=== PATIENT | female | born 1980 | race Caucasian/White ===

== ENCOUNTER 2017-11-12 23:47 | Emergency (ER) | payer OTHER, SELFPAY ==
[2017-11-12 23:53] VITALS: BP 153/83; PULSE 117; RESP 18; TEMP 37.6; O2SAT 99; BMI 42.0
--- NOTE | 2017-11-13 00:56 | HMH.EDURI ---
ED Disposition Clinical Impression: Influenza Disposition: Home, Self-Care Condition on Discharge: Good Instructions: DI for H1N1 Influenza -- Adult Additional Instructions: fluids and see pcp for follow up Prescriptions: Benzonatate [Tessalon Perle 100mg Cap] 100 mg PO TID #30 cap Oseltamivir Phosphate [Tamiflu 75mg Capsule] 75 mg PO BID #10 cap - Critical Care Critical Care Time: No Attestation: On 11/12/17, the high probability of a clinically significant, sudden or life threatening deterioration of the following system(s) required my full and direct attention, intervention and personal management. The time I documented below is in addition to time spent performing reported procedures but includes the following listed in this critical care notation. Medical Decision Making - Medical Records Medical records reviewed: Yes: I reviewed the patient's medical records. Vital Signs: 11/12/17 23:53 Temperature 99.6 F Temperature Source Oral Pulse Rate [Brachial] 117 H Respiratory Rate 18 Blood Pressure [Right Arm] 153/83 Blood Pressure Mean [Right Arm] 106 Blood Pressure Source [Right Arm] Automatic Cuff Blood Pressure Position [Right Arm] Sitting 02 Sat by Pulse Oximetry 99 Oxygen Delivery Method Room Air - Lab Data Lab results reviewed: Yes: I reviewed the patient's lab results. Lab Results 11/13/17 00:05: Influenza Type A Ag Negative, Influenza Type B Ag Positive - Bishop Inquiry Pt receiving controlled substance: No URI/Sore Throat HPI - General Chief Complaint: Upper Respiratory Infection Stated Complaint: Aching,Drainage Nasal Time Seen by Provider: 11/13/17 00:57 Mode of Arrival: Ambulatory Source of Information: Patient, Significant Other, Medical Record Limitations: No Limitations Description of Symptoms (Recalled from ER Triage Doc. by RN): BODY ACHES, COUGH, RUNNY NOSE, FEVER - History of Present Illness HPI Narrative: achey and cough over the last few days with no rash MD Complaint: fever, cough, nasal congestion Onset (ago): day(s) Severity: moderate Relieving factors: OTC cold medicine Description of mucous: clear Context: sick contacts - Related Data Home Medications Medication Instructions Recorded Confirmed Albuterol Sulfate [Proventil-HFA 2 puffs PO NEEDED PRN 11/13/17 11/13/17 90mcg/puff Inh] Previous Rx's Medication Instructions Recorded Benzonatate [Tessalon Perle 100mg 100 mg PO TID #30 cap 11/13/17 Cap] Oseltamivir Phosphate [Tamiflu 75 mg PO BID #10 cap 11/13/17 75mg Capsule] Allergies Allergy/AdvReac Type Severity Reaction Status Date / Time Penicillins [PENICILLINS] Allergy Unknown PASSED OUT Verified 11/13/17 00:01 [facility] History I have reviewed the patient's past medical history: Yes - *Social History Alcohol Intake: never - Psychiatric History Expresses thoughts of harming self/others: None Suicide Plan Description: No Plan ROS Obtained: Yes All systems reviewed & no additional complaints - Constitutional Constitutional: Reports fever(s) - Eyes Eyes: Denies change in vision - ENT Ears, Nose, Mouth, and Throat: Reports nasal congestion - Cardiovascular Cardiovascular: Denies chest pain at rest - Respiratory Respiratory: Yes cough, No coughing up blood - Gastrointestinal Gastrointestingal: Denies: abdominal pain - Musculoskeletal Musculoskeletal: Denies joint pain - Neurologic Neurologic: Denies seizure-like activity Physical Exam - General General appearance: alert, in no apparent distress - Head Head exam: atraumatic - Eye Eye exam: Present: PERRL, EOMI. Absent: scleral icterus - ENT ENT exam: Present: mucous membranes moist - Neck Neck exam: Present: full ROM - Respiratory Respiratory exam: Present: other (rhonchi). Absent: respiratory distress - Cardiovascular Cardiovascular exam: Present: regular rate. Absent: systolic murmur - Abdominal Exam Abdomin
--- NOTE | 2017-11-13 01:00 | ED_ITS ---
ED Disposition Clinical Impression: Influenza Disposition: Home, Self-Care Condition on Discharge: Good Instructions: DI for H1N1 Influenza -- Adult Additional Instructions: fluids and see pcp for follow up Prescriptions: Benzonatate [Tessalon Perle 100mg Cap] 100 mg PO TID #30 cap Oseltamivir Phosphate [Tamiflu 75mg Capsule] 75 mg PO BID #10 cap - Critical Care Critical Care Time: No Attestation: On 11/12/17, the high probability of a clinically significant, sudden or life threatening deterioration of the following system(s) required my full and direct attention, intervention and personal management. The time I documented below is in addition to time spent performing reported procedures but includes the following listed in this critical care notation. Medical Decision Making - Medical Records Medical records reviewed: Yes: I reviewed the patient's medical records. Vital Signs: 11/12/17 23:53 Temperature 99.6 F Temperature Source Oral Pulse Rate [Brachial] 117 H Respiratory Rate 18 Blood Pressure [Right Arm] 153/83 Blood Pressure Mean [Right Arm] 106 Blood Pressure Source [Right Arm] Automatic Cuff Blood Pressure Position [Right Arm] Sitting 02 Sat by Pulse Oximetry 99 Oxygen Delivery Method Room Air - Lab Data Lab results reviewed: Yes: I reviewed the patient's lab results. Lab Results 11/13/17 00:05: Influenza Type A Ag Negative, Influenza Type B Ag Positive - Bishop Inquiry Pt receiving controlled substance: No URI/Sore Throat HPI - General Chief Complaint: Upper Respiratory Infection Stated Complaint: Aching,Drainage Nasal Time Seen by Provider: 11/13/17 00:57 Mode of Arrival: Ambulatory Source of Information: Patient, Significant Other, Medical Record Limitations: No Limitations Description of Symptoms (Recalled from ER Triage Doc. by RN): BODY ACHES, COUGH , RUNNY NOSE, FEVER - History of Present Illness HPI Narrative: achey and cough over the last few days with no rash MD Complaint: fever, cough, nasal congestion Onset (ago): day(s) Severity: moderate Relieving factors: OTC cold medicine Description of mucous: clear Context: sick contacts - Related Data Home Medications Medication Instructions Recorded Confirmed Albuterol Sulfate [Proventil-HFA 2 puffs PO NEEDED PRN 11/13/17 11/13/17 90mcg/puff Inh] Previous Rx's Medication Instructions Recorded Benzonatate [Tessalon Perle 100mg 100 mg PO TID #30 cap 11/13/17 Cap] Oseltamivir Phosphate [Tamiflu 75 mg PO BID #10 cap 11/13/17 75mg Capsule] Allergies Allergy/AdvReac Type Severity Reaction Status Date / Time Penicillins [PENICILLINS] Allergy Unknown PASSED OUT Verified 11/13/17 00:01 [facility] History I have reviewed the patient's past medical history: Yes - *Social History Alcohol Intake: never - Psychiatric History Expresses thoughts of harming self/others: None Suicide Plan Description: No Plan ROS Obtained: Yes All systems reviewed & no additional complaints - Constitutional Constitutional: Reports fever(s) - Eyes Eyes: Denies change in vision - ENT Ears, Nose, Mouth, and Throat: Reports nasal congestion - Cardiovascular Cardiovascular: Denies chest pain at rest - Respiratory
== END 2017-11-13 01:12 | disposition home or self-care (01) ==
PROVIDERS: Emergency Provider Emergency Medicine
DX: J11.1 Influenza due to unidentified influenza virus with other respiratory manifestations (principal); Z88.1 Allergy status to other antibiotic agents
CPT/HCPCS: 87275; 87276; 99282

== ENCOUNTER 2017-11-15 12:06 | Emergency (ER) | payer OTHER, SELFPAY ==
[2017-11-15 12:17] VITALS: BP 150/77; PULSE 92; RESP 18; TEMP 37; O2SAT 98; BMI 38.9
--- NOTE | 2017-11-15 12:29 | HMH.EDGENADL ---
ED Disposition Clinical Impression: Hyperglycemia UTI (urinary tract infection) Qualifiers: Urinary tract infection type: acute cystitis Hematuria presence: without hematuria Qualified Code(s): N30.00 - Acute cystitis without hematuria Vomiting Qualifiers: Vomiting type: unspecified Vomiting Intractability: non-intractable Nausea presence: with nausea Qualified Code(s): R11.2 - Nausea with vomiting, unspecified Diarrhea Qualifiers: Diarrhea type: unspecified type Qualified Code(s): R19.7 - Diarrhea, unspecified Disposition: Home, Self-Care Condition on Discharge: Good Instructions: DI for Urinary Tract Infection (UTI), DI for Vomiting -- Adult, DI for Diarrhea and Traveler's Diarrhea -- Adult, DI for Hyperglycemia -- Adult Additional Instructions: Off work until 11/17/17. Stop taking Tamiflu as this may be causing vomiting. Follow-up with Dr. Cox for elevated blood sugar. Call Friday for appointment. Additional instructions for URINARY TRACT INFECTION: See your physician as soon as possible for further evaluation. Return immediately if you have an uncontrollable fever greater than 102 degrees, severe back or abdominal pain, inability to urinate, or repetetive vomiting. Prescriptions: Ciprofloxacin HCl [Ciprofloxacin 500mg Tab] 500 mg PO BID #20 tab Ondansetron [Zofran 4mg ODT] 4 mg PO TIDP PRN #10 tab.rapdis PRN Reason: Nausea And Vomiting Referrals: Provider,MD Denny [Primary Care Provider] - Francisco Cox MD [Staff Physician] - 3 days Forms: Work/School Release - Critical Care Critical Care Time: No Attestation: On 11/15/17, the high probability of a clinically significant, sudden or life threatening deterioration of the following system(s) required my full and direct attention, intervention and personal management. The time I documented below is in addition to time spent performing reported procedures but includes the following listed in this critical care notation. Medical Decision Making Vital Signs: 11/15/17 12:17 Temperature 98.6 F Temperature Source Oral Pulse Rate [Right Brachial] 92 H Respiratory Rate 18 Blood Pressure [Right Arm] 150/77 Blood Pressure Mean [Right Arm] 101 Blood Pressure Source [Right Arm] Automatic Cuff Blood Pressure Position [Right Arm] Sitting 02 Sat by Pulse Oximetry 98 Oxygen Delivery Method Room Air - Lab Data Lab results reviewed: Yes: I reviewed the patient's lab results. Lab Results 11/15/17 12:38: Urine Color Yellow, Urine Appearance Turbid, Urine pH 7.0, Ur Specific [place] 1.020, Urine Protein 3+, Urine Glucose (UA) Negative, Urine Ketones Negative, Urine Blood 2+, Urine Nitrate Positive, Urine Bilirubin Negative, Urine Urobilinogen 0.2, Ur Leukocyte Esterase 1+ A, Urine WBC Tntc, Ur Squamous Epith Cells 20-50, Urine Bacteria 4+ 11/15/17 12:38: WBC 4.0 L, RBC 4.87, Hgb 14.7, Hct 42.8, MCV 87.9, MCH 30.1, MCHC 34.2, RDW 13.9, Plt Count 135 L, MPV 7.6, Neut % (Auto) 67.6, Lymph % (Auto) 22.4, [place] % (Auto) 5.8, Eos % (Auto) 4.0, Baso % (Auto) 0.3, Neut # (Auto) 2.7, Lymph # (Auto) 0.9, [place] # (Auto) 0.2, Eos # (Auto) 0.2, Baso # (Auto) 0.0 11/15/17 12:38: Sodium 139, Potassium 3.9, Chloride 105, Carbon Dioxide 29, Anion Gap 8.9, BUN 9, Creatinine 0.98, Estimated Creat Clear 144, Estimated GFR 64, Est GFR ( Amer) 77, Glucose 155 H, Calcium 7.9 L, Total Bilirubin 0.7, AST 28, ALT 20, Alkaline Phosphatase 52, Total Protein 6.9, Albumin 2.7 L, Globulin 4.2 H, Albumin/Globulin Ratio 0.6 L Result diagrams: 11/15/17 12:38 11/15/17 12:38 Orders (Tests/Meds): ED MEDICATIONS Discontinued Medications Generic Name Dose Route Start Last Admin Trade Name Freq PRN Reason Stop Dose Admin Ondansetron HCl 4 mg 11/15/17 12:33 11/15/17 12:46 Zofran 4mg/2ml Vial IV 11/15/17 12:34 4 mg ONCE ONE Administration Sodium Chloride 1,000 ml 11/15/17 12:33 11/15/17 12:45 Sod Chloride 0.9% 1000ml Bag IV 11/15/17
[2017-11-15 12:48] LABS: Microscopic, Urine URINE MICROSCOPIC (MICROSCOPIC)
[2017-11-15 12:52] LABS: Appearance,Urine TURBID (Clear); Bilirubin,Urine Negative (Negative); Blood, Urine 2+ (Negative); Color,Urine YELLOW (Yellow); Glucose,Urine (UA) Negative (Negative); Ketones,Urine Negative (Negative); Leukocyte Esterase,Urine 1+ (Negative); Nitrate,Urine POSITIVE (Negative); Protein,Urine 3+ (Negative); Urobilinogen,Urine 0.2 EU/dl (0.2)
[2017-11-15 12:56] LABS: Basophils % 0.3 % (0.1-2.0); Eosinophils # 0.2 K/mm3 (0.0-0.4); Hematocrit 42.8 % (37.0-47.0); Hemoglobin 14.7 g/dL (12.2-16.2); Lymphocytes # 0.9 K/mm3 (0.7-4.5); Lymphocytes % 22.4 K/mm3 (10-50); Mean Corpuscular HGB Conc 34.2 g/dL (31.8-35.4); Mean Corpuscular Hemoglobin 30.1 pg (27.0-31.2); Mean Corpuscular Volume 87.9 fl (81-99); Mean Platelet Volume 7.6 fl (7.4-10.4); Monocytes # 0.2 K/mm3 (0.1-1.0); Monocytes % 5.8 % (1.7-9.3); Neutrophils # 2.7 K/mm3 (1.8-7.8); Neutrophils % 67.6 % (37.0-80.0); Platelet Count 135 K/mm3 (142-424); Red Blood Count 4.87 M/mm3 (4.20-5.40); Red Cell Distribution Width 13.9 % (11.5-17.5)
[2017-11-15 13:01] LABS: Bacteria,Urine 4+ /lpf; Squamous Epithelial Cell,Urine 20-50 #/hpf (0-5); WBC,Urine TNTC #/hpf (0-3)
[2017-11-15 13:05] LABS: Alanine Aminotransferase 20 U/L (12-78); Albumin Level 2.7 gm/dL (3.4-5.0); Albumin/Globulin Ratio 0.6 (1.1-1.8); Alkaline Phosphatase 52 U/L (46-116); Anion Gap 8.9 mEq/L (5-15); Aspartate Amino Transferase 28 U/L (15-37); Bilirubin,Total 0.7 mg/dL (0.2-1.0); Blood Urea Nitrogen 9 mg/dL (7-18); Calcium 7.9 mg/dL (8.5-10.1); Carbon Dioxide 29 mmol/L (21.0-32.0); Chloride 105 mmol/L (98-107); Creatinine Clearance Estimated 144 mL/min (0-300); Creatinine,Serum 0.98 mg/dL (0.55-1.02); Estimated Glomerular Filt Rate 64 ml/min (>60); GFR (African American) 77 ML/MIN (>60); Globulin 4.2 gm/dl (1.3-3.2); Glucose 155 mg/dL (74-106); Potassium 3.9 mmoL/L (3.5-5.1); Sodium 139 mmol/L (136-145); Total Protein,Serum 6.9 gm/dL (6.4-8.2)
[2017-11-15 13:29] VITALS: BP 126/72; PULSE 74; RESP 18; O2SAT 96
== END 2017-11-15 13:45 | disposition home or self-care (01) ==
PROVIDERS: Emergency Provider Emergency Medicine
DX: R73.9 Hyperglycemia, unspecified (principal); N30.00 Acute cystitis without hematuria; R19.7 Diarrhea, unspecified; R11.10 Vomiting, unspecified; Z88.0 Allergy status to penicillin; Z79.899 Other long term (current) drug therapy
CPT/HCPCS: 80053; 81001; 85025; 87086; 87088; 87186; 96374; 96375; 99283; J2405

== ENCOUNTER → 2018-03-09 14:15 | Outpatient (REF) | payer OTHER, SELFPAY ==
[2018-03-09 18:17] LABS: Basophils % 0.3 % (0.1-2.0); Eosinophils # 0.2 K/mm3 (0.0-0.4); Eosinophils % 4.1 % (0.1-12.0); Hematocrit 39.4 % (37.0-47.0); Hemoglobin 13.3 g/dL (12.2-16.2); Lymphocytes # 1.2 K/mm3 (0.7-4.5); Lymphocytes % 22.4 K/mm3 (10-50); Mean Corpuscular HGB Conc 33.7 g/dL (31.8-35.4); Mean Corpuscular Hemoglobin 30.6 pg (27.0-31.2); Mean Corpuscular Volume 90.8 fl (81-99); Mean Platelet Volume 7.8 fl (7.4-10.4); Monocytes # 0.4 K/mm3 (0.1-1.0); Monocytes % 6.4 % (1.7-9.3); Neutrophils # 3.7 K/mm3 (1.8-7.8); Neutrophils % 66.8 % (37.0-80.0); Platelet Count 205 K/mm3 (142-424); Red Blood Count 4.34 M/mm3 (4.20-5.40); Red Cell Distribution Width 14.5 % (11.5-17.5); White Blood Count 5.5 K/mm3 (4.8-10.8)
[2018-03-09 19:05] LABS: Hemoglobin A1C 6.7 % (0.0-7.0)
[2018-03-09 19:11] LABS: Alanine Aminotransferase 29 U/L (12-78); Albumin Level 2.6 gm/dL (3.4-5.0); Albumin/Globulin Ratio 0.7 (1.1-1.8); Alkaline Phosphatase 47 U/L (46-116); Aspartate Amino Transferase 28 U/L (15-37); Bilirubin,Total 0.4 mg/dL (0.2-1.0); Blood Urea Nitrogen 10 mg/dL (7-18); Calcium 8.2 mg/dL (8.5-10.1); Carbon Dioxide 25 mmol/L (21.0-32.0); Chol/HDL Ratio 3.7 (1-3.5); Cholesterol 128 mg/dL (140-200); Creatinine,Serum 0.96 mg/dL (0.55-1.02); Estimated Glomerular Filt Rate 65 ml/min (>60); Free T4 (Free Thyroxine) 1.04 ng/dl (0.76-1.46); GFR (African American) 79 ML/MIN (>60); Globulin 3.5 gm/dl (1.3-3.2); Glucose 229 mg/dL (74-106); HDL Cholesterol 35 mg/dL (29-89); LDL Cholesterol 48 mg/dL (0-130); Total Protein,Serum 6.1 gm/dL (6.4-8.2); Triglycerides 225 mg/dL (30-200); VLDL Cholesterol 45 mg/dL (0-40)
[2018-03-09 19:14] LABS: Potassium 4.4 mmoL/L (3.5-5.1)
[2018-03-09 19:28] LABS: Anion Gap 7.4 mEq/L (5-15); Chloride 104 mmol/L (98-107); Sodium 132 mmol/L (136-145)
[2018-03-12 06:19] LABS: Vitamin D 25 Hydroxy 17.7 ng/mL (30.0-100.0)
== END ==
LOC: LAB 14:15
PROVIDERS: Visit Provider Nurse Practitioner Family
DX: R53.83 Other fatigue (principal); Z79.899 Other long term (current) drug therapy
CPT/HCPCS: 80053; 80061; 82652; 83036; 84439; 84443; 85025

== ENCOUNTER → 2018-03-13 13:43 | Outpatient (CLI) | payer OTHER, SELFPAY ==
[2018-03-13 18:22] LABS: HCG Qualitative, Serum Negative (Negative)
== END ==
PROVIDERS: Visit Provider Nurse Practitioner Family
DX: N92.6 Irregular menstruation, unspecified (principal)
CPT/HCPCS: 84703

== ENCOUNTER → 2018-06-24 12:58 | Outpatient (CLI) | payer OTHER, SELFPAY ==
[2018-06-24 13:35] LABS: Uric Acid 6.4 mg/dL (2.6-7.2)
[2018-06-24 13:36] LABS: Hemoglobin A1C 6.6 % (0.0-7.0)
[2018-06-24 15:06] LABS: Erythrocyte Sedimentation Rate 41 mm/hr (0-20)
== END ==
PROVIDERS: Visit Provider Nurse Practitioner Family
DX: M79.675 Pain in left toe(s) (principal); R53.83 Other fatigue
CPT/HCPCS: 36415; 83036; 84550; 85651

== ENCOUNTER → 2018-07-20 10:02 | Outpatient (CLI) | payer OTHER, SELFPAY ==
--- NOTE | 2018-07-20 10:04 | XR_ITS ---
XR foot wt bearing LT 3V HISTORY: Left foot and toe pain ITS.REASON: toe pain ORDERING PHYSICIAN: Nimo Evans DPM PATIENT AGE: 38 years COMPARISON: None FINDINGS: No fracture or dislocation. No lytic or blastic change. Hypertrophic changes are present dorsally at the navicular cuneiform joint. There is a prominent calcaneal spur at 16 mm. There are hypertrophic changes also at the bases of the second, third, and fourth metatarsals. IMPRESSION: No acute finding. Hypertrophic changes at the navicular cuneiform joint with prominent calcaneal spur noted
--- NOTE | 2018-07-20 10:04 | XR_ITS ---
XR foot wt bearing RT 3V HISTORY: Foot pain ITS.REASON: toe pain ORDERING PHYSICIAN: Nimo Evans DPM PATIENT AGE: 38 years COMPARISON: None FINDINGS: No fracture or dislocation. No lytic changes. There are hypertrophic changes dorsally at the talonavicular joint and at the navicular cuneiform joint and there are hypertrophic changes at the bases of the second, third, and fourth metatarsals. There is a fairly prominent calcaneal spur at 13 mm. No lytic or blastic change. IMPRESSION: No acute finding. Hypertrophic changes at the talonavicular and navicular cuneiform joint as well mildly prominent calcaneal spur
[2018-07-20 11:02] LABS: Urine Pregnancy, HCG Qual. Negative (Negative)
== END ==
PROVIDERS: PCP Emergency Medicine; Visit Provider Podiatrist
DX: M79.676 Pain in unspecified toe(s) (principal); N92.6 Irregular menstruation, unspecified
CPT/HCPCS: 73630; 81025

== ENCOUNTER → 2018-08-06 08:46 | Outpatient (CLI) | payer OTHER, SELFPAY ==
--- NOTE | 2018-08-06 08:52 | US_ITS ---
US Arterial Ankle Brachial Ind History: ITS.REASON: skin changes, blue toe, claudication, pain ORDERING PHYSICIAN: Nimo Evans DPM PATIENT AGE: 38 years TECHNIQUE: Segmental pressures obtained of both right and left leg. These are compared to brachial blood pressure to yield index at each level sampled including summary LORI. The data sheets from the procedure are available in PACS FINDINGS Rest study only performed today No prior studies available for comparison. Blood pressures reported are in millimeters mercury. RIGHT LEG LORI = 1.2. RIGHT LEG TBI=1.2 Brachial BP: 143 Thigh BP: 187 Calf BP: 196 Ankle PT: 185 Ankle DP : 172 Digit =175 LEFT LEG LORI = 1.3 LEFT LEG TBI= 1.2 Brachial BPD: 150 Thigh BP: 172 Calf BP: 211 Ankle PT:189 Ankle DP: 172 Digit = 175 Pulses and waveforms: Normal IMPRESSION: The ABIs and TBI as reported above are within normal limits. Waveforms and pulses are also unremarkable.
== END ==
PROVIDERS: PCP Emergency Medicine; Visit Provider Podiatrist
DX: R09.89 Other specified symptoms and signs involving the circulatory and respiratory systems (principal)
CPT/HCPCS: 93922

== ENCOUNTER → 2019-01-26 10:55 | Outpatient (CLI) | payer OTHER, SELFPAY ==
--- NOTE | 2019-01-26 10:59 | XR_ITS ---
XR chest 2V HISTORY: ITS.REASON: cough ORDERING PHYSICIAN: Pearl Miles PATIENT AGE: 38 years COMPARISON: 11/17/2018 FINDINGS: The cardiomediastinal silhouette and pulmonary vascularity are within normal limits. The lungs are clear without infiltrates, suspicious nodules, or pleural effusions. No acute bony abnormalities. IMPRESSION: Negative chest, no acute finding
== END ==
PROVIDERS: PCP Emergency Medicine; Visit Provider Nurse Practitioner Family
DX: R05 Cough (principal); R06.02 Shortness of breath
CPT/HCPCS: 71046

== ENCOUNTER → 2020-06-27 16:14 | Outpatient (CLI) | payer OTHER, SELFPAY ==
[2020-06-27 21:41] LABS: Hemoglobin A1C 7.8 % (4.0-6.0)
[2020-06-27 22:03] LABS: Creatinine,Urine Random 115 mg/dL (Not Estab.)
== END ==
PROVIDERS: Visit Provider Family Medicine
DX: E11.9 Type 2 diabetes mellitus without complications (principal); N39.0 Urinary tract infection, site not specified
CPT/HCPCS: 82043; 82570; 83036

== ENCOUNTER → 2020-10-03 16:50 | Outpatient (CLI) | payer OTHER, SELFPAY ==
[2020-10-05 09:50] LABS: Covid-19 Nasal PCR Sendout Lex NOT DETECTED
== END ==
PROVIDERS: PCP Emergency Medicine; Visit Provider Emergency Medicine
DX: Z03.818 Encounter for observation for suspected exposure to other biological agents ruled out (principal)
CPT/HCPCS: U0004

== ENCOUNTER 2020-12-03 15:07 | Emergency (ER) | payer OTHER, SELFPAY ==
[2020-12-03 15:08] VITALS: BP 145/81; PULSE 91; RESP 16; TEMP 37; O2SAT 98; BMI 40.8
--- NOTE | 2020-12-03 15:15 | PC.NURSE ---
PT ALERT AND ORIENTED X 4 SKIN WARM AND DRY PT FOLLOWS COMMANDS PT AMBULATORY.
--- NOTE | 2020-12-03 15:23 | CT_ITS ---
PROCEDURE: CT HEAD/BRAIN WO CON CLINICAL INDICATION: HEADACHE Headache for 3 days with nausea and vomiting COMPARISON: No exams were available for comparison TECHNIQUE: Axial images obtained. All CT scans at the facility use one or more dose reduction, viz: automated exposure control, ma/kV adjustment per patient size (including targeted exams where dose is matched to indication, i.e. head), or iterative reconstruction technique. FINDINGS: There is asymmetrical thickening lobulation increased density of left choroid plexus compared to the right which is suspicious for hemorrhage extending posteriorly into the trigone of the left lateral ventricle. No midline shift or mass effect. No hydrocephalus. No mastoid effusion or sinus air-fluid level. IMPRESSION: Findings suspicious for acute versus subacute intraventricular hemorrhage involving the left lateral ventricle. Differential diagnosis would include hypertension, and a coagulation therapy, underlying occult intraventricular tumor or vascular malformation. Dictated by: Antonino Mireles MD 12/04/2020 05:34 Antonino Mireles MD in [place] 12/04/2020 05:34
--- NOTE | 2020-12-03 15:37 | PC.NURSE ---
PT IN CT
--- NOTE | 2020-12-03 16:19 | HMH.EDGENADL ---
ED Disposition Clinical Impression: Intraventricular hemorrhage Disposition: Xfer Short-Term Hosp Condition on Discharge: Serious Referrals: Francisco Cox MD [Primary Care Provider] - - Critical Care Critical Care Time: Yes Attestation: On 12/03/20, the high probability of a clinically significant, sudden or life threatening deterioration of the following system(s) required my full and direct attention, intervention and personal management. The time I documented below is in addition to time spent performing reported procedures but includes the following listed in this critical care notation. Vital system(s) involved:: Central Nervous System My critical care processes included: Assessment & monitoring of V/S, Initial and Re-exams, Data Review/Interpretation, Coordinating Care, Medication Orders and management, Documentation Medical Decision Making - Bishop Inquiry Pt receiving controlled substance: Yes Bishop was queried for this patient: No Reason not queried -: Emergent pt cond-no time Risks and benefits of using a controlled substance: were not discussed with pt by me Vital Signs: 12/03/20 15:08 12/03/20 16:23 12/03/20 16:30 Temperature 98.6 F Temperature Source Oral Pulse Rate [Radial] 91 H 74 80 Respiratory Rate 16 16 16 Blood Pressure [Right Arm] 145/81 H 138/68 146/66 H Blood Pressure Mean [Right Arm] 102 91 92 Blood Pressure Source [Right Arm] Automatic Cuff Blood Pressure Position [Right Arm] Sitting Sitting 02 Sat by Pulse Oximetry 98 100 98 Oxygen Delivery Method Room Air Room Air Room Air - Lab Data Lab Results 12/03/20 16:00: WBC 7.8, RBC 4.49, Hgb 13.7, Hct 41.0, MCV 91.2, MCH 30.5, MCHC 33.5, RDW 14.8, Plt Count 195, MPV 7.5, Neut % (Auto) 81.6 H, Lymph % (Auto) 12.4, [place] % (Auto) 4.2, Eos % (Auto) 1.7, Baso % (Auto) 0.2, Neut # (Auto) 6.4, Lymph # (Auto) 1.0, [place] # (Auto) 0.3, Eos # (Auto) 0.1, Baso # (Auto) 0.0 12/03/20 16:00: Sodium 136, Potassium 4.0, Chloride 106, Carbon Dioxide 22, Anion Gap 12.0, BUN 22 H, Creatinine 1.90 H, Estimated Creat Clear 80, Estimated GFR 29 L, Est GFR ( Amer) 35 L, Total Bilirubin 0.5, AST 20, ALT 18, Alkaline Phosphatase 61, Total Protein 7.3, Albumin 3.4 L, Globulin 3.9 H, Albumin/Globulin Ratio 0.9 L Result diagrams: 12/03/20 16:00 12/03/20 16:00 Orders (Tests/Meds): ED MEDICATIONS Discontinued Medications Generic Name Dose Route Start Last Admin Trade Name Freq PRN Reason Stop Dose Admin Hydromorphone HCl 1 mg 12/03/20 16:31 12/03/20 16:36 Hydromorphone 2mg/Ml Syringe IV 12/03/20 16:32 1 mg ONCE ONE Administration Sodium Chloride 1,000 mls @ 999 mls/hr 12/03/20 15:30 12/03/20 16:07 Sod Chlor 0.9% 1000ml Bag IV 12/03/20 16:30 999 mls/hr .Q1H1M MELINA Administration Ondansetron HCl 4 mg 12/03/20 16:31 12/03/20 16:36 Ondansetron 4mg/2ml Vial IV 12/03/20 16:32 4 mg ONCE ONE Administration ORDERS Category Date Time Status CT head/brain wo con Stat Cat Scan 12/03/20 15:23 Taken Comprehensive Metabolic Panel Stat Lab 12/03/20 16:00 Results Covid-19 Nasal PCR ([facility]) Routine Lab 12/03/20 16:00 Received INR [Prothrombin Time INR] Stat Lab 12/03/20 16:00 Received PT/PTT Stat Lab 12/03/20 16:00 Received - CT Data CT Scan: Head Time Received: 16:20 ([facility] fax) ED CT Reviewed: Yes: I have viewed the radiologist's interpretation Findings Narrative: Findings suspicious for acute versus subacute intraventricular hemorrhage, involving the left lateral ventricle. No hydrocephalus. Differential etiologies would include hypertension, anticoagulation therapy, or underlying occult intraventricular tumor or vascular malformation. - Physician Consults Physician Consulted: Jerry Time: 16:36 Reason -: Transfer to another facilty, Other (Neurosurgery) Comment/Response: Sent to [facility] emergency department now General Adult HPI - General Chief complaint: Headache Stated
[2020-12-03 16:23] VITALS: BP 138/68; PULSE 74; RESP 16; O2SAT 100
--- NOTE | 2020-12-03 16:23 | PC.NURSE ---
speaking anahi CHAMBERLAIN
[2020-12-03 16:30] VITALS: BP 146/66; PULSE 80; RESP 16; O2SAT 98
[2020-12-03 16:33] LABS: Basophils % 0.2 % (0.1-2.0); Eosinophils # 0.1 K/mm3 (0.0-0.4); Eosinophils % 1.7 % (0.1-12.0); Hemoglobin 13.7 g/dL (12.2-16.2); Lymphocytes % 12.4 % (10-50); Mean Corpuscular HGB Conc 33.5 g/dL (31.8-35.4); Mean Corpuscular Hemoglobin 30.5 pg (27.0-31.2); Mean Corpuscular Volume 91.2 fl (81-99); Mean Platelet Volume 7.5 fl (7.4-10.4); Monocytes # 0.3 K/mm3 (0.1-1.0); Monocytes % 4.2 % (1.7-9.3); Neutrophils # 6.4 K/mm3 (1.8-7.8); Neutrophils % 81.6 % (37.0-80.0); Platelet Count 195 K/mm3 (142-424); Red Blood Count 4.49 M/mm3 (4.20-5.40); Red Cell Distribution Width 14.8 % (11.5-17.5); White Blood Count 7.8 K/mm3 (4.8-10.8)
[2020-12-03 16:35] LABS: Chloride 106 mmol/L (98-107)
[2020-12-03 16:36] LABS: Sodium 136 mmol/L (136-145)
--- NOTE | 2020-12-03 16:37 | PC.NURSE ---
speaking with Dr. Goncalves
[2020-12-03 16:38] LABS: Alanine Aminotransferase 18 U/L (12-78); Alkaline Phosphatase 61 U/L (38-126); Aspartate Amino Transferase 20 U/L (14-36); Bilirubin,Total 0.5 mg/dl (0.2-1.3); Blood Urea Nitrogen 22 mg/dl (7-17); Creatinine Clearance Estimated 80 mL/min (50-200); Estimated Glomerular Filt Rate 29 ml/min (>60); GFR (African American) 35 ML/MIN (>60)
[2020-12-03 16:39] LABS: Albumin Level 3.4 g/dl (3.5-5.0); Albumin/Globulin Ratio 0.9 (1.1-1.8); Calcium 8.3 mg/dl (8.4-10.2); Carbon Dioxide 22 mmol/L (22.0-30.0); Globulin 3.9 g/dL (1.3-3.2); Glucose 196 mg/dl (74-100); Total Protein,Serum 7.3 g/dl (6.3-8.2)
[2020-12-03 16:42] LABS: Activated Partial Thrombo Time 24.3 seconds (23.6-34.0); INR 1.02 (0.9-1.1); Prothrombin Time 11.3 seconds (9.4-11.8)
--- NOTE | 2020-12-03 16:42 | PC.NURSE ---
notified deanne of transfer. Both trucks out on 911 calls currently
[2020-12-03 17:00] VITALS: BP 140/59; PULSE 70
--- NOTE | 2020-12-03 17:03 | PC.NURSE ---
FAMILY AT BEDSIDE
[2020-12-03 17:17] LABS: HCG Qualitative, Serum Negative (Negative)
[2020-12-03 17:30] VITALS: BP 137/64; PULSE 64
--- NOTE | 2020-12-03 17:47 | PC.NURSE ---
REPORT CALLED TO [facility] MARY RN
[2020-12-03 18:07] VITALS: BP 135/74; PULSE 74; RESP 22; TEMP 36.6; O2SAT 98
--- NOTE | 2020-12-03 21:12 | PC.NURSE ---
Positive COVID results called by LAB, I attempted to call pt and she did not answer
--- NOTE | 2020-12-04 03:19 | PC.NURSE ---
faxed a copy of covid + result to [facility]. nyla valdez called [facility] and notified nurse taking care of patient
--- NOTE | 2020-12-04 03:25 | PC.NURSE ---
I spoke with Lavon MATHIS at [facility] ED and gave him pt's COVID results
--- NOTE | 2020-12-04 07:43 | PC.NURSE ---
lori of [facility] called requesting this pts covid results be faxed.to [phone].this was done
== END 2020-12-03 18:08 | disposition short-term general hospital (02) ==
PROVIDERS: Emergency Provider Emergency Medicine; PCP Emergency Medicine
DX: I61.5 Nontraumatic intracerebral hemorrhage, intraventricular (principal); U07.1 COVID-19; J45.909 Unspecified asthma, uncomplicated; Z79.899 Other long term (current) drug therapy; I10 Essential (primary) hypertension
CPT/HCPCS: 70450; 80053; 84703; 85025; 85610; 85730; 96365; 96375; 96376; 99284; J2405; U0003

== ENCOUNTER → 2020-12-22 15:20 | Outpatient (CLI) | payer OTHER, SELFPAY ==
[2020-12-22 17:22] LABS: Chloride 103 mmol/L (98-107); Potassium 4.6 mmoL/L (3.5-5.1); Sodium 137 mmol/L (136-145)
[2020-12-22 17:25] LABS: Anion Gap 12.6 mEq/L (5-15); Blood Urea Nitrogen 15 mg/dl (7-17); Carbon Dioxide 26 mmol/L (22.0-30.0); Estimated Glomerular Filt Rate 38 ml/min (>60); GFR (African American) 47 ML/MIN (>60)
[2020-12-22 17:26] LABS: Calcium 9.4 mg/dl (8.4-10.2); Glucose 188 mg/dl (74-100)
== END ==
PROVIDERS: Visit Provider Physician Assistant Medical
DX: Z00.00 Encounter for general adult medical examination without abnormal findings (principal); I10 Essential (primary) hypertension
CPT/HCPCS: 36415; 80048

== ENCOUNTER → 2021-02-12 16:42 | Outpatient (CLI) | payer OTHER, SELFPAY ==
[2021-02-12 17:57] LABS: Alanine Aminotransferase 18 U/L (12-78); Alkaline Phosphatase 62 U/L (38-126); Anion Gap 11.9 mEq/L (5-15); Aspartate Amino Transferase 31 U/L (14-36); Bilirubin,Total 0.6 mg/dl (0.2-1.3); Blood Urea Nitrogen 13 mg/dl (7-17); Calcium 8.1 mg/dl (8.4-10.2); Carbon Dioxide 22 mmol/L (22.0-30.0); Chloride 105 mmol/L (98-107); Estimated Glomerular Filt Rate 45 ml/min (>60); GFR (African American) 55 ML/MIN (>60); Globulin 2.9 g/dL (1.3-3.2); Glucose 236 mg/dl (74-100); Potassium 3.9 mmoL/L (3.5-5.1); Sodium 135 mmol/L (136-145); Total Protein,Serum 5.9 g/dl (6.3-8.2)
[2021-02-12 18:23] LABS: Hemoglobin A1C 6.5 % (4.0-6.0)
== END ==
PROVIDERS: Visit Provider Family Medicine
DX: E11.9 Type 2 diabetes mellitus without complications (principal); L81.9 Disorder of pigmentation, unspecified; L02.612 Cutaneous abscess of left foot; Z79.84 Long term (current) use of oral hypoglycemic drugs
CPT/HCPCS: 80053; 83036; 87070; 87077; 87205

== ENCOUNTER → 2021-02-13 08:38 | Outpatient (CLI) | payer OTHER, SELFPAY ==
--- NOTE | 2021-02-13 08:49 | XR_ITS ---
PROCEDURE: XR FOOT WT BEARING LT 3V CLINICAL INDICATION: infection of foot Pain and swelling COMPARISON: CR [id number] XR foot wt bearing RT 3V from 07/20/2018 CR [id number] XR foot wt bearing LT 3V from 07/20/2018 FINDINGS: No fracture or dislocation. No lytic or blastic change. There is normal mineralization. Osteoarthritic changes are present at the talonavicular and navicular cuneiform joint. These findings have progressed compared to 07/20/2018. There is pes planus. There is a small calcaneal spur. Hypertrophic changes are present along the proximal shaft of the 4th and 5th metatarsals. No bony destructive process apparent IMPRESSION: Osteoarthritic change with pes planus. Dictated by: Antonino Mireles MD 02/13/2021 16:16 Antonino Mireles MD in [facility] 02/13/2021 16:16
--- NOTE | 2021-02-13 08:49 | XR_ITS ---
PROCEDURE: XR FOOT WT BEARING RT 3V CLINICAL INDICATION: comparison views COMPARISON: CR [id number] XR foot wt bearing RT 3V from 07/20/2018 CR [id number] XR foot wt bearing LT 3V from 07/20/2018 FINDINGS: No fracture or dislocation. No lytic or blastic change. There is normal mineralization. Osteoarthritic changes are present at the talonavicular joint and navicular cuneiform joint with bony spurring. There is a small calcaneal spur and there are mild hypertrophic changes along the proximal shaft of the 3rd and 4th metatarsals. Other findings:Borderline pes planus IMPRESSION: Degenerative changes as described above Dictated by: Antonino Mireles MD 02/13/2021 16:14 Antonino Mireles MD in [facility] 02/13/2021 16:14
[2021-02-13 09:26] LABS: Basophils % 0.2 % (0.1-2.0); Eosinophils # 0.2 K/mm3 (0.0-0.4); Eosinophils % 3.1 % (0.1-12.0); Hematocrit 33.3 % (37.0-47.0); Hemoglobin 11.2 g/dL (12.2-16.2); Lymphocytes # 1.3 K/mm3 (0.7-4.5); Lymphocytes % 21.3 % (10-50); Mean Corpuscular HGB Conc 33.6 g/dL (31.8-35.4); Mean Corpuscular Hemoglobin 30.5 pg (27.0-31.2); Mean Platelet Volume 7.3 fl (7.4-10.4); Monocytes # 0.3 K/mm3 (0.1-1.0); Neutrophils # 4.4 K/mm3 (1.8-7.8); Neutrophils % 70.5 % (37.0-80.0); Platelet Count 214 K/mm3 (142-424); Red Blood Count 3.66 M/mm3 (4.20-5.40); Red Cell Distribution Width 16.1 % (11.5-17.5); White Blood Count 6.2 K/mm3 (4.8-10.8)
[2021-02-13 10:00] LABS: C-Reactive Protein 24.7 mg/L (0-4)
[2021-02-13 10:46] LABS: Erythrocyte Sedimentation Rate 113 mm/hr (0-20)
== END ==
PROVIDERS: Nurse Practitioner; Visit Provider Nurse Practitioner Family
DX: M79.672 Pain in left foot (principal); L03.90 Cellulitis, unspecified
CPT/HCPCS: 36415; 73630; 85025; 85651; 86140

== ENCOUNTER 2021-04-24 17:47 | Emergency (ER) | payer OTHER, SELFPAY ==
[2021-04-24 18:02] VITALS: BP 139/72; PULSE 87; RESP 21; TEMP 37.6; O2SAT 100; BMI 39.0
[2021-04-24 18:05] VITALS: BP 139/72; PULSE 87; RESP 21; TEMP 37.6; O2SAT 100; BMI 39.2
--- NOTE | 2021-04-24 18:54 | HMH.EDUTC ---
[facility] [place] Disposition Clinical Impression: Bronchitis Sinusitis Qualifiers: Sinusitis location: unspecified location Chronicity: unspecified Qualified Code(s): J32.9 - Chronic sinusitis, unspecified Disposition: Home, Self-Care Condition on Discharge: Good Instructions: Sinusitis, DI for Sinusitis, Acute Bronchitis Additional Instructions: ? Start antibiotic today. Be sure to complete entire prescription even if feeling better ? Monitor temp. Tylenol every 4 hours as needed and / or ibuprofen every 6 hours as needed ( As long as your primary care physician has told you that it ok to take both. For fever/aches/pains ER if no less than 101 despite Tylenol or Motrin ? Humidifier/vaporizer or hot steamy shower ? Inhaler every 4-6 hours as needed like we discussed. If unsure how to use it, ask pharmacist to demonstrate how. Should help open airways and improve cough, wheezing, and shortness of breath ? Mucinex during the day for your cough and cough suppressant only at night. Be sure to drink lots of water. Insurance may not cover a prescriptions for mucinex. Follow up IMMEDIATELY for new or worsening of symptoms OR no noticeable improvement over the next 48-72 hours. 911 immediately for any life threatening symptoms such as chest pain or difficulty breathing Prescriptions: guaiFENesin [Mucinex 600mg tablet] 1 - 2 tab PO Q12H PRN #20 tab.er.12h PRN Reason: Congestion Transmission Status: Pending to [facility] Azithromycin [Z-Jaime 250mg Tab] 250 mg PO DIRECTED #6 tab Transmission Status: Pending to [facility] Referrals: Francisco Cox MD [Primary Care Provider] - As needed Time of Disposition: 19:06 Medical Decision Making - Bishop Inquiry Pt receiving controlled substance: No Bishop was queried for this patient: No Vital Signs: 04/24/21 18:02 04/24/21 18:05 Temperature 99.6 F 99.6 F Temperature Source Oral Oral Pulse Rate [Left Radial] 87 87 Respiratory Rate 21 21 Blood Pressure [Right Arm] 139/72 139/72 Blood Pressure Mean [Right Arm] 94 94 Blood Pressure Source [Right Arm] Automatic Cuff Automatic Cuff Blood Pressure Position [Right Arm] Sitting Sitting 02 Sat by Pulse Oximetry 100 100 Oxygen Delivery Method Room Air Room Air - Lab Data Lab results reviewed: Yes: I reviewed the patient's lab results. [facility] [place] HPI - General Stated complaint: possible bronchitis/cough Time Seen by Provider: 04/24/21 18:54 Mode of Arrival: Ambulatory Source of Information: Patient Limitations: No Limitations Description of Symptoms (Recalled from Triage Doc. by RN): PATIENT C/O COUGH WITH TIGHTNESS IN CHEST X 2 WEEKS. STATES SHE WAS GIVEN A Z-PACK BY PCP FOR IT, BUT SAYS IT MADE HER SICK SO SHE WAS UNABLE TO FINISH IT HEENT Symptoms (Recalled from RN notes): No Resp Symptoms (Recalled from RN notes): No Skin Symptoms (Recalled from RN notes): No MS Symptoms (Recalled from RN notes): No Functional Status (Recalled from RN notes): WNL - History of Present Illness Provider Complaint: Patient states that she feels like she is having sinus problems and bronchitis State that she is feeling like she is have tightness in her chest at times and cough States that she feels like she is having drainage in the back of her throat and it is moving into her chest States that her PCP give her a Medrol dose pack but it made her sick so she stopped taking it - Related Data Home Medications Medication Instructions Recorded Confirmed metformin 500 mg tablet 500 mg PO BID 02/01/21 04/24/21 Albuterol Sulfate [Proventil Hfa] 2 puffs IH Q6HP PRN 04/24/21 04/24/21 Previous Rx's Medication Instructions Recorded Azithromycin [Z-Jaime 250mg Tab] 250 mg PO DIRECTED #6 tab 04/24/21 guaiFENesin [Mucinex 600mg tablet] 1 - 2 tab PO Q12H PRN #20 04/24/21 tab.er.12h Allergies Allergy/AdvReac Type Severity Reaction Status Date / Time Penicillins [PENICILLINS] Allergy Unknown PASSED OUT Verified 04/13/21 11:08
[2021-04-24 19:07] VITALS: BP 139/72; PULSE 87; RESP 21; TEMP 37.6; O2SAT 100
== END 2021-04-24 19:12 | disposition home or self-care (01) ==
PROVIDERS: Emergency Provider Nurse Practitioner; PCP Emergency Medicine
DX: J20.9 Acute bronchitis, unspecified (principal); J32.9 Chronic sinusitis, unspecified; E11.9 Type 2 diabetes mellitus without complications; I10 Essential (primary) hypertension; J45.909 Unspecified asthma, uncomplicated; Z79.899 Other long term (current) drug therapy
CPT/HCPCS: 99202; G0463

== ENCOUNTER 2021-05-14 19:48 | Emergency (ER) | payer OTHER, SELFPAY ==
[2021-05-14 20:05] VITALS: BP 101/42; PULSE 85; RESP 16; TEMP 36.9; O2SAT 100; BMI 39.0
--- NOTE | 2021-05-14 20:16 | CT_ITS ---
PROCEDURE INFORMATION: Exam: CT Head Without Contrast Exam date and time: 05/14/2021 8:16 PM Age: 41 years old Clinical indication: Other: Headache and some blurred vision; Patient HX: Headache and some blurry vision. PT had a brain bleed in November 2020; Additional info: H/a TECHNIQUE: Imaging protocol: Computed tomography of the head without contrast. Total images: 83 Radiation optimization: All CT scans at this facility use at least one of these dose optimization techniques: automated exposure control; mA and/or kV adjustment per patient size (includes targeted exams where dose is matched to clinical indication); or iterative reconstruction. COMPARISON: CT HEAD/BRAIN WO CON 12/03/2020 3:33 PM FINDINGS: Brain: Mild generalized atrophy for stated age, nonspecific and unchanged. No extra-axial fluid collections. No evidence of acute intracranial hemorrhage. The previous left ventricular hemorrhage seen on 12/03/2020 has fully resolved. Rebolledo-white differentiation is well maintained. No CT evidence of large territory acute or subacute intracranial ischemia/infarct. No intracranial mass lesions. No midline shift or herniation. Cerebral ventricles: Ventricles normal, with no evidence of obstructive hydrocephalus. Paranasal sinuses: Visualized paranasal sinuses are clear. Mastoid air cells: Visualized mastoid air cells are clear. Orbital cavity: Visualized orbital contents demonstrate no evidence of acute abnormality. Vasculature: The visualized major intracranial arterial segments demonstrate no gross abnormality by noncontrast CT. No asymmetric vascular hyperdensities suggestive of thrombosis are identified. Bones/joints: The calvarium and visualized facial bones are intact. Soft tissues: The scalp and visualized soft tissues demonstrate no acute abnormality. Other findings: The IACs are grossly normal. The sella is grossly normal. IMPRESSION: 1. No acute intracranial process. No intracranial hemorrhage or mass effect. 2. Mild generalized nonspecific atrophy for stated age.
[2021-05-14 21:03] LABS: Microscopic, Urine URINE MICROSCOPIC (MICROSCOPIC)
[2021-05-14 21:10] LABS: Appearance,Urine SL CLOUDY (Clear); Bilirubin,Urine Negative (Negative); Blood, Urine 3+ (Negative); Color,Urine YELLOW (Yellow); Glucose,Urine (UA) Negative (Negative); Ketones,Urine Negative (Negative); Leukocyte Esterase,Urine Negative (Negative); Nitrate,Urine Negative (Negative); PH,Urine 5.5 (5.0-8.5); Protein,Urine 3+ (Negative); Specific Gravity, Urine >= 1.030 (1.005-1.030); Urobilinogen,Urine 0.2 EU/dl (0.2)
[2021-05-14 21:12] LABS: Basophils % 0.3 % (0.1-2.0); Eosinophils # 0.2 K/mm3 (0.0-0.4); Eosinophils % 2.9 % (0.1-12.0); Hematocrit 34.5 % (37.0-47.0); Hemoglobin 11.8 g/dL (12.2-16.2); Lymphocytes # 1.4 K/mm3 (0.7-4.5); Lymphocytes % 19.4 % (10-50); Mean Corpuscular HGB Conc 34.1 g/dL (31.8-35.4); Mean Corpuscular Hemoglobin 30.9 pg (27.0-31.2); Mean Corpuscular Volume 90.7 fl (81-99); Mean Platelet Volume 7.1 fl (7.4-10.4); Monocytes # 0.5 K/mm3 (0.1-1.0); Monocytes % 6.1 % (1.7-9.3); Neutrophils # 5.3 K/mm3 (1.8-7.8); Neutrophils % 71.3 % (37.0-80.0); Platelet Count 229 K/mm3 (142-424); Red Cell Distribution Width 15.3 % (11.5-17.5); White Blood Count 7.4 K/mm3 (4.8-10.8)
--- NOTE | 2021-05-14 21:12 | HMH.EDHA ---
ED Disposition Clinical Impression: Renal insufficiency Headache Qualifiers: Headache type: unspecified Headache chronicity pattern: episodic headache Intractability: not intractable Qualified Code(s): R51.9 - Headache, unspecified Disposition: Home, Self-Care Condition on Discharge: Good Instructions: DI for Headache Additional Instructions: see pcp in am for follow up Referrals: Francisco Cox MD [Primary Care Provider] - - Critical Care Critical Care Time: No Attestation: On 05/14/21, the high probability of a clinically significant, sudden or life threatening deterioration of the following system(s) required my full and direct attention, intervention and personal management. The time I documented below is in addition to time spent performing reported procedures but includes the following listed in this critical care notation. Medical Decision Making - Medical Records Medical records reviewed: Yes: I reviewed the patient's medical records. - Bishop Inquiry Pt receiving controlled substance: No Vital Signs: 05/14/21 20:05 Temperature 98.5 F Temperature Source Oral Pulse Rate [Right] 85 Respiratory Rate 16 Blood Pressure [Right Arm] 101/42 L Blood Pressure Mean [Right Arm] 61 Blood Pressure Source [Right Arm] Automatic Cuff Blood Pressure Position [Right Arm] Supine 02 Sat by Pulse Oximetry 100 Oxygen Delivery Method Room Air - Lab Data Lab results reviewed: Yes: I reviewed the patient's lab results. Lab Results 05/14/21 20:50: WBC 7.4, RBC 3.80 L, Hgb 11.8 L, Hct 34.5 L, MCV 90.7, MCH 30.9, MCHC 34.1, RDW 15.3, Plt Count 229, MPV 7.1 L, Neut % (Auto) 71.3, Lymph % (Auto) 19.4, [place] % (Auto) 6.1, Eos % (Auto) 2.9, Baso % (Auto) 0.3, Neut # (Auto) 5.3, Lymph # (Auto) 1.4, [place] # (Auto) 0.5, Eos # (Auto) 0.2, Baso # (Auto) 0.0 05/14/21 20:50: Sodium 139, Potassium 4.5, Chloride 108 H, Carbon Dioxide 20 L, Anion Gap 15.5 H, BUN 24 H, Creatinine 1.80 H, Estimated Creat Clear 82, Estimated GFR 31 L, Est GFR ( Amer) 38 L, Glucose 162 H, Calcium 8.6, Total Bilirubin 0.7, AST 40 H, ALT 22, Alkaline Phosphatase 51, C-Reactive Protein 8.1 H, Total Protein 7.5 D, Albumin 4.1, Globulin 3.4 H, Albumin/Globulin Ratio 1.2 05/14/21 20:50: Urine Color Yellow, Urine Appearance Sl cloudy, Urine pH 5.5, Ur Specific [place] >= 1.030, Urine Protein 3+, Urine Glucose (UA) Negative, Urine Ketones Negative, Urine Blood 3+, Urine Nitrate Negative, Urine Bilirubin Negative, Urine Urobilinogen 0.2, Ur Leukocyte Esterase Negative, Urine RBC 10-20, Urine WBC 3-5, Ur Squamous Epith Cells 3-5, Urine Bacteria 1+ 05/14/21 20:50: Urine HCG, Qual Negative Result diagrams: 05/14/21 20:50 05/14/21 20:50 Orders (Tests/Meds): ED MEDICATIONS Generic Name Dose Route Start Last Admin Trade Name Freq PRN Reason Stop Dose Admin Sodium Chloride 1,000 mls @ 999 mls/hr 05/14/21 20:30 05/14/21 20:56 Sod Chlor 0.9% 1000ml Bag IV 05/14/21 21:30 999 mls/hr .Q1H1M MELINA Administration Discontinued Medications Generic Name Dose Route Start Last Admin Trade Name Freq PRN Reason Stop Dose Admin Ketorolac Tromethamine 30 mg 05/14/21 21:20 05/14/21 21:22 Ketorolac 30mg/Ml Vial IV 05/14/21 21:21 30 mg ONCE ONE Administration Methylprednisolone Sodium Succinate 125 mg 05/14/21 21:20 05/14/21 21:22 Methylprednisolone Sod Succ 125mg Vial IV 05/14/21 21:21 125 mg ONCE ONE Administration ORDERS Category Date Time Status C-Reactive Protein Stat Lab 05/14/21 20:50 Results Complete Blood Count Auto Diff Stat Lab 05/14/21 20:50 Results Comprehensive Metabolic Panel Stat Lab 05/14/21 20:50 Results Erythrocyte Sedimentation Rate Stat Lab 05/14/21 20:50 Results Procalcitonin Stat Lab 05/14/21 20:50 Results - CT Data CT Scan: Head Time Received: 21:[address] Reviewed: Yes: I have viewed the radiologist's interpretation Preliminary Findings: Normal/NAD Medical Decision Narrative: pura yancey
[2021-05-14 21:15] LABS: Alanine Aminotransferase 22 U/L (12-78); Albumin Level 4.1 g/dl (3.5-5.0); Albumin/Globulin Ratio 1.2 (1.1-1.8); Alkaline Phosphatase 51 U/L (38-126); Anion Gap 15.5 mEq/L (5-15); Aspartate Amino Transferase 40 U/L (14-36); Bilirubin,Total 0.7 mg/dl (0.2-1.3); Blood Urea Nitrogen 24 mg/dl (7-17); Calcium 8.6 mg/dl (8.4-10.2); Carbon Dioxide 20 mmol/L (22.0-30.0); Chloride 108 mmol/L (98-107); Creatinine Clearance Estimated 82 mL/min (50-200); Estimated Glomerular Filt Rate 31 ml/min (>60); GFR (African American) 38 ML/MIN (>60); Globulin 3.4 g/dL (1.3-3.2); Glucose 162 mg/dl (74-100); Potassium 4.5 mmoL/L (3.5-5.1); Sodium 139 mmol/L (136-145); Total Protein,Serum 7.5 g/dl (6.3-8.2); Urine Pregnancy, HCG Qual. Negative (Negative)
[2021-05-14 21:18] LABS: Bacteria,Urine 1+ /lpf
[2021-05-14 21:21] LABS: C-Reactive Protein 8.1 mg/L (0-4)
[2021-05-14 21:34] LABS: Procalcitonin 0.214 ng/mL (0.0-2.0)
[2021-05-14 21:50] LABS: Erythrocyte Sedimentation Rate 112 mm/hr (0-20)
[2021-05-14 21:53] VITALS: BP 110/62; PULSE 80; RESP 18; TEMP 36.7; O2SAT 99
== END 2021-05-14 22:02 | disposition home or self-care (01) ==
PROVIDERS: Emergency Provider Emergency Medicine; PCP Emergency Medicine
DX: N28.9 Disorder of kidney and ureter, unspecified (principal); E11.9 Type 2 diabetes mellitus without complications; I10 Essential (primary) hypertension
CPT/HCPCS: 70450; 80053; 81001; 81025; 84145; 85025; 85651; 86140; 96365; 96375; 99283

== ENCOUNTER 2021-06-24 18:56 | Emergency (ER) | payer OTHER, SELFPAY ==
[2021-06-24 20:00] VITALS: BP 149/77; PULSE 69; RESP 16; TEMP 36.8; O2SAT 99; BMI 40.4
--- NOTE | 2021-06-24 20:24 | HMH.EDUTC ---
[facility] [place] Clinical Impression: Upper respiratory infection, viral, Exposure to COVID-19 virus Disposition: Home, Self-Care Condition on Discharge: Good Instructions: DI for COVID-19 (Suspected or Confirmed ), Preventing the Spread of Coronavirus Discharge Instructions, DI for Viral Upper Respiratory Infection -- Adult Additional Instructions: covid swab was sent to lab, call later today for results. self isolate until test results are known to be negative No sign of a bacterial infection. Likely viral. Viruses can take 7-14 days to run their course. Nasal saline and bulb syringe or nose Anjana to remove nasal drainage to help with nasal congestion. Hard to eat, drink, sleep with nasal congestion so important to keep this cleaned out. Monitor temp. Tylenol or Motrin as needed for pain or fever Encourage fluids, water, Gatorade, Powerade, Pedialyte if infant/toddler/child Warm salt water gargles Warm fluids Sore throat lozenges Sleep elevated Humidifier/vaporizer Follow-up immediately for new or worsening symptoms or no noticeable improvement over the next 48-72 hours. Referrals: Francisco Cox MD [Primary Care Provider] - Time of Disposition: 20:27 Medical Decision Making - Bishop Inquiry Pt receiving controlled substance: No Vital Signs: 06/24/21 20:00 Temperature 98.3 F Temperature Source Oral Pulse Rate [Right Brachial] 69 Respiratory Rate 16 Blood Pressure [Right Arm] 149/77 H Blood Pressure Mean [Right Arm] 101 Blood Pressure Source [Right Arm] Automatic Cuff Blood Pressure Position [Right Arm] Sitting 02 Sat by Pulse Oximetry 99 Oxygen Delivery Method Room Air Orders (Tests/Meds): ORDERS Category Date Time Status Covid-19 Nasal PCR ([facility]) Routine Lab 06/24/21 19:32 Ordered [facility] [place] HPI - General Chief complaint: [facility] Stated complaint: covid test Time Seen by Provider: 06/24/21 20:24 Mode of Arrival: Ambulatory Source of Information: Patient Limitations: No Limitations Description of Symptoms (Recalled from Triage Doc. by RN): PATIENT C/O SORE THROAT, DIARRHEA, WEAKNESS, HEADACHE, AND LOSS OF TASTE AND SMELL. REQUESTING COVID TEST HEENT Symptoms (Recalled from RN notes): No Resp Symptoms (Recalled from RN notes): No Skin Symptoms (Recalled from RN notes): No MS Symptoms (Recalled from RN notes): No Functional Status (Recalled from RN notes): WNL - History of Present Illness Provider Complaint: 41 yr old female presnets for cough, diarrhea, loss of taste and smell. has been exposed to covid - Related Data Home Medications Medication Instructions Recorded Confirmed metformin 500 mg tablet 500 mg PO BID 02/01/21 05/15/21 Albuterol Sulfate [Proventil Hfa] 2 puffs IH Q6HP PRN 04/24/21 05/15/21 Previous Rx's Medication Instructions Recorded amlodipine 5 mg tablet 5 mg PO DAILY #30 tab 05/16/21 lisinopril 2.5 mg tablet 2.5 mg PO DAILY #30 tab 05/16/21 Allergies Allergy/AdvReac Type Severity Reaction Status Date / Time Penicillins [PENICILLINS] Allergy Unknown PASSED OUT Verified 05/15/21 13:44 - Worker's Comp Is this a Worker's Comp case?: No [facility] History - Hepatitis A Screen Drug use history?: No High risk sexual behaviors?: No History of sexually transmitted infection?: No Currently employed?: No Childcare worker?: No Do you have indoor plumbing?: Yes Do you have electricity?: Yes Attestation statement:: This patient has been screened for Hepatitis A risk factors. I have reviewed the patient's past medical history: Yes Medical History: Reports:: Asthma, Diabetes Mellitus Type 2, Hypertension, MRSA Denies:: Diabetes Mellitus Type 1 Other Medical History: Reports: Other Comment: CELLULITIS Other Surgeries: Yes: No Previous Surgery, , Other Amputation: No Fractures: No Comment: DENTAL SURGERY 2011, CYSTS REMOVED UNDERNEATH LEFT BREAST - Social History Smoking Status: Never smoker Alcohol Intake: never Alcohol Inta
[2021-06-24 20:30] VITALS: BP 149/77; PULSE 69; RESP 16; TEMP 36.8; O2SAT 99
== END 2021-06-24 20:37 | disposition home or self-care (01) ==
PROVIDERS: Emergency Provider Nurse Practitioner Family; PCP Emergency Medicine
DX: J06.9 Acute upper respiratory infection, unspecified (principal); Z20.822 Contact with and (suspected) exposure to COVID-19; E11.9 Type 2 diabetes mellitus without complications; J45.909 Unspecified asthma, uncomplicated; I10 Essential (primary) hypertension; Z79.84 Long term (current) use of oral hypoglycemic drugs; Z79.899 Other long term (current) drug therapy
CPT/HCPCS: 99202; G0463; U0003

== ENCOUNTER → 2021-07-30 11:02 | Outpatient (CLI) | payer OTHER, SELFPAY | PROVIDERS: Visit Provider Podiatrist | DX: E11.621 Type 2 diabetes mellitus with foot ulcer (principal); L97.519 Non-pressure chronic ulcer of other part of right foot with unspecified severity; Z79.84 Long term (current) use of oral hypoglycemic drugs | CPT/HCPCS: 87070; 87077; 87186; 87205 ==

== ENCOUNTER → 2021-08-20 10:01 | Outpatient (CLI) | payer OTHER, SELFPAY ==
[2021-08-20 10:16] LABS: Basophils % 0.4 % (0.1-2.0); Eosinophils # 0.4 K/mm3 (0.0-0.4); Eosinophils % 6.5 % (0.1-12.0); Hematocrit 37.4 % (37.0-47.0); Hemoglobin 12.1 g/dL (12.2-16.2); Lymphocytes % 17.4 % (10-50); Mean Corpuscular HGB Conc 32.4 g/dL (31.8-35.4); Mean Corpuscular Hemoglobin 31.5 pg (27.0-31.2); Mean Corpuscular Volume 97.1 fl (81-99); Mean Platelet Volume 7.8 fl (7.4-10.4); Monocytes # 0.3 K/mm3 (0.1-1.0); Monocytes % 4.9 % (1.7-9.3); Neutrophils # 4.1 K/mm3 (1.8-7.8); Neutrophils % 70.9 % (37.0-80.0); Platelet Count 184 K/mm3 (142-424); Red Blood Count 3.86 M/mm3 (4.20-5.40); Red Cell Distribution Width 13.6 % (11.5-17.5); White Blood Count 5.8 K/mm3 (4.8-10.8)
[2021-08-20 10:42] LABS: Chloride 103 mmol/L (98-107); Sodium 136 mmol/L (136-145)
[2021-08-20 10:44] LABS: Alanine Aminotransferase 11 U/L (12-78); Aspartate Amino Transferase 19 U/L (14-36); Blood Urea Nitrogen 16 mg/dl (7-17); Estimated Glomerular Filt Rate 50 ml/min (>60); GFR (African American) 60 ML/MIN (>60)
[2021-08-20 10:45] LABS: Albumin Level 3.2 g/dl (3.5-5.0); Albumin/Globulin Ratio 1.1 (1.1-1.8); Alkaline Phosphatase 54 U/L (38-126); Anion Gap 11.8 mEq/L (5-15); Bilirubin,Total 0.2 mg/dl (0.2-1.3); Calcium 8.3 mg/dl (8.4-10.2); Carbon Dioxide 26 mmol/L (22.0-30.0); Glucose 272 mg/dl (74-100); Potassium 4.8 mmoL/L (3.5-5.1); Total Protein,Serum 6.2 g/dl (6.3-8.2)
[2021-08-20 10:50] LABS: C-Reactive Protein 8.5 mg/L (0-4)
[2021-08-20 15:39] LABS: Erythrocyte Sedimentation Rate 38 mm/hr (0-20)
== END ==
PROVIDERS: Visit Provider Nurse Practitioner
DX: Z51.89 Encounter for other specified aftercare (principal); E11.621 Type 2 diabetes mellitus with foot ulcer; S90.421D Blister (nonthermal), right great toe, subsequent encounter; L97.519 Non-pressure chronic ulcer of other part of right foot with unspecified severity; Z79.84 Long term (current) use of oral hypoglycemic drugs
CPT/HCPCS: 36415; 80053; 85025; 85651; 86140

== ENCOUNTER → 2021-09-10 10:50 | Outpatient (CLI) | payer OTHER, SELFPAY ==
[2021-09-10 11:26] LABS: Basophils % 0.3 % (0.1-2.0); Eosinophils # 0.4 K/mm3 (0.0-0.4); Eosinophils % 3.7 % (0.1-12.0); Hematocrit 38.1 % (37.0-47.0); Hemoglobin 12.7 g/dL (12.2-16.2); Lymphocytes # 1.5 K/mm3 (0.7-4.5); Lymphocytes % 15.6 % (10-50); Mean Corpuscular HGB Conc 33.2 g/dL (31.8-35.4); Mean Corpuscular Hemoglobin 30.7 pg (27.0-31.2); Mean Corpuscular Volume 92.5 fl (81-99); Mean Platelet Volume 8.1 fl (7.4-10.4); Monocytes # 0.5 K/mm3 (0.1-1.0); Monocytes % 5.5 % (1.7-9.3); Neutrophils % 74.7 % (37.0-80.0); Platelet Count 222 K/mm3 (142-424); Red Blood Count 4.12 M/mm3 (4.20-5.40); Red Cell Distribution Width 14.3 % (11.5-17.5); White Blood Count 9.4 K/mm3 (4.8-10.8)
[2021-09-10 12:15] LABS: Erythrocyte Sedimentation Rate 60 mm/hr (0-20)
[2021-09-10 13:23] LABS: Alanine Aminotransferase 8 U/L (12-78); Albumin Level 3.4 g/dl (3.5-5.0); Albumin/Globulin Ratio 1.1 (1.1-1.8); Alkaline Phosphatase 43 U/L (38-126); Aspartate Amino Transferase 16 U/L (14-36); Bilirubin,Total 0.4 mg/dl (0.2-1.3); Blood Urea Nitrogen 23 mg/dl (7-17); Calcium 8.9 mg/dl (8.4-10.2); Carbon Dioxide 25 mmol/L (22.0-30.0); Chloride 104 mmol/L (98-107); Estimated Glomerular Filt Rate 50 ml/min (>60); GFR (African American) 60 ML/MIN (>60); Globulin 3.2 g/dL (1.3-3.2); Glucose 190 mg/dl (74-100); Sodium 136 mmol/L (136-145); Total Protein,Serum 6.6 g/dl (6.3-8.2)
[2021-09-10 13:28] LABS: C-Reactive Protein 13.5 mg/L (0-4)
== END ==
PROVIDERS: Visit Provider Nurse Practitioner
DX: E11.621 Type 2 diabetes mellitus with foot ulcer (principal); L97.519 Non-pressure chronic ulcer of other part of right foot with unspecified severity; Z51.89 Encounter for other specified aftercare
CPT/HCPCS: 36415; 80053; 85025; 85651; 86140

== ENCOUNTER 2022-05-04 13:11 | Emergency (ER) | payer OTHER, SELFPAY ==
[2022-05-04 14:03] VITALS: PULSE 83; RESP 18; TEMP 36.9; O2SAT 97; BMI 39.7
--- NOTE | 2022-05-04 14:16 | HMH.EDUTC ---
[facility] [place] Impression: Left leg cellulitis, Abscess of left leg Diabetes Qualifiers: Diabetes mellitus type: type 2 Diabetes mellitus assisted insulin use: unspecified assisted insulin use status Diabetes mellitus complication status: without complication Qualified Code(s): E11.9 - Type 2 diabetes mellitus without complications Disposition: Home, Self-Care Condition on Discharge: Good Additional Instructions: Keep the affected area clean and dry. Follow up with your regular doctor. Take the antibiotics as directed and apply the topical antibiotics as directed. Watch for signs of worsening infection, such as worsening redness, swelling, drainage, fever, chills, etc Apply warm wet compresses to the affected area three or four times per day. GO TO THE ER FOR ANY WORSENING SYMPTOMS Prescriptions: Sulfamethoxazole/Trimethoprim [Bactrim DS tablet] 1 each PO BID 10 Days #20 tab Transmission Status: Received by [facility] Mupirocin [Bactroban 2% Ointment 22gm tube] 1 applicatio TP TID 7 Days #1 gm Transmission Status: Received by [facility] cephALEXin [cephALEXin 500mg capsule] 500 mg PO Q6H 10 Days #40 cap Transmission Status: Received by [facility] Referrals: Francisco Cox MD [Primary Care Provider] - Time of Disposition: 14:38 Medical Decision Making - Medical Records Medical records reviewed: No: I reviewed the patient's medical records. - Bishop Inquiry Pt receiving controlled substance: No Vital Signs: 05/04/22 14:03 05/04/22 14:57 Temperature 98.4 F 98.4 F Temperature Source Oral Pulse Rate 83 Pulse Rate [Left] 83 Respiratory Rate 18 18 Blood Pressure 145/99 H 02 Sat by Pulse Oximetry 97 Orders (Tests/Meds): ORDERS Category Date Time Status Wound Culture and Gram Stain Stat Micro 05/04/22 14:40 Results [facility] [place] - General Stated complaint: infection on leg Time Seen by Provider: 05/04/22 14:16 HEENT Symptoms (Recalled from RN notes): No Resp Symptoms (Recalled from RN notes): No Skin Symptoms (Recalled from RN notes): Yes MS Symptoms (Recalled from RN notes): No Functional Status (Recalled from RN notes): wnl - History of Present Illness Provider Complaint: patient comes in today for a spot on her left upper leg, it is red and has drainage. patient states that she had a spot like this before and it was MRSA. patient has had the bump for 4 days - Related Data Home Medications Medication Instructions Recorded Confirmed metformin 500 mg tablet 500 mg PO BID 02/01/21 11/27/21 Albuterol Sulfate [Proventil Hfa] 2 puffs IH Q6HP PRN 04/24/21 11/27/21 montelukast 10 mg tablet 10 mg PO tab 07/14/21 11/27/21 Previous Rx's Medication Instructions Recorded amlodipine 5 mg tablet 5 mg PO DAILY #30 tab 10/19/21 lisinopril 2.5 mg tablet 2.5 mg PO DAILY #30 tab 10/19/21 Mupirocin [Bactroban 2% Ointment 1 applicatio TP TID 7 Days #1 gm 05/04/22 22gm tube] Sulfamethoxazole/Trimethoprim 1 each PO BID 10 Days #20 tab 05/04/22 [Bactrim DS tablet] cephALEXin [cephALEXin 500mg 500 mg PO Q6H 10 Days #40 cap 05/04/22 capsule] Allergies Allergy/AdvReac Type Severity Reaction Status Date / Time Penicillins [PENICILLINS] Allergy Unknown PASSED OUT Verified 05/04/22 14:06 - Worker's Comp Is this a Worker's Comp case?: No [facility] History - Hepatitis A Screen Attestation statement:: This patient has been screened for Hepatitis A risk factors. I have reviewed the patient's past medical history: Yes Medical History: Reports:: Asthma, Diabetes Mellitus Type 2, Hypertension, MRSA, Osteoporosis Denies:: Diabetes Mellitus Type 1 Other Medical History: Reports: Osteoporosis, Other Comment: CELLULITIS Other Surgeries: Yes: No Previous Surgery, , Other Amputation: No Fractures: No Comment: DENTAL SURGERY 2011, CYSTS REMOVED UNDERNEATH LEFT BREAST - Social History Smoking Status: Never s
[2022-05-04 14:57] VITALS: BP 145/99; PULSE 83; RESP 18; TEMP 36.9
== END 2022-05-04 14:58 | disposition home or self-care (01) ==
PROVIDERS: Emergency Provider Nurse Practitioner Family; PCP Emergency Medicine
DX: L03.116 Cellulitis of left lower limb (principal); B95.62 Methicillin resistant Staphylococcus aureus infection as the cause of diseases classified elsewhere; Z16.11 Resistance to penicillins; Z16.39 Resistance to other specified antimicrobial drug; L02.416 Cutaneous abscess of left lower limb; E11.9 Type 2 diabetes mellitus without complications; Z79.84 Long term (current) use of oral hypoglycemic drugs; Z88.0 Allergy status to penicillin
CPT/HCPCS: 87070; 87077; 87186; 87205; 99212; G0463

== ENCOUNTER → 2022-07-09 08:10 | Outpatient (CLI) | payer OTHER, SELFPAY ==
--- NOTE | 2022-07-09 08:11 | US_ITS ---
FINAL REPORT CLINICAL HISTORY: enlarged thyroid FINDINGS: THYROID ULTRASOUND Sonographic images of the thyroid was obtained. The thyroid is enlarged with heterogeneous echotexture. The right lobe of the thyroid measures 5.1 x 2.5 x 2.2 cm. There is a 5 x 3 x 2 mm cystic nodule in the right lobe, TI-RADS category 1. The left lobe of the thyroid measures 5.9 x 2.6 x 2.1 cm. There is a nodule in the upper left lobe measuring 6 x 5 x 4 mm which is cystic, TI-RADS category 1. There is also a nodule in the left mid lobe measuring 14 x 10 x 9 mm which is mostly cystic, TI-RADS category 2. The isthmus measures 7 mm which is thickened. IMPRESSION: Enlarged thyroid with heterogeneous echotexture and bilateral nodules as described. Reviewed, Interpreted and Dictated by Bear King III, MD Transcribed by Audrey Osman Authenticated and [facility]
[2022-07-09 10:57] LABS: Thyroid Stimulating Hormone 3.78 uIU/mL (0.465-4.68)
== END ==
PROVIDERS: PCP Emergency Medicine; Visit Provider Family Medicine
DX: E04.9 Nontoxic goiter, unspecified (principal); E07.9 Disorder of thyroid, unspecified
CPT/HCPCS: 36415; 76536; 84439; 84443

== ENCOUNTER 2022-09-02 16:59 | Emergency (ER) | payer OTHER, SELFPAY ==
[2022-09-02 17:00] VITALS: BP 172/76; PULSE 70; RESP 18; TEMP 36.9; O2SAT 99; BMI 39.7
--- NOTE | 2022-09-02 17:05 | HMH.EDHA ---
Discharge Plan Disposition Patient Disposition: Home, Self-Care Condition: Good Chief Complaint: Headache Prescriptions Prescriptions: No Action montelukast 10 mg tablet 10 mg PO Label Comments: TAKE 1 TABLET BY MOUTH EVERY DAY AT BEDTIME metformin 500 mg tablet See Rx Instructions .ROUTE .COMPLEX Qty: 180 0RF Dose Instruction: Take 1 tablet by mouth twice daily Rx Instructions: Take 1 tablet by mouth twice daily amlodipine 5 mg tablet See Rx Instructions .ROUTE .COMPLEX Qty: 30 0RF Dose Instruction: Take 1 tablet by mouth once daily Rx Instructions: Take 1 tablet by mouth once daily lisinopril 2.5 mg tablet See Rx Instructions .ROUTE .COMPLEX Qty: 30 0RF Dose Instruction: Take 1 tablet by mouth once daily Rx Instructions: Take 1 tablet by mouth once daily albuterol sulfate 90 mcg/actuation HFA aerosol inhaler 2 inh inhalation Q6HP PRN (Reason: ASTHMA) Qty: 8.5 2RF Rx Instructions: INHALE 2 PUFFS BY MOUTH EVERY 4 TO 6 HOURS NEEDED FOR SHORTNESS OF BREATH OR WHEEZING Referrals Follow up/Referrals: Francisco Cox MD [Primary Care Provider] - See instructions Clinical Impressions Clinical Impression: Headache Discharge ED Provider: Rikki Linares Headache HPI General Chief Complaint: Headache Stated Complaint: h/a, vomiting Time Seen by Provider: 09/02/22 17:03 History of Present Illness HPI Narrative: 42-year-old female with a history of migraine headaches and reported history of a type of bleed but cannot give me detailed history stating that they treated it with blood pressure medication. States that her headache has been ongoing since last night squeezing in nature started having some nausea and vomiting today. Has been using Tylenol with minimal relief. Light sensitivity no visual changes no weakness or numbness to extremity and no difficulty ambulating. Related Data Home Medications Medication Instructions Recorded Confirmed montelukast 10 mg tablet 10 mg PO 07/14/21 07/01/22 Previous Rx's Medication Instructions Recorded amlodipine 5 mg tablet See Rx Instructions .Route 06/27/22 .COMPLEX #30 tabs lisinopril 2.5 mg tablet See Rx Instructions .Route 06/27/22 .COMPLEX #30 tabs metformin 500 mg tablet See Rx Instructions .Route 06/27/22 .COMPLEX #180 tabs albuterol sulfate 90 mcg/actuation 2 inh inhalation Q6HP PRN ASTHMA 07/24/22 aerosol inhaler #8.5 grams Allergies Allergy/AdvReac Type Severity Reaction Status Date / Time Penicillins [PENICILLINS] Allergy Unknown PASSED OUT Verified 07/01/22 14:41 [facility] History Hepatitis A Screen Attestation statement:: This patient has been screened for Hepatitis A risk factors. I have reviewed the patient's past medical history: Yes Medical History: Reports: Asthma, Diabetes Mellitus Type 2, Hypertension, MRSA and Osteoporosis; Denies: Diabetes Mellitus Type 1 Other Medical History: Reports Osteoporosis Comment: CELLULITIS Other Surgeries: Yes No Previous Surgery, and Other Amputation: No Fractures: No Comment: DENTAL SURGERY 2011, CYSTS REMOVED UNDERNEATH LEFT BREAST Social History Smoking Status: Never smoker Alcohol Intake: never Alcohol Intake Frequency:: other Substance Use Type: denies use Occupational Status: employed Housing: house Household Members: family Family Hx:: Cancer and Diabetes [facility] Social History Smoking Status: Never smoker alcohol intake: never substance use type: denies use current occupational status: employed Travel in the last 8 weeks: None household members: family housing: house ROS Obtained: Yes Systems reviewed as appropriate & no additional complaints except as documented Physical Exam General General appearance: alert and in no apparent distress Head Head exam: atraumatic and normocephalic ENT ENT exam: Present n
[2022-09-02 17:31] VITALS: BP 172/86; PULSE 76
--- NOTE | 2022-09-02 17:31 | PC.NURSE ---
ED MD AT BEDSIDE FOR EVALUATION
--- NOTE | 2022-09-02 17:34 | CT_ITS ---
PROCEDURE INFORMATION: Exam: CTA Neck With Contrast Exam date and time: 09/02/2022 6:20 PM Age: 42 years old Clinical indication: Headache; Additional info: Headache reports history of bleed TECHNIQUE: Imaging protocol: Computed tomographic angiography of the neck with contrast. 3D rendering (Not supervised by radiologist): MIP and/or 3D reconstructed images were created by the technologist. Radiation optimization: All CT scans at this facility use at least one of these dose optimization techniques: automated exposure control; mA and/or kV adjustment per patient size (includes targeted exams where dose is matched to clinical indication); or iterative reconstruction. Contrast material: ISOVUE; Contrast volume: 100 ml; Contrast route: INTRAVENOUS (IV); COMPARISON: US THYROID 07/09/2022 8:17 AM FINDINGS: Right common carotid artery: Artifact limits evaluation of the proximal right common carotid artery. No significant stenosis or occlusion of the remaining right common carotid artery. Right internal carotid artery: Extracranial segment is patent with no stenosis. No dissection or occlusion. Right external carotid artery: No occlusion or significant stenosis. Left common carotid artery: No significant stenosis. No dissection or occlusion. Left internal carotid artery: Extracranial segment is patent with no stenosis. No dissection or occlusion. Left external carotid artery: No occlusion or significant stenosis. Right vertebral artery: Mild hypoplasia, without extracranial occlusion. Left vertebral artery: A dominant left vertebral artery is identified. No significant stenosis or occlusion of the left vertebral artery. Right subclavian artery: Venous enhancement and artifact limit evaluation of the right subclavian artery. Left subclavian artery: The left subclavian artery is patent, as visualized. Thyroid: Left thyroid nodules are visualized, the largest measuring 1.1 cm. Lymph nodes: A calcified subcarinal lymph node is visualized, suggestive of granulomatous disease. Scattered nonspecific cervical lymph nodes. Soft tissues: No significant soft tissue swelling. Bones/joints: Straightening of the lordotic curvature of the cervical spine. Degenerative changes are identified involving the cervical and upper thoracic spine. Varying degrees of spinal canal stenoses and neural foraminal narrowing are identified at multiple cervical levels. Artifact limits evaluation of the spinal canal. A heterogeneously hypodense lesion is identified at the T2 vertebral body, consistent with a hemangioma. Within the C5 vertebral body, there is a 6-7 mm nonspecific hypodense lesion. Lungs: Within the right upper lobe of the lung on series 3, image 13, there is an equivocal 5-6 mm nodule. IMPRESSION: 1. No stenosis of the extracranial internal carotid arteries bilaterally using NASCET criteria. 2. A dominant left vertebral artery is identified. 3. Within the right upper lobe of the lung, there is an equivocal 5-6 mm nodule. For patients at low risk (minimal or absent history of smoking and of other known risk factors), no routine follow-up is indicated. For patients at high risk (history of smoking or of other known risk factors), consider optional CT Chest at 12 months. (Reference: Christel) 4. Left thyroid nodules. 5. A heterogeneously hypodense lesion is identified at the T2 vertebral body, consistent with a hemangioma. Within the C5 vertebral body, there is a 6-7 mm nonspecific hypodense lesion. Correlation with prior studies recommended. 6. Additional findings described above. COMMENTS: Consistent with the [employer]
--- NOTE | 2022-09-02 17:34 | CT_ITS ---
PROCEDURE INFORMATION: Exam: CTA Head With Contrast, Arteriography Exam date and time: 09/02/2022 6:20 PM Age: 42 years old Clinical indication: Headache; Additional info: Headache reports history of bleed TECHNIQUE: Imaging protocol: Computed tomographic angiography of the head with contrast. Exam focused on the arteries. 3D rendering (Not supervised by radiologist): MIP and/or 3D reconstructed images were created by the technologist. Radiation optimization: All CT scans at this facility use at least one of these dose optimization techniques: automated exposure control; mA and/or kV adjustment per patient size (includes targeted exams where dose is matched to clinical indication); or iterative reconstruction. Contrast material: ISOVUE; Contrast volume: 100 ml; Contrast route: INTRAVENOUS (IV); COMPARISON: CT HEAD/BRAIN WO CON 09/02/2022 6:17 PM FINDINGS: ANTERIOR CIRCULATION: Right internal carotid artery: Intracranial segment is patent with no significant stenosis. No aneurysm. Right middle cerebral artery: No occlusion or significant stenosis. No aneurysm. Right anterior cerebral artery: No occlusion or significant stenosis. No aneurysm. Left internal carotid artery: Intracranial segment is patent with no significant stenosis. No aneurysm. Left middle cerebral artery: No occlusion or significant stenosis. No aneurysm. Left anterior cerebral artery: No occlusion or significant stenosis. No aneurysm. POSTERIOR CIRCULATION: Right vertebral artery: Hypoplasia of the right vertebral artery, without intracranial occlusion. Left vertebral artery: A dominant left vertebral artery is identified. No significant stenosis or occlusion of the left vertebral artery. Basilar artery: No occlusion or significant stenosis. No aneurysm. Right posterior cerebral artery: No occlusion or significant stenosis. No aneurysm. Left posterior cerebral artery: No occlusion or significant stenosis. No aneurysm. Brain: No definite mass, mass effect, or midline shift. Refer to the head CT report from the Cerebral ventricles: No significant ventriculomegaly. Bones/joints: No acute fracture. Soft tissues: Unremarkable. IMPRESSION: 1. No large vessel arterial occlusion on this CTA head. No visualized intracranial aneurysm. 2. A dominant left vertebral artery is identified. 3. Additional findings described above.
--- NOTE | 2022-09-02 17:34 | CT_ITS ---
PROCEDURE INFORMATION: Exam: CT Head Without Contrast Exam date and time: 09/02/2022 6:17 PM Age: 42 years old Clinical indication: Stroke-like symptoms; Headache; Additional info: Headache reported HX of bleed TECHNIQUE: Imaging protocol: Computed tomography of the head without contrast. Radiation optimization: All CT scans at this facility use at least one of these dose optimization techniques: automated exposure control; mA and/or kV adjustment per patient size (includes targeted exams where dose is matched to clinical indication); or iterative reconstruction. Other technique: STROKE PROTOCOL was implemented. COMPARISON: CT HEAD/BRAIN WO CON 05/14/2021 8:21 PM FINDINGS: Brain: The nye-white differentiation is preserved demonstrating no acute territorial type infarct. No acute intracranial hemorrhage is visualized. No intracranial mass effect. Mild sulcal atrophy, atypical given the patient's age. There is no midline shift. Artifact limits evaluation of the sherrie. Cerebral ventricles: No significant ventriculomegaly. Pituitary gland and sella: Partially empty sella. Paranasal sinuses: A mucous retention cyst or polyp is visualized in the right maxillary sinus. Mild mucosal thickening of the left maxillary sinus. Mucosal thickening of the left maxillary sinus, with a mucous retention cyst or polyp. Mastoid air cells: Mild effusions within right mastoid air cells. Bones/joints: The calvarium demonstrates no evidence for a depressed fracture. Soft tissues: Mild irregular contour and suggested small lipoma of the right anterior scalp, which is stable. IMPRESSION: 1. No acute intracranial hemorrhage or acute territorial type infarct. 2. Mild sulcal atrophy. 3. Mild effusions within right mastoid air cells. 4. Paranasal sinus disease. 5. Partially empty sella. 6. If further evaluation is clinically indicated, an MRI of the brain is recommended. ASSESSMENT: [place] Stroke Program Early CT Score (ASPECTS) = 10
[2022-09-02 17:47] LABS: Basophils % 0.2 % (0.1-2.0); Eosinophils # 0.1 K/mm3 (0.0-0.4); Eosinophils % 1.9 % (0.1-12.0); Hematocrit 32.5 % (37.0-47.0); Hemoglobin 11.3 g/dL (12.2-16.2); Lymphocytes # 0.7 K/mm3 (0.7-4.5); Lymphocytes % 10.3 % (10-50); Mean Corpuscular HGB Conc 34.9 g/dL (31.8-35.4); Mean Corpuscular Hemoglobin 32.7 pg (27.0-31.2); Mean Corpuscular Volume 93.7 fl (81-99); Monocytes # 0.3 K/mm3 (0.1-1.0); Monocytes % 4.5 % (1.7-9.3); Neutrophils # 5.5 K/mm3 (1.8-7.8); Neutrophils % 83.1 % (37.0-80.0); Platelet Count 215 K/mm3 (142-424); Red Blood Count 3.47 M/mm3 (4.20-5.40); Red Cell Distribution Width 15.4 % (11.5-17.5); White Blood Count 6.6 K/mm3 (4.8-10.8)
[2022-09-02 17:51] LABS: Chloride 107 mmol/L (98-107); Potassium 4.8 mmoL/L (3.5-5.1); Sodium 138 mmol/L (136-145)
[2022-09-02 17:53] LABS: Blood Urea Nitrogen 17 mg/dl (7-17)
[2022-09-02 17:54] LABS: Alanine Aminotransferase 15 U/L (12-78); Albumin Level 3.1 g/dl (3.5-5.0); Albumin/Globulin Ratio 1.1 (1.1-1.8); Alkaline Phosphatase 62 U/L (38-126); Anion Gap 11.8 mEq/L (5-15); Aspartate Amino Transferase 25 U/L (14-36); Bilirubin,Total 0.5 mg/dl (0.2-1.3); Calcium 8.4 mg/dl (8.4-10.2); Carbon Dioxide 24 mmol/L (22.0-30.0); Creatinine Clearance Estimated 75 mL/min (50-200); Estimated Glomerular Filt Rate 27 ml/min (>60); GFR (African American) 33 ML/MIN (>60); Globulin 2.9 g/dL (1.3-3.2); Glucose 187 mg/dl (74-100)
--- NOTE | 2022-09-02 18:10 | HMH.ITSTN ---
in ER wants angio head and neck- pt has a GFR of 27 he is aware and contacted Stephanie Noe and was given permission to override policy if medically needed. We did a CTA- head and neck as requested to check for blockage or brain bleed
[2022-09-02 18:17] LABS: Urine Pregnancy, HCG Qual. Negative (Negative)
--- NOTE | 2022-09-02 18:20 | PC.NURSE ---
PT TO CT AT THIS TIME
[2022-09-02 19:02] VITALS: BP 184/76; PULSE 74; RESP 18; O2SAT 99
[2022-09-02 20:37] VITALS: BP 180/72; PULSE 73; RESP 18; TEMP 36.6; O2SAT 99
== END 2022-09-02 20:15 | disposition home or self-care (01) ==
PROVIDERS: Emergency Provider Student in an Organized Health Care Education/Training Program; PCP Emergency Medicine
DX: G43.909 Migraine, unspecified, not intractable, without status migrainosus (principal); R11.2 Nausea with vomiting, unspecified; I12.9 Hypertensive chronic kidney disease with stage 1 through stage 4 chronic kidney disease, or unspecified chronic kidney disease; N18.9 Chronic kidney disease, unspecified; E11.9 Type 2 diabetes mellitus without complications; M81.0 Age-related osteoporosis without current pathological fracture; J34.9 Unspecified disorder of nose and nasal sinuses; Z79.51 Long term (current) use of inhaled steroids; Z79.84 Long term (current) use of oral hypoglycemic drugs; Z79.899 Other long term (current) drug therapy; Z88.0 Allergy status to penicillin; Z83.3 Family history of diabetes mellitus; Z80.9 Family history of malignant neoplasm, unspecified; Z86.14 Personal history of Methicillin resistant Staphylococcus aureus infection
CPT/HCPCS: 70450; 70496; 70498; 80053; 81025; 85025; 96361; 96374; 96375; 99285; Q9967

== ENCOUNTER → 2022-09-20 14:07 | Outpatient (CLI) | payer OTHER, SELFPAY ==
--- NOTE | 2022-09-20 14:07 | US_ITS ---
FINAL REPORT TECHNIQUE: Ultrasound images of the kidneys and bladder were obtained. CLINICAL HISTORY: R79.89 - Other specified abnormal findings of blood chemi... FINDINGS: There is fatty infiltration of the liver. The right kidney measures 12.8 cm in length. It is normal in echogenicity. There is no hydronephrosis. The left kidney measures 12.1 cm in length. It is normal in echogenicity. There is a cyst in the midpole of the left kidney. There is no hydronephrosis. The spleen is within normal limits. IMPRESSION: 1. Fatty infiltration of the liver. 2. Left renal cyst. Reviewed, Interpreted and Dictated by Hal Camarena MD Transcribed by RAFAL Almeida Authenticated and [facility]
== END ==
PROVIDERS: PCP Family Medicine; Visit Provider Family Medicine
DX: R79.89 Other specified abnormal findings of blood chemistry (principal); E11.9 Type 2 diabetes mellitus without complications; Z79.84 Long term (current) use of oral hypoglycemic drugs
CPT/HCPCS: 76770; 83036

== ENCOUNTER → 2022-09-20 14:10 | Outpatient (CLI) | payer OTHER, SELFPAY ==
[2022-09-23 09:30] LABS: Hemoglobin A1C 5.7 % (4.0-6.0)
== END ==
PROVIDERS: PCP Family Medicine; Visit Provider Family Medicine
DX: E11.9 Type 2 diabetes mellitus without complications (principal); Z79.84 Long term (current) use of oral hypoglycemic drugs
CPT/HCPCS: 36415; 83036

== ENCOUNTER → 2022-10-21 09:15 | Outpatient (CLI) | payer OTHER, SELFPAY ==
--- NOTE | 2022-10-21 09:15 | FL_ITS ---
FINAL REPORT CLINICAL HISTORY: . DYSPHAGIA 0:54 FLUORO TIME FINDINGS: ESOPHAGRAM HISTORY: Abdominal pain, nausea. PROCEDURE: The patient ingested barium. Effervescent crystals were also administered. Spot and overhead films were obtained. FINDINGS: The esophagus is normal. There is a small sliding-typehiatal hernia with a Schatzki's ring. There is no gastroesophageal reflux. Peristalsis is normal. IMPRESSION: Small sliding type hiatal hernia with Schatzki's ring. Otherwise, unremarkable. fluoroscopy time: 4 seconds Films reviewed , interpreted and dictated by Dr. King Transcribed by Juvenal Virk PA-C. Reviewed, Interpreted and Dictated by Bear King III, MD Transcribed by RAFAL Hargrove Authenticated and [facility]
== END ==
PROVIDERS: PCP Family Medicine; Visit Provider Otolaryngology
DX: R49.0 Dysphonia (principal); R13.10 Dysphagia, unspecified
CPT/HCPCS: 74220

== ENCOUNTER → 2022-11-06 09:41 | Outpatient (CLI) | payer OTHER, SELFPAY ==
[2022-11-06 09:48] LABS: Microscopic, Urine URINE MICROSCOPIC (MICROSCOPIC)
[2022-11-06 10:18] LABS: Appearance,Urine CLEAR (Clear); Basophils % 0.4 % (0.1-2.0); Bilirubin,Urine Negative (Negative); Blood, Urine 3+ (Negative); Color,Urine YELLOW (Yellow); Eosinophils # 0.3 K/mm3 (0.0-0.4); Eosinophils % 3.5 % (0.1-12.0); Glucose,Urine (UA) TRACE (Negative); Hematocrit 32.3 % (37.0-47.0); Hemoglobin 10.9 g/dL (12.2-16.2); Ketones,Urine Negative (Negative); Leukocyte Esterase,Urine Negative (Negative); Lymphocytes % 14.4 % (10-50); Mean Corpuscular HGB Conc 33.9 g/dL (31.8-35.4); Mean Corpuscular Hemoglobin 31.4 pg (27.0-31.2); Mean Corpuscular Volume 92.6 fl (81-99); Mean Platelet Volume 8.2 fl (7.4-10.4); Monocytes # 0.4 K/mm3 (0.1-1.0); Neutrophils # 5.3 K/mm3 (1.8-7.8); Neutrophils % 76.7 % (37.0-80.0); Nitrate,Urine Negative (Negative); PH,Urine 5.5 (5.0-8.5); Platelet Count 193 K/mm3 (142-424); Protein,Urine 3+ (Negative); Red Blood Count 3.49 M/mm3 (4.20-5.40); Red Cell Distribution Width 15.3 % (11.5-17.5); Specific Gravity, Urine 1.025 (1.005-1.030); Urobilinogen,Urine 0.2 EU/dl (0.2); White Blood Count 6.9 K/mm3 (4.8-10.8)
[2022-11-06 10:31] LABS: Albumin Level 3.1 g/dl (3.5-5.0); Chloride 107 mmol/L (98-107); Potassium 5.1 mmoL/L (3.5-5.1); Sodium 134 mmol/L (136-145)
[2022-11-06 10:34] LABS: Anion Gap 15.1 mEq/L (5-15); Blood Urea Nitrogen 35 mg/dl (7-17); Calcium 8.1 mg/dl (8.4-10.2); Carbon Dioxide 17 mmol/L (22.0-30.0); Estimated Glomerular Filt Rate 18 ml/min (>60); GFR (African American) 22 ML/MIN (>60); Glucose 195 mg/dl (74-100); Phosphorous 4.4 mg/dl (2.5-4.5)
[2022-11-06 10:35] LABS: Bacteria,Urine Trace /lpf; Squamous Epithelial Cell,Urine Occasional #/hpf (0-5)
[2022-11-06 10:53] LABS: Creatinine,Urine Random 83 mg/dL (Not Estab.)
== END ==
PROVIDERS: PCP Emergency Medicine
DX: N28.9 Disorder of kidney and ureter, unspecified (principal)
CPT/HCPCS: 36415; 80069; 81001; 82570; 84155; 85025

== ENCOUNTER 2022-11-28 09:56 | Day surgery (SDC) | payer OTHER, SELFPAY ==
[2022-11-13 10:07] VITALS: BMI 40.4
[2022-11-28 10:14] VITALS: BP 154/73; PULSE 79; RESP 18; TEMP 36.2; O2SAT 97
[2022-11-28 10:22] LABS: Urine Pregnancy, HCG Qual. Negative (Negative)
[2022-11-28 10:23] LABS: POC Glucose,Bedside 156 (70-110)
[2022-11-28 10:50] VITALS: O2SAT 97
--- NOTE | 2022-11-28 11:02 | HMH.SCOPE ---
Procedure: Date: 11/28/22 Patient Date of :: 1980 Procedure Performed:: EGD with bougie dilation Indications:: Dyspepsia and Dysphagia Performing Provider:: Helio Huynh MD Referring Provider:: Francisco Cox Sedation:: Propofol Procedure:: The gastroscope was gently passed through the incisoral orifice into the oral cavity and under direct visualization the esophagus was intubated. The endoscope was passed down the esophagus, through the stomach, and into the duodenum. Color, texture, mucosa, and anatomy of the esophagus, stomach, and duodenum were carefully examined with the scope. Findings:: Oropharynx: normal Esophagus: normal, bougie dilation with 58F dilator performed EG Junction: intact at 40 cm Cardia: normal Fundus: normal Body: normal Antrum: normal Duodenal bulb: normal Duodenum (second and third portion): normal Impression: Normal EGD. Empiric dilation performed for treatment of dysphagia Specimens:: None Recommendations:: Continue with PPI prn for symptom control Complications:: None Estimated blood obtained (mL): 0
[2022-11-28 11:04] VITALS: BP 148/71; PULSE 78; RESP 16; TEMP 36.1; O2SAT 95
[2022-11-28 11:14] VITALS: BP 155/85; PULSE 70; RESP 17; O2SAT 98
[2022-11-28 11:24] VITALS: BP 131/74; PULSE 66; RESP 17; O2SAT 98
[2022-11-28 11:35] VITALS: BP 131/74; PULSE 66; RESP 17; O2SAT 98
== END 2022-11-28 11:36 | disposition home or self-care (01) ==
PROVIDERS: PCP Emergency Medicine; Visit Provider Internal Medicine Gastroenterology
PROC: 0DJ08ZZ Inspection of Upper Intestinal Tract, Via Natural or Artificial Opening Endoscopic (ICD-10-PCS; CPT 43235; principal; 2022-11-28 11:30)
DX: K21.9 Gastro-esophageal reflux disease without esophagitis (principal); R10.13 Epigastric pain; R13.10 Dysphagia, unspecified; Z79.899 Other long term (current) drug therapy; E11.9 Type 2 diabetes mellitus without complications
CPT/HCPCS: 43248; 81025; 82962

== ENCOUNTER → 2023-01-09 12:46 | Outpatient (CLI) | payer OTHER, SELFPAY ==
[2023-01-09 13:15] LABS: Basophils % 0.4 % (0.1-2.0); Eosinophils # 0.3 K/mm3 (0.0-0.4); Eosinophils % 4.1 % (0.1-12.0); Hematocrit 31.1 % (37.0-47.0); Hemoglobin 10.6 g/dL (12.2-16.2); Lymphocytes # 0.9 K/mm3 (0.7-4.5); Lymphocytes % 11.5 % (10-50); Mean Corpuscular HGB Conc 33.9 g/dL (31.8-35.4); Mean Corpuscular Hemoglobin 29.9 pg (27.0-31.2); Mean Corpuscular Volume 88.1 fl (81-99); Monocytes # 0.3 K/mm3 (0.1-1.0); Monocytes % 3.8 % (1.7-9.3); Neutrophils % 80.2 % (37.0-80.0); Platelet Count 235 K/mm3 (142-424); Red Blood Count 3.53 M/mm3 (4.20-5.40); Red Cell Distribution Width 15.3 % (11.5-17.5); White Blood Count 7.5 K/mm3 (4.8-10.8)
[2023-01-09 13:33] LABS: Chloride 108 mmol/L (98-107); Potassium 4.6 mmoL/L (3.5-5.1); Sodium 133 mmol/L (136-145)
[2023-01-09 13:36] LABS: Anion Gap 11.6 mEq/L (5-15); Blood Urea Nitrogen 46 mg/dl (7-17); Calcium 7.5 mg/dl (8.4-10.2); Carbon Dioxide 18 mmol/L (22.0-30.0); Estimated Glomerular Filt Rate 14 ml/min (>60); GFR (African American) 17 ML/MIN (>60); Glucose 200 mg/dl (74-100); Iron 50 ug/dL (37-170); Phosphorous 4.8 mg/dl (2.5-4.5)
[2023-01-09 13:45] LABS: Total Iron Binding Capacity 252 ug/dL (265-497)
[2023-01-09 14:11] LABS: Ferritin 73.8 ng/ml (6.24-137)
[2023-01-09 14:28] LABS: Creatinine,Urine Random 77 mg/dL (Not Estab.)
== END ==
PROVIDERS: PCP Emergency Medicine
DX: N18.4 Chronic kidney disease, stage 4 (severe) (principal); D64.9 Anemia, unspecified
CPT/HCPCS: 36415; 80069; 82570; 82728; 83540; 83550; 84155; 85025

== ENCOUNTER → 2023-02-04 14:20 | Outpatient (CLI) | payer OTHER, SELFPAY ==
[2023-02-04 14:27] LABS: Microscopic, Urine URINE MICROSCOPIC (MICROSCOPIC)
[2023-02-04 16:13] LABS: Appearance,Urine CLEAR (Clear); Bilirubin,Urine Negative (Negative); Blood, Urine 3+ (Negative); Color,Urine YELLOW (Yellow); Glucose,Urine (UA) Negative (Negative); Ketones,Urine Negative (Negative); Leukocyte Esterase,Urine Negative (Negative); Nitrate,Urine Negative (Negative); Protein,Urine 3+ (Negative); Urobilinogen,Urine 0.2 EU/dl (0.2)
[2023-02-04 16:19] LABS: Basophils % 0.3 % (0.1-2.0); Eosinophils # 0.5 K/mm3 (0.0-0.4); Eosinophils % 6.3 % (0.1-12.0); Hematocrit 29.5 % (37.0-47.0); Hemoglobin 10.2 g/dL (12.2-16.2); Lymphocytes # 1.1 K/mm3 (0.7-4.5); Mean Corpuscular HGB Conc 34.5 g/dL (31.8-35.4); Mean Corpuscular Hemoglobin 30.8 pg (27.0-31.2); Mean Corpuscular Volume 89.4 fl (81-99); Monocytes # 0.5 K/mm3 (0.1-1.0); Monocytes % 6.4 % (1.7-9.3); Neutrophils # 5.3 K/mm3 (1.8-7.8); Neutrophils % 72.1 % (37.0-80.0); Platelet Count 207 K/mm3 (142-424); Red Cell Distribution Width 16.1 % (11.5-17.5); White Blood Count 7.4 K/mm3 (4.8-10.8)
[2023-02-04 16:24] LABS: Anion Gap 12.4 mEq/L (5-15); Blood Urea Nitrogen 33 mg/dl (7-17); Calcium 7.3 mg/dl (8.4-10.2); Carbon Dioxide 20 mmol/L (22.0-30.0); Chloride 108 mmol/L (98-107); Estimated Glomerular Filt Rate 15 ml/min (>60); GFR (African American) 18 ML/MIN (>60); Glucose 114 mg/dl (74-100); Phosphorous 4.5 mg/dl (2.5-4.5); Potassium 4.4 mmoL/L (3.5-5.1); Sodium 136 mmol/L (136-145)
[2023-02-04 16:34] LABS: Intact Parathyroid Hormone 270.6 pg/mL (7.5-53.5)
[2023-02-04 16:37] LABS: Bacteria,Urine Trace /lpf; Yeast,Urine Occasional /lpf
[2023-02-04 16:38] LABS: WBC,Urine Occasional #/hpf (0-3)
[2023-02-04 16:39] LABS: 25-OH Vitamin D, Total 15.9 ng/mL (30-100)
[2023-02-04 16:50] LABS: Creatinine,Urine Random 72 mg/dL (Not Estab.)
== END ==
PROVIDERS: PCP Emergency Medicine; Visit Provider Internal Medicine Nephrology
DX: N02.8 Recurrent and persistent hematuria with other morphologic changes (principal); N18.4 Chronic kidney disease, stage 4 (severe); D64.9 Anemia, unspecified
CPT/HCPCS: 36415; 80069; 81001; 82306; 82570; 83970; 84155; 85025

== ENCOUNTER → 2023-02-20 16:28 | Outpatient (CLI) | payer OTHER, SELFPAY ==
[2023-02-20 15:14] LABS: Alanine Aminotransferase 12 U/L (12-78); Alkaline Phosphatase 56 U/L (38-126); Anion Gap 13.6 mEq/L (5-15); Aspartate Amino Transferase 18 U/L (14-36); Bilirubin,Total 0.5 mg/dl (0.2-1.3); Blood Urea Nitrogen 39 mg/dl (7-17); Calcium 7.6 mg/dl (8.4-10.2); Carbon Dioxide 20 mmol/L (22.0-30.0); Chloride 109 mmol/L (98-107); Estimated Glomerular Filt Rate 13 ml/min (>60); GFR (African American) 16 ML/MIN (>60); Globulin 2.9 g/dL (1.3-3.2); Glucose 133 mg/dl (74-100); Potassium 4.6 mmoL/L (3.5-5.1); Sodium 138 mmol/L (136-145); Total Protein,Serum 5.9 g/dl (6.3-8.2)
== END ==
PROVIDERS: PCP Family Medicine; Visit Provider Family Medicine
DX: R73.9 Hyperglycemia, unspecified (principal)
CPT/HCPCS: 80053

== ENCOUNTER → 2023-03-26 09:37 | Outpatient (CLI) | payer OTHER, SELFPAY ==
--- NOTE | 2023-03-26 09:45 | US_ITS ---
FINAL REPORT TECHNIQUE: Ultrasound images of the kidneys and bladder were obtained. CLINICAL HISTORY: CKDY COMPARISON: 09/20/2022 FINDINGS: The right kidney measures 10.6 cm in length. It is normal in echogenicity. There is no hydronephrosis. The left kidney measures 9.7 cm in length. It is normal in echogenicity. There is no hydronephrosis. There is a 1.2 cm probable cyst in the mid left kidney. There is fatty infiltration of the liver. The spleen is normal. IMPRESSION: Left renal cyst. Fatty liver. Reviewed, Interpreted and Dictated by Bear King III, MD Transcribed by Liss Hodges Authenticated and [facility]
--- NOTE | 2023-03-26 09:59 | US_ITS ---
FINAL REPORT CLINICAL HISTORY: CKDY--bladder FINDINGS: Limited sonographic images of the bladder were obtained. Bladder volume is 180 mL. Postvoid residual is 7 mL . Ureteral jets are present. IMPRESSION: Small amount of postvoid residual. Reviewed, Interpreted and Dictated by Bear King III, MD Transcribed by Liss Hodges Authenticated and [facility]
== END ==
PROVIDERS: PCP Family Medicine; Visit Provider Internal Medicine
DX: N18.4 Chronic kidney disease, stage 4 (severe) (principal)
CPT/HCPCS: 76770; 76857

== ENCOUNTER → 2023-04-01 09:13 | Outpatient (CLI) | payer OTHER, SELFPAY ==
[2023-04-01 10:57] LABS: Anion Gap 14.9 mEq/L (5-15); Blood Urea Nitrogen 32 mg/dl (7-17); Calcium 7.8 mg/dl (8.4-10.2); Carbon Dioxide 19 mmol/L (22.0-30.0); Chloride 110 mmol/L (98-107); Estimated Glomerular Filt Rate 13 ml/min (>60); GFR (African American) 16 ML/MIN (>60); Glucose 108 mg/dl (74-100); Magnesium 1.4 mg/dl (1.6-2.3); Phosphorous 5.2 mg/dl (2.5-4.5); Potassium 4.9 mmoL/L (3.5-5.1); Sodium 139 mmol/L (136-145); Uric Acid 8.2 mg/dl (2.5-6.2)
[2023-04-02 12:11] LABS: Anti-DNA (DS) Ab Qn 1 IU/mL (0-9)
[2023-04-02 14:30] LABS: Basophils % 0.2 % (0.1-2.0); Eosinophils # 0.1 K/mm3 (0.0-0.4); Eosinophils % 2.6 % (0.1-12.0); Hematocrit 33.1 % (37.0-47.0); Hemoglobin 10.3 g/dL (12.2-16.2); Lymphocytes # 0.9 K/mm3 (0.7-4.5); Lymphocytes % 16.6 % (10-50); Mean Corpuscular HGB Conc 31.2 g/dL (31.8-35.4); Mean Corpuscular Hemoglobin 28.9 pg (27.0-31.2); Mean Corpuscular Volume 92.5 fl (81-99); Mean Platelet Volume 10.1 fl (7.4-10.4); Monocytes # 0.3 K/mm3 (0.1-1.0); Monocytes % 4.8 % (1.7-9.3); Neutrophils % 75.7 % (37.0-80.0); Platelet Count 177 K/mm3 (142-424); Red Blood Count 3.58 M/mm3 (4.20-5.40); Red Cell Distribution Width 15.5 % (11.5-17.5); White Blood Count 5.3 K/mm3 (4.8-10.8)
[2023-04-03 09:55] LABS: Collection Time,Urine 24 hours; Patient Height,Urine 71 inches; Patient Weight,Urine 295 lbs; Total Volume,Urine 2050 mL (600-1600)
[2023-04-03 10:50] LABS: Creatinine 24 Hour,Urine 1476 mg/24hr (630-2500); Creatinine Clearance Urine 19.3 mL/min (25-115); Creatinine,Urine Random 72 mg/dL (Not Estab.); Total Protein 24 Hour,Urine 17323 mg/24 hr (40-90)
[2023-04-03 18:07] LABS: Antinuclear Antibodies, IFA Negative (.)
[2023-04-04 08:09] LABS: Sodium, Urine 107 mmol/L (Not Estab.); Sodium, Urine 214 mmol/24 hr (39-258)
[2023-04-04 10:23] LABS: Calcium, Urine <0.8 mg/dL (Not Estab.); Calcium, Urine 24hr <16 mg/24 hr (0-320)
[2023-04-07 15:29] LABS: Albumin, U 62.1 % (.); Alpha-1-Globulin, U 7.2 % (.); Alpha-2-Globulin, U 5.1 % (.); Beta Globulin, U 12.7 % (.); Gamma Globulin, U 12.9 % (.); M-Spike, % Not Observed % (Not Observed); Prot,24hr calculated 8328 mg/24 hr (30-150); Protein,Total,Urine 416.4 mg/dL (Not Estab.)
[2023-04-09 09:31] LABS: 1,25 Dihydroxy Vitamin D 23 pg/mL (.); 1,25-Dihydroxy, Vitamin D-2 14 pg/mL (.); 1,25-Dihydroxy, Vitamin D-3 <10 pg/mL (.)
== END ==
PROVIDERS: PCP Family Medicine; Visit Provider Internal Medicine
DX: N18.4 Chronic kidney disease, stage 4 (severe) (principal); E55.9 Vitamin D deficiency, unspecified; I10 Essential (primary) hypertension
CPT/HCPCS: 36415; 80048; 82088; 82306; 82340; 82575; 82652; 83540; 83550; 83735; 83970; 84100; 84155; 84156; 84166; 84244; 84300; 84550; 85025; 86038; 86225

== ENCOUNTER → 2023-04-17 11:52 | Outpatient (CLI) | payer OTHER, SELFPAY ==
[2023-04-17 13:06] LABS: Anion Gap 14.6 mEq/L (5-15); Blood Urea Nitrogen 31 mg/dl (7-17); Calcium 7.4 mg/dl (8.4-10.2); Carbon Dioxide 22 mmol/L (22.0-30.0); Chloride 108 mmol/L (98-107); Estimated Glomerular Filt Rate 14 ml/min (>60); GFR (African American) 17 ML/MIN (>60); Glucose 139 mg/dl (74-100); Magnesium 1.5 mg/dl (1.6-2.3); Phosphorous 4.6 mg/dl (2.5-4.5); Potassium 4.6 mmoL/L (3.5-5.1); Sodium 140 mmol/L (136-145); Uric Acid 8.4 mg/dl (2.5-6.2)
[2023-04-17 13:16] LABS: Intact Parathyroid Hormone 258.1 pg/mL (7.5-53.5)
== END ==
PROVIDERS: PCP Family Medicine; Visit Provider Internal Medicine
DX: M18.4 Other bilateral secondary osteoarthritis of first carpometacarpal joints (principal)
CPT/HCPCS: 36415; 80048; 83735; 83970; 84100; 84550

== ENCOUNTER → 2023-06-04 11:18 | Outpatient (CLI) | payer OTHER, SELFPAY ==
[2023-06-04 11:23] LABS: Microscopic, Urine URINE MICROSCOPIC (MICROSCOPIC)
[2023-06-04 11:36] LABS: Appearance,Urine CLOUDY (Clear); Bilirubin,Urine Negative (Negative); Blood, Urine 3+ (Negative); Color,Urine YELLOW (Yellow); Glucose,Urine (UA) Negative (Negative); Ketones,Urine Negative (Negative); Leukocyte Esterase,Urine Negative (Negative); Nitrate,Urine Negative (Negative); Protein,Urine 3+ (Negative); Urobilinogen,Urine 0.2 EU/dl (0.2)
[2023-06-04 11:40] LABS: Basophils % 0.3 % (0.1-2.0); Eosinophils # 0.4 K/mm3 (0.0-0.4); Eosinophils % 6.9 % (0.1-12.0); Hematocrit 30.6 % (37.0-47.0); Hemoglobin 10.1 g/dL (12.2-16.2); Lymphocytes # 0.9 K/mm3 (0.7-4.5); Lymphocytes % 16.1 % (10-50); Mean Corpuscular HGB Conc 32.9 g/dL (31.8-35.4); Mean Corpuscular Hemoglobin 28.5 pg (27.0-31.2); Mean Corpuscular Volume 86.7 fl (81-99); Mean Platelet Volume 7.9 fl (7.4-10.4); Monocytes # 0.4 K/mm3 (0.1-1.0); Monocytes % 6.9 % (1.7-9.3); Neutrophils # 3.9 K/mm3 (1.8-7.8); Neutrophils % 69.7 % (37.0-80.0); Platelet Count 246 K/mm3 (142-424); Red Blood Count 3.53 M/mm3 (4.20-5.40); Red Cell Distribution Width 15.2 % (11.5-17.5); White Blood Count 5.6 K/mm3 (4.8-10.8)
[2023-06-04 11:51] LABS: Bacteria,Urine Trace /lpf; RBC,Urine TNTC #/hpf (0-3); WBC,Urine Occasional #/hpf (0-3)
[2023-06-04 11:57] LABS: Creatinine,Urine Random 85 mg/dL (Not Estab.)
[2023-06-04 12:13] LABS: Chloride 106 mmol/L (98-107); Potassium 4.5 mmoL/L (3.5-5.1); Sodium 136 mmol/L (136-145)
[2023-06-04 12:15] LABS: Blood Urea Nitrogen 49 mg/dl (7-17); Estimated Glomerular Filt Rate 10 ml/min (>60); GFR (African American) 13 ML/MIN (>60)
[2023-06-04 12:16] LABS: Anion Gap 14.5 mEq/L (5-15); Calcium 8.8 mg/dl (8.4-10.2); Carbon Dioxide 20 mmol/L (22.0-30.0); Glucose 145 mg/dl (74-100); Magnesium 1.5 mg/dl (1.6-2.3)
[2023-06-04 14:07] LABS: Intact Parathyroid Hormone 199.6 pg/mL (7.5-53.5)
[2023-06-04 14:19] LABS: 25-OH Vitamin D, Total 32.3 ng/mL (30-100)
== END ==
PROVIDERS: PCP Family Medicine; Visit Provider Internal Medicine
DX: N18.4 Chronic kidney disease, stage 4 (severe) (principal); I10 Essential (primary) hypertension
CPT/HCPCS: 36415; 80048; 81001; 82306; 82570; 83735; 83970; 84155; 85025

== ENCOUNTER → 2023-07-17 13:43 | Outpatient (CLI) | payer OTHER, SELFPAY ==
[2023-07-17 13:51] LABS: Microscopic, Urine URINE MICROSCOPIC (MICROSCOPIC)
[2023-07-17 14:18] LABS: Basophils % 0.3 % (0.1-2.0); Eosinophils # 0.3 K/mm3 (0.0-0.4); Eosinophils % 4.7 % (0.1-12.0); Hematocrit 29.4 % (37.0-47.0); Lymphocytes # 0.7 K/mm3 (0.7-4.5); Lymphocytes % 10.9 % (10-50); Mean Corpuscular HGB Conc 33.9 g/dL (31.8-35.4); Mean Corpuscular Hemoglobin 29.3 pg (27.0-31.2); Mean Corpuscular Volume 86.7 fl (81-99); Monocytes # 0.4 K/mm3 (0.1-1.0); Monocytes % 5.9 % (1.7-9.3); Neutrophils % 78.2 % (37.0-80.0); Platelet Count 173 K/mm3 (142-424); Red Cell Distribution Width 15.1 % (11.5-17.5); White Blood Count 6.4 K/mm3 (4.8-10.8)
[2023-07-17 14:24] LABS: Appearance,Urine CLEAR (Clear); Bilirubin,Urine Negative (Negative); Blood, Urine 2+ (Negative); Color,Urine YELLOW (Yellow); Glucose,Urine (UA) Negative (Negative); Ketones,Urine Negative (Negative); Leukocyte Esterase,Urine TRACE (Negative); Nitrate,Urine Negative (Negative); Protein,Urine 3+ (Negative); Specific Gravity, Urine 1.025 (1.005-1.030); Urobilinogen,Urine 0.2 EU/dl (0.2)
[2023-07-17 16:09] LABS: Anion Gap 14.2 mEq/L (5-15); Blood Urea Nitrogen 56 mg/dl (7-17); Calcium 8.1 mg/dl (8.4-10.2); Carbon Dioxide 21 mmol/L (22.0-30.0); Chloride 107 mmol/L (98-107); Estimated Glomerular Filt Rate 11 ml/min (>60); GFR (African American) 13 ML/MIN (>60); Glucose 135 mg/dl (74-100); Magnesium 1.5 mg/dl (1.6-2.3); Potassium 5.2 mmoL/L (3.5-5.1); Sodium 137 mmol/L (136-145); Uric Acid 8.2 mg/dl (2.5-6.2); WBC,Urine Occasional #/hpf (0-3)
[2023-07-17 16:20] LABS: Intact Parathyroid Hormone 202.5 pg/mL (7.5-53.5)
[2023-07-17 16:40] LABS: Creatinine,Urine Random 65 mg/dL (Not Estab.)
== END ==
PROVIDERS: PCP Emergency Medicine; Visit Provider Internal Medicine
DX: I12.0 Hypertensive chronic kidney disease with stage 5 chronic kidney disease or end stage renal disease (principal); Z68.41 Body mass index [BMI] 40.0-44.9, adult; N18.5 Chronic kidney disease, stage 5
CPT/HCPCS: 36415; 80048; 81001; 82306; 82570; 83735; 83970; 84155; 84550; 85025

== ENCOUNTER → 2023-08-28 16:58 | Outpatient (CLI) | payer OTHER, SELFPAY ==
[2023-08-28 17:10] LABS: Microscopic, Urine URINE MICROSCOPIC (MICROSCOPIC)
[2023-08-28 17:23] LABS: Basophils % 0.4 % (0.1-2.0); Eosinophils # 0.4 K/mm3 (0.0-0.4); Eosinophils % 5.5 % (0.1-12.0); Hematocrit 30.5 % (37.0-47.0); Hemoglobin 10.6 g/dL (12.2-16.2); Lymphocytes # 0.8 K/mm3 (0.7-4.5); Lymphocytes % 12.7 % (10-50); Mean Corpuscular HGB Conc 34.7 g/dL (31.8-35.4); Mean Corpuscular Hemoglobin 30.5 pg (27.0-31.2); Mean Corpuscular Volume 87.7 fl (81-99); Mean Platelet Volume 7.5 fl (7.4-10.4); Monocytes # 0.3 K/mm3 (0.1-1.0); Monocytes % 4.8 % (1.7-9.3); Neutrophils # 5.1 K/mm3 (1.8-7.8); Neutrophils % 76.7 % (37.0-80.0); Platelet Count 145 K/mm3 (142-424); Red Blood Count 3.47 M/mm3 (4.20-5.40); Red Cell Distribution Width 15.4 % (11.5-17.5); White Blood Count 6.6 K/mm3 (4.8-10.8)
[2023-08-28 17:38] LABS: Blood Urea Nitrogen 48 mg/dl (7-17); Calcium 7.7 mg/dl (8.4-10.2); Carbon Dioxide 17 mmol/L (22.0-30.0); Chloride 107 mmol/L (98-107); Estimated Glomerular Filt Rate 10 ml/min (>60); GFR (African American) 13 ML/MIN (>60); Glucose 176 mg/dl (74-100); Phosphorous 5.5 mg/dl (2.5-4.5); Sodium 136 mmol/L (136-145); Uric Acid 7.6 mg/dl (2.5-6.2)
[2023-08-28 17:51] LABS: Intact Parathyroid Hormone 266.6 pg/mL (7.5-53.5)
[2023-08-28 17:53] LABS: 25-OH Vitamin D, Total 39.5 ng/mL (30-100)
[2023-08-28 18:22] LABS: Appearance,Urine CLEAR (Clear); Bilirubin,Urine Negative (Negative); Blood, Urine 2+ (Negative); Color,Urine YELLOW (Yellow); Glucose,Urine (UA) TRACE (Negative); Ketones,Urine Negative (Negative); Leukocyte Esterase,Urine Negative (Negative); Nitrate,Urine Negative (Negative); Protein,Urine 3+ (Negative); Specific Gravity, Urine 1.025 (1.005-1.030); Urobilinogen,Urine 0.2 EU/dl (0.2)
[2023-08-28 18:35] LABS: Creatinine,Urine Random 78 mg/dL (Not Estab.)
== END ==
PROVIDERS: PCP Family Medicine; Visit Provider Internal Medicine
DX: N18.9 Chronic kidney disease, unspecified (principal); I10 Essential (primary) hypertension
CPT/HCPCS: 36415; 80048; 81001; 82043; 82306; 82570; 83970; 84100; 84550; 85025

== ENCOUNTER → 2023-10-30 13:15 | Outpatient (CLI) | payer OTHER, SELFPAY ==
[2023-10-30 13:24] LABS: Microscopic, Urine URINE MICROSCOPIC (MICROSCOPIC)
[2023-10-30 13:38] LABS: Basophils % 0.3 % (0.1-2.0); Eosinophils # 0.5 K/mm3 (0.0-0.4); Eosinophils % 8.4 % (0.1-12.0); Hematocrit 30.1 % (37.0-47.0); Hemoglobin 10.5 g/dL (12.2-16.2); Lymphocytes # 0.8 K/mm3 (0.7-4.5); Lymphocytes % 13.4 % (10-50); Mean Corpuscular HGB Conc 34.9 g/dL (31.8-35.4); Mean Corpuscular Hemoglobin 30.4 pg (27.0-31.2); Mean Corpuscular Volume 87.2 fl (81-99); Mean Platelet Volume 7.8 fl (7.4-10.4); Monocytes # 0.4 K/mm3 (0.1-1.0); Monocytes % 5.6 % (1.7-9.3); Neutrophils # 4.4 K/mm3 (1.8-7.8); Neutrophils % 72.2 % (37.0-80.0); Platelet Count 170 K/mm3 (142-424); Red Blood Count 3.44 M/mm3 (4.20-5.40); Red Cell Distribution Width 14.6 % (11.5-17.5); White Blood Count 6.2 K/mm3 (4.8-10.8)
[2023-10-30 13:43] LABS: Appearance,Urine CLEAR (Clear); Bilirubin,Urine Negative (Negative); Blood, Urine TRACE-I (Negative); Color,Urine YELLOW (Yellow); Glucose,Urine (UA) 1+ (Negative); Ketones,Urine Negative (Negative); Leukocyte Esterase,Urine Negative (Negative); Nitrate,Urine Negative (Negative); PH,Urine 6.5 (5.0-8.5); Protein,Urine 2+ (Negative); Urobilinogen,Urine 0.2 EU/dl (0.2)
[2023-10-30 14:09] LABS: Creatinine,Urine Random 61 mg/dL (Not Estab.)
[2023-10-30 14:13] LABS: Bacteria,Urine Trace /lpf; WBC,Urine Occasional #/hpf (0-3)
[2023-10-30 14:57] LABS: Anion Gap 12.2 mEq/L (5-15); Blood Urea Nitrogen 69 mg/dl (7-17); Calcium 7.9 mg/dl (8.4-10.2); Carbon Dioxide 20 mmol/L (22.0-30.0); Chloride 108 mmol/L (98-107); Chol/HDL Ratio 4.6 (1-3.5); Cholesterol 133 mg/dl (140-200); Estimated Glomerular Filt Rate 8 ml/min (>60); GFR (African American) 9 ML/MIN (>60); Glucose 222 mg/dl (74-100); HDL Cholesterol 29 mg/dl (40-60); Magnesium 1.3 mg/dl (1.6-2.3); Potassium 5.2 mmoL/L (3.5-5.1); Sodium 135 mmol/L (136-145); Triglycerides 150 mg/dl (30-150); VLDL Cholesterol 30 mg/dL (0-40)
[2023-10-30 15:07] LABS: Intact Parathyroid Hormone 185.6 pg/mL (7.5-53.5)
[2023-10-30 15:08] LABS: Direct LDL Cholesterol 81.87 mg/dL (100-129)
[2023-10-30 15:11] LABS: 25-OH Vitamin D, Total 41.9 ng/mL (30-100)
== END ==
LOC: LAB 13:17
PROVIDERS: PCP Family Medicine; Visit Provider Internal Medicine
DX: N18.5 Chronic kidney disease, stage 5; I12.0 Hypertensive chronic kidney disease with stage 5 chronic kidney disease or end stage renal disease
CPT/HCPCS: 36415; 80048; 80061; 81001; 82306; 82570; 83735; 83970; 84155; 84550; 85025

== ENCOUNTER 2024-01-16 20:24 | Emergency (ER) | payer OTHER, SELFPAY ==
[2024-01-16 20:25] VITALS: BP 129/72; PULSE 81; RESP 20; TEMP 36.5; O2SAT 100; BMI 40.4
--- NOTE | 2024-01-16 20:50 | XR_ITS ---
PROCEDURE INFORMATION: Exam: XR Chest Exam date and time: 01/16/2024 8:59 PM Age: 43 years old Clinical indication: Other: Gen weakness; Patient HX: States low BP TECHNIQUE: Imaging protocol: Radiologic exam of the chest. Views: 1 view. Total images: 1 COMPARISON: CR CXR2V XR chest 2V 01/26/2019 11:01 AM FINDINGS: Lungs: Unremarkable. No consolidation. No pulmonary vascular congestion or edema. Pleural spaces: Unremarkable. No pleural effusion. No pneumothorax. Heart/Mediastinum: Unremarkable. No cardiomegaly. No mediastinal widening or hilar enlargement. Bones/joints: Unremarkable. IMPRESSION: No radiographically acute cardiopulmonary process.
--- NOTE | 2024-01-16 20:53 | ED_ITS ---
Discharge Plan Disposition Patient Disposition: Home, Self-Care Prescriptions Prescriptions: No Action permethrin [Elimite] 5 % cream See Rx Instructions .ROUTE .COMPLEX Qty: 60 0RF Rx Instructions: apply to entire body surface area from jawline down shower off 12 hours repeat in 1 week insulin lispro [Humalog KwikPen Insulin] 100 unit/mL insulin pen See Rx Instructions .ROUTE .COMPLEX Qty: 15 2RF Rx Instructions: 5 units q 6 hrs if bs is elevated over 250 please pen needles #100 [id number] montelukast 10 mg tablet 10 mg PO DAILY Patient Comments: TAKE 1 TABLET BY MOUTH EVERY DAY AT BEDTIME sodium bicarbonate 650 mg tablet 650 mg PO DAILY amlodipine 10 mg tablet 10 mg PO DAILY Januvia 50 mg tablet 50 mg PO DAILY Patient Comments: TAKE 1 TABLET BY MOUTH ONCE DAILY doxazosin 1 mg tablet 1 mg PO BID ferrous sulfate [FeroSul] 325 mg (65 mg iron) tablet 325 mg feeding tube Patient Comments: TAKE 1 TABLET BY MOUTH ONCE DAILY bumetanide 1 mg tablet 1 mg PO ONCE PRN Patient Comments: TAKE 1 TABLET BY MOUTH NEEDED ergocalciferol (vitamin D2) 1,250 mcg (50,000 unit) capsule 1,250 mcg PO WEEKLY Patient Comments: TAKE 1 CAPSULE BY MOUTH ONCE A WEEK metoprolol succinate [Toprol XL] 50 mg tablet extended release 24 hr 50 mg PO BID Qty: 180 3RF albuterol sulfate 90 mcg/actuation HFA aerosol inhaler 2 inh inhalation Q6HP PRN (Reason: ASTHMA) Qty: 8.5 2RF Rx Instructions: INHALE 2 PUFFS BY MOUTH EVERY 4 TO 6 HOURS NEEDED FOR SHORTNESS OF BREATH OR WHEEZING albuterol sulfate 0.63 mg/3 mL solution for nebulization 0.63 mg inhalation Q6H Qty: 90 2RF ondansetron 8 mg tablet,disintegrating See Rx Instructions .ROUTE .COMPLEX Qty: 60 0RF Dose Instruction: DISSOLVE 1 TABLET IN MOUTH EVERY 12 HOURS NEEDED FOR NAUSEA AND VOMITING Rx Instructions: DISSOLVE 1 TABLET IN MOUTH EVERY 12 HOURS NEEDED FOR NAUSEA AND VOMITING omeprazole 40 mg capsule,delayed release(DR/EC) 40 mg PO DAILY Rx Instructions: Take 1 tab every morning with meal Referrals Follow up/Referrals: Stephan Talbert MD [Primary Care Provider] - See instructions Activity Restrictions/Add. Instructions Additional Instructions/Restrictions: Call your family doctor to establish care for this visit to the emergency department and schedule follow-up within 48 hours to ensure improvement. If you have any worsening of your condition or any other concerning signs or symptoms, return to the emergency department or your primary care doctor for further evaluation. Continue dialysis as usual. Try to stay as close you can to your dry weight as possible. Today you are moderately dehydrated. Clinical Impressions Clinical Impression: Acute dehydration Discharge ED Provider: Mike Randolph General Adult HPI General Chief complaint: Weakness Stated complaint: LBP Time Seen by Provider: 01/16/24 20:27 History of Present Illness HPI narrative: 43-year-old female history of hypertension, hyperlipidemia, diabetes,, ESRD on nightly peritoneal dialysis who still produces some urine presenting with generalized weakness. Patient states that she has been feeling weak for the past couple of days. It got worse through today. She states that she is intermittently feeling lightheaded when she stands up, but no syncopal episodes. No chest pain, shortness of breath, nausea vomiting, fevers or chills, abdominal pain, concern for infection around peritoneal dialysis site, cloudy dialysate, burning or blood when she urinates, or any other concerns. Related Data Home Medications Medication Instructions Recorded Confirmed montelukast 10 mg tablet 10 mg PO DAILY allergies 07/14/21 01/12/24 omeprazole 40 mg capsule,delayed 40 mg PO DAILY GERD 11/13/22 01/12/24 release amlodipine 10 mg tablet 10 mg PO DAILY 02/10/23 01/12/24 sitagliptin phosphate 50 mg tablet 50 mg PO DAILY 02/10/23 01/12/24 (Januvia) sodium bicarbonate 650 mg tablet 650 mg PO DAILY 02/10/23 01/12/24 bumetanide 1 mg tablet 1 mg PO ONCE PRN 02/20/23 01/12/24 doxazosin 1 mg tablet 1 mg PO BID 02/20/23 01/12/24 ergocalciferol (vitamin D2) 1,250 1,250 mcg PO WEEKLY 02/20/23 01/12/24 mcg (50,000 unit) capsule ferrous sulfate 325 mg (65 mg 325 mg feeding tube 02/20/23 01/12/24 iron) tablet (FeroSul) Previous Rx's Medication Instructions Recorded albuterol sulfate 90 mcg/actuation 2 inh inhalation Q6HP PRN ASTHMA 07/24/22 aerosol inhaler #8.5 grams metoprolol succinate 50 mg 50 mg PO BID #180 tabs 02/20/23 tablet,extended release 24 hr (Toprol XL) albuterol sulfate 0.63 mg/3 mL 0.63 mg (3 mL) inhalation Q6H 02/25/23 solution for nebulization Asthma #90 mL permethrin 5 % topical cream See Rx Instructions .Route 05/07/23 (Elimite) .COMPLEX 2 doses #60 grams ondansetron 8 mg disintegrating See Rx Instructions .Route 12/26/23 tablet .COMPLEX #60 tabs insulin lispro 100 unit/mL See Rx Instructions .Route 01/12/24 subcutaneous pen (Humalog KwikPen .COMPLEX #15 mL (U-100) Insulin) Allergies Allergy/AdvReac Type Severity Reaction Status Date / Time Penicillins [PENICILLINS] Allergy Unknown PASSED OUT Verified 01/12/24 14:49 [facility] Disclaimer: The information contained in this section may have been updated after the patient was seen, as this information can be updated by other users. Medical History Hiatal hernia with gastroesophageal reflux GERD (gastroesophageal reflux disease) Cough Dysphagia Dysphonia Thyroid nodule She has multiple small nodules none of which are worrisome by ultrasonography appearance and characteristics Enlarged thyroid Renal insufficiency Diabetes mellitus Asthma Hypotension Hyperglycemia Surgical History History of dental surgery History of local excision of skin lesion History of excision of lesion Family History Other Family history of cancer Family history of diabetes mellitus type II Family history of myocardial infarction Family history of stroke Social History Smoking Status: Never smoker alcohol intake: never substance use type: denies use current occupational status: employed Travel in the last 8 weeks: None household members: children housing: house lives independently: Yes marital status: single caffeine: Yes special bahman needs: No agree to transfusion: No do you feel safe at home: Yes victim of physical abuse: No victim of emotional abuse: No victim of sexual abuse: No would you like helpful sources: No ROS Obtained: Yes All systems reviewed & no additional complaints except as documented Physical Exam General General appearance: alert and in no apparent distress Head Head exam: atraumatic and normocephalic Eye Eye exam: Present normal appearance, PERRL and EOMI ENT ENT exam: Present mucous membranes moist Neck Neck exam: Present normal inspection, full ROM and trachea midline Respiratory Respiratory exam: Present normal lung sounds bilaterally; Absent respiratory distress, wheezes, stridor, accessory muscle use or prolonged expiratory phase Cardiovascular Cardiovascular exam: Present regular rate and normal rhythm Abdominal Exam Abdominal exam: Present soft; Absent distention, tenderness, guarding, rebound or rigidity Comment: No obvious abnormal peritoneal dialysis catheter. Extremities Exam Extremities exam: Absent edema Neurological Exam Neurological exam: Present alert, oriented X3, CN II-XII intact and normal gait; Absent motor sensory deficit Skin Skin exam: Present warm and dry; Absent diaphoresis or erythema Medical Decision Making Medical Records Medical records reviewed: Yes I reviewed the patient's medical records. Bishop Inquiry Pt receiving controlled substance: No Bishop was queried for this patient: No Vital Signs: 01/16/24 20:25 01/16/24 21:00 01/16/24 23:06 Temperature 97.7 F Temperature Source Oral Pulse Rate 76 70 Pulse Rate [Right Brachial] 81 Respiratory Rate 20 18 Blood Pressure 102/60 L 102/50 L Blood Pressure [Right Arm] 129/72 Blood Pressure Mean 74 69 Blood Pressure Mean [Right Arm] 91 02 Sat by Pulse Oximetry 100 100 100 Oxygen Delivery Method Room Air Room Air Room Air 01/16/24 23:13 Temperature 97.9 F Temperature Source Oral Pulse Rate 70 Pulse Rate [Right Brachial] Respiratory Rate 18 Blood Pressure 102/50 L Blood Pressure [Right Arm] Blood Pressure Mean Blood Pressure Mean [Right Arm] 02 Sat by Pulse Oximetry Oxygen Delivery Method Room Air Lab Data Lab Results 01/16/24 21:11: WBC 7.5, RBC 3.39 L, Hgb 10.6 L, Hct 31.1 L, MCV 91.7, MCH 31.4 H, MCHC 34.2, RDW 16.7, Plt Count 199, MPV 7.8, Neut % (Auto) 71.7, Lymph % (Auto) 15.6, [place] % (Auto) 7.5, Eos % (Auto) 4.5, Baso % (Auto) 0.6, Neut # (Auto) 5.3, Lymph # (Auto) 1.2, [place] # (Auto) 0.6, Eos # (Auto) 0.3, Baso # (Auto) 0.1, Sodium 132 L, Potassium 3.6, Chloride 94 L, Carbon Dioxide 28, Anion Gap 13.6, BUN 61 H, Creatinine 9.20 H, Estimated Creat Clear 16, Estimated GFR 5 L*, Est GFR ( Amer) 6 L*, Glucose 160 H, Calcium 7.7 L, Magnesium 1.5 L, Total Bilirubin 0.9, AST 35, ALT 20, Alkaline Phosphatase 53, Troponin I < 0.01, Total Protein 7.3, Albumin 3.8, Globulin 3.5 H, Albumin/Globulin Ratio 1.1 01/16/24 21:20: Urine Color Yellow, Urine Appearance Cloudy, Urine pH 5.5, Ur Specific [place] >= 1.030, Urine Protein 2+, Urine Glucose (UA) Negative, Urine Ketones Trace, Urine Blood 2+, Urine Nitrate Negative, Urine Bilirubin 1+ A, Urine Urobilinogen 0.2, Ur Leukocyte Esterase 1+ A, Urine RBC Occasional, Urine WBC 20-50, Ur Squamous Epith Cells 10-20, Amorphous Sediment Trace, Urine Bacteria 2+ 01/16/24 21:40: Lactate 1.6 01/16/24 21:11 01/16/24 21:11 Orders (Tests/Meds): ED MEDICATIONS Discontinued Medications Generic Name Dose Route Start Last Admin Trade Name Freq PRN Reason Stop Dose Admin Lactated Ringer's 1,000 mls @ 999 mls/hr 01/16/24 20:50 01/16/24 21:16 Lactated Ringer's 1000 Ml Bag IV 01/16/24 21:50 999 mls/hr .Q1H1M ONE Administration ORDERS Category Date Time Status CXR --portable [XR chest portable] Stat Exams 01/16/24 20:50 Completed CBC w/Auto Diff [Complete Blood Count Auto Diff] Stat Lab 01/16/24 21:11 Completed CMP [Comprehensive Metabolic Panel] Stat Lab 01/16/24 21:11 Completed Lactic Acid Stat Lab 01/16/24 21:40 Completed Magnesium Stat Lab 01/16/24 21:11 Completed Trop I [Troponin I] Stat Lab 01/16/24 21:11 Completed Troponin I Q3H Lab 03/15/24 23:50 Ordered UA [Urinalysis and Microscopic] Stat Lab 01/16/24 21:20 Completed Blood Culture Stat Micro 01/16/24 21:40 Received Urine Culture Stat Micro 01/16/24 21:20 Received Medical Decision Narrative: 43-year-old female history of hypertension, hyperlipidemia, diabetes,, ESRD on nightly peritoneal dialysis who still produces some urine presenting with generalized weakness. Patient states that she has been feeling weak for the past couple of days. It got worse through today. She states that she is intermittently feeling lightheaded when she stands up, but no syncopal episodes. No chest pain, shortness of breath, nausea vomiting, fevers or chills, abdominal pain, concern for infection around peritoneal dialysis site, cloudy dialysate, burning or blood when she urinates, or any other concerns. Patient states that she is 2 kg down from her normal dry weight today as well. History was obtained via conversation with patient. On arrival, patient hemodynamically stable, alert, oriented x4, appropriate, GCS 15, moving all extremities spontaneously, pupils equal and reactive to light. Full physical exam performed and significant for obese woman in no acute distress. Abdomen soft, nontender, nondistended. Lungs are clear to auscultation bilaterally. Normal cardiac exam. No lower extremity edema. Patient is normotensive, nontachycardic here in the emergency department. Afebrile.. Differential includes metabolic abnormality, dehydration, ACS, [place], arrhythmia, among others. Patient was given 1 L fluid bolus for symptomatic management and correction of underlying abnormalities. Workup independently interpreted and significant for no leukocytosis. CMP notable for sodium 132, potassium 3.6, anion gap normal at 13. Creatinine 9.2 up from normal baseline of around 5. BUN 61. Lactate 1.6, magnesium low at 1.5. Troponin negative. Urinalysis nonconcerning for UTI. Chest x-ray without acute cardiopulmonary airspace disease. See radiology read for full review of final results. On reevaluation, patient resting comfortably. Because patient 5 pounds below her normal dry weight, presyncopal with changes in position, and creatinine elevated beyond typical, patient was given a liter of fluids likely secondary to moderate dehydration. Because patient at baseline without signs or symptoms of clinical decompensation, deemed appropriate for discharge. Results were relayed to patient who voiced understanding and were agreeable to outpatient management and follow up. At the time of discharge the patient was hemodynamically stable, tolerating PO, and mobilizing appropriately. 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 Critical Care Critical Care Time Critical Care Time: No
[2024-01-16 21:00] VITALS: BP 102/60; PULSE 76; RESP 18; O2SAT 100
[2024-01-16] MEDS: LACTATED RINGERS 1000ML 1,000 ML 999 ML IV (21:16)
[2024-01-16 21:18] LABS: Basophils # 0.1 K/mm3 (0-0.2); Basophils % 0.6 % (0.1-2.0); Eosinophils # 0.3 K/mm3 (0.0-0.4); Eosinophils % 4.5 % (0.1-12.0); Hematocrit 31.1 % (37.0-47.0); Hemoglobin 10.6 g/dL (12.2-16.2); Lymphocytes # 1.2 K/mm3 (0.7-4.5); Lymphocytes % 15.6 % (10-50); Mean Corpuscular HGB Conc 34.2 g/dL (31.8-35.4); Mean Corpuscular Hemoglobin 31.4 pg (27.0-31.2); Mean Corpuscular Volume 91.7 fl (81-99); Mean Platelet Volume 7.8 fl (7.4-10.4); Monocytes # 0.6 K/mm3 (0.1-1.0); Monocytes % 7.5 % (1.7-9.3); Neutrophils # 5.3 K/mm3 (1.8-7.8); Neutrophils % 71.7 % (37.0-80.0); Platelet Count 199 K/mm3 (142-424); Red Blood Count 3.39 M/mm3 (4.20-5.40); Red Cell Distribution Width 16.7 % (11.5-17.5); White Blood Count 7.5 K/mm3 (4.8-10.8)
[2024-01-16 21:30] LABS: Chloride 94 mmol/L (98-107)
[2024-01-16 21:31] LABS: Potassium 3.6 mmoL/L (3.5-5.1); Sodium 132 mmol/L (136-145)
[2024-01-16 21:33] LABS: Microscopic, Urine URINE MICROSCOPIC (MICROSCOPIC)
[2024-01-16 21:33] LABS: Alanine Aminotransferase 20 U/L (12-78); Alkaline Phosphatase 53 U/L (38-126); Anion Gap 13.6 mEq/L (5-15); Aspartate Amino Transferase 35 U/L (14-36); Bilirubin,Total 0.9 mg/dl (0.2-1.3); Blood Urea Nitrogen 61 mg/dl (7-17); Carbon Dioxide 28 mmol/L (22.0-30.0); Creatinine Clearance Estimated 16 mL/min (50-200); Estimated Glomerular Filt Rate 5 ml/min (>60); GFR (African American) 6 ML/MIN (>60)
[2024-01-16 21:34] LABS: Albumin Level 3.8 g/dl (3.5-5.0); Albumin/Globulin Ratio 1.1 (1.1-1.8); Calcium 7.7 mg/dl (8.4-10.2); Globulin 3.5 g/dL (1.3-3.2); Glucose 160 mg/dl (74-100); Magnesium 1.5 mg/dl (1.6-2.3); Total Protein,Serum 7.3 g/dl (6.3-8.2)
[2024-01-16 21:35] LABS: Appearance,Urine CLOUDY (Clear); Blood, Urine 2+ (Negative); Color,Urine YELLOW (Yellow); Glucose,Urine (UA) Negative (Negative); Ketones,Urine TRACE (Negative); Leukocyte Esterase,Urine 1+ (Negative); Nitrate,Urine Negative (Negative); PH,Urine 5.5 (5.0-8.5); Protein,Urine 2+ (Negative); Specific Gravity, Urine >= 1.030 (1.005-1.030); Urobilinogen,Urine 0.2 EU/dl (0.2)
--- NOTE | 2024-01-16 21:39 | ECG_ITS ---
APPROVED REPORT Exam: Resting ECG HR:73 bpm ECG Measurements Heart Rate 73 AXES MI 183 P 26 QRSd 110 QRS -30 QT 437 T 5 QTc 463 Conclusion SINUS RHYTHM BORDERLINE LEFT AXIS DEVIATION [QRS AXIS < -20] Electronically signed by : RHETT CARDONA, 01/16/2024 23:58:46
[2024-01-16 21:40] LABS: Bilirubin,Urine 1+ (Negative)
[2024-01-16 21:54] LABS: Troponin I < 0.01 ng/ml (0.00-0.034)
[2024-01-16 21:58] LABS: Amorphous Sediment,Urine Trace /lpf; Bacteria,Urine 2+ /lpf; RBC,Urine Occasional #/hpf (0-3); WBC,Urine 20-50 #/hpf (0-3)
[2024-01-16 21:59] LABS: Lactic Acid 1.6 mmol/L (0.7-2.1)
[2024-01-16 23:06] VITALS: BP 102/50; PULSE 70; O2SAT 100
[2024-01-16 23:13] VITALS: BP 102/50; PULSE 70; RESP 18; TEMP 36.6; O2SAT 97
--- NOTE | 2024-01-21 07:20 | PC.NURSE ---
urine results reviewed with , NTD
== END 2024-01-16 23:23 | disposition home or self-care (01) ==
PROVIDERS: Emergency Provider Emergency Medicine; PCP Family Medicine
DX: E86.0 Dehydration (principal); I12.0 Hypertensive chronic kidney disease with stage 5 chronic kidney disease or end stage renal disease; N18.6 End stage renal disease; E11.22 Type 2 diabetes mellitus with diabetic chronic kidney disease; E78.5 Hyperlipidemia, unspecified; R53.1 Weakness; R42 Dizziness and giddiness; J45.909 Unspecified asthma, uncomplicated; E04.9 Nontoxic goiter, unspecified
CPT/HCPCS: 36415; 71045; 80053; 81001; 83605; 83735; 84484; 85025; 87040; 87086; 93005; 96360; 99285

== ENCOUNTER 2024-01-28 10:09 | Outpatient (CLI) | payer OTHER, SELFPAY ==
--- NOTE | 2024-01-28 10:09 | US_ITS ---
FINAL REPORT TECHNIQUE: Ultrasound images of the abdominal aorta were obtained. CLINICAL HISTORY: family history COMPARISON: None FINDINGS: ULTRASOUND OF THE ABDOMINAL AORTA The aorta measures up to 1.9 cm. The bifurcation is normal. IMPRESSION: No evidence of abdominal aortic aneurysm. Reviewed, Interpreted and Dictated by Hal Camarena MD Transcribed by Evie Kramer Authenticated and [facility]
== END 2024-01-28 23:59 ==
LOC: RAD 10:09
PROVIDERS: PCP Family Medicine; Visit Provider Family Medicine
DX: Z82.49 Family history of ischemic heart disease and other diseases of the circulatory system (principal)
CPT/HCPCS: 76705

== ENCOUNTER 2024-01-30 09:06 | Outpatient (CLI) | payer OTHER, SELFPAY ==
--- NOTE | 2024-01-30 09:07 | CA_ITS ---
APPROVED REPORT EXAM: Comprehensive 2D, Doppler, and color-flow Echocardiogram Warp Coiler: MANDI Mcguire, RVS Ht: 5 ft 9 in Wt: 290lbs BSA: 2.42 BP: 122/64 mmHg Indications: Aortic valve screening after fathers fatal aortic dissection, DM, Obesity, Renal failure peritoneal dialysis. HTN Echo Enhancing Agent Comments: Unable to rule out Bicuspid Aortic valve due to poor acoustics secondary to body habitus. 2D Dimensions Left Atrium 3.54 cm LA Volume 45.50 mL Ascending Aorta 2.95 cm LA Volume Index 18.30 mL/m2 (M/F) 16-34 M-Mode Dimensions RVDd 3.39 cm (0.9-2.6) LA Diam 3.66 cm (1.9-4.0) LVDd 4.36 cm (3.5-5.7) LVDs 3.00 cm (3.5-5.7) IVSd 1.25 cm (0.6-1.1) PWd 1.14 cm (0.6-1.1) EF (Teich) 59.20% EPSs 0.14 cm FS 31.20% EDV (Teich) 85.80 mL TAPSE 2.30 (<1.7) ESV (Teich) 35.00 mL LV Diastology E Decel Time 227 (160-240 msec) E/A Ratio 1.00 MED A' 9.40 cm/s LAT A' 10.80 cm/s Aortic Valve ALEJA Index 1.22 cm2/m2 AoV Peak Harvey. 117.0 (50-130 cm/s) AO Peak GR. 5.50 mmHg AO Mean GR. 2.80 (<5 mmHg) AO VTI 23.0 (18-25 cm) ALEJA (VTI) 3.02 (2.5-4.5 cm2) Mitral Valve MV A Velocity 75.0 (40-130 cm/s) E/A Ratio 1.00 Pulmonary Valve PV Peak Velocity 93.0 (50-150 cm/s) Left Ventricle The left ventricle is normal size. The left ventricular systolic function is normal. The left ventricular ejection fraction is within the normal range. There is normal left ventricular wall thickness. There is normal LV segmental wall motion. The left ventricular diastolic function is normal. LVEF is 55%. Right Ventricle The right ventricle is mildly dilated. The right ventricular systolic function is normal. Atria The left atrium size is normal. The right atrium size is normal. There is no Doppler evidence of interatrial shunt. Aortic Valve The aortic valve opens well. The leaflet morphology of the aortic valve is not well-defined due to technically difficult study. There is no aortic valvular stenosis. No aortic regurgitation is present. Mitral Valve The mitral valve is normal in structure. No evidence of mitral valve stenosis. There is no mitral valve regurgitation noted. Tricuspid Valve The tricuspid valve leaflets are thin and pliable. Trace tricuspid regurgitation. There is insufficient TR jet to estimate RVSP. Pulmonic Valve The pulmonary valve is normal in structure. Trace pulmonic regurgitation. Great Vessels The aortic root is normal in size. The visualized proximal segment of the ascending aorta is normal in size. The IVC is not well-visualized Pericardium There is no pericardial effusion. Other Information Study Quality: Technically Difficult Conclusion Technically difficult study due to poor acoustic windows. Normal biventricular systolic function. No significant valvular stenosis or regurgitation. The aortic valve opens well, the aortic valve leaflet morphology is not well-defined due to technically difficult study. The aortic root and proximal segment of the ascending aorta are normal in size Electronically signed by : Renate Oconnor MD 02/02/2024 10:23:32
== END 2024-01-30 23:59 ==
LOC: RT 09:07
PROVIDERS: PCP Family Medicine; Visit Provider Family Medicine
DX: Z82.49 Family history of ischemic heart disease and other diseases of the circulatory system (principal)
CPT/HCPCS: 93306

== ENCOUNTER 2024-02-29 12:00 | Emergency (ER) | payer OTHER, SELFPAY ==
[2024-02-29 12:00] VITALS: BP 134/72; PULSE 72; RESP 17; TEMP 37; O2SAT 98; BMI 42.3
[2024-02-29 12:36] LABS: Apearance,Urine Cloudy (Clear); Color,Urine Dark Yellow (Yellow)
[2024-02-29 12:37] LABS: Bilirubin,Urine Negative (Negative); Blood, Urine 3+ (Negative); Glucose,Urine (UA) Negative (Negative); Ketones,Urine Negative (Negative); Protein,Urine 2+ (Negative); Specific Gravity, Urine 1.025 (1.005-1.030); UTC Leukocyte Esterase,Urine 3+ (Negative); UTC Nitrate,Urine Negative (Negative); Urobilinogen,Urine 0.2 EU/dl (0.2)
--- NOTE | 2024-02-29 12:50 | ED_ITS ---
Discharge Plan Disposition Patient Disposition: Home, Self-Care Condition: Good Prescriptions Prescriptions: New cephalexin 500 mg capsule 500 mg PO BID 7 Days Qty: 14 0RF No Action hydralazine 25 mg tablet 25 mg PO DAILY hydroxyzine HCl 25 mg tablet 25 mg PO DAILY Patient Comments: TAKE 1 TABLET BY MOUTH THREE TIMES DAILY NEEDED FOR ITCHING calcitriol [Rocaltrol] 0.25 mcg capsule 0.25 mcg PO DAILY (DME) pen needle, diabetic [BD Ultra-Fine Mini Pen Needle] 31 gauge x 3/16 ne edle See Rx Instructions .ROUTE .MEDSUPPLY Qty: 1200 Patient Comments: USE 1 PEN NEEDLE 4 TIMES DAILY Rx Instructions: As directed insulin glargine [Lantus Solostar U-100 Insulin] 100 unit/mL (3 mL) insulin pen See Rx Instructions .ROUTE .COMPLEX Patient Comments: INJECT 20 UNITS SUBCUTANEOUSLY ONCE DAILY , WITH TITRATION IF INDICATED AND INSTRUCTED UP TO A MAX DAILY DOSE OF 50 UNITS Rx Instructions: see rx (DME) FreeStyle Omar 3 Sensor Device See Rx Instructions .ROUTE .MEDSUPPLY Qty: 1 Patient Comments: CHANGE SENSOR EVERY 14 DAYS. CHECK BLOOD GLUCOSE FOUR TIMES DAILY Rx Instructions: As directed (DME) FreeStyle Omar 3 Sigel Misc See Rx Instructions .ROUTE .MEDSUPPLY Qty: 1 Rx Instructions: As directed Velphoro 500 mg tablet,chewable 500 mg PO DAILY insulin lispro [Humalog KwikPen Insulin] 100 unit/mL insulin pen See Rx Instructions .ROUTE .COMPLEX Qty: 15 2RF Rx Instructions: 5 units q 6 hrs if bs is elevated over 250 please pen needles #100 [id number] montelukast 10 mg tablet 10 mg PO DAILY Patient Comments: TAKE 1 TABLET BY MOUTH EVERY DAY AT BEDTIME sodium bicarbonate 650 mg tablet 650 mg PO DAILY doxazosin 1 mg tablet 1 mg PO BID ferrous sulfate [FeroSul] 325 mg (65 mg iron) tablet 325 mg feeding tube DAILY Patient Comments: TAKE 1 TABLET BY MOUTH ONCE DAILY metoprolol succinate [Toprol XL] 50 mg tablet extended release 24 hr 50 mg PO BID Qty: 180 3RF albuterol sulfate 90 mcg/actuation HFA aerosol inhaler 2 inh inhalation Q6HP PRN (Reason: ASTHMA) Qty: 8.5 2RF Rx Instructions: INHALE 2 PUFFS BY MOUTH EVERY 4 TO 6 HOURS NEEDED FOR SHORTNESS OF BREATH OR WHEEZING albuterol sulfate 0.63 mg/3 mL solution for nebulization 0.63 mg inhalation Q6H Qty: 90 2RF ondansetron 8 mg tablet,disintegrating See Rx Instructions .ROUTE .COMPLEX Qty: 60 0RF Dose Instruction: DISSOLVE 1 TABLET IN MOUTH EVERY 12 HOURS NEEDED FOR NAUSEA AND VOMITING Rx Instructions: DISSOLVE 1 TABLET IN MOUTH EVERY 12 HOURS NEEDED FOR NAUSEA AND VOMITING Tarpeyo 4 mg capsule,delayed release(DR/EC) 16 mg PO DAILY omeprazole 40 mg capsule,delayed release(DR/EC) 40 mg PO DAILY Rx Instructions: Take 1 tab every morning with meal Referrals Follow up/Referrals: Stephan Talbert MD [Primary Care Provider] - See instructions Activity Restrictions/Add. Instructions Additional Instructions/Restrictions: Take Cephalexin one hour before taking your Sucroferric Oxyhydroxide Make sure to drink plenty of fluids *Increase fluids. Water not Soda or Tea *Start antibiotic immediately and be sure to take as ordered for the FULL length of time although you should start to see improvement over the next 48 hours Be SURE to follow up anytime for new or worsening symptoms with your family doctor. AND in 48 hours for urine culture results with your family doctor, if you do not have a doctor then you may call back to the [facility] for urine culture results and further treatment. We do recommend that you choose and establish care with a Primary Care Physician. ?AND follow up with them ?in 10-14 days to repeat UA to ensure infection is resolved and blood no longer present *Be sure to let your PCP know that we sent urine cultures from the [facility] so they can follow up to ensure that you area the on the correct antibiotic Call your doctor office and make appointment for 48 hours (2 days from today) ?to follow up and get the results of your urine culture and further treatment Clinical Impressions Clinical Impression: UTI (urinary tract infection) Instructions Patient Instructions: DI for Urinary Tract Infection (UTI), Urinary Tract Infection Discharge ED Provider: Onelia Cortes [facility] [place] HPI General Stated complaint: possible UTI Mode of Arrival: Ambulatory Source of Information: Patient Limitations: No Limitations Time Seen by Provider: 02/29/24 12:50 Description of Symptoms (Recalled from Triage Doc. by RN): Pt's symptoms are bu rning with urination. HEENT Symptoms (Recalled from RN notes): Yes Resp Symptoms (Recalled from RN notes): No Skin Symptoms (Recalled from RN notes): No MS Symptoms (Recalled from RN notes): No Functional Status (Recalled from RN notes): n/a History of Present Illness Provider Complaint: Patient states that she has hx of UTI states that she has been having burning with urination and feeling of urgency and frequency like she has with UTI so she came in today to get checked and treated Related Data Home Medications Medication Instructions Recorded Confirmed montelukast 10 mg tablet 10 mg PO DAILY allergies 07/14/21 02/29/24 omeprazole 40 mg capsule,delayed 40 mg PO DAILY GERD 11/13/22 02/29/24 release sodium bicarbonate 650 mg tablet 650 mg PO DAILY 02/10/23 02/29/24 doxazosin 1 mg tablet 1 mg PO BID 02/20/23 02/29/24 ferrous sulfate 325 mg (65 mg 325 mg feeding tube DAILY 02/20/23 02/29/24 iron) tablet (FeroSul) blood-glucose meter,continuous #1 ea 02/16/24 02/23/24 (FreeStyle Omar 3 Sigel) blood-glucose sensor (FreeStyle #1 ea 02/16/24 02/23/24 Omar 3 Sensor device) calcitriol 0.25 mcg capsule 0.25 mcg PO DAILY 02/16/24 02/29/24 (Rocaltrol) hydralazine 25 mg tablet 25 mg PO DAILY 02/16/24 02/29/24 hydroxyzine HCl 25 mg tablet 25 mg PO DAILY 02/16/24 02/29/24 insulin glargine 100 unit/mL (3 See Rx Instructions .Route .COMPLEX 02/16/24 02/29/24 mL) subcutaneous pen (Lantus Solostar U-100 Insulin) pen needle, diabetic 31 gauge x #1,200 ea 02/16/24 02/23/2401/16 (BD Ultra-Fine Mini Pen Needle) sucroferric oxyhydroxide 500 mg 500 mg PO DAILY 02/16/24 02/29/24 chewable tablet (Velphoro) budesonide 4 mg capsule,delayed 16 mg PO DAILY kidneys 02/29/24 02/29/24 release (Tarpeyo) Previous Rx's Medication Instructions Recorded albuterol sulfate 90 mcg/actuation 2 inh inhalation Q6HP PRN ASTHMA 07/24/22 aerosol inhaler #8.5 grams metoprolol succinate 50 mg 50 mg PO BID #180 tabs 02/20/23 tablet,extended release 24 hr (Toprol XL) albuterol sulfate 0.63 mg/3 mL 0.63 mg (3 mL) inhalation Q6H 02/25/23 solution for nebulization Asthma #90 mL ondansetron 8 mg disintegrating See Rx Instructions .Route 12/26/23 tablet .COMPLEX #60 tabs insulin lispro 100 unit/mL See Rx Instructions .Route 01/12/24 subcutaneous pen (Humalog KwikPen .COMPLEX #15 mL (U-100) Insulin) cephalexin 500 mg capsule 500 mg PO BID 7 days #14 caps 02/29/24 Allergies Allergy/AdvReac Type Severity Reaction Status Date / Time Penicillins [PENICILLINS] Allergy Unknown PASSED OUT Verified 02/29/24 12:38 Worker's Comp Is this a Worker's Comp case?: No [facility] Disclaimer: The information contained in this section may have been updated after the patient was seen, as this information can be updated by other users. Medical History Hiatal hernia with gastroesophageal reflux Cough Dysphagia Dysphonia Thyroid nodule She has multiple small nodules none of which are worrisome by ultrasonography appearance and characteristics Enlarged thyroid Renal insufficiency Diabetes mellitus Asthma Hypotension Hyperglycemia Surgical History History of dental surgery History of local excision of skin lesion History of excision of lesion Family History Other Family history of cancer Family history of diabetes mellitus type II Family history of myocardial infarction Family history of stroke Social History Smoking Status: Never smoker alcohol intake: never substance use type: denies use current occupational status: employed Travel in the last 8 weeks: None household members: children housing: house lives independently: Yes marital status: single caffeine: Yes special bahman needs: No agree to transfusion: No do you feel safe at home: Yes victim of physical abuse: No victim of emotional abuse: No victim of sexual abuse: No would you like helpful sources: No ROS Obtained: Yes All systems reviewed & no additional complaints except as documented and Yes Systems reviewed as appropriate & no additional complaints except as documented Constitutional Constitutional: Reports system reviewed and no additional complaints, except as documented, Reports as per HPI, Denies body ache, Denies chills and Denies fever(s) ENT Ears, Nose, Mouth, and Throat: Reports system reviewed and no additional complaints, except as documented and Reports as per HPI Cardiovascular Cardiovascular: Reports system reviewed and no additional complaints, except as documented and Reports as per HPI Respiratory Respiratory: Reports system reviewed and no additional complaints, except as documented and Reports as per HPI Gastrointestinal Gastrointestingal: Reports system reviewed and no additional complaints, except as documented and as per HPI; Denies abdominal pain, nausea or vomiting Physical Exam General General appearance: alert and in no apparent distress ENT ENT exam: Present mucous membranes moist Respiratory Respiratory exam: Present normal lung sounds bilaterally; Absent respiratory distress or wheezes Cardiovascular Cardiovascular exam: Present regular rate, normal rhythm and normal heart sounds Neurological Exam Neurological exam: Present alert, oriented X3 and normal gait Medical Decision Making Bishop Inquiry Pt receiving controlled substance: No Bishop was queried for this patient: No Vital Signs: 02/29/24 12:00 Temperature 98.6 F Temperature Source Oral Pulse Rate [Right Radial] 72 Respiratory Rate 17 Blood Pressure [Right Arm] 134/72 Blood Pressure Mean [Right Arm] 92 Blood Pressure Source [Right Arm] Automatic Cuff Blood Pressure Position [Right Arm] Sitting 02 Sat by Pulse Oximetry 98 Oxygen Delivery Method Room Air Lab Data Lab results reviewed: Yes I reviewed the patient's lab results. Lab Results 02/29/24 12:29: Urine Color Dark yellow, Urine Appearance Cloudy, Urine pH 7.0, Ur Specific Buhl 1.025, Urine Protein 2+, Urine Glucose (UA) Negative, Urine Ketones Negative, Urine Blood 3+, Urine Nitrate Negative, Urine Bilirubin Negative, Urine Urobilinogen 0.2, Ur Leukocyte Esterase 3+ A Orders (Tests/Meds): ORDERS Category Date Time Status Urine Culture Stat Micro 02/29/24 12:46 Ordered Medical Decision Narrative: blood noted in urine patient states that she is just gettin off her period Patient also states that she is allergic to PCN but has taken Cephalexin in the past without complications or reactions Medication discussed with pharmacy due to renal hx
[2024-02-29 13:16] VITALS: BP 134/72; PULSE 72; RESP 17; TEMP 37; O2SAT 98
== END 2024-02-29 13:16 | disposition home or self-care (01) ==
PROVIDERS: Emergency Provider Nurse Practitioner; PCP Family Medicine
DX: N39.0 Urinary tract infection, site not specified (principal)
CPT/HCPCS: 81003; 87086; 99212; 99214; G0463

== ENCOUNTER 2024-03-08 08:14 | Emergency (ER) | payer OTHER, SELFPAY ==
[2024-03-08] VITALS (14 sets, daily range): BP systolic 114–177; BP diastolic 50–90; PULSE 92–114; RESP 16–18; TEMP 36.7–37.4; O2SAT 95–100; BMI 44.6
--- NOTE | 2024-03-08 08:26 | HMH.EDGENADL ---
Discharge Plan Disposition Patient Disposition: Home, Self-Care Prescriptions Prescriptions: New promethazine 25 mg tablet 25 mg PO TID PRN (Reason: nausea and vomiting) Qty: 12 0RF No Action hydralazine 25 mg tablet 25 mg PO DAILY hydroxyzine HCl 25 mg tablet 25 mg PO DAILY Patient Comments: TAKE 1 TABLET BY MOUTH THREE TIMES DAILY NEEDED FOR ITCHING calcitriol [Rocaltrol] 0.25 mcg capsule 0.25 mcg PO DAILY (DME) pen needle, diabetic [BD Ultra-Fine Mini Pen Needle] 31 gauge x 3/16 needle See Rx Instructions .ROUTE .MEDSUPPLY Qty: 1200 Patient Comments: USE 1 PEN NEEDLE 4 TIMES DAILY Rx Instructions: As directed insulin glargine [Lantus Solostar U-100 Insulin] 100 unit/mL (3 mL) insulin pen See Rx Instructions .ROUTE .COMPLEX Patient Comments: INJECT 20 UNITS SUBCUTANEOUSLY ONCE DAILY , WITH TITRATION IF INDICATED AND INSTRUCTED UP TO A MAX DAILY DOSE OF 50 UNITS Rx Instructions: see rx (DME) FreeStyle Omar 3 Sensor Device See Rx Instructions .ROUTE .MEDSUPPLY Qty: 1 Patient Comments: CHANGE SENSOR EVERY 14 DAYS. CHECK BLOOD GLUCOSE FOUR TIMES DAILY Rx Instructions: As directed (DME) FreeStyle Omar 3 [place] Misc See Rx Instructions .ROUTE .MEDSUPPLY Qty: 1 Rx Instructions: As directed Velphoro 500 mg tablet,chewable 500 mg PO DAILY insulin lispro [Humalog KwikPen Insulin] 100 unit/mL insulin pen See Rx Instructions .ROUTE .COMPLEX Qty: 15 2RF Rx Instructions: 5 units q 6 hrs if bs is elevated over 250 please pen needles #100 [id number] montelukast 10 mg tablet 10 mg PO DAILY Patient Comments: TAKE 1 TABLET BY MOUTH EVERY DAY AT BEDTIME sodium bicarbonate 650 mg tablet 650 mg PO DAILY doxazosin 1 mg tablet 1 mg PO BID ferrous sulfate [FeroSul] 325 mg (65 mg iron) tablet 325 mg feeding tube DAILY Patient Comments: TAKE 1 TABLET BY MOUTH ONCE DAILY metoprolol succinate [Toprol XL] 50 mg tablet extended release 24 hr 50 mg PO BID Qty: 180 3RF albuterol sulfate 90 mcg/actuation HFA aerosol inhaler 2 inh inhalation Q6HP PRN (Reason: ASTHMA) Qty: 8.5 2RF Rx Instructions: INHALE 2 PUFFS BY MOUTH EVERY 4 TO 6 HOURS NEEDED FOR SHORTNESS OF BREATH OR WHEEZING albuterol sulfate 0.63 mg/3 mL solution for nebulization 0.63 mg inhalation Q6H Qty: 90 2RF ondansetron 8 mg tablet,disintegrating See Rx Instructions .ROUTE .COMPLEX Qty: 60 0RF Dose Instruction: DISSOLVE 1 TABLET IN MOUTH EVERY 12 HOURS NEEDED FOR NAUSEA AND VOMITING Rx Instructions: DISSOLVE 1 TABLET IN MOUTH EVERY 12 HOURS NEEDED FOR NAUSEA AND VOMITING [place] 4 mg capsule,delayed release(DR/EC) 16 mg PO DAILY cephalexin 500 mg capsule 500 mg PO BID 7 Days Qty: 14 0RF omeprazole 40 mg capsule,delayed release(DR/EC) 40 mg PO DAILY Rx Instructions: Take 1 tab every morning with meal Referrals Follow up/Referrals: Stephan Talbert MD [Primary Care Provider] - See instructions Activity Restrictions/Add. Instructions Additional Instructions/Restrictions: At this time it was felt you are safe to be discharged home. If new or worsening symptoms please do not hesitate to return the emergency department. Please follow-up with your family doctor or kidney doctor within 48 hours for repeat lab check. Please take your medications as prescribed. Clinical Impressions Clinical Impression: COVID-19, Hypomagnesemia, Hypocalcemia, CKD (chronic kidney disease) Discharge ED Provider: Hollis Sy General Adult HPI General Chief complaint: Fever Stated complaint: vomiting, diarrhea Time Seen by Provider: 03/08/24 08:15 Mode of Arrival: Ambulatory Source of Information: Patient Limitations: No Limitations Description of Symptoms (Recalled from ER Triage Doc. by RN): pt presents to ED c/o n/v/d that started last night. pt states she does have stage 4 kidney disease and does hemodialysis daily. pt states she did dialysis 2 nights ago. pt reports taking Zofran [employer]. History of Present Illness HPI narrative: Patient is a 43-year-old female with past medical history of CKD, dependent on peritoneal dialysis nightly who presents emergency department for evaluation of nausea, vomiting, diarrhea. Onset was acute, occurring since last night, vomiting diarrhea or nonbloody. Patient did not undergo her peritoneal dialysis last night due to feeling bad. She did perform peritoneal dialysis the day before. No reported purulence from the dialysis catheter. She does still make urine, no significant dysuria. Due to persistent symptoms she presents here for continued evaluation. No other acute complaints at this time. Related Data Home Medications Medication Instructions Recorded Confirmed montelukast 10 mg tablet 10 mg PO DAILY allergies 07/14/21 03/02/24 omeprazole 40 mg capsule,delayed 40 mg PO DAILY GERD 11/13/22 03/02/24 release sodium bicarbonate 650 mg tablet 650 mg PO DAILY 02/10/23 03/02/24 doxazosin 1 mg tablet 1 mg PO BID 02/20/23 03/02/24 ferrous sulfate 325 mg (65 mg 325 mg feeding tube DAILY 02/20/23 03/02/24 iron) tablet (FeroSul) blood-glucose meter,continuous #1 ea 02/16/24 03/02/24 (FreeStyle Omar 3 [place]) blood-glucose sensor (FreeStyle #1 ea 02/16/24 03/02/24 Omar 3 Sensor device) calcitriol 0.25 mcg capsule 0.25 mcg PO DAILY 02/16/24 03/02/24 (Rocaltrol) hydralazine 25 mg tablet 25 mg PO DAILY 02/16/24 03/02/24 hydroxyzine HCl 25 mg tablet 25 mg PO DAILY 02/16/24 03/02/24 insulin glargine 100 unit/mL (3 See Rx Instructions .Route .COMPLEX 02/16/24 03/02/24 mL) subcutaneous pen (Lantus Solostar U-100 Insulin) pen needle, diabetic 31 gauge x #1,200 02/16/24 03/02/24 3/16 (BD Ultra-Fine Mini Pen Needle) sucroferric oxyhydroxide 500 mg 500 mg PO DAILY 02/16/24 03/02/24 chewable tablet (Velphoro) budesonide 4 mg capsule,delayed 16 mg PO DAILY kidneys 02/29/24 03/02/24 release ([place]) Previous Rx's Medication Instructions Recorded albuterol sulfate 90 mcg/actuation 2 inh inhalation Q6HP PRN ASTHMA 07/24/22 aerosol inhaler #8.5 grams metoprolol succinate 50 mg 50 mg PO BID #180 tabs 02/20/23 tablet,extended release 24 hr (Toprol XL) albuterol sulfate 0.63 mg/3 mL 0.63 mg (3 mL) inhalation Q6H 02/25/23 solution for nebulization Asthma #90 mL ondansetron 8 mg disintegrating See Rx Instructions .Route 12/26/23 tablet .COMPLEX #60 tabs insulin lispro 100 unit/mL See Rx Instructions .Route 01/12/24 subcutaneous pen (Humalog KwikPen .COMPLEX #15 mL (U-100) Insulin) cephalexin 500 mg capsule 500 mg PO BID 7 days #14 caps 02/29/24 promethazine 25 mg tablet 25 mg PO TID PRN nausea and 03/08/24 vomiting #12 tabs Allergies Allergy/AdvReac Type Severity Reaction Status Date / Time Penicillins [PENICILLINS] Allergy Unknown PASSED OUT Verified 03/02/24 14:47 [facility] Disclaimer: The information contained in this section may have been updated after the patient was seen, as this information can be updated by other users. Medical History Hiatal hernia with gastroesophageal reflux Cough Dysphagia Dysphonia Thyroid nodule She has multiple small nodules none of which are worrisome by ultrasonography appearance and characteristics Enlarged thyroid Renal insufficiency Diabetes mellitus Asthma Hypotension Hyperglycemia Surgical History History of dental surgery History of local excision of skin lesion History of excision of lesion Family History Other Family history of cancer Family history of diabetes mellitus type II Family history of myocardial infarction Family history of stroke Social History Smoking Status: Never smoker alcohol intake: never substance use type: denies use current occupational status: employed Travel in the last 8 weeks: None household members: children housing: house lives independently: Yes marital status: single caffeine: Yes special bhaman needs: No agree to transfusion: No do you feel safe at home: Yes victim of physical abuse: No victim of emotional abuse: No victim of sexual abuse: No would you like helpful sources: No ROS Obtained: Yes Systems reviewed as appropriate & no additional complaints except as documented Physical Exam General General appearance: alert and in no apparent distress Head Head exam: atraumatic and normocephalic Eye Eye exam: Present PERRL ENT ENT exam: Present mucous membranes moist Neck Neck exam: Present normal inspection Chest Chest inspection: Present normal inspection and symmetric chest wall rise Respiratory Respiratory exam: Present normal lung sounds bilaterally; Absent respiratory distress Cardiovascular Cardiovascular exam: Present regular rate and normal rhythm Abdominal Exam Abdominal exam: Present soft and other (Peritoneal dialysis catheter in place periumbilical area, no purulence around or in the tube.); Absent tenderness, guarding or rebound Extremities Exam Extremities exam: Present normal inspection Neurological Exam Neurological exam: Present alert Psychiatric Psychiatric exam: Present normal affect Skin Skin exam: Present warm and dry Medical Decision Making Bishop Inquiry Pt receiving controlled substance: No Vital Signs: 03/08/24 08:15 03/08/24 08:29 03/08/24 08:30 Temperature 99.3 F Temperature Source Oral Oral Pulse Rate 98 H Pulse Rate [Right Radial] 102 H Respiratory Rate 18 Blood Pressure 177/83 H Blood Pressure [Right Arm] 154/90 H Blood Pressure Mean Blood Pressure Mean [Right Arm] 111 Blood Pressure Source Blood Pressure Source [Right Arm] Automatic Cuff Blood Pressure Position Blood Pressure Position [Right Arm] Sitting 02 Sat by Pulse Oximetry 100 97 Oxygen Delivery Method Room Air 03/08/24 08:59 03/08/24 08:59 03/08/24 09:00 Temperature Temperature Source Pulse Rate 98 H 101 H 98 H Pulse Rate [Right Radial] Respiratory Rate 18 Blood Pressure 159/82 H 159/82 H 159/87 H Blood Pressure [Right Arm] Blood Pressure Mean 107 105 Blood Pressure Mean [Right Arm] Blood Pressure Source Automatic Cuff Blood Pressure Source [Right Arm] Blood Pressure Position Supine Blood Pressure Position [Right Arm] 02 Sat by Pulse Oximetry 97 97 98 Oxygen Delivery Method Room Air Room Air 03/08/24 09:30 03/08/24 09:51 03/08/24 10:05 Temperature Temperature Source Pulse Rate 92 H 95 H 114 H Pulse Rate [Right Radial] Respiratory Rate Blood Pressure 140/83 141/77 H 152/75 H Blood Pressure [Right Arm] Blood Pressure Mean 112 98 Blood Pressure Mean [Right Arm] Blood Pressure Source Blood Pressure Source [Right Arm] Blood Pressure Position Blood Pressure Position [Right Arm] 02 Sat by Pulse Oximetry 100 98 95 Oxygen Delivery Method Room Air 03/08/24 10:24 03/08/24 11:01 03/08/24 11:30 Temperature Temperature Source Pulse Rate 108 H 102 H 106 H Pulse Rate [Right Radial] Respiratory Rate 16 18 Blood Pressure 152/75 H 133/71 158/76 H Blood Pressure [Right Arm] Blood Pressure Mean Blood Pressure Mean [Right Arm] Blood Pressure Source Automatic Cuff Blood Pressure Source [Right Arm] Blood Pressure Position Supine Blood Pressure Position [Right Arm] 02 Sat by Pulse Oximetry 100 98 97 Oxygen Delivery Method Room Air Room Air Room Air 03/08/24 12:00 03/08/24 12:30 Temperature Temperature Source Pulse Rate 109 H 104 H Pulse Rate [Right Radial] Respiratory Rate 16 Blood Pressure 147/79 H 114/54 L Blood Pressure [Right Arm] Blood Pressure Mean 74 Blood Pressure Mean [Right Arm] Blood Pressure Source Blood Pressure Source [Right Arm] Blood Pressure Position Blood Pressure Position [Right Arm] 02 Sat by Pulse Oximetry 96 98 Oxygen Delivery Method Room Air Lab Data Lab Results 03/08/24 08:28: WBC 5.1, RBC 2.96 L, Hgb 9.5 L, Hct 28.4 L, MCV 96.0, MCH 32.2 H, MCHC 33.6, RDW 16.9, Plt Count 136 L, MPV 8.0, Neut % (Auto) 92.6 H, Lymph % (Auto) 4.4 L, [place] % (Auto) 1.6 L, Eos % (Auto) 1.1, Baso % (Auto) 0.2, Neut # (Auto) 4.7, Lymph # (Auto) 0.2 L, [place] # (Auto) 0.1, Eos # (Auto) 0.1, Baso # (Auto) 0.0, Total Counted 100, Neutrophils % (Manual) 92 H, Lymphocytes % (Manual) 6 L, Monocytes % (Manual) 2, Platelet Estimate Normal, RBC Morphology Normal, Sodium 139, Potassium 4.4, Chloride 107, Carbon Dioxide 25, Anion Gap 11.4, BUN 55 H, Creatinine 5.00 H, Estimated Creat Clear 15, Estimated GFR 9 L*, Est GFR ( Amer) 11 L*, Glucose 109 H, Calcium 7.9 L, Magnesium 1.2 L, Total Bilirubin 0.6, AST 30, ALT 19, Alkaline Phosphatase 50, Total Protein 6.2 L, Albumin 3.2 L, Globulin 3.0, Albumin/Globulin Ratio 1.1, Lipase 130, Serum HCG, Qual Negative, SARS-CoV-2 (PCR) Detected A, Influenza A Untype (PCR) Not detected, Influenza Type B (PCR) Not detected 05/06/24 09:50: Urine Color Yellow, Urine Appearance Clear, Urine pH 7.0, Ur Specific [place] 1.020, Urine Protein 2+, Urine Glucose (UA) Negative, Urine Ketones Negative, Urine Blood 1+, Urine Nitrate Negative, Urine Bilirubin Negative, Urine Urobilinogen 1.0, Ur Leukocyte Esterase Negative, Urine RBC 5-10, Urine WBC 3-5, Ur Squamous Epith Cells 5-10, Urine Bacteria 1+ 03/08/24 08:28 03/08/24 08:28 Orders (Tests/Meds): ED MEDICATIONS Discontinued Medications Generic Name Dose Route Start Last Admin Trade Name Freq PRN Reason Stop Dose Admin Acetaminophen 1,000 mg 03/08/24 08:23 03/08/24 08:31 Acetaminophen 1,000mg/100ml Vial IV 03/08/24 08:24 1,000 mg ONCE ONE Administration Lactated Ringer's 1,000 mls @ 999 mls/hr 03/08/24 08:23 03/08/24 08:31 Lactated Ringer's 1000 Ml Bag IV 03/08/24 09:23 999 mls/hr .Q1H1M ONE Administration Magnesium Sulfate 2 gm in 50 mls @ 50 mls/hr 03/08/24 09:35 03/08/24 09:44 Magnesium Sulfate 2gm/50ml Premix IV 03/08/24 10:34 50 mls/hr ONCE ONE Administration Calcium Gluconate/Sodium Chloride 2 gm in 100 mls @ 50 mls/hr 03/08/24 09:35 03/08/24 09:45 Calcium Gluconate 2,000mg/100ml Nacl Premix IV 03/08/24 11:34 50 mls/hr ONCE ONE Administration Ondansetron HCl 4 mg 03/08/24 08:23 03/08/24 08:31 Ondansetron 4mg/2ml Vial IV 03/08/24 08:24 4 mg ONCE ONE Administration Promethazine HCl 25 mg 03/08/24 09:35 03/08/24 09:43 Promethazine Hcl 25mg/Ml 1ml Vial IV 03/08/24 09:36 25 mg ONCE ONE Administration Sodium Chloride 25 ml 03/08/24 09:35 03/08/24 09:44 Sodium Chloride 0.9% 25ml Bag IV 03/08/24 09:36 25 ml ONCE ONE Administration ORDERS Category Date Time Status CBC w/Auto Diff [Complete Blood Count Auto Diff] Stat Lab 03/08/24 08:28 Completed CMP [Comprehensive Metabolic Panel] Stat Lab 03/08/24 08:28 Completed HCG Qualitative, Serum Stat Lab 03/08/24 08:28 Completed Lipase Stat Lab 03/08/24 08:28 Completed MG [Magnesium] Stat Lab 03/08/24 08:28 Completed Rapid PCR Covid and Flu A/B Stat Lab 03/08/24 08:28 Completed UA [Urinalysis and Microscopic] Stat Lab 03/08/24 09:50 Completed ECG Data Tracing #1: Independently interpreted by me, rate is 99, rhythm is regular, axis is normal, no ST elevation in anatomical contiguous leads, QTc 384. Medical Decision Narrative: In summary patient is a 43-year-old female with past medical history described above who presents emergency department for evaluation of vomiting and diarrhea. Patient is hemodynamically stable nontoxic-appearing upon arrival, afebrile. Differential diagnosis includes nonspecific viral syndrome, pancreatitis, urinary tract infection, among others. Patient does not have any reported abdominal pain, has a nonfocal abdominal exam therefore I doubt spontaneous bacterial peritonitis at this time. Workup will be conducted with hematologic labs, urinalysis, viral swab. Initial interventions include crystalloid bolus, Zofran, IV Tylenol. Initial workup reviewed by me, hematologic labs remarkable for hypocalcemia and hypomagnesemia which will be repleted, elevated creatinine however patient is peritoneal dialysis dependent. The patient was placed in observation status at 0945. Medical necessity for observational status is observation with p.o. challenge, electrolyte repletion. Upon repeat evaluation patient had persistent nausea which Phenergan was given. Patient underwent p.o. trial was successful. Because of this I feel patient is appropriate for outpatient management with rapid follow-up. Total time in observation 2 hours and 15 minutes. Critical Care Critical Care Time Critical Care Time: No
[2024-03-08] MEDS: ACETAMINOPHEN 1,000MG/100ML VIAL 1000 MG IV (08:31)
[2024-03-08] MEDS: LACTATED RINGERS 1000ML 1,000 ML 999 ML IV (08:31)
[2024-03-08] MEDS: ONDANSETRON 4MG/2ML VIAL 4 MG IV (08:31)
--- NOTE | 2024-03-08 08:34 | ECG_ITS ---
APPROVED REPORT Exam: Resting ECG HR:99 bpm ECG Measurements Heart Rate 99 AXES VT 159 P 41 QRSd 92 QRS 1 QT 328 T 78 QTc 384 Conclusion SINUS RHYTHM SEPTAL MYOCARDIAL INFARCTION , PROBABLY OLD [40+ ms Q WAVE IN V1/V2] ABNORMAL ECG Electronically signed by : AUBRIE AGUILERA, 03/08/2024 12:05:31
--- NOTE | 2024-03-08 08:34 | PC.NURSE ---
pt states she is unable to void at this time. call light w/i reach, warm blanket given.
[2024-03-08 08:57] LABS: Influenza A, PCR Not Detected (NotDetected); Influenza B, PCR Not Detected (NotDetected)
[2024-03-08 09:01] LABS: Basophils % 0.2 % (0.1-2.0); Eosinophils # 0.1 K/mm3 (0.0-0.4); Eosinophils % 1.1 % (0.1-12.0); Hematocrit 28.4 % (37.0-47.0); Hemoglobin 9.5 g/dL (12.2-16.2); Lymphocytes # 0.2 K/mm3 (0.7-4.5); Lymphocytes % 4.4 % (10-50); Mean Corpuscular HGB Conc 33.6 g/dL (31.8-35.4); Mean Corpuscular Hemoglobin 32.2 pg (27.0-31.2); Monocytes # 0.1 K/mm3 (0.1-1.0); Monocytes % 1.6 % (1.7-9.3); Neutrophils # 4.7 K/mm3 (1.8-7.8); Neutrophils % 92.6 % (37.0-80.0); Platelet Count 136 K/mm3 (142-424); Red Blood Count 2.96 M/mm3 (4.20-5.40); Red Cell Distribution Width 16.9 % (11.5-17.5); White Blood Count 5.1 K/mm3 (4.8-10.8)
--- NOTE | 2024-03-08 09:01 | PC.NURSE ---
rounded on pt at this time; resting comfortably. no needs at this time
[2024-03-08 09:03] LABS: MANUAL DIFFERENTIAL MANUAL DIFFERENTIAL (MANUAL DIFF)
[2024-03-08 09:14] LABS: Alanine Aminotransferase 19 U/L (12-78); Albumin Level 3.2 g/dl (3.5-5.0); Albumin/Globulin Ratio 1.1 (1.1-1.8); Alkaline Phosphatase 50 U/L (38-126); Anion Gap 11.4 mEq/L (5-15); Aspartate Amino Transferase 30 U/L (14-36); Bilirubin,Total 0.6 mg/dl (0.2-1.3); Blood Urea Nitrogen 55 mg/dl (7-17); Calcium 7.9 mg/dl (8.4-10.2); Carbon Dioxide 25 mmol/L (22.0-30.0); Chloride 107 mmol/L (98-107); Creatinine Clearance Estimated 15 mL/min (50-200); Estimated Glomerular Filt Rate 9 ml/min (>60); GFR (African American) 11 ML/MIN (>60); Glucose 109 mg/dl (74-100); Lipase 130 U/L (23-300); Magnesium 1.2 mg/dl (1.6-2.3); Potassium 4.4 mmoL/L (3.5-5.1); Sodium 139 mmol/L (136-145); Total Protein,Serum 6.2 g/dl (6.3-8.2)
--- NOTE | 2024-03-08 09:15 | PC.NURSE ---
pt was given a warm blanket
--- NOTE | 2024-03-08 09:21 | PC.NURSE ---
critical creatinine 5.[address] Sy.
[2024-03-08 09:29] LABS: Lymphocytes % 6 % (10-50); Monocytes % 2 % (2-9); Neutrophils % 92 % (42-76); Platelet Estimate Normal; RBC Morphology Normal; Total Cells Counted 100
[2024-03-08 09:40] LABS: Coronavirus 19, PCR Detected (NotDetected)
[2024-03-08] MEDS: PROMETHAZINE HCL 25MG/ML 1ML VIAL 25 MG IV (09:43)
[2024-03-08] MEDS: SODIUM CHLORIDE 0.9% 25ML BAG 25 ML IV (09:44)
[2024-03-08] MEDS: MAGNESIUM SULFATE IN WATER 2 GM/50 ML PIGGYBACK IV (09:44)
[2024-03-08] MEDS: CALCIUM GLUC IN NACL, ISO-OSM 2 GM/100 ML BAG IV (09:45)
--- NOTE | 2024-03-08 09:51 | PC.NURSE ---
assisted pt to the bathroom. steady gait noted. urine collected and sent to lab. pt assisted back to room. hooked back up to blood pressure cuff. call light within reach.
[2024-03-08 09:57] LABS: Microscopic, Urine URINE MICROSCOPIC (MICROSCOPIC)
[2024-03-08 09:59] LABS: Appearance,Urine CLEAR (Clear); Bilirubin,Urine Negative (Negative); Blood, Urine 1+ (Negative); Color,Urine YELLOW (Yellow); Glucose,Urine (UA) Negative (Negative); Ketones,Urine Negative (Negative); Leukocyte Esterase,Urine Negative (Negative); Nitrate,Urine Negative (Negative); Protein,Urine 2+ (Negative)
[2024-03-08 10:07] LABS: HCG Qualitative, Serum Negative (Negative)
[2024-03-08 10:13] LABS: Bacteria,Urine 1+ /lpf
--- NOTE | 2024-03-08 11:31 | PC.NURSE ---
Rounded on pt. No needs voiced at this time. Call light remains within reach.
--- NOTE | 2024-03-08 12:15 | PC.NURSE ---
ROUNDED ON PT NO NEEDS AT THIS TIME,CALL LIGHT IN REACH
== END 2024-03-08 13:05 | disposition home or self-care (01) ==
PROVIDERS: Emergency Provider Emergency Medicine; PCP Family Medicine
DX: U07.1 COVID-19 (principal); E83.42 Hypomagnesemia; E83.51 Hypocalcemia; N18.9 Chronic kidney disease, unspecified; R11.2 Nausea with vomiting, unspecified; R19.7 Diarrhea, unspecified; E11.22 Type 2 diabetes mellitus with diabetic chronic kidney disease; K21.9 Gastro-esophageal reflux disease without esophagitis; Z99.2 Dependence on renal dialysis; Z79.4 Long term (current) use of insulin
CPT/HCPCS: 80053; 81001; 83690; 83735; 84703; 85007; 85025; 87636; 93005; 96361; 96365; 96366; 96375; 99285; J0131; J2405; J3475

== ENCOUNTER 2024-03-17 15:21 | Outpatient (CLI) | payer OTHER, SELFPAY ==
--- NOTE | 2024-03-17 15:21 | MM_ITS ---
PROCEDURE INFORMATION: Exam: MG Bilateral Screening 3D Mammography Exam date and time: 03/17/2024 3:49 PM Age: 43 years old Clinical indication: Patient screening mammogram TECHNIQUE: Imaging protocol: Bilateral Screening tomosynthesis and 2D mammography including computer-aided detection (CAD) when performed. COMPARISON: No relevant prior studies available. FINDINGS: MAMMOGRAPHY: Breast composition: There are scattered areas of fibroglandular density. Mass: 0.7 cm mass within the upper outer anterior right breast should be further assessed with spot views in CC/MLO projection. Ultrasound may also be required. Architectural distortion: No new or suspicious architectural distortion. Calcifications: No new or suspicious calcifications are present Asymmetric density: No new or suspicious asymmetric density is present Skin thickening: None. Axillary adenopathy: None. IMPRESSION: 0.7 cm mass within the upper outer anterior right breast should be further assessed with spot views in CC/MLO projection. Ultrasound may also be required. ASSESSMENT: BI-RADS category 0: Incomplete-need additional imaging evaluation and/or prior mammograms for comparison.
--- NOTE | 2024-03-17 15:21 | US_ITS ---
PROCEDURE: US TRANSVAGINAL CLINICAL INDICATION: Heavy Bleeding COMPARISON: No exams were available for comparison FINDINGS: Transvaginal sonographic images of the pelvis were obtained. Difficult examination. UTERUS: 6.1cm x 5.6cmx 4.7 cm midline with a combined endometrial thickness of 9.6mm. There appears to be an anterior fibroid on the uterus measuring 2.4 cm x 2.1 cm x 2.2 cm. LEFT OVARY: 2.6 cmx2.8x3.2cm with a volume of 12.2ml. There are multiple small follicles on the left ovary. The largest measures 1.3 cm x 1.3 cm x 1.4 cm. RIGHT OVARY: 4.4cmx 3.5cmx5.8 cm with a volume of 46.1ml. There appears to be a resolving hemorrhagic area in the right ovary measuring 2.4 cm x 2.5 cm x 2.7 cm. There is separate follicle measuring 2.6 cm x 2.5 cm x 2.5 cm. Both ovaries are seen and appear normal. Doppler flow to both ovaries are seen. There is moderate fluid in the cul-de-sac. IMPRESSION: 1. Midline uterus normal in shape and size with an endometrial thickness of 9.6 mm. 2. In the lower uterine segment there appears to be a fibroid measuring 2.4 cm in size. 3. The left ovary has multiple small follicles the largest measuring 1.4 cm. 4. The right ovary has a 2.7 cm solid area likely a corpus luteum or resolving hemorrhagic cyst. 5. There is a 2nd adjacent follicle on the right ovary measuring 2.6 cm. 6. There is moderate fluid in the cul-de-sac likely as a result of her peritoneal dialysis. Dictated by: Austyn Jarquin MD 03/17/2024 17:30 Austyn Jarquin MD in OV 03/17/2024 17:30
== END 2024-03-17 23:59 | disposition home or self-care (01) ==
LOC: RAD 15:21
PROVIDERS: PCP Family Medicine; Visit Provider Nurse Practitioner Obstetrics & Gynecology
DX: N92.0 Excessive and frequent menstruation with regular cycle (principal); Z12.31 Encounter for screening mammogram for malignant neoplasm of breast
CPT/HCPCS: 76830; 77063; 77067

== ENCOUNTER 2024-04-21 09:19 | Emergency (ER) | payer OTHER, SELFPAY ==
--- NOTE | 2024-04-21 09:38 | ED_ITS ---
Discharge Plan Disposition Patient Disposition: Home, Self-Care Condition: Good Prescriptions Prescriptions: New ciprofloxacin HCl [Cipro] 500 mg tablet 500 mg PO DAILY Qty: 7 0RF No Action hydralazine 25 mg tablet 25 mg PO DAILY hydroxyzine HCl 25 mg tablet 25 mg PO DAILY Patient Comments: TAKE 1 TABLET BY MOUTH THREE TIMES DAILY NEEDED FOR ITCHING calcitriol [Rocaltrol] 0.25 mcg capsule 0.25 mcg PO DAILY (DME) pen needle, diabetic [BD Ultra-Fine Mini Pen Needle] 31 gauge x 3/16 needle See Rx Instructions .ROUTE .MEDSUPPLY Qty: 1200 Patient Comments: USE 1 PEN NEEDLE 4 TIMES DAILY Rx Instructions: As directed insulin glargine [Lantus Solostar U-100 Insulin] 100 unit/mL (3 mL) insulin pen See Rx Instructions .ROUTE .COMPLEX Patient Comments: INJECT 20 UNITS SUBCUTANEOUSLY ONCE DAILY , WITH TITRATION IF INDICATED AND INSTRUCTED UP TO A MAX DAILY DOSE OF 50 UNITS Rx Instructions: see rx (DME) FreeStyle Omar 3 Sensor Device See Rx Instructions .ROUTE .MEDSUPPLY Qty: 1 Patient Comments: CHANGE SENSOR EVERY 14 DAYS. CHECK BLOOD GLUCOSE FOUR TIMES DAILY Rx Instructions: As directed (DME) FreeStyle Omar 3 [place] Misc See Rx Instructions .ROUTE .MEDSUPPLY Qty: 1 Rx Instructions: As directed Velphoro 500 mg tablet,chewable 500 mg PO DAILY insulin lispro [Humalog KwikPen Insulin] 100 unit/mL insulin pen See Rx Instructions .ROUTE .COMPLEX Qty: 15 2RF Rx Instructions: 5 units q 6 hrs if bs is elevated over 250 please pen needles #100 [id number] bumetanide 1 mg tablet 1 mg PO DAILY Ozempic 0.25 mg or 0.5 mg (2 mg/3 mL) pen injector 0.25 mg SQ WEEKLY Patient Comments: INJECT 0.25 MG SUBCUTANEOUSLY ONCE A WEEK montelukast 10 mg tablet 10 mg PO DAILY Patient Comments: TAKE 1 TABLET BY MOUTH EVERY DAY AT BEDTIME doxazosin 1 mg tablet 1 mg PO BID ferrous sulfate [FeroSul] 325 mg (65 mg iron) tablet 325 mg feeding tube DAILY Patient Comments: TAKE 1 TABLET BY MOUTH ONCE DAILY metoprolol succinate [Toprol XL] 50 mg tablet extended release 24 hr 50 mg PO BID Qty: 180 3RF albuterol sulfate 90 mcg/actuation HFA aerosol inhaler 2 inh inhalation Q6HP PRN (Reason: ASTHMA) Qty: 8.5 2RF Rx Instructions: INHALE 2 PUFFS BY MOUTH EVERY 4 TO 6 HOURS NEEDED FOR SHORTNESS OF BREATH OR WHEEZING [place] 4 mg capsule,delayed release(DR/EC) 16 mg PO DAILY omeprazole 40 mg capsule,delayed release(DR/EC) 40 mg PO DAILY Rx Instructions: Take 1 tab every morning with meal promethazine 25 mg tablet 25 mg PO TID PRN (Reason: nausea and vomiting) Qty: 12 0RF Referrals Follow up/Referrals: Stephan Talbert MD [Primary Care Provider] - See instructions Activity Restrictions/Add. Instructions Additional Instructions/Restrictions: Take tylenol for pain or fever. Take the medications as directed. Follow up with your regular doctor. GO TO THE ER FOR ANY WORSENING SYMPTOMS We will culture the urine. That will tell what bacteria is causing your infection and which antibiotics will treat it best. Sometimes the first antibiotic we prescribe turns out to not work against different bacteria. So, make sure you follow up within 3 days if you are not getting better. Clinical Impressions Clinical Impression: UTI (urinary tract infection), End stage kidney disease Instructions Patient Instructions: DI for Urinary Tract Infection (UTI), Ciprofloxacin Discharge ED Provider: You Randolph [facility] General Stated complaint: pain when urinating Time Seen by Provider: 04/21/24 09:28 History of Present Illness Provider Complaint: She has had burning with urination for the past 3 days. She has a history or ESRD. She does peritoneal dialysis every night in her home. Related Data Home Medications Medication Instructions Recorded Confirmed montelukast 10 mg tablet 10 mg PO DAILY allergies 07/14/21 04/21/24 omeprazole 40 mg capsule,delayed 40 mg PO DAILY GERD 11/13/22 04/21/24 release doxazosin 1 mg tablet 1 mg PO BID 02/20/23 04/21/24 ferrous sulfate 325 mg (65 mg 325 mg feeding tube DAILY 02/20/23 04/21/24 iron) tablet (FeroSul) blood-glucose meter,continuous #1 ea 02/16/24 04/21/24 (FreeStyle Omar 3 [place]) blood-glucose sensor (FreeStyle #1 ea 02/16/24 04/21/24 Omar 3 Sensor device) calcitriol 0.25 mcg capsule 0.25 mcg PO DAILY 02/16/24 04/21/24 (Rocaltrol) hydralazine 25 mg tablet 25 mg PO DAILY 02/16/24 04/21/24 hydroxyzine HCl 25 mg tablet 25 mg PO DAILY 02/16/24 04/21/24 insulin glargine 100 unit/mL (3 See Rx Instructions .Route .COMPLEX 02/16/24 04/21/24 mL) subcutaneous pen (Lantus Solostar U-100 Insulin) pen needle, diabetic 31 gauge x #1,200 ea 02/16/24 04/21/2401/16 (BD Ultra-Fine Mini Pen Needle) sucroferric oxyhydroxide 500 mg 500 mg PO DAILY 02/16/24 04/21/24 chewable tablet (Velphoro) budesonide 4 mg capsule,delayed 16 mg PO DAILY kidneys 02/29/24 04/21/24 release (T[place]) bumetanide 1 mg tablet 1 mg PO DAILY 04/01/24 04/21/24 semaglutide 0.25 mg or 0.5 mg (2 0.25 mg SQ WEEKLY 04/01/24 04/21/24 mg/3 mL) subcutaneous pen injector (Ozempic) Previous Rx's Medication Instructions Recorded albuterol sulfate 90 mcg/actuation 2 inh inhalation Q6HP PRN ASTHMA 07/24/22 aerosol inhaler #8.5 grams metoprolol succinate 50 mg 50 mg PO BID #180 tabs 02/20/23 tablet,extended release 24 hr (Toprol XL) insulin lispro 100 unit/mL See Rx Instructions .Route 01/12/24 subcutaneous pen (Humalog KwikPen .COMPLEX #15 mL (U-100) Insulin) promethazine 25 mg tablet 25 mg PO TID PRN nausea and 03/08/24 vomiting #12 tabs ciprofloxacin HCl 500 mg tablet 500 mg PO DAILY #7 tabs 04/21/24 (Cipro) Allergies Allergy/AdvReac Type Severity Reaction Status Date / Time Penicillins [PENICILLINS] Allergy Unknown PASSED OUT Verified 04/01/24 13:26 [facility] Disclaimer: The information contained in this section may have been updated after the patient was seen, as this information can be updated by other users. Medical History (Updated 04/21/24 @ 10:30 by You Randolph APRN) History of anemia Urinary tract infection History of gastroesophageal reflux (GERD) Hypertension Hiatal hernia with gastroesophageal reflux Cough Dysphagia Dysphonia Thyroid nodule Enlarged thyroid Renal insufficiency Diabetes mellitus Asthma Hypotension Hyperglycemia Surgical History History of delivery History of dental surgery History of local excision of skin lesion Family History Other Family history of cancer Family history of diabetes mellitus type II Family history of myocardial infarction Family history of stroke Social History Smoking Status: Never smoker alcohol intake: never substance use type: denies use current occupational status: employed Travel in the last 8 weeks: None household members: children housing: house lives independently: Yes marital status: single caffeine: Yes special bahman needs: No agree to transfusion: No do you feel safe at home: Yes victim of physical abuse: No victim of emotional abuse: No victim of sexual abuse: No would you like helpful sources: No ROS Obtained: Yes All systems reviewed & no additional complaints except as documented Constitutional Constitutional: Reports system reviewed and no additional complaints, except as documented, Denies chills and Denies fever(s) Eyes Eyes: Denies eye discharge ENT Ears, Nose, Mouth, and Throat: Denies dysphagia, Denies sore throat and Denies throat swelling Cardiovascular Cardiovascular: Denies chest pain and Denies dyspnea Respiratory Respiratory: Denies chest congestion, Denies cough and Denies dyspnea Gastrointestinal Gastrointestingal: Denies abdominal pain, constipation, diarrhea, dysphagia, nausea or vomiting Genitourinary Female Genitourinary: Reports as per HPI, Reports dysuria, Reports urinary f requency, Denies urinary incontinence, Reports urinary hesitancy and Reports urinary urgency Musculoskeletal Musculoskeletal: Denies arthralgias and Reports back pain Integumentary/Breasts Skin/Breast: Denies rash Neurologic Neurologic: Denies paresthesias Allergic/Immunologic Allergic/Immunologic: Denies throat swelling Physical Exam General General appearance: alert and in no apparent distress Head Head exam: atraumatic, normocephalic and normal inspection Eye Eye exam: Present normal appearance, PERRL and EOMI ENT ENT exam: Present normal exam, normal oropharynx, mucous membranes moist, TM's normal bilaterally and normal external ear exam Neck Neck exam: Present normal inspection, full ROM and trachea midline; Absent men ingismus or lymphadenopathy Chest Chest inspection: Present normal inspection and symmetric chest wall rise; Absent tenderness Respiratory Respiratory exam: Present normal lung sounds bilaterally; Absent respiratory distress Cardiovascular Cardiovascular exam: Present regular rate and normal rhythm; Absent JVD Abdominal Exam Abdominal exam: Present soft and normal bowel sounds; Absent distention, tend erness or guarding Extremities Exam Extremities exam: Present normal inspection, full ROM and normal capillary refill; Absent calf tenderness Back Exam Back exam: Present normal inspection; Absent tenderness, CVA tenderness (R) or CVA tenderness (L) Neurological Exam Neurological exam: Present alert and oriented X3 Psychiatric Psychiatric exam: Present normal affect and normal mood Skin Skin exam: Present warm, dry, intact and normal color Lymphatic Lymphatic Findings: no adenopathy Medical Decision Making Medical Records Medical records reviewed: No I reviewed the patient's medical records. [place] Inquiry Pt receiving controlled substance: No Lab Data Lab results reviewed: Yes I reviewed the patient's lab results.
[2024-04-21 09:40] VITALS: BP 143/80; PULSE 108; RESP 20; TEMP 36.6; O2SAT 99; BMI 45.0
[2024-04-21 10:10] LABS: Apearance,Urine Turbid (Clear); Bilirubin,Urine Negative (Negative); Blood, Urine 2+ (Negative); Color,Urine Yellow (Yellow); Glucose,Urine (UA) Negative (Negative); Ketones,Urine Negative (Negative); Protein,Urine 3+ (Negative); UTC Leukocyte Esterase,Urine 3+ (Negative); UTC Nitrate,Urine Negative (Negative); Urobilinogen,Urine 1 EU/dl (0.2)
[2024-04-21 10:31] VITALS: BP 143/80; PULSE 108; RESP 20; TEMP 36.6; O2SAT 99
--- NOTE | 2024-04-26 18:37 | PC.NURSE ---
Reviewed urine culture results and pt was given appropriate medication.
== END 2024-04-21 10:34 | disposition home or self-care (01) ==
PROVIDERS: Emergency Provider Nurse Practitioner Family; PCP Family Medicine
DX: N39.0 Urinary tract infection, site not specified (principal); B96.1 Klebsiella pneumoniae [K. pneumoniae] as the cause of diseases classified elsewhere; Z99.2 Dependence on renal dialysis; R30.0 Dysuria; N18.6 End stage renal disease
CPT/HCPCS: 81003; 87086; 87088; 87186; 99212; 99214; G0463

== ENCOUNTER 2024-06-02 16:15 | Outpatient (CLI) | payer OTHER, SELFPAY ==
[2024-06-02 19:39] LABS: Basophils % 0.2 % (0.1-2.0); Eosinophils # 0.2 K/mm3 (0.0-0.4); Eosinophils % 1.8 % (0.1-12.0); Hematocrit 32.8 % (37.0-47.0); Hemoglobin 11.5 g/dL (12.2-16.2); Lymphocytes # 1.2 K/mm3 (0.7-4.5); Lymphocytes % 12.2 % (10-50); Mean Corpuscular HGB Conc 35.2 g/dL (31.8-35.4); Mean Corpuscular Hemoglobin 33.8 pg (27.0-31.2); Mean Corpuscular Volume 95.8 fl (81-99); Monocytes # 0.6 K/mm3 (0.1-1.0); Monocytes % 6.2 % (1.7-9.3); Neutrophils % 79.7 % (37.0-80.0); Platelet Count 196 K/mm3 (142-424); Red Blood Count 3.42 M/mm3 (4.20-5.40); Red Cell Distribution Width 16.4 % (11.5-17.5); White Blood Count 10.1 K/mm3 (4.8-10.8)
[2024-06-02 20:14] LABS: Alanine Aminotransferase 18 U/L (12-78); Alkaline Phosphatase 46 U/L (38-126); Anion Gap 12.2 mEq/L (5-15); Aspartate Amino Transferase 19 U/L (14-36); Bilirubin,Total 0.4 mg/dl (0.2-1.3); Blood Urea Nitrogen 52 mg/dl (7-17); Calcium 8.5 mg/dl (8.4-10.2); Carbon Dioxide 23 mmol/L (22.0-30.0); Chloride 107 mmol/L (98-107); Estimated Glomerular Filt Rate 11 ml/min (>60); GFR (African American) 13 ML/MIN (>60); Glucose 139 mg/dl (74-100); Potassium 4.2 mmoL/L (3.5-5.1); Sodium 138 mmol/L (136-145)
== END 2024-06-02 23:59 | disposition home or self-care (01) ==
LOC: LAB.DROPOF 06-03 11:01
PROVIDERS: PCP Family Medicine; Visit Provider Family Medicine
DX: E66.9 Obesity, unspecified (principal); E07.9 Disorder of thyroid, unspecified; E11.42 Type 2 diabetes mellitus with diabetic polyneuropathy; Z68.42 Body mass index [BMI] 45.0-49.9, adult; Z79.4 Long term (current) use of insulin; Z79.85 Long-term (current) use of injectable non-insulin antidiabetic drugs
CPT/HCPCS: 80053; 85025

== ENCOUNTER 2024-06-24 14:26 | Outpatient (CLI) | payer OTHER, SELFPAY ==
[2024-06-24 15:39] LABS: Basophils % 0.3 % (0.1-2.0); Eosinophils # 0.2 K/mm3 (0.0-0.4); Eosinophils % 2.2 % (0.1-12.0); Hemoglobin 10.9 g/dL (12.2-16.2); Lymphocytes % 11.2 % (10-50); Mean Corpuscular Hemoglobin 32.5 pg (27.0-31.2); Mean Corpuscular Volume 98.4 fl (81-99); Mean Platelet Volume 7.7 fl (7.4-10.4); Monocytes # 0.4 K/mm3 (0.1-1.0); Monocytes % 4.9 % (1.7-9.3); Neutrophils # 7.3 K/mm3 (1.8-7.8); Neutrophils % 81.3 % (37.0-80.0); Platelet Count 225 K/mm3 (142-424); Red Blood Count 3.35 M/mm3 (4.20-5.40)
[2024-06-24 16:43] LABS: Anion Gap 13.4 mEq/L (5-15); Aspartate Amino Transferase 19 U/L (14-36); Bilirubin,Total 0.7 mg/dl (0.2-1.3); Blood Urea Nitrogen 52 mg/dl (7-17); Carbon Dioxide 22 mmol/L (22.0-30.0); Chloride 106 mmol/L (98-107); Estimated Glomerular Filt Rate 11 ml/min (>60); GFR (African American) 14 ML/MIN (>60); Glucose 146 mg/dl (74-100); Potassium 4.4 mmoL/L (3.5-5.1); Sodium 137 mmol/L (136-145)
[2024-06-24 16:44] LABS: Alanine Aminotransferase 14 U/L (12-78); Albumin Level 3.2 g/dl (3.5-5.0); Albumin/Globulin Ratio 1.1 (1.1-1.8); Alkaline Phosphatase 51 U/L (38-126); HCG,Quantitative < 2 mIU/ml (0-5.42); Total Protein,Serum 6.2 g/dl (6.3-8.2)
== END 2024-06-24 23:59 | disposition home or self-care (01) ==
LOC: LAB 14:27
PROVIDERS: PCP Family Medicine; Visit Provider Nurse Practitioner Obstetrics & Gynecology
DX: N92.0 Excessive and frequent menstruation with regular cycle (principal)
CPT/HCPCS: 36415; 80053; 84702; 85025

== ENCOUNTER 2024-07-01 06:48 | Day surgery (SDC) | payer OTHER, SELFPAY ==
[2024-06-29 10:13] VITALS: BMI 42.7
[2024-07-01] VITALS (9 sets, daily range): BP systolic 125–156; BP diastolic 73–83; PULSE 66–87; RESP 14–18; TEMP 36.3–37; O2SAT 94–98
[2024-07-01 07:11] LABS: POC Glucose,Bedside 166 (70-110)
[2024-07-01 07:28] LABS: Chloride 106 mmol/L (98-107); Potassium 3.9 mmoL/L (3.5-5.1); Sodium 137 mmol/L (136-145)
[2024-07-01 07:31] LABS: Anion Gap 11.9 mEq/L (5-15); Blood Urea Nitrogen 38 mg/dl (7-17); Carbon Dioxide 23 mmol/L (22.0-30.0); Creatinine Clearance Estimated 17 mL/min (50-200); Estimated Glomerular Filt Rate 11 ml/min (>60); GFR (African American) 13 ML/MIN (>60); Glucose 156 mg/dl (74-100)
[2024-07-01] MEDS: 0.9 % SODIUM CHLORIDE 1000ML 1,000 ML 25 ML IV (07:52)
--- NOTE | 2024-07-01 07:54 | P.PNANES_ITS ---
[facility] Disclaimer: The information contained in this section may have been updated after the patient was seen, as this information can be updated by other users. Medical History (Updated 07/01/24 @ 07:23 by Rukhsana Pearson RN) Chronic kidney disease History of anemia Urinary tract infection History of gastroesophageal reflux (GERD) Hypertension Hiatal hernia with gastroesophageal reflux Cough Dysphagia Dysphonia Thyroid nodule Enlarged thyroid Renal insufficiency Diabetes mellitus Asthma Hypotension Hyperglycemia Surgical History History of delivery History of dental surgery History of local excision of skin lesion Family History Other Family history of cancer Family history of diabetes mellitus type II Family history of myocardial infarction Family history of stroke Social History (Updated 07/01/24 @ 07:17 by Rukhsana Pearson RN) Smoking Status: Never smoker alcohol intake: never substance use type: denies use current occupational status: unemployed Travel in the last 8 weeks: None household members: children housing: house lives independently: Yes marital status: single caffeine: Yes special bahman needs: No agree to transfusion: No do you feel safe at home: Yes victim of physical abuse: No victim of emotional abuse: No victim of sexual abuse: No would you like helpful sources: No [facility] Anesthesia Checklist Patient Identification Patient Identification: Arm Band and Verbal (Name & ) Structural Data Admitted From: Home Planned Operative Procedure/s: Hysteroscopy, D&C, Novasure ablation Consent for Planned Operative Procedure(s) Verified: Yes Verified Documents: Surgical Consent NPO Status Verified Time NPO: 00:00 Chart Verification Results Verified: CBC, BMP, ECG, Chest Xray and HCG Additional verifications Fingerstick Blood Glucose: 166 Patient : No Anesthesia Reactions: No Hx Blood Transfusions: No Blood Transfusion Reaction: No Cardiovascular Assessment Heart Sounds: S1 & S2 Pulse Rhythm: Irregular Peripheral Edema: No Airway Assessment Mallampati Score:: Class II C-Spine Mobility Assessed: Yes (FROM) TMJ Mobility Assessed: Yes Dentition: Poor Dentition (Nothing loose per pt.) Neurological Assessment Level of Consciousness: Awake, Alert, Appropriate and Follows Commands Hx Seizures: No Numbness or tingling in extremities: No Anesthesia Plan Anesthesia Risk discussed: Yes Anesthesia Plan: Verified ASA Class: IV Anesthesia Type: General
--- NOTE | 2024-07-01 07:55 | SUR.PREOP ---
Dr. Jarquin at bedside and made aware of critical level Creatinine, no new orders. reviewed cardiac clearance and clearance from renal specialist. Anesthesia aware of ESRD, Daxa Bond CRNA at bedside. Pt performed dialysis last night per Dr. Jarquin's request.
[2024-07-01] MEDS: SODIUM CHLORIDE IRRIG SOLUTION 3,000 ML 100 ML IR (08:20)
[2024-07-01] MEDS: CLINDAMYCIN PHOSPHATE/D5W 900 MG/50 ML PIGGYBACK 106 MG IV (08:20)
[2024-07-01] MEDS: ROPIVACAINE 0.5% 30ML VIAL 150 MG (08:30)
--- NOTE | 2024-07-01 08:36 | P.PNANES_ITS ---
[facility] Anesthesia Record Part I Anesthesia Record I Intake, IV Amount: 500 Hydration: Adequate Estimated blood loss (mL): 50 Urine output (mL): 0 Blood Pressure: 125/75 SaO2: 94 Pulse Rate: 66 Airway Patency: Patent Respiratory Rate: 14 Temperature: 98.6 F Patient is:: Drowsy Stable to PACU at:: 08:35
--- NOTE | 2024-07-01 08:38 | P.OP_ITS ---
Date of procedure: 07/01/24 Pre-op Diagnosis:: Menorrhagia Post-op Diagnosis:: Menorrhagia, possible polyp Procedure performed:: Hysteroscopy, dilation and curettage, NovaSure ablation Surgeon:: Austyn Jarquin MD [employer]:: Swati Brooks Anesthesia: LMA Estimated blood loss (mL): 50 Clinical Note:: She is a 44-year-old lady who complains of extremely heavy periods. She is a diabetic with end-stage renal failure and has peritoneal dialysis. We discussed Mirena IUD but she has had 1 before and it caused quite a bit of cramps. As result of that she elected for a NovaSure ablation. Operative findings:: She had an anteverted uterus that sounded to 9 cm. The endometrial cavity was 6 cm long and 3.9 cm wide. On the posterior aspect of the uterus near the external os there was what appeared to be a small polyp. Operative note:: She was taken to the operating room where LMA anesthesia was found be adequate. She was prepped and draped in the normal sterile fashion in the lithotomy position. A weighted speculum was placed in the vagina and the anterior lip of the cervix was grasped with a tenaculum. The cervix was then dilated to approximately 6 mm. I then inserted a hysteroscope into the uterine cavity and the findings were as previously dictated. I then performed a gentle curettage with a medium curette. I then sounded the uterus and determine the length of the uterus. I then inserted the NovaSure device and determine the width of the endometrial cavity. The cavity was found to be 6 cm long and 3.9 cm wide. This was placed into the NovaSure device. I then ran the device through its program. I further inspected the endometrial cavity and was found to be completely charred. I then injected 30 cc of 0.5% ropivacaine at the 3:00, 5:00, 7:00, and 9:00 positions of the cervix. She tolerated procedure well and was taken to the recovery room in excellent condition. All sponge and instrument counts were correct. The estimated blood loss was less than 50 cc. Condition: stable Disposition: PACU Specimens:: Endometrial curettings Complications:: 9
[2024-07-01 08:43] LABS: POC Glucose,Bedside 147 (70-110)
[2024-07-03 05:59] VITALS: BP 125/73; PULSE 71; RESP 15; TEMP 36.9; O2SAT 96
--- NOTE | 2024-07-03 05:59 | P.PNANES_ITS ---
[facility] Anesthesia Record Part II Anesthesia Record Part II Discharge Time: 09:05 Destination: Surgical Day Care (OP Surgery) PACU nurse assessment reviewed?: Yes Patient Condition:: Good Anesthesia Complications:: None Swallowing reflex intact?: Yes Airway Patency: Patent Cyanosis?: No Blood Pressure: 125/73 SaO2: 96 Respiratory Rate: 15 Pulse Rate: 71 Temperature: 98.5 F Mental Status: Alert & Oriented Pain level:: 0 Nausea and/or vomitting:: None Intake, IV Amount: 0 Hydration: Adequate
== END 2024-07-01 09:36 | disposition home or self-care (01) ==
PROVIDERS: PCP Family Medicine; Visit Provider Nurse Practitioner Obstetrics & Gynecology
PROC: 0U5B8ZZ Destruction of Endometrium, Via Natural or Artificial Opening Endoscopic (ICD-10-PCS; CPT 58563; principal; 2024-07-01 08:30)
DX: N92.0 Excessive and frequent menstruation with regular cycle (principal); N84.0 Polyp of corpus uteri
CPT/HCPCS: 58563; 80048; 82962; 96374; J3010; J7030

== ENCOUNTER 2024-11-02 14:56 | Emergency (ER) | payer OTHER, SELFPAY ==
[2024-11-02 15:06] VITALS: BP 150/83; PULSE 105; RESP 19; TEMP 36.7; O2SAT 97; BMI 37.3
--- NOTE | 2024-11-02 15:10 | XR_ITS ---
FINAL REPORT CLINICAL HISTORY: second toe significant soft tissue penetrating inj COMPARISON: 02/13/2021 FINDINGS: AP, oblique and lateral views of the left foot were obtained. There is no acute fracture or dislocation. Degenerative joint disease is most pronounced in the midfoot, progressed from prior. There is no radiopaque foreign body. IMPRESSION: No acute osseous abnormality of the left foot. No radiopaque foreign body. Reviewed, Interpreted and Dictated by Joelle Costello MD Transcribed by Evie Kramer Authenticated and [facility]
[2024-11-02] MEDS: TET/DIPHTH/PERT-ADULT 0.5ML SYRINGE 0.5 ML IM (15:17)
[2024-11-02] MEDS: levoFLOXacin 750 MG TABLET PO (15:19)
--- NOTE | 2024-11-02 15:23 | PC.NURSE ---
pt to xr via wheelchair
--- NOTE | 2024-11-02 15:25 | HMH.EDGENADL ---
Discharge Plan Disposition Patient Disposition: Home, Self-Care Prescriptions Prescriptions: New levofloxacin 500 mg tablet 500 mg PO .every other day 10 Days Qty: 4 0RF No Action hydralazine 25 mg tablet 25 mg PO DAILY hydroxyzine HCl 25 mg tablet 25 mg PO DAILY Patient Comments: TAKE 1 TABLET BY MOUTH THREE TIMES DAILY NEEDED FOR ITCHING calcitriol [Rocaltrol] 0.25 mcg capsule 0.25 mcg PO DAILY (DME) pen needle, diabetic [BD Ultra-Fine Mini Pen Needle] 31 gauge x 3/16 needle See Rx Instructions .ROUTE .MEDSUPPLY Qty: 1200 Patient Comments: USE 1 PEN NEEDLE 4 TIMES DAILY Rx Instructions: As directed insulin glargine [Lantus Solostar U-100 Insulin] 100 unit/mL (3 mL) insulin pen 20 unit SQ HS Patient Comments: INJECT 20 UNITS SUBCUTANEOUSLY ONCE DAILY , WITH TITRATION IF INDICATED AND INSTRUCTED UP TO A MAX DAILY DOSE OF 50 UNITS Rx Instructions: see rx (DME) FreeStyle Omar 3 Sensor Device See Rx Instructions .ROUTE .MEDSUPPLY Qty: 1 Patient Comments: CHANGE SENSOR EVERY 14 DAYS. CHECK BLOOD GLUCOSE FOUR TIMES DAILY Rx Instructions: As directed (DME) FreeStyle Omar 3 Theresa Misc See Rx Instructions .ROUTE .MEDSUPPLY Qty: 1 Rx Instructions: As directed Velphoro 500 mg tablet,chewable 500 mg PO DAILY insulin lispro [Humalog KwikPen Insulin] 100 unit/mL insulin pen See Rx Instructions .ROUTE .COMPLEX Qty: 15 2RF Rx Instructions: 5 units q 6 hrs if bs is elevated over 250 please pen needles #100 [id number] Ozempic 0.25 mg or 0.5 mg (2 mg/3 mL) pen injector 0.25 mg SQ WEEKLY Patient Comments: INJECT 0.25 MG SUBCUTANEOUSLY ONCE A WEEK bumetanide 1 mg tablet 1 mg PO BID montelukast 10 mg tablet 10 mg PO DAILY Patient Comments: TAKE 1 TABLET BY MOUTH EVERY DAY AT BEDTIME doxazosin 1 mg tablet 1 mg PO BID ferrous sulfate [FeroSul] 325 mg (65 mg iron) tablet 325 mg PO DAILY Patient Comments: TAKE 1 TABLET BY MOUTH ONCE DAILY metoprolol succinate [Toprol XL] 50 mg tablet extended release 24 hr 50 mg PO BID Qty: 180 3RF albuterol sulfate 90 mcg/actuation HFA aerosol inhaler 2 inh inhalation Q6HP PRN (Reason: ASTHMA) Qty: 8.5 2RF Rx Instructions: INHALE 2 PUFFS BY MOUTH EVERY 4 TO 6 HOURS NEEDED FOR SHORTNESS OF BREATH OR WHEEZING Tarpeyo 4 mg capsule,delayed release(DR/EC) 16 mg PO DAILY omeprazole 40 mg capsule,delayed release(DR/EC) 40 mg PO DAILY Rx Instructions: Take 1 tab every morning with meal promethazine 25 mg tablet 25 mg PO TID PRN (Reason: nausea and vomiting) Qty: 12 0RF Referrals Follow up/Referrals: Stephan Talbert MD [Primary Care Provider] - See instructions Activity Restrictions/Add. Instructions Additional Instructions/Restrictions: Call your family doctor to establish care for this visit to the emergency department and schedule follow-up within 48 hours to ensure improvement. If you have any worsening of your condition or any other concerning signs or symptoms, return to the emergency department or your primary care doctor for further evaluation. Call Dr. Evans as soon as possible to set up follow-up. 500 mg levofloxacin every 2 days for 4 total doses, first dose being 11/04/2023 Clinical Impressions Clinical Impression: Diabetic foot, Foot laceration Instructions Patient Instructions: DI for Laceration Repair Print Language Print Language: Belarusian Discharge ED Provider: Mike Randolph General Adult HPI General Chief complaint: Wound/Laceration Stated complaint: left boot bleeding Time Seen by Provider: 11/02/24 15:00 Mode of Arrival: Ambulatory Source of Information: Patient Limitations: No Limitations Description of Symptoms (Recalled from ER Triage Doc. by RN): pt to ed c/o left foot bleeding. pt states she was walking around [facility] when her family member noticed her foot was soaked in blood. pt denies pain or injury. pt reports hx of diabetes. History of Present Illness HPI narrative: Please note that above description of symptoms, in this electronic medical record under categorization of recalled from ER triage doctor by RN are reflective of an initial nursing assessment, however, is not reflective of my full history and physical exam that was personally taken and clarified. Consequentially, this preceding description of symptoms, which may include the patient's categorized chief complaint in the EMR, do not reflect my personal clinical impression, and the ultimate description of history of present illness and patient stated complaints should be deferred to this section of the note. Unless stated otherwise or congruent with this section of the note, additional signs, symptoms, or incongruence should be interpreted as inaccurate with my clinical impression. Related Data Home Medications ?Medication ?Instructions ?Recorded ?Confirmed montelukast 10 mg tablet 10 mg PO DAILY allergies 07/14/21 08/31/24 omeprazole 40 mg capsule,delayed 40 mg PO DAILY GERD 11/13/22 08/31/24 release doxazosin 1 mg tablet 1 mg PO BID 02/20/23 08/31/24 ferrous sulfate 325 mg (65 mg 325 mg PO DAILY 02/20/23 08/31/24 iron) tablet (FeroSul) blood-glucose meter,continuous #1 ea 02/16/24 08/31/24 (FreeStyle Omar 3 Theresa) blood-glucose sensor (FreeStyle #1 ea 02/16/24 08/31/24 Omar 3 Sensor device) calcitriol 0.25 mcg capsule 0.25 mcg PO DAILY 02/16/24 08/31/24 (Rocaltrol) hydralazine 25 mg tablet 25 mg PO DAILY 02/16/24 08/31/24 hydroxyzine HCl 25 mg tablet 25 mg PO DAILY 02/16/24 08/31/24 insulin glargine 100 unit/mL (3 20 unit SQ HS 02/16/24 08/31/24 mL) subcutaneous pen (Lantus Solostar U-100 Insulin) pen needle, diabetic 31 gauge x #1,200 ea 02/16/24 08/31/24 3/16 (BD Ultra-Fine Mini Pen Needle) sucroferric oxyhydroxide 500 mg 500 mg PO DAILY 02/16/24 08/31/24 chewable tablet (Velphoro) budesonide 4 mg capsule,delayed 16 mg PO DAILY kidneys 02/29/24 08/31/24 release (Tarpeyo) semaglutide 0.25 mg or 0.5 mg (2 0.25 mg SQ WEEKLY 04/01/24 08/31/24 mg/3 mL) subcutaneous pen injector (Ozempic) bumetanide 1 mg tablet 1 mg PO BID 06/24/24 08/31/24 Previous Rx's ?Medication ?Instructions ?Recorded metoprolol succinate 50 mg 50 mg PO BID #180 tabs 02/20/23 tablet,extended release 24 hr (Toprol XL) insulin lispro 100 unit/mL See Rx Instructions .Route 01/12/24 subcutaneous pen (Humalog KwikPen .COMPLEX #15 mL (U-100) Insulin) promethazine 25 mg tablet 25 mg PO TID PRN nausea and 03/08/24 vomiting #12 tabs albuterol sulfate 90 mcg/actuation 2 inh inhalation Q6HP PRN ASTHMA 10/21/24 aerosol inhaler #8.5 grams levofloxacin 500 mg tablet 500 mg PO .every other day 10 days 11/02/24 #4 tabs Allergies Allergy/AdvReac Type Severity Reaction Status Date / Time Penicillins (PENICILLINS) Allergy Unknown PASSED OUT Verified 08/31/24 15:04 [facility] Disclaimer: The information contained in this section may have been updated after the patient was seen, as this information can be updated by other users. Medical History Chronic kidney disease History of anemia Urinary tract infection History of gastroesophageal reflux (GERD) Hypertension Hiatal hernia with gastroesophageal reflux Cough Dysphagia Dysphonia Thyroid nodule She has multiple small nodules none of which are worrisome by ultrasonography appearance and characteristics Enlarged thyroid Renal insufficiency Diabetes mellitus Asthma Hypotension Hyperglycemia Surgical History History of endometrial ablation History of delivery History of dental surgery History of local excision of skin lesion Family History Other Family history of cancer Family history of diabetes mellitus type II Family history of myocardial infarction Family history of stroke Social History Smoking Status: Never smoker alcohol intake: never substance use type: denies use current occupational status: unemployed Travel in the last 8 weeks: None household members: children housing: house lives independently: Yes marital status: single caffeine: Yes special bahman needs: No agree to transfusion: No do you feel safe at home: Yes victim of physical abuse: No victim of emotional abuse: No victim of sexual abuse: No would you like helpful sources: No Have you lived/traveled outside [place] in past 30 days?: No Contact w/someone who lives/traveled outside [place] past 30 days?: No Exposure to someone with infectious disease in past 14 days?: No Do you have a fever (greater than 100.4 F or 38 C)?: No Have you tested positive for COVID-19: No Exposed to someone with COVID-19 in past 14 days?: No Do you have a sore throat?: No Do you have a cough?: No Do you have any weakness?: No Do you have any diarrhea?: No Are you experiencing any unusual bleeding?: No Do you have any muscle aches/pain?: No Do you have any abdominal pain?: No Are you experiencing loss of taste or smell?: No Other Medical History Have you received the Flu Vaccine for this season: No Have you received the Pneumonia Vaccine: No ROS Obtained: Yes All systems reviewed & no additional complaints except as documented Physical Exam General General appearance: alert Head Head exam: atraumatic and normocephalic Eye Eye exam: Present normal appearance, PERRL and EOMI Neck Neck exam: Present normal inspection, full ROM and trachea midline Respiratory Respiratory exam: Absent respiratory distress, wheezes, stridor, accessory muscle use or prolonged expiratory phase Cardiovascular Cardiovascular exam: Present other (Pulses equal symmetric in upper and lower extremities) Abdominal Exam Abdominal exam: Present soft; Absent distention, tenderness or pulsatile mass Extremities Exam Extremities exam: Present other (Three-quarter inch nail found in the sole of patient's shoe. Patient has a near 1 cm circular soft tissue defect on the plantar surface of left second digit.); Absent edema Neurological Exam Neurological exam: Present alert, oriented X3, CN II-XII intact and normal gait; Absent motor sensory deficit Skin Skin exam: Present warm and dry; Absent diaphoresis or erythema Medical Decision Making Medical Records Medical records reviewed: Yes I reviewed the patient's medical records. Screening: Per USPSTF and CDC recommendations, given the prevalence of disease in our region, it is our hospital?s policy to screen for HIV and viral Hepatitis for all patients aged 18 and over and those with ongoing risk factors. Bishop Inquiry Pt receiving controlled substance: No Bishop was queried for this patient: No Vital Signs: 11/02/24 15:06 Temperature 98.0 F Temperature Source Oral Pulse Rate [Left Radial] 105 H Respiratory Rate 19 Blood Pressure [Right Arm] 150/83 H Blood Pressure Mean [Right Arm] 105 02 Sat by Pulse Oximetry 97 Oxygen Delivery Method Room Air Orders (Tests/Meds): ED MEDICATIONS Discontinued Medications Generic Name Dose Route Start Last Admin Trade Name Freq PRN Reason Stop Dose Admin Levofloxacin 750 mg 11/02/24 15:10 11/02/24 15:19 Levofloxacin 750 Mg Tablet PO 11/02/24 15:11 750 mg ONCE ONE Administration Tetanus/Reduced Diphtheria/Acell Pertussis 0.5 ml 11/02/24 15:10 11/02/24 15:17 Tet/Diphth/Pert-Adult 0.5ml Syringe IM 11/02/24 15:11 0.5 ml .ONCE ONE Administration ORDERS Category Date Time Status Foot XR left minimum 3 views [XR foot LT min 3V] Stat Exams 11/02/24 15:10 Taken Medical Decision Narrative: 44-year-old female history of diabetes, hypertension, high for lipid, ESRD on dialysis presenting with bleeding foot. Patient states that she was walking around at work and somebody pointed at her foot realized it was bleeding and she came immediately to the emergency department. Has no idea how long it has been bleeding. On my evaluation, patient no acute distress, has no pain, no acute complaints. Does not want to take the shoe off because she is afraid of blood. History obtained the patient. On arrival, patient propped her foot up, she has Three-quarter inch nail found in the sole of patient's shoe. Patient has a near 1 cm circular soft tissue defect on the plantar surface of left second digit. Hemostatic. No obvious foreign body, but appears to go nearly all the way to bone. Differential includes foreign body, soft tissue injury, infection, among others. Foot was soaked in chlorhexidine/saline for around an hour. X-rays obtained. On independent interpretation, these were negative for any acute bony abnormality or foreign body. Patient was given Tdap and first dose of levofloxacin. Renally dose 750 mg here, then 500 mg every other day thereafter. Return precautions were discussed, recommended close outpatient follow-up. Because patient at baseline without signs or symptoms of clinical decompensation, deemed appropriate for discharge. Results were relayed to patient who voiced understanding and were agreeable to outpatient management and follow up. I discussed my clinical impression with patient and answered all questions. At this time, the evidence for any other entities in the differential is insufficient to warrant any further testing or ED observation. This was explained as well. Advisory was given that persistent or worsening symptoms require further evaluation. I confirmed the understanding of this discussion. Manager Concrete disclaimer Much of this encounter note is an electronic extension work director spoken language to printed text. Electronic extension work director of the spoken language may permit errors. Although I have reviewed the note, some errors may still exist. Critical Care Critical Care Time Critical Care Time: No
[2024-11-02 16:45] VITALS: BP 136/89; PULSE 87; RESP 16; TEMP 36.8; O2SAT 99
== END 2024-11-02 16:46 | disposition home or self-care (01) ==
PROVIDERS: Emergency Provider Emergency Medicine; PCP Family Medicine
DX: S91.312A Laceration without foreign body, left foot, initial encounter (principal); E11.8 Type 2 diabetes mellitus with unspecified complications; W45.0XXA Nail entering through skin, initial encounter; Y93.89 Activity, other specified; Y92.89 Other specified places as the place of occurrence of the external cause; Z23 Encounter for immunization
CPT/HCPCS: 73630; 90471; 90715; 99283

== ENCOUNTER 2024-11-22 16:00 | Outpatient (CLI) | payer OTHER, SELFPAY | END 2024-11-22 23:59 | disposition home or self-care (01) | LOC: LAB.DROPOF 11-23 07:15 | PROVIDERS: PCP Nurse Practitioner; Visit Provider Nurse Practitioner | DX: L97.509 Non-pressure chronic ulcer of other part of unspecified foot with unspecified severity (principal); E11.8 Type 2 diabetes mellitus with unspecified complications; E11.621 Type 2 diabetes mellitus with foot ulcer; Z79.4 Long term (current) use of insulin | CPT/HCPCS: 87070; 87077; 87205 ==

== ENCOUNTER 2024-11-29 11:43 | Emergency (ER) | payer OTHER, SELFPAY ==
[2024-11-29] VITALS (8 sets, daily range): BP systolic 106–127; BP diastolic 66–84; PULSE 61–109; RESP 18; TEMP 36.6–36.8; O2SAT 98–100; BMI 36.3
--- NOTE | 2024-11-29 11:56 | ECG_ITS ---
APPROVED REPORT Exam: Resting ECG HR:80 bpm ECG Measurements Heart Rate 80 AXES ME 174 P 66 QRSd 101 QRS -50 QT 384 T 78 QTc 420 Conclusion SINUS RHYTHM LEFT ANTERIOR FASCICULAR BLOCK [QRS AXIS <= -45, QR IN I, RS IN II] SEPTAL MYOCARDIAL INFARCTION , OF INDETERMINATE AGE [40+ ms Q WAVE IN V1/V2] ABNORMAL ECG Electronically signed by : MONA ARRIAZA, 11/29/2024 17:08:37
--- NOTE | 2024-11-29 12:11 | ED_ITS ---
<Statement entered by Niki García DO - 11/29/24 16:22> I was consulted by the [facility], and we discussed the complexity of the problems being addressed. I approved the treatment and management plan for this patient's care in the emergency department, thus performing a substantive portion of the medical decision making. Niki García DO Discharge Plan Disposition Patient Disposition: Home, Self-Care Condition: Good Prescriptions Prescriptions: No Action hydralazine 25 mg tablet 25 mg PO DAILY hydroxyzine HCl 25 mg tablet 25 mg PO DAILY Patient Comments: TAKE 1 TABLET BY MOUTH THREE TIMES DAILY NEEDED FOR ITCHING calcitriol [Rocaltrol] 0.25 mcg capsule 0.25 mcg PO DAILY (DME) pen needle, diabetic [BD Ultra-Fine Mini Pen Needle] 31 gauge x 3/16 needle See Rx Instructions .ROUTE .MEDSUPPLY Qty: 1200 Patient Comments: USE 1 PEN NEEDLE 4 TIMES DAILY Rx Instructions: As directed insulin glargine [Lantus Solostar U-100 Insulin] 100 unit/mL (3 mL) insulin pen 20 unit SQ HS Patient Comments: INJECT 20 UNITS SUBCUTANEOUSLY ONCE DAILY , WITH TITRATION IF INDICATED AND INSTRUCTED UP TO A MAX DAILY DOSE OF 50 UNITS Rx Instructions: see rx (DME) FreeStyle Omar 3 Sensor Device See Rx Instructions .ROUTE .MEDSUPPLY Qty: 1 Patient Comments: CHANGE SENSOR EVERY 14 DAYS. CHECK BLOOD GLUCOSE FOUR TIMES DAILY Rx Instructions: As directed (DME) FreeStyle Omar 3 [place] Misc See Rx Instructions .ROUTE .MEDSUPPLY Qty: 1 Rx Instructions: As directed Velphoro 500 mg tablet,chewable 500 mg PO DAILY insulin lispro [Humalog KwikPen Insulin] 100 unit/mL insulin pen See Rx Instructions .ROUTE .COMPLEX Qty: 15 2RF Rx Instructions: 5 units q 6 hrs if bs is elevated over 250 please pen needles #100 [id number] Ozempic 0.25 mg or 0.5 mg (2 mg/3 mL) pen injector 0.25 mg SQ WEEKLY Patient Comments: INJECT 0.25 MG SUBCUTANEOUSLY ONCE A WEEK bumetanide 1 mg tablet 1 mg PO BID levofloxacin 500 mg tablet 500 mg PO .COMPLEX 10 Days Qty: 5 0RF Rx Instructions: 500 mg orally every other day; montelukast 10 mg tablet 10 mg PO DAILY Patient Comments: TAKE 1 TABLET BY MOUTH EVERY DAY AT BEDTIME doxazosin 1 mg tablet 1 mg PO BID ferrous sulfate [FeroSul] 325 mg (65 mg iron) tablet 325 mg PO DAILY Patient Comments: TAKE 1 TABLET BY MOUTH ONCE DAILY metoprolol succinate [Toprol XL] 50 mg tablet extended release 24 hr 50 mg PO BID Qty: 180 3RF albuterol sulfate 90 mcg/actuation HFA aerosol inhaler 2 inh inhalation Q6HP PRN (Reason: ASTHMA) Qty: 8.5 2RF Rx Instructions: INHALE 2 PUFFS BY MOUTH EVERY 4 TO 6 HOURS NEEDED FOR SHORTNESS OF BREATH OR WHEEZING [place] 4 mg capsule,delayed release(DR/EC) 16 mg PO DAILY omeprazole 40 mg capsule,delayed release(DR/EC) 40 mg PO DAILY Rx Instructions: Take 1 tab every morning with meal promethazine 25 mg tablet 25 mg PO TID PRN (Reason: nausea and vomiting) Qty: 12 0RF Referrals Follow up/Referrals: Stephan Talbert MD [Primary Care Provider] - See instructions Activity Restrictions/Add. Instructions Additional Instructions/Restrictions: As we discussed please contact your talent agent for instructions regarding your peritoneal dialysis as your creatinine went up to 6. Follow-up with your PCP for recheck of your creatinine. For any new worsening signs or symptoms follow- up with your PCP sooner or return to the ER. Clinical Impressions Clinical Impression: Acute dehydration Acute on chronic renal failure Qualifiers: Acute renal failure type: unspecified Chronic kidney disease stage: on chronic dialysis Qualified Code(s): N17.9 - Acute kidney failure, unspecified Print Language Print Language: Iranian Discharge ED Provider: Niki García General Adult HPI <RAFAL Velasco - Last Filed: 11/29/24 14:45> General Chief complaint: Dizziness Stated complaint: dehydrated, dizziness Time Seen by Provider: 11/29/24 12:11 Mode of Arrival: Ambulatory Source of Information: Patient Limitations: No Limitations Description of Symptoms (Recalled from ER Triage Doc. by RN): Pt presents with c/o dehydration and dizziness. Pt states had the gi bug several days ago that was accompanied with vomiting and diarrhea. She has not had her BP meds in several days due to her nausea. PMH gastric sleeve. History of Present Illness HPI narrative: Patient presents for evaluation of lightheadedness and weakness. Patient reports that she had a GI bug several days ago and while those symptoms have passed she reports that she feels lightheaded and that she could have be dehydrated . Patient has past medical history of a gastric sleeve, she has end- stage renal disease and type 2 diabetes mellitus, is on daily peritoneal dialysis at home,diabetic neuropathy, diabetic dyslipidemia and hypertension. Patient states that she has not been taking her blood pressure medications for several days as well. Denies any fever chills hemoptysis hematochezia melena nausea vomiting diarrhea currently. She reports tolerance of oral intake and having normal bowel movements now. Related Data Home Medications ?Medication ?Instructions ?Recorded ?Confirmed montelukast 10 mg tablet 10 mg PO DAILY allergies 07/14/21 11/22/24 omeprazole 40 mg capsule,delayed 40 mg PO DAILY GERD 11/13/22 11/22/24 release doxazosin 1 mg tablet 1 mg PO BID 02/20/23 11/22/24 ferrous sulfate 325 mg (65 mg 325 mg PO DAILY 02/20/23 11/22/24 iron) tablet (FeroSul) blood-glucose meter,continuous #1 ea 02/16/24 11/22/24 (FreeStyle Omar 3 [place]) blood-glucose sensor (FreeStyle #1 ea 02/16/24 11/22/24 Omar 3 Sensor device) calcitriol 0.25 mcg capsule 0.25 mcg PO DAILY 02/16/24 11/22/24 (Rocaltrol) hydralazine 25 mg tablet 25 mg PO DAILY 02/16/24 11/22/24 hydroxyzine HCl 25 mg tablet 25 mg PO DAILY 02/16/24 11/22/24 insulin glargine 100 unit/mL (3 20 unit SQ HS 02/16/24 11/22/24 mL) subcutaneous pen (Lantus Solostar U-100 Insulin) pen needle, diabetic 31 gauge x #1,200 ea 02/16/24 11/22/24/ (BD Ultra-Fine Mini Pen Needle) sucroferric oxyhydroxide 500 mg 500 mg PO DAILY 02/16/24 11/22/24 chewable tablet (Velphoro) budesonide 4 mg capsule,delayed 16 mg PO DAILY kidneys 02/29/24 11/22/24 release ([place]) semaglutide 0.25 mg or 0.5 mg (2 0.25 mg SQ WEEKLY 04/01/24 11/22/24 mg/3 mL) subcutaneous pen injector (Ozempic) bumetanide 1 mg tablet 1 mg PO BID 06/24/24 11/22/24 Previous Rx's ?Medication ?Instructions ?Recorded metoprolol succinate 50 mg 50 mg PO BID #180 tabs 02/20/23 tablet,extended release 24 hr (Toprol XL) insulin lispro 100 unit/mL See Rx Instructions .Route 01/12/24 subcutaneous pen (Humalog KwikPen .COMPLEX #15 mL (U-100) Insulin) promethazine 25 mg tablet 25 mg PO TID PRN nausea and 03/08/24 vomiting #12 tabs albuterol sulfate 90 mcg/actuation 2 inh inhalation Q6HP PRN ASTHMA 10/21/24 aerosol inhaler #8.5 grams levofloxacin 500 mg tablet 500 mg PO .COMPLEX infection 10 11/22/24 days #5 tabs Allergies Allergy/AdvReac Type Severity Reaction Status Date / Time Penicillins (PENICILLINS) Allergy Unknown PASSED OUT Verified 11/22/24 15:50 [facility] <RAFAL Velasco - Last Filed: 11/29/24 14:45> [facility] Disclaimer: The information contained in this section may have been updated after the patient was seen, as this information can be updated by other users. Medical History Chronic kidney disease History of anemia Urinary tract infection History of gastroesophageal reflux (GERD) Hypertension Hiatal hernia with gastroesophageal reflux Cough Dysphagia Dysphonia Thyroid nodule She has multiple small nodules none of which are worrisome by ultrasonography appearance and characteristics Enlarged thyroid Renal insufficiency Diabetes mellitus Asthma Hypotension Hyperglycemia Surgical History History of endometrial ablation History of delivery History of dental surgery History of local excision of skin lesion Family History Other Family history of cancer Family history of diabetes mellitus type II Family history of myocardial infarction Family history of stroke Social History Smoking Status: Never smoker alcohol intake: never substance use type: denies use current occupational status: unemployed Travel in the last 8 weeks: None household members: children housing: house lives independently: Yes marital status: single caffeine: Yes special bahman needs: No agree to transfusion: No do you feel safe at home: Yes victim of physical abuse: No victim of emotional abuse: No victim of sexual abuse: No would you like helpful sources: No Have you lived/traveled outside [place] in past 30 days?: No Contact w/someone who lives/traveled outside [place] past 30 days?: No Exposure to someone with infectious disease in past 14 days?: No Do you have a fever (greater than 100.4 F or 38 C)?: No Have you tested positive for COVID-19: No Exposed to someone with COVID-19 in past 14 days?: No Do you have a sore throat?: No Do you have a cough?: No Do you have any weakness?: Yes Do you have any diarrhea?: No Are you experiencing any unusual bleeding?: No Do you have any muscle aches/pain?: No Do you have any abdominal pain?: No Are you experiencing loss of taste or smell?: No Other Medical History Have you received the Flu Vaccine for this season: No Have you received the Pneumonia Vaccine: No <RAFAL Velasco - Last Filed: 11/29/24 14:45> ROS Obtained: Yes Systems reviewed as appropriate & no additional complaints except as documented Physical Exam <RAFAL Velasco - Last Filed: 11/29/24 14:45> General General appearance: alert and in no apparent distress Respiratory Respiratory exam: Present normal lung sounds bilaterally Cardiovascular Cardiovascular exam: Present regular rate Neurological Exam Neurological exam: Present alert and oriented X3 Medical Decision Making <RAFAL Velasco - Last Filed: 11/29/24 14:45> Medical Records Medical records reviewed: Yes I reviewed the patient's medical records. Screening: Per USPSTF and CDC recommendations, given the prevalence of disease in our region, it is our hospital?s policy to screen for HIV and viral Hepatitis for all patients aged 18 and over and those with ongoing risk factors. [place] Inquiry Pt receiving controlled substance: No Vital Signs: 11/29/24 11:51 11/29/24 13:00 11/29/24 13:30 Temperature 97.8 F Temperature Source Oral Pulse Rate 66 72 Pulse Rate [Right] 109 H Respiratory Rate 18 Blood Pressure 106/66 L 118/80 Blood Pressure [Right Arm] 106/84 L Blood Pressure Mean 88 Blood Pressure Mean [Right Arm] 91 Blood Pressure Source [Right Arm] Automatic Cuff Blood Pressure Position [Right Arm] Sitting 02 Sat by Pulse Oximetry 98 99 100 Oxygen Delivery Method Room Air Room Air Room Air 11/29/24 13:45 11/29/24 14:00 11/29/24 14:15 Temperature Temperature Source Pulse Rate 61 61 66 Pulse Rate [Right] Respiratory Rate Blood Pressure 122/74 115/74 124/75 Blood Pressure [Right Arm] Blood Pressure Mean 90 90 87 Blood Pressure Mean [Right Arm] Blood Pressure Source [Right Arm] Blood Pressure Position [Right Arm] 02 Sat by Pulse Oximetry 99 99 99 Oxygen Delivery Method Room Air Room Air Room Air 11/29/24 14:30 Temperature Temperature Source Pulse Rate Pulse Rate [Right] Respiratory Rate Blood Pressure 120/73 Blood Pressure [Right Arm] Blood Pressure Mean 89 Blood Pressure Mean [Right Arm] Blood Pressure Source [Right Arm] Blood Pressure Position [Right Arm] 02 Sat by Pulse Oximetry Oxygen Delivery Method Lab Data Lab results reviewed: Yes I reviewed the patient's lab results. Lab Results 11/29/24 11:52: WBC 6.9, RBC 3.81 L, Hgb 12.3, Hct 35.3 L, MCV 92.7, MCH 32.3 H, MCHC 34.8, RDW 13.1, Plt Count 220, MPV 9.8, Neut % (Auto) 67.9, Lymph % (Auto) 17.3, [place] % (Auto) 9.0, Eos % (Auto) 4.8, Baso % (Auto) 0.6, Neut # (Auto) 4.7, Lymph # (Auto) 1.2, [place] # (Auto) 0.6, Eos # (Auto) 0.3, Baso # (Auto) 0.0, S odium 135 L, Potassium 3.5, Chloride 96 L, Carbon Dioxide 24, Anion Gap 18.5 H, BUN 71 H, Creatinine 6.80 H, Estimated Creat Clear 19, Estimated GFR 7 L*, Est GFR ( Amer) 8 L*, Glucose 178 H, Calcium 8.9, Total Bilirubin 0.8, AST 32, ALT 22, Alkaline Phosphatase 65, Total Protein 7.7, Albumin 4.2, Globulin 3.5 H, Albumin/Globulin Ratio 1.2, Procalcitonin 0.640 11/29/24 13:30: Urine Color Yellow, Urine Appearance Clear, Urine pH 6.0, Ur Specific [place] >= 1.030, Urine Protein 1+ A, Urine Glucose (UA) Negative, Urine Ketones Negative, Urine Blood Negative, Urine Nitrate Negative, Urine Bilirubin Negative, Urine Urobilinogen 0.2, Ur Leukocyte Esterase Negative, Urine RBC None, Urine WBC 5-10, Ur Squamous Epith Cells 10-20, Urine Bacteria Trace 11/29/24 11:52 11/29/24 11:52 Orders (Tests/Meds): ED MEDICATIONS Discontinued Medications Generic Name Dose Route Start Last Admin Trade Name Freq PRN Reason Stop Dose Admin Lactated Ringer's 1,000 mls @ 999 mls/hr 11/29/24 12:16 11/29/24 12:26 Lactated Ringer's 1000 Ml Bag IV 11/29/24 13:16 999 mls/hr .Q1H1M ONE Administration ORDERS Category Date Time Status CBC w/Auto Diff [Complete Blood Count Auto Diff] Stat Lab 11/29/24 11:52 Completed CMP [Comprehensive Metabolic Panel] Stat Lab 11/29/24 11:52 Completed MAG [Magnesium] Stat Lab 11/29/24 11:52 Received PHOS [Phosphorous] Stat Lab 11/29/24 11:52 Received Procalcitonin Stat Lab 11/29/24 11:52 Completed UA [Urinalysis and Microscopic] Stat Lab 11/29/24 13:30 Completed Medical Decision Narrative: In summary patient is a 44-year-old female who presents to the emergency department for evaluation of dizziness and weakness. Patient is hypertensive on arrival with a blood pressure 106/84 tachycardic at 109 with sinus tachycardia on bedside monitor breathing 18 times a minute satting at 98% on room air upon arrival, afebrile 97.8. Physical exam however is unremarkable and nonfocal including normal breath sounds with no adventitious sounds no increased work of breathing, soft abdomen with no rebound no guarding or rigidity and normal active bowel sounds.. Differential diagnosis includes simple dehydration versus acute on chronic renal failure versus electrolyte abnormality etc. Initial workup will be conducted with hematologic labs urinalysis twelve-lead EKG. Initial interventions include continuous cardiac monitoring pulse oximetry. I did consider a sepsis bolus but given that the patient has chronic renal failure and likely sensitive to volume overload we will gently hydrate for now until we have additional labs.. Initial workup reviewed by me shows that her white count 6.9 with an absolute neutrophil count of 14.7 sodium of 135 potassium 3.5 chloride 96 CO2 of 24 gap of 18 with a BUN of 71 and a creatinine of 6.8 which is higher than her normal baseline of around 4 with GFR of 7 which is lower than normal baseline which is around the teens. Upon repeat evaluation patient however reported significant symptomatic improvement and is actually able to ambulate in the emergency department without dizziness and is tolerating p.o. Given this had interactive discussion with the patient regarding her symptoms are PARRA and results via patient directed decision making and discharge patient is comfortable following up with her talent agent for her peritoneal dialysis recommendations giving her increased creatinine. Thus patient is appropriate for discharge with follow-up with her PCP for recheck of her creatinine and follow-up with nephrology as scheduled. <Niki García, DO - Last Filed: 11/29/24 12:21> Vital Signs: 11/29/24 11:51 11/29/24 13:00 11/29/24 13:30 Temperature 97.8 F Temperature Source Oral Pulse Rate 66 72 Pulse Rate [Right] 109 H Respiratory Rate 18 Blood Pressure 106/66 L 118/80 Blood Pressure [Right Arm] 106/84 L Blood Pressure Mean 88 Blood Pressure Mean [Right Arm] 91 Blood Pressure Source [Right Arm] Automatic Cuff Blood Pressure Position [Right Arm] Sitting 02 Sat by Pulse Oximetry 98 99 100 Oxygen Delivery Method Room Air Room Air Room Air 11/29/24 13:45 11/29/24 14:00 11/29/24 14:15 Temperature Temperature Source Pulse Rate 61 61 66 Pulse Rate [Right] Respiratory Rate Blood Pressure 122/74 115/74 124/75 Blood Pressure [Right Arm] Blood Pressure Mean 90 90 87 Blood Pressure Mean [Right Arm] Blood Pressure Source [Right Arm] Blood Pressure Position [Right Arm] 02 Sat by Pulse Oximetry 99 99 99 Oxygen Delivery Method Room Air Room Air Room Air 11/29/24 14:30 Temperature Temperature Source Pulse Rate Pulse Rate [Right] Respiratory Rate Blood Pressure 120/73 Blood Pressure [Right Arm] Blood Pressure Mean 89 Blood Pressure Mean [Right Arm] Blood Pressure Source [Right Arm] Blood Pressure Position [Right Arm] 02 Sat by Pulse Oximetry Oxygen Delivery Method Lab Data Lab Results 11/29/24 11:52: WBC 6.9, RBC 3.81 L, Hgb 12.3, Hct 35.3 L, MCV 92.7, MCH 32.3 H, MCHC 34.8, RDW 13.1, Plt Count 220, MPV 9.8, Neut % (Auto) 67.9, Lymph % (Auto) 17.3, [place] % (Auto) 9.0, Eos % (Auto) 4.8, Baso % (Auto) 0.6, Neut # (Auto) 4.7, Lymph # (Auto) 1.2, [place] # (Auto) 0.6, Eos # (Auto) 0.3, Baso # (Auto) 0.0, S odium 135 L, Potassium 3.5, Chloride 96 L, Carbon Dioxide 24, Anion Gap 18.5 H, BUN 71 H, Creatinine 6.80 H, Estimated Creat Clear 19, Estimated GFR 7 L*, Est GFR ( Amer) 8 L*, Glucose 178 H, Calcium 8.9, Total Bilirubin 0.8, AST 32, ALT 22, Alkaline Phosphatase 65, Total Protein 7.7, Albumin 4.2, Globulin 3.5 H, Albumin/Globulin Ratio 1.2, Procalcitonin 0.640 11/29/24 13:30: Urine Color Yellow, Urine Appearance Clear, Urine pH 6.0, Ur Specific [place] >= 1.030, Urine Protein 1+ A, Urine Glucose (UA) Negative, Urine Ketones Negative, Urine Blood Negative, Urine Nitrate Negative, Urine Bilirubin Negative, Urine Urobilinogen 0.2, Ur Leukocyte Esterase Negative, Urine RBC None, Urine WBC 5-10, Ur Squamous Epith Cells 10-20, Urine Bacteria Trace Orders (Tests/Meds): ED MEDICATIONS Discontinued Medications Generic Name Dose Route Start Last Admin Trade Name Freq PRN Reason Stop Dose Admin Lactated Ringer's 1,000 mls @ 999 mls/hr 11/29/24 12:16 11/29/24 12:26 Lactated Ringer's 1000 Ml Bag IV 11/29/24 13:16 999 mls/hr .Q1H1M ONE Administration ORDERS Category Date Time Status CBC w/Auto Diff [Complete Blood Count Auto Diff] Stat Lab 11/29/24 11:52 Completed CMP [Comprehensive Metabolic Panel] Stat Lab 11/29/24 11:52 Completed MAG [Magnesium] Stat Lab 11/29/24 11:52 Received PHOS [Phosphorous] Stat Lab 11/29/24 11:52 Received Procalcitonin Stat Lab 11/29/24 11:52 Completed UA [Urinalysis and Microscopic] Stat Lab 11/29/24 13:30 Completed ECG Data Tracing #1: I reviewed this ECG and interpreted as documented below: Normal sinus rhythm with a ventricular rate of 80 bpm. Left anterior fascicular block. No acute STEMI. QTc of 420 ms ECG initial impression date: 11/29/24 ECG initial impression time: 11:58 Critical Care <RAFAL Velasco - Last Filed: 11/29/24 14:45> Critical Care Time Critical Care Time: No
[2024-11-29 12:25] LABS: Basophils % 0.6 % (0.1-2.0); Eosinophils # 0.3 K/mm3 (0.0-0.4); Eosinophils % 4.8 % (0.1-12.0); Hematocrit 35.3 % (37.0-47.0); Hemoglobin 12.3 g/dL (12.2-16.2); Lymphocytes # 1.2 K/mm3 (0.7-4.5); Lymphocytes % 17.3 % (10-50); Mean Corpuscular HGB Conc 34.8 g/dL (31.8-35.4); Mean Corpuscular Hemoglobin 32.3 pg (27.0-31.2); Mean Corpuscular Volume 92.7 fl (81-99); Mean Platelet Volume 9.8 fl (7.4-10.4); Monocytes # 0.6 K/mm3 (0.1-1.0); Neutrophils # 4.7 K/mm3 (1.8-7.8); Neutrophils % 67.9 % (37.0-80.0); Platelet Count 220 K/mm3 (142-424); Red Blood Count 3.81 M/mm3 (4.20-5.40); Red Cell Distribution Width 13.1 % (11.5-17.5); White Blood Count 6.9 K/mm3 (4.8-10.8)
[2024-11-29] MEDS: LACTATED RINGERS 1000ML 1,000 ML 999 ML IV (12:26)
--- NOTE | 2024-11-29 12:35 | PC.NURSE ---
1230 Pt states she is still unable to provide a urine sample at this time. Declines any other needs at this time.
[2024-11-29 12:42] LABS: Albumin Level 4.2 g/dl (3.5-5.0); Chloride 96 mmol/L (98-107); Potassium 3.5 mmoL/L (3.5-5.1); Sodium 135 mmol/L (136-145)
[2024-11-29 12:45] LABS: Alanine Aminotransferase 22 U/L (12-78); Albumin/Globulin Ratio 1.2 (1.1-1.8); Alkaline Phosphatase 65 U/L (38-126); Anion Gap 18.5 mEq/L (5-15); Aspartate Amino Transferase 32 U/L (14-36); Bilirubin,Total 0.8 mg/dl (0.2-1.3); Blood Urea Nitrogen 71 mg/dl (7-17); Calcium 8.9 mg/dl (8.4-10.2); Carbon Dioxide 24 mmol/L (22.0-30.0); Creatinine Clearance Estimated 19 mL/min (50-200); Estimated Glomerular Filt Rate 7 ml/min (>60); GFR (African American) 8 ML/MIN (>60); Globulin 3.5 g/dL (1.3-3.2); Glucose 178 mg/dl (74-100); Total Protein,Serum 7.7 g/dl (6.3-8.2)
[2024-11-29 13:35] LABS: Microscopic, Urine URINE MICROSCOPIC (MICROSCOPIC)
[2024-11-29 13:49] LABS: Appearance,Urine CLEAR (Clear); Bilirubin,Urine Negative (Negative); Blood, Urine Negative (Negative); Color,Urine YELLOW (Yellow); Glucose,Urine (UA) Negative (Negative); Ketones,Urine Negative (Negative); Leukocyte Esterase,Urine Negative (Negative); Nitrate,Urine Negative (Negative); Protein,Urine 1+ (Negative); Specific Gravity, Urine >= 1.030 (1.005-1.030); Urobilinogen,Urine 0.2 EU/dl (0.2)
[2024-11-29 14:14] LABS: Bacteria,Urine Trace /lpf
[2024-11-29 14:41] LABS: Magnesium 1.9 mg/dl (1.6-2.3); Phosphorous 7.5 mg/dl (2.5-4.5)
== END 2024-11-29 14:48 | disposition home or self-care (01) ==
PROVIDERS: Physician Assistant; Emergency Provider Emergency Medicine; PCP Family Medicine
DX: E86.0 Dehydration (principal); N17.9 Acute kidney failure, unspecified; R42 Dizziness and giddiness; R53.1 Weakness; Z99.2 Dependence on renal dialysis
CPT/HCPCS: 80053; 81001; 83735; 84100; 84145; 85025; 93005; 96360; 99283; J7120

== ENCOUNTER 2025-03-16 09:20 | Day surgery (SDC) | payer MEDICARE, OTHER, SELFPAY ==
[2025-03-15 08:33] VITALS: BMI 32.0
[2025-03-16] VITALS (7 sets, daily range): BP systolic 95–123; BP diastolic 53–67; PULSE 65–76; RESP 16–20; TEMP 36.4–36.8; O2SAT 98–100
[2025-03-16 10:02] LABS: POC Glucose,Bedside 108 (70-110)
[2025-03-16 10:22] LABS: Urine Pregnancy, HCG Qual. Negative (Negative)
--- NOTE | 2025-03-16 10:33 | P.HP_ITS ---
History of Present Illness *Admission Date: 03/16/25 *Reason for visit:: Screening for colon cancer *History of present illness: Mrs. Woodall is a 44-year-old female who is here for initial screening colonoscopy. This is required as part of her checklist for kidney transplant. The examination is deemed medically necessary for screening colonoscopy. The patient has been seen, interviewed and examined prior to the procedure by both myself and the anesthesia provider. [facility] Disclaimer: The information contained in this section may have been updated after the patient was seen, as this information can be updated by other users. Medical History Chronic kidney disease History of anemia Urinary tract infection History of gastroesophageal reflux (GERD) Hypertension Hiatal hernia with gastroesophageal reflux Cough Dysphagia Dysphonia Thyroid nodule She has multiple small nodules none of which are worrisome by ultrasonography appearance and characteristics Enlarged thyroid Renal insufficiency Diabetes mellitus Asthma Hypotension Hyperglycemia Surgical History History of endometrial ablation History of delivery History of dental surgery History of local excision of skin lesion Family History Other Family history of cancer Family history of diabetes mellitus type II Family history of myocardial infarction Family history of stroke Social History Smoking Status: Never smoker alcohol intake: never substance use type: denies use current occupational status: unemployed Travel in the last 8 weeks?: None household members: children housing: house lives independently: Yes marital status: single caffeine: Yes special bahman needs: No agree to transfusion: No do you feel safe at home: Yes victim of physical abuse: No victim of emotional abuse: No victim of sexual abuse: No would you like helpful sources: No Have you lived/traveled outside [place] in past 30 days?: No Contact w/someone who lives/traveled outside [place] past 30 days?: No Exposure to someone with infectious disease in past 14 days?: No Do you have a fever (greater than 100.4 F or 38 C)?: No Have you tested positive for COVID-19?: No Exposed to someone with COVID-19 in past 14 days?: No Do you have a sore throat?: No Do you have a cough?: No Do you have any weakness?: No Do you have any diarrhea?: No Are you experiencing any unusual bleeding?: No Do you have any muscle aches/pain?: No Do you have any abdominal pain?: No Are you experiencing loss of taste or smell?: No Other Medical History Have you received the Flu Vaccine for this season: No Have you received the Pneumonia Vaccine: No Review of Systems Review of Systems Review of systems (narrative): Negative *Cardiovascular Comments: Negative *Gastrointestinal Comments: Negative *Genitourinary Comments: Negative *Musculoskeletal Comments: Negative *Neurologic Comments: Negative Meds Home Medications and Allergies Home Medications ?Medication ?Instructions ?Recorded ?Confirmed ?Type ferrous sulfate 325 mg (65 mg 325 mg PO DAILY 02/20/23 03/15/25 History iron) tablet (FeroSul) blood-glucose sensor (FreeStyle #1 ea 02/16/24 03/14/25 History Omar 3 Sensor device) blood-glucose,marketing programs manager,cont #1 ea 02/16/24 03/14/25 History (FreeStyle Omar 3 Holden) calcitriol 0.25 mcg capsule 0.25 mcg PO DAILY 02/16/24 03/15/25 History (Rocaltrol) pen needle, diabetic 31 gauge x #1,200 ea 02/16/24 03/14/25 History 3/16 (BD Ultra-Fine Mini Pen Needle) albuterol sulfate 90 mcg/actuation 2 inh inhalation Q6HP PRN ASTHMA 10/21/24 03/15/25 Rx aerosol inhaler #8.5 grams omeprazole 20 mg capsule,delayed 20 mg PO DAILY 02/02/25 03/15/25 History release sodium,potassium,mag sulfates 17.5 See Rx Instructions PO .COMPLEX 03/02/25 03/14/25 Rx gram-3.13 gram-1.6 gram oral soln #354 mL (Suprep Bowel Prep Kit) New Prescriptions to Start Prescriptions: Allergies Allergy/AdvReac Type Severity Reaction Status Date / Time Penicillins (PENICILLINS) Allergy Unknown PASSED OUT Verified 03/14/25 15:22 Exam Data for Last 24 hours Vital signs and Labs for Last 24 Hours: Temp Pulse Resp BP Pulse Ox O2 Del Method O2 Flow Rate 97.5 F L 65 17 123/65 99 Nasal Cannula 5 03/16/25 10:05 03/16/25 10:05 03/16/25 10:05 03/16/25 10:05 03/16/25 10:05 03/16/25 10:31 03/16/25 10:31 Laboratory Results - last 24 hr 03/16/25 09:36: Urine HCG, Qual Negative 03/16/25 09:54: POC Glucose 108 I & O for Last 24 hours: Intake & Output 03/13/25 03/14/25 03/15/25 03/16/25 23:59 23:59 23:59 23:59 Weight 223 lb *Routine HEENT Exam Head: Present normocephalic Eye: Present EOMI and PERRL ENT: Present mucous membranes moist *Routine Neck Exam Neck: Present supple *Routine Respiratory Exam Respiratory: Present CTA bilaterally *Routine Cardiovascular Exam Cardiovascular: Present RRR *Routine Abdominal Exam Abdominal: Present soft and normoactive bowel sounds; Absent tenderness *Routine Rectal Exam Rectal:: deferred *Routine Genitalia Exam Genitalia:: deferred *Routine Extremities Exam Extremities: Absent cyanosis, clubbing or edema *Routine Skin Exam Skin: Present warm; Absent rash *Routine Neurological Exam Neurological: Present alert and oriented X3 Assessment and Plan *Assessment and plan (1) Screening for colon cancer: Status: Acute Category: Medical Code(s): Z12.11 - Encounter for screening for malignant neoplasm of colon Plan A/P: 1. Screening for colon cancer is the preprocedural diagnosis. The patient will be anesthetized/sedated using MAC sedation. The patient has been seen and examined. Cardiac and lung assessment prior to the examination is stable. Proceed with planned screening colonoscopy.
--- NOTE | 2025-03-16 10:45 | P.PCN_ITS ---
[facility] Procedure Note Date: 03/16/25 Time: 10:45 Procedure Note:: Colonoscopy Procedure Report: Colonoscopy with cold snare polypectomy Endoscopist: Tobi Allen II, MD Referring physician: Mitch Talbert MD Date of Procedure: March 16, 2025 Equipment: Olympus 190 variable stiffness pediatric colonoscope Sedation: MAC sedation Indication: Mrs. Woodall is a 44-year-old female who is here for initial screening colonoscopy. This is part of her screening kidney pretransplant evaluation. The patient reports no abdominal pain, weight loss, change in her bowel habits or rectal bleeding. She reports no family history of colon cancer. Procedure: Prior to the procedure, a history and physical exam was performed, and patient's medications and allergies were reviewed. The risks, benefits and alternatives of the sedation and procedure were discussed with the patient. All questions w ere answered and informed consent was obtained. The patient was brought to the procedure room. Patient identification and proposed procedure were verified by the physician and the nurse. The patient was placed in a left lateral decubitus position and the scope was passed under direct vision. Throughout the procedure, the patient's blood pressure, pulse, and oxygen saturations were monitored continuously. The colonoscopy was accomplished without difficulty. The patient tolerated the procedure well. Findings: On digital rectal examination there was normal rectal tone. There were no external hemorrhoids. The colonoscope was introduced through the anal canal to the rectum and advanced to the cecum. The ileocecal valve and appendiceal orifice were identified. The scope was advanced a short distance into the ileum which appeared grossly normal. The scope was then withdrawn into the colon. There was a single 3 mm descending colon polyp that was removed via cold snare polypectomy. The remaining cecum, ascending, transverse, descending, sigmoid and rectum were grossly normal. There were no other mucosal abnormalities identified. Upon retroflexion within the rectum there were grade 1 internal hemorrhoids. The preparation was excellent throughout with Mammoth Preparation Score of 9. The cecal time was 10 minutes. Impression: 1. Diminutive 3 mm descending colon polyp Plan: I will follow-up the polyp histology and recommend repeat surveillance colonoscopy again in 7 to 10 years based upon the pathology.
== END 2025-03-16 11:27 | disposition home or self-care (01) ==
PROVIDERS: PCP Family Medicine; Visit Provider Internal Medicine Gastroenterology
PROC: 0DJD8ZZ Inspection of Lower Intestinal Tract, Via Natural or Artificial Opening Endoscopic (ICD-10-PCS; CPT 45378; principal; 2025-03-16 11:00)
DX: Z12.11 Encounter for screening for malignant neoplasm of colon (principal); K63.5 Polyp of colon; K64.0 First degree hemorrhoids; Z76.82 Awaiting organ transplant status
CPT/HCPCS: 45385; 81025; 82962; J2003; J2704

== ENCOUNTER 2025-03-26 08:19 | Outpatient (CLI) | payer OTHER, SELFPAY | END 2025-03-26 23:59 | disposition home or self-care (01) | LOC: LAB.DROPOF 03-29 10:35 | PROVIDERS: PCP Family Medicine; Visit Provider Nurse Practitioner Family | DX: R35.0 Frequency of micturition (principal) | CPT/HCPCS: 87086 ==

== ENCOUNTER 2025-04-05 12:28 | Outpatient (CLI) | payer MEDICARE, OTHER, SELFPAY | END 2025-04-05 23:59 | disposition home or self-care (01) | LOC: LAB.DROPOF 16:06 | PROVIDERS: PCP Nurse Practitioner; Visit Provider Nurse Practitioner | DX: R30.0 Dysuria (principal) | CPT/HCPCS: 87086; 87088; 87186 ==

== ENCOUNTER 2025-05-18 14:53 | Emergency (ER) | payer MEDICARE, MEDICAID, SELFPAY ==
--- OUTSIDE RECORDS SUMMARY | 2025-03-23 09:50 | XMS_ITS | Encounter Summary ---
Author Organization [facility] Address [address] [place] [address] Care Team Providers Care Frame [employer] Name Role Phone Francisco Cox MD Unavailable [phone] Rick Shi MD Unavailable [phone] Stephan Talbert MD Primary Care Provider [phone] Reason for Visit * Reason Comments Obesity Encounter Details Date Type Department Care Team (Late st Contact Info) Description 03/23/2025 9:50 AM EDT Office Visit [facility] General & Weight Loss Surgery [address] [place] [phone] Geoffrey Leos MD [address] [address] Other low back pain (Primary Dx); Intermittent asthma, unspecified asthma severity, unspecified whether complicated; Shortness of breath on exertion; Hypertension, unspecified type; Obesity, Class III, BMI 40-49.9 (morbid obesity); Gastroesophageal reflux disease, unspecified whether esophagitis present; Vitamin D deficiency, unspecified; Morbid obesity with BMI of 45.0-49.9, adult ([facility]); Obesity (BMI 30-39.9); Chronic kidney disease, stage 4 (severe) ([facility]); Anemia in chronic kidney disease, unspecified CKD stage; Type 2 diabetes mellitus with chronic kidney disease on chronic dialysis, with long-term current use of insulin ([facility]); End-stage renal disease on peritoneal dialysis ([facility]); History of repair of hiatal hernia; S/P laparoscopic sleeve gastrectomy; Dehydration; Type 2 diabetes mellitus with obesity ([facility]/H[facility]); Hyperparathyroidism, unspecified ([facility]) Social History Tobacco Use Types Packs/Day Years Used Date Smoking Tobacco: Never Passive Smoke Exposure: Never Smokeless Tobacco: Never Tobacco Cessation:Counseling Given: Yes Alcohol Use Standard Drinks/Week Comments Never 0 (1 standard drink = 0.6 oz pur e alcohol) PHQ-2 Answer Date Recorded Patient Health Questionnaire-2 Score 0 03/23/2025 PHQ-9 Answer Date Recorded Patient Health Questionnaire-9 Score 0 03/23/2025 Comments No Sex and Gender Information Value Date Recorded Sex Assigned at Not on file Legal Sex Female 8:36 PM EDT Gender Identity Not on file Sexual Orientation Not on file documented as of this encounter Last Filed Vital Signs Vital Sign Reading Time Taken Comments Blood Pressure 119/77 03/23/2025 9:56 AM EDT Pulse 91 03/23/2025 9:56 AM EDT Temperature - - Respiratory Rate 16 03/23/2025 9:56 AM EDT Oxygen Saturation 100% 03/23/2025 9:56 AM EDT Inhaled Oxygen Concentration - - Weight 99.5 kg (219 lb 6.4 oz) 03/23/2025 9:56 A M EDT Height 174 cm (5' 8.5 ) 03/23/2025 9:56 AM EDT Body Mass Index 32.87 03/23/2025 9:56 AM EDT documented in this encounter Functional Status * Does this person have serious difficulty walking or climbing stairs? Answer Date of Assessment Author No 01/03/2025 3:40 PM EST * Does this person have difficulty dressing or bathing? Answer Date of Assessment Author No 01/03/2025 3:40 PM EST * Because of a physical, mental, or emotional condition, does this person have difficulty doing errands alone such as visiting a doctor's office or shopping? Answer Date of Assessment Author No 01/03/2025 3:40 PM EST * Over the past 2 weeks, how often have you been bothered by any of the following problems? Question Answer Date of Assessment Author Little interest or pleasure in doing things Not at all 03/23/2025 9:57 AM EDT Dinora Montoya Feeling down, depressed, or hopeless Not at all 03/23/2025 9:57 AM Dinora Rangel Patient Health Questionnaire-2 Score 0 03/23/2025 9:57 AM SHIKHAT Dinora Sheffield * Question Answer Date of Assessment Author Trouble falling or staying asleep, or sleeping too much Not at all 03/23/2025 9:57 AM SHIKHAT Dinora Sheffield Feeling tired or having little energy Not at all 03/23/2025 9:57 AM Dinora Rangel Poor appetite or overeating Not at all 03/23/2025 9: 57 AM SHIKHAT Dinora Sheffield Feeling bad about yourself - or that you are a failure or have let yourself or your family down Not at all 03/23/2025 9:57 AM Dinora Rangel Trouble concentrating on things, such as reading the newspaper or watching television Not at all 03/23/2025 9:57 AM Dinora Rangel Moving or speaking so slowly that other people could have noticed? Or the opposite - being so fidgety or restless that you have been moving around a lot more than usual. Not at all 03/23/2025 9:57 AM Dinora Rangel Thoughts that you would be better off or hurting yourself in some way Not at all 03/23/2025 9:57 AM Dinora Rangel Patient Health Questionnaire-9 Score 0 03/23/2025 9:57 AM Dinora Rangel * If you checked off any problems on this questionnaire so far, Question Answer Date of Assessment Author How difficult have these problems made it for you to do your work, take care of things at home, or get along with other people? Not difficult at all 03/23/2025 9:57 AM Dinora Rangel documented as of this encounter Miscellaneous Notes * Progress Notes - Prashant Peguero, - 03/23/2025 9:50 AM EDT Subjective HPI Patient status 6 months post laparoscopic Sleeve Gastrectomy with hiatal hernia repair. She has a history of HTN, T2DM and ESRD on PD. Clinic appointment today for post operative evaluation and labs evaluation. Present diet: Regular Tolerating diet?: Yes Adhering to vitamin regimen?: Yes Bowel function difficulties?: No Exercising?: Yes Patient states she is doing very well and is much improved from her previous visit. Patient is no longer having difficulty with dehydration as her PD was adjusted. She is taking an approximately 64 oz of water and is eating approximately 80 g of protein per day including 2 protein shakes. Patient is exercising and adhering to her vitamin regimen. 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 Patient also has appropriate weight level for kidney transplant. The following portions of the chart were reviewed this encounter and updated as appropriate: Allergies[1] Current Outpatient Medications Medication Instructions albuterol 108 (90 Base) MCG/ACT inhaler 2 puffs, Every 6 hours PRN cholecalciferol 25 MCG (1000 UT) tablet 0.5 tablets, Every other day Continuous Glucose Sensor (AentropicoStyle Omar 3 Plus Sensor) misc Change every 15 days. Diagnosis E11.65. ferrous sulfate 325 mg, Daily HYDROcodone-acetaminophen (Marmaduke) 7.5-325 MG tablet 7.5 mg of hydrocodone, Oral, Every 6 hours PRN insulin glargine (Lantus SoloStar, Basaglar) 100 UNIT/ML injection pen Inject 20 units once daily, with titration if indicated and as instructed up to MDD 50 units insulin lispro (Admelog, HumaLOG) 100 UNIT/ML injection pen Inject Humalog 1 units for every 40 points your blood glucose is >150 three times daily before meals, or every 3 hours to correct high blood glucose, to MDD 50 units montelukast (SINGULAIR) 10 mg, Nightly ondansetron ODT (ZOFRAN-ODT) 4 mg, Oral, Every 8 hours PRN pen needle, diabetic (B-D UF III MINI PEN NEEDLES) 31G X 5 MM misc Inject 1-4x daily simethicone (MYLICON) 80 mg, Oral, Every 6 hours PRN ROS General: Negative Head and Neck: Negative Cardiovascular: Negative Respiratory: Negative Endocrine: Diabetes (Diet or Pills) Gastrointestinal: Negative Bladder/Kidney: ESRD on PD Gynecologic: Negative Breast: Negative Musculoskeletal: Negative Neurologic: Negative Psychiatric: Negative Blood/Lymphatic: Negative Skin: Negative Objective Vitals: 03/23/25 0956 BP: 119/77 Pulse: 91 Resp: 16 SpO2: 100% PHYSICAL EXAM General: normal Cardiovascular: normal Respiratory/chest: normal Abdomen: Well healed incisions Assessment/Plan Diagnosis Plan 1. Other low back pain 2. Intermittent asthma, unspecified asthma severity, unspecified whether complicated 3. Shortness of breath on exertion 4. Hypertension, unspecified type 5. Obesity, Class III, BMI 40-49.9 (morbid obesity) 6. Gastroesophageal reflux disease, unspecified whether esophagitis present 7. Vitamin D deficiency, unspecified 8. Morbid obesity with BMI of 45.0-49.9, adult ([facility]) 9. Obesity (BMI 30-39.9) 10. Chronic kidney disease, stage 4 (severe) ([facility]) 11. Anemia in chronic kidney disease, unspecified CKD stage 12. Type 2 diabetes mellitus with chronic kidney disease on chronic dialysis, with long-term current use of insulin ([facility]) 13. End-stage renal disease on peritoneal dialysis ([facility]) 14. History of repair of hiatal hernia 15. S/P laparoscopic sleeve gastrectomy 16. Dehydration 17. Type 2 diabetes mellitus with obesity ([facility]) 18. Hyperparathyroidism, unspecified ([facility]) Plan: Follow up in 6 months. Patient was encouraged to continue good liquid intake as well as high protein intake. Patient will continue her regular exercise. We will plan to complete 6 months postop laboratory work today. All questions answered at the time of patient's visit. She was encouraged to call if she has any further questions or concerns. Met with dietitian and received post op counseling and discussed the importance of compliance with diet and exercise plan going forward. [1] Allergies Allergen Reactions Penicillins Other - please document in the comment field States she was going to pass out. Cosigned by Geoffrey Leos MD at 03/24/2025 10:47 AM EDT Associated attestation - Geoffrey Leos MD - 03/24/2025 10:47 AM EDT I saw and evaluated the patient with the resident/fellow. I discussed the case with the resident/fellow and agree with the findings and plan as documented. * Progress Notes - Zee Vega LD - 03/23/2025 9:50 AM EDT Ashley Woodall 1980 presented for 6 months nutritional counseling status post sleeve gastrectomy. Tanita Scale Results: Current Weight: 219.4 lbs. Fat %: 46.1 % Fat Mass: 101.2 lbs. FFM: 118.2 lbs. TBW: 85.8 lbs. TBW %: 39.1 % BMR: 1672 kcal BMI: 32.87 kg/m?? body composition results were discussed and reviewed to the patient Consult Weight: 297.3 lbs. Previous Visit/Weight: 12/08/2024 - 248.8 lbs. Weight Change Since Consult: decrease of 77.9 lbs. Weight Change Since Previous Visit: decrease of 29.4 lbs. The patient is currently on stage 6 (noted that she is not tracking consumption). Average Protein Intake Daily: 60 grams Protein Sources Include: protein supplements (e.g., [employer] core power and yesica), fish, shrimp, and chicken Average Fluid Ounces Daily: 64 fluid ounces Fluid Sources Include: water The patient is adhering to the recommended vitamin regimen. Bariatric Multivitamin with Iron: daily Calcium Citrate (2158-6853 mg daily): daily Exercise Regimen: The patient stated that she is walking during work as a consistent form of exercise throughout the week. Patient Concerns/Habits: none Handouts Provided: meal card Patient Education: The patient was encouraged to continue to follow bariatric nutrition plan with adjustments dicussed today; additional education provided utilizing handbook and entered in chart forpatient review. The patient was encouraged to track a goal of high protein (60-80 grams daily), lowfat (25-40 grams daily), and low carbohydrates (less than 100 grams daily) and to continue to consume at least 64 fluid ounces with 6292-5773 calories daily. All questions answered and instructed patient to call registered dietitian for any and all questions and concerns. 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 [address] [place] [address] Erich Sexton MD [address] [place] [address] Left heart catheterization [63977 (CPT )] 07/14/2025 8:00 AM EDT Office Visit [facility] [place] [address] [facility] [address], [address] [place] [address] Rosa Isela Murrieta MD [address] [facility] [address] [facility] [address] [place] [address] 08/11/2025 3:20 PM EDT Office Visit [facility] Endocrinology [address] [place] [address] Mary Arroyo PA [address] [address] 10/05/2025 10:00 AM EST Office Visit [facility] General & Weight Loss Surgery [address] [place] [address] Geoffrey Leos MD [address] [address] documented as of this encounter Results * Hemoglobin A1c (03/23/2025 10:28 AM EDT) Hemoglobin A1c 4.5 <5.7 % 03/23/2025 1:[address] [facility] Blood Venous blood specimen / Unknown Venipuncture / Unknown 03/23/2025 10:28 AM EDT 03/23/2025 10:[address] [facility] - 03/23/2025 1:18 PM EDT HA1C Interpretive Data: Diagnosis of Diabetes: Diabetic > or = 6.5% Pre-diabetic 5.7 to 6.4% Non-diabetic < or = 5.6% Glycemic Targets for Type I and Type II Diabetics: Non- Adults <7.0% Adults <6.0% Children and Adolescents <7.5% Source: [place] [employer]. Standards of medical care in diabetes,2017. Diabetes Care.2017:40 (suppl 1):S1-S135. us Geoffrey Leos MD LAB BLOOD ORDERABLES Final R esult [facility] [address] [place] [address] * (ABNORMAL) CBC and Differential (03/23/2025 10:28 AM EDT) WBC Count 5.51 3.70 - 10.30 10*3/uL LAB HEMATOLOGY METHOD 03/23/2025 12:[address] [facility] RBC Count 3.37(L) 3.90 - 5.20 10*6/uL LAB HEMATOLOGY METHOD 03/23/2025 12:[address] [facility] HGB 10.7(L) 11.2 - 15.7 g/dL LAB HEMATOLOGY METHOD 03/23/2025 12:[address] [facility] HCT 32.9(L) 34.0 - 45.0 % LAB HEMATOLOGY METHOD 03/23/2025 12:[address] [facility] Platelet Count 223 155 - 369 10*3/uL LAB HEMATOLOGY METHOD 03/23/2025 12:[address] [facility] MCV 98 79 - 98 fL LAB HEMATOLOGY METHOD 03/23/2025 12:[address] [facility] MCH 31.8 26.0 - 32.0 pg LAB HEMATOLOGY METHOD 03/23/2025 12:[address] [facility] MCHC 32.5 30.7 - 35.5 g/dL LAB HEMATOLOGY METHOD 03/23/2025 12:[address] [facility] RDW 14.1 11.5 - 14.5 % LAB HEMATOLOGY METHOD 03/23/2025 12:[address] [facility] MPV 9.2 8.8 - 12.5 fL LAB HEMATOLOGY METHOD 03/23/2025 12:[address] [facility] nRBC 0.0 <=0.0 per 100 WBCs LAB HEMATOLOGY METHOD 03/23/2025 12:[address] [facility] Differential Type Automated LAB HEMATOLOGY METHOD 03/23/2025 12:[address] [facility] Neutrophils % 72 % LAB HEMATOLOGY METHOD 03/23/2025 12:[address] [facility] Lymphocytes % 18 % LAB HEMATOLOGY METHOD 03/23/2025 12:[address] [facility] Monocytes % 7 % LAB HEMATOLOGY METHOD 03/23/2025 12:[address] [facility] Eosinophils % 3 % LAB HEMATOLOGY METHOD 03/23/2025 12:[address] [facility] Basophils % 0 % LAB HEMATOLOGY METHOD 03/23/2025 12:[address] [facility] Immature Granulocytes % 0 % LAB HEMATOLOGY METHOD 03/23/2025 12:[address] [facility] Neutrophils Absolute 3.91 1.60 - 6.10 10*3/uL LAB HEMATOLOGY METHOD 03/23/2025 12:[address] [facility] Lymphocytes Absolute 1.01(L) 1.20 - 3.90 10*3/uL LAB HEMATOLOGY METHOD 03/23/2025 12:[address] [facility] Monocytes Absolute 0.41 0.30 - 0.90 10*3/uL LAB HEMATOLOGY METHOD 03/23/2025 12:[address] [facility] Eosinophils Absolute 0.14 0.00 - 0.50 10*3/uL LAB HEMATOLOGY METHOD 03/23/2025 12:[address] [facility] Basophils Absolute 0.02 0.00 - 0.10 10*3/uL LAB HEMATOLOGY METHOD 03/23/2025 12:[address] [facility] Immature Granulocytes Absolute 0.02 0.00 - 0.06 10*3/uL LAB HEMATOLOGY METHOD 03/23/2025 12:[address] [facility] Blood Venous blood specimen / Unknown Venipuncture / Unknown 03/23/2025 10:28 AM EDT 03/23/2025 10:[address] [facility] - 03/23/2025 12:30 PM EDT Therapeutic decision making should be based on absolute values, rather than percentages. us Geoffrey Leos MD LAB BLOOD ORDERABLES Final R esult [facility] [address] [place] [address] * (ABNORMAL) Comprehensive Metabolic Panel, Plasma (03/23/2025 10:28 AM EDT) Glucose, Plasma 118(H) 74 - 99 mg/dL 03/23/2025 12:[address] [facility] BUN, Plasma 28(H) 7 - 21 mg/dL 03/23/2025 12:[address] [facility] Creatinine, Plasma 4.28(H) 0.60 - 1.10 mg/dL 03/23/2025 12:[address] [facility] BUN/Creatinine Ratio 7 03/23/2025 12:[address] [facility] Sodium, Plasma 143 136 - 145 mmol/L 03/23/2025 12:[address] [facility] Potassium, Plasma 3.7 3.6 - 4.9 mmol/L 03/23/2025 12:[address] [facility] Chloride, Plasma 106 97 - 107 mmol/L 03/23/2025 12:[address] [facility] CO2, Plasma 25 22 - 29 mmol/L 03/23/2025 12:[address] [facility] Anion Gap 12 6 - 16 mmol/L 03/23/2025 12:[address] [facility] Total Calcium, Plasma 8.9 8.9 - 10.2 mg/dL 03/23/2025 12:[address] [facility] Total Protein 6.3 6.3 - 7.9 g/dL 03/23/2025 12:[address] [facility] Albumin, Plasma 3.4(L) 3.5 - 5.2 g/dL 03/23/2025 12:[address] [facility] AST, Plasma 15 10 - 35 U/L 03/23/2025 12:[address] [facility] ALT, Plasma 5(L) 10 - 35 U/L 03/23/2025 12:[address] [facility] Alkaline Phosphatase, Plasma 51 35 - 104 U/L 03/23/2025 12:[address] [facility] Total Bilirubin, Plasma 0.6 0.2 - 1.1 mg/dL 03/23/2025 12:[address] [facility] eGFRcr 12.5 mL/min/1.7 3m*2 03/23/2025 12:[address] [facility] Comment:Reported eGFRcr in m L/min/1.73m2 is based the CKD-EPI 2020 equation that does not use a race coefficient. Blood Venous blood specimen / Unknown Venipuncture / Unknown 03/23/2025 10:28 AM EDT 03/23/2025 10:29 AM EDT us Geoffrey Leos MD LAB BLOOD ORDERABLES Final R esult [facility] [address] [place] [address] * Phosphorus, Plasma (03/23/2025 10:28 AM EDT) Phosphorus, Plasma 3.2 2.5 - 4.5 mg/dL 03/23/2025 12:[address] [facility] Blood Venous blood specimen / Unknown Venipuncture / Unknown 03/23/2025 10:28 AM EDT 03/23/2025 10:29 AM EDT us Geoffrey Leos MD LAB BLOOD ORDERABLES Final R esult [facility] [address] [place] [address] * (ABNORMAL) Magnesium, Plasma (03/23/2025 10:28 AM EDT) Magnesium, Plasma 1.8(L) 1.9 - 2.4 mg/dL 03/23/2025 12:[address] [facility] Blood Venous blood specimen / Unknown Venipuncture / Unknown 03/23/2025 10:28 AM EDT 03/23/2025 10:29 AM EDT us Geoffrey Leos MD LAB BLOOD ORDERABLES Final R esult Performing Organization Address [facility]/ZIP Co de Phone Number [facility] [address] [place] [address] * (ABNORMAL) Iron & Total Iron Binding Capacity, Plasma (Includes Transferrin) (03/23/2025 10:28 AM EDT) Iron, Plasma 71 30 - 160 ug/dL 03/23/2025 12:[address] [facility] Transferrin, Plasma 154(L) 200 - 360 mg/dL 03/23/2025 12:[address] [facility] Total Iron Binding Capacity, Plasma 193(L) 240 - 450 ug/mL 03/23/2025 12:[address] [facility] Transferrin Saturation 37 14 - 50 % 03/23/2025 12:[address] [facility] Blood Venous blood specimen / Unknown Venipuncture / Unknown 03/23/2025 10:28 AM EDT 03/23/2025 10:29 AM EDT us Geoffrey Leos MD LAB BLOOD ORDERABLES Final R esult Performing Organization Address City/[facility]/ZIP Co de Phone Number [facility] [address] [place] [address] * Vitamin D 25 Hydroxy (03/23/2025 10:28 AM EDT) Vitamin D 25 Hydroxy 31.8 20.0 - 80.0 ng/mL 03/23/2025 1:[address] [facility] Blood Venous blood specimen / Unknown Venipuncture / Unknown 03/23/2025 10:28 AM EDT 03/23/2025 10:[address] [facility] - 03/23/2025 1:32 PM EDT Testing performed on [employer]st, standardized against NIST SRM 2972. When testing samples from patients whose predominant form of vitamin D is vitamin D2, such as patients receiving vitamin D2 supplementation, results that are subtherapeutic should be confirmed with another method, such as LC-MS/MS, before being used for patient management. Vitamin D, 25-Hydroxy reference range, age 18 years and up: Deficiency: <12 ng/mL Insufficiency: 12 to 19 ng/mL Sufficiency: 20 to 80 ng/mL Possible toxicity: >100 ng/mL us Geoffrey Leos MD LAB BLOOD ORDERABLES Final R esult [facility] [address] [place] [address] * (ABNORMAL) PTH Intact Total (03/23/2025 10:28 AM EDT) PTH Intact Total 135(H) 9 - 77 pg/mL 03/23/2025 2:[address] [facility] Blood Venous blood specimen / Unknown Venipuncture / Unknown 03/23/2025 10:28 AM EDT 03/23/2025 10:[address] [facility] - 03/23/2025 2:12 PM EDT Assay performed by immunoassay at the [facility]. Performed on [employer]st chemiluminescent immunoassay, tractable to the World Health Organization's first international standard for PTH from the NIBS, Code 79/500. Results obtained from different test methods or kits cannot be used interchangeably. us Geoffrey Leos MD LAB BLOOD ORDERABLES Final R esult [facility] [address] [place] [address] * Vitamin B1 (Thiamine), Whole Blood (03/23/2025 10:28 AM EDT) VITAMIN B1, WHOLE BLOOD 85 70 - 180 nmol/L 03/26/2025 11:57 AM EDT [facility] ([facility]) Blood Venous blood specimen / Unknown Venipuncture / Unknown 03/23/2025 10:28 AM EDT 03/23/2025 10:29 AM EDT Narrative [facility] SHRUTI) - 03/26/2025 11:57 AM EDT INTERPRETIVE INFORMATION: Vitamin B1, Whole Blood This assay measures the concentration of thiamine diphosphate (TDP), the primary active form of vitamin B1. Approximately 90 percent of vitamin B1 present in whole blood is TDP. Thiamine and thiamine monophosphate, which comprise the remaining 10 percent, are not measured. This test was developed and its performance characteristics determined by [employer]. It has not been cleared or approved by the [place] Food and Drug Administration. This test was performed in a CLIA certified laboratory and is intended for clinical purposes. Performed By: [employer] [address] [place] [address] [employer]: Rikki Licona MD, PhD CLIA Number: [id number] Geoffrey Leos MD LAB BLOOD ORDERABLES Final R esult Performing Organization Address City/[facility] Co de Phone Number [facility] [employer]) [address] [place] [address] * Vitamin B12, Serum (03/23/2025 10:28 AM EDT) Vitamin B12, Serum 587 210 - 1,033 pg/mL 03/23/2025 1:[address] [facility] Blood Venous blood specimen / Unknown Venipuncture / Unknown 03/23/2025 10:28 AM EDT 03/23/2025 10:29 AM EDT Geoffrey Leos MD LAB BLOOD ORDERABLES Final R esult Performing Organization Address City/[facility]/ZIP Co de Phone Number [facility] [address] [place] [address] * (ABNORMAL) Folate, Serum (03/23/2025 10:28 AM EDT) Folate, Serum 2.6(L) >4.6 ng/mL 03/23/2025 1:[address] [facility] Blood Venous blood specimen / Unknown Venipuncture / Unknown 03/23/2025 10:28 AM EDT 03/23/2025 10:29 AM EDT Geoffrey Leos MD LAB BLOOD ORDERABLES Final R esult Performing Organization Address [facility]/ZIP Co de Phone Number [facility] [address] [place] [address] * (ABNORMAL) Ferritin, Serum (03/23/2025 10:28 AM EDT) Ferritin, Serum 1,102(H) 13 - 150 ng/mL 03/23/2025 1:[address] [facility] Blood Venous blood specimen / Unknown Venipuncture / Unknown 03/23/2025 10:28 AM EDT 03/23/2025 10:29 AM EDT Geoffrey Leos MD LAB BLOOD ORDERABLES Final R esult Performing Organization Address City/[facility] [place] [address] documented in this encounter Visit Diagnoses Diagnosis Other low back pain- Primary Intermittent asthma, unspecified asthma severity, unspecified whether complicated Shortness of breath on exertion Shortness of breath Hypertension, unspecified type Obesity, Class III, BMI 40-49.9 (morbid obesity) Gastroesophageal reflux disease, unspecified whether esophagitis present Vitamin D deficiency, unspecified Morbid obesity with BMI of 45.0-49.9, adult ([facility]) Obesity (BMI 30-39.9) Chronic kidney disease, stage 4 (severe) ([facility]) Anemia in chronic kidney disease, unspecified CKD stage Type 2 diabetes mellitus with chronic kidney disease on chronic dialysis, with long-term current use of insulin ([facility]) End-stage renal disease on peritoneal dialysis ([facility]) History of repair of hiatal hernia S/P laparoscopic sleeve gastrectomy Dehydration Type 2 diabetes mellitus with obesity ([facility]) Hyperparathyroidism, unspecified ([facility]) Hyperparathyroidism, unspecified Pre-transplant evaluation for kidney transplant Abnormal findings on diagnostic imaging of heart and coronary circulation Pre-transplant evaluation for kidney transplant Abnormal findings on diagnostic imaging of heart and coronary circulation documented in this encounter Additional Health Concerns Infection Onset Date Last Indicated Resolved Time 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 12/04/2020 03/27/2021 Assessment Noted Time PHQ-9 Depression Total Score: 0 03/23/20 9:57 AM EDT A fall risk assessment has been complete d for the patient 03/23/2025 9:57 AM EDT A Body Mass Index follow-up plan has been documented for the patient 03/24/2025 10:47 AM EDT documented as of this encounter 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
--- OUTSIDE RECORDS SUMMARY | 2025-04-06 13:45 | XMS_ITS | Encounter Summary ---
Author Organization [facility] Address [address] [facility] [address] [address] Care Team Providers Care Plant Technician/Control Room Operator Name Role Phone Stephan Talbert MD Primary Care Provider [phone] Reason for Visit * Reason Comments End Stage Renal Disease Encounter Details Date Type Department Care Team (Late st Contact Info) Description 04/06/2025 1:45 PM EDT Office Visit [address] [place] [phone] Choco Baez MD [address] [place] [id number] End-stage renal disease needing dialysis (HCC) (Primary Dx); Kidney transplant candidate Social History Tobacco Use Types Packs/Day Years Used Date Smoking Tobacco: Never Passive Smoke Exposure: Never Smokeless Tobacco: Never Alcohol Use Standard Drinks/Week Comments Never 0 (1 standard drink = 0.6 oz pur e alcohol) Comments No Sex and Gender Information Value Date Recorded Sex Assigned at Not on file Legal Sex Female 9:02 AM EDT Gender Identity Not on file Sexual Orientation Not on file documented as of this encounter Last Filed Vital Signs Vital Sign Reading Time Taken Comments Blood Pressure 129/76 04/06/2025 1:41 PM EDT Pulse 59 04/06/2025 1:41 PM EDT Temperature - - Respiratory Rate - - Oxygen Saturation - - Inhaled Oxygen Concentration - - Weight 102.5 kg (226 lb) 04/06/2025 1:41 PM EDT Height 177.8 cm (5' 10 ) 04/06/2025 1:41 PM EDT Body Mass Index 32.43 04/06/2025 1:41 PM EDT documented in this encounter Progress Notes * Choco Baez MD - 04/06/2025 1:45 PM EDT Images from the original note were not included. OFFICE NOTE No ref. provider found Reason for Consult: Chief Complaint Patient presents with End Stage Renal Disease Requesting Physician: Dr Shi History of Present Ilness: This patient is a pleasant 44 y.o. female presented to clinic for evaluation of Kidney transplant referral and evaluation. Patient has ESRD on PD. On PD since a year Patient is a known diabetic since at least 5 years Neuropathy + Nephropathy + Retinopathy No Hypertension since about 10 years s/p weight loss surgery Sep 2024, highest weight was 298lbs, now 226lbs CAD- No Cancer- No NSAIDS use- No Kidney stones- No Frequent UTIs- No, Occasionally yes. Denies blood in urine or foamy urine. Denies nausea, vomiitng, chest pain, weight loss, mucosal ulcer, focal weakness. Past Medical History: Diagnosis Date Anemia Arthritis Asthma Diabetes mellitus ([facility]) Heartburn Hypertension Renal insufficiency Past Medical History: Anemia Asthma Class 3 obesity Dental disease uppers only Dependence on peritoneal dialysis ([facility]) Diabetes mellitus type 2, insulin dependent ([facility]) Dysphagia End stage renal disease ([facility]) 12/29/2023 GERD (gastroesophageal reflux disease) Hiatal hernia History of thyroid nodule Hypertension IgA nephropathy Seizures ([facility]) last 1996 Vitamin D deficiency Past Surgical History: Procedure Laterality Date ABLATION, VAGINAL LESION SECTION, LOW TRANSVERSE N/A section from [facility] DENTAL SURGERY N/A Dental surgery from [facility] MOUTH SURGERY 2011 had all teeth removed OTHER SURGICAL HISTORY 08/2024 tunnel catheter PERITONEAL CATHETER INSERTION Family History Problem Relation Name Age of Onset Diabetes Father Bryon Woodall Hypertension Father Bryon Woodall Sleep apnea Father Bryon Woodall Seizures Other Tobacco Use Smoking status: Never Smokeless tobacco: Never Vaping Use Vaping status: Never Used Substance Use Topics Alcohol use: Never Drug use: Never Allergies: Allergies Allergen Reactions Penicillins Other - please document in the comment field States she was going to pass out. Past Surgical History: Procedure Laterality Date SECTION DENTAL SURGERY DIALYSIS ACCESS/SHUNT N/A 09/30/2023 Laparoscopic Peritoneal Dialysis Catheter Insertion; Surgeon: Stephen Bruce MD; Location: [facility]; Service: Vascular IR TUNNELED DIALYSIS CATHETER 08/18/2024 IR TUNNELED DIALYSIS CATHETER 08/18/2024 Stephen Bruce MD [facility] IR KIDNEY SURGERY BIOPSY UPPER GASTROINTESTINAL ENDOSCOPY DILATATION Social History Occupational History Not on file Tobacco Use Smoking status: Never Passive exposure: Never Smokeless tobacco: Never Vaping Use Vaping status: Never Used Substance and Sexual Activity Alcohol use: Never Drug use: Never Sexual activity: Not on file Family History Problem Relation Age of Onset Heart Disease Mother Diabetes Father High Blood Pressure Father Anesth Problems Neg Hx Allergies: Penicillins Current Medications: Current Outpatient Medications on File Prior to Visit Medication Sig Dispense Refill albuterol (PROVENTIL HFA;VENTOLIN HFA) 90 mcg/actuation Inhl HFA Aerosol Inhaler Inhale 2 Puffs into the lungs every 6 hours as needed for Wheezing. loratadine (CLARITIN) 10 mg Oral Tablet Take 10 mg by mouth daily. amLODIPine (NORVASC) 10 mg Oral Tablet Take 10 mg by mouth daily. (Patient not taking: Reported on 11/05/2024) bumetanide (BUMEX) 1 mg Oral Tablet Take 1 mg by mouth daily. calcitRIOL (ROCALTROL) 0.25 mcg Oral Capsule Take 1 capsule by mouth once daily 30 Capsule 0 cephALEXin (KEFLEX) 500 mg Oral Capsule Take 1 Capsule by mouth 2 times daily. (Patient not taking:Reported on 11/14/2023) 20 Capsule 0 doxazosin (CARDURA) 1 mg Oral Tablet Take 1 mg by mouth 2 times daily. ergocalciferol (DRISDOL) 1,250 mcg (50,000 unit) Oral Capsule Take 50,000 Units by mouth once a week. ferrous sulfate 325 mg (65 mg iron) Oral Tablet Take 325 mg by mouth daily. FREESTYLE SLOANE 3 PLUS SENSOR Misc Device CHANGE EVERY 15 DAYS hydrALAZINE (APRESOLINE) 25 mg Oral Tablet Take 1 tablet by mouth twice daily 60 Tablet 0 hydrOXYzine (ATARAX) 25 mg Oral Tablet TAKE 1 TABLET BY MOUTH THREE TIMES DAILY NEEDED FOR ITCHING (Patient not taking: Reported on 11/05/2024) 90 Tablet 0 insulin glargine (LANTUS) 100 unit/mL (3 mL) SubQ Insulin Pen Subcutaneous (Inject under the skin) 20 Units every evening. levoFLOXacin (LEVAQUIN) 500 mg Oral Tablet 500 mg. metoprolol succinate (TOPROL-XL) 50 mg Oral Tablet Sustained Release 24 hr Take 1 tablet by mouth once daily 90 Tablet 0 montelukast (SINGULAIR) 10 mg Oral Tablet Take 10 mg by mouth every evening. mycophenolate (CELLCEPT) 500 mg Oral Tablet Take 1 Tablet by mouth 2 times daily. 60 Tablet 3 omeprazole (PRILOSEC) 40 mg Oral Capsule, Delayed Release(E.C.) Take 40 mg by mouth daily. ondansetron (ZOFRAN-ODT) 8 mg Oral Tablet, Rapid Dissolve DISSOLVE 1 TABLET IN MOUTH EVERY 12 HOURSAS NEEDED FOR NAUSEA AND VOMITING semaglutide (OZEMPIC) 0.25 mg or 0.5 mg (2 mg/3 mL) SubQ Pen Injector Subcutaneous (Inject under the skin) 0.5 mg once a week. (Patient not taking: Reported on 11/05/2024) SITagliptin phosphate (JANUVIA) 50 mg Oral Tablet Take 50 mg by mouth daily. (Patient not taking: Reported on 11/05/2024) Sodium Bicarbonate 650 mg Oral Tablet Take 650 mg by mouth daily. (Patient not taking: Reported on 11/05/2024) No current facility-administered medications on file prior to visit. Review of Systems: All other 12 ROS were negative except in HPI. Denies diaphoresis, weakness, blurred vision,photophobia, polydipsia,rash, ear pain, nosebleed, hemoptysis, dysuria, flank pain, tremor, tingling, depression, or insomnia. Physical exam: Vitals: 04/06/25 1341 BP: 129/76 BP Location: Left arm Patient Position: Sitting Pulse: 59 Weight: 226 lb (102.5 kg) Height: 5' 10 (1.778 m) GENERAL: The patient is well developed and nontoxic. HEENT: Nonicteric sclerae, PERRLA, EOMI. Oropharynx clear. Moist mucous membranes. Conjunctivae appear well perfused. CHEST: Chest wall is nontender. HEART: Regular rate and rhythm without murmurs. LUNGS: Clear to auscultation bilaterally. ABDOMEN: Soft, positive bowel sounds, nontender, no organomegaly. GENITAL: Deferred RECTAL: Deferred. SKIN: No rash, no excessive bruising, petechiae, or purpura. NEUROLOGIC: Cranial nerves II-XII intact without motor/sensory deficit. PD catheter in place Database No results found for: FERRITIN No results found for: IRON , UIBC , TRANSSAT Lab Results Component Value Date WBC 3.4 (L) 12/23/2023 RBC 3.41 (L) 12/23/2023 HGB 10.0 (L) 12/23/2023 HCT 31.1 (L) 12/23/2023 MCV 91.2 12/23/2023 MCH 29.3 12/23/2023 MCHC 32.2 12/23/2023 RDW 13.8 12/23/2023 PLT 129 (L) 12/23/2023 MPV 9.7 12/23/2023 Lab Results Component Value Date NA 140 12/23/2023 K 4.5 12/23/2023 CL 107 12/23/2023 CO2 18 (L) 12/23/2023 ANIONGAP 15 12/23/2023 CALCIUM 8.1 (L) 12/23/2023 GLU 152 (H) 12/23/2023 BUN 53 (H) 12/23/2023 CREATININE 6.62 (H) 12/23/2023 Lab Results Component Value Date PHOS 5.2 (H) 12/23/2023 No results found for: CHOLESTEROL , TRIG , HDL , LDLCALC , NONHDLC Lab Results Component Value Date [id number] 34.6 10/06/2023 No results found for: PTHINTACT Assessment and Plan: 1. CKD stage 6/ESRD: Cause of ESRD- DM on PD will refer for kidney transplant evaluation at [facility]. 2. BMD (bone mineral disease): F/u with her OP sole conditioner 3. Anemia: F/u with her OP sole conditioner. 4. HTN: controlled. 5. Morbid Obesity: s/p bariatric surgery in Sep 2024. Thank You for Consulting [facility]. Choco Baez MD [facility] [address] [facility] [phone] [facility] Nephrology documented in this encounter Plan of Treatment Not on file documented as of this encounter Visit Diagnoses Diagnosis End-stage renal disease needing dialysis (HCC)- Primary End stage renal disease Kidney transplant candidate documented in this encounter Historical Medications * This list may reflect changes made after this encounter. loratadine (CLARITIN) 10 mg Oral Tablet Take 10 mg by mouth daily. added in this encounter Care Teams Plant Technician/Control Room Operator Relationship Specialty Start Date End Date Stephan Talbert MD PCP - General Family Medicine 03/06/23 documented as of this encounter
--- OUTSIDE RECORDS SUMMARY | 2025-04-12 10:20 | XMS_ITS | Encounter Summary ---
Author Organization [facility] Address [address] [place] [address] Care Team Providers Care Data Coordinator Name Role Phone Francisco Cox MD Unavailable [phone] Rick Shi MD Unavailable [phone] Stephan Talbert MD Primary Care Provider [phone] Reason for Referral * Imaging (Routine) - Closed Specialty Diagnoses / Procedures Referred By Contac t Referred To Contact Cardiology Diagnoses Pre-operative clearance Encounter for preprocedural cardiovascular examination Procedures NM Myocardial Perfusion Stress Test Rosa Isela Murrieta MD [address] [place] [address] Phone: tel: fax: Referral ID Status Reason Start Date Expiration Date Visits Re quested Visits Authorized [id number] Closed 04/12/2025 10/12/2026 1 1 Reason for Visit * Reason Comments Pre-op Exam Encounter Details Date Type Department Care Team (Latest Contact Info) Description 04/12/2025 10:20 AM EDT Office Visit [facility] [place] [address] [place] [address] Rosa Isela Murrieta MD [address] [place] [address] Pre-operative clearance (Primary Dx); Encounter for preprocedural cardiovascular examination Social History Tobacco Use Types Packs/Day Years Used Date Smoking Tobacco: Never Passive Smoke Exposure: Never Smokeless Tobacco: Never Tobacco Cessation:Counseling Given: Not Answered Alcohol Use Standard Drinks/Week Comments Never 0 (1 standard drink = 0.6 oz pur e alcohol) PHQ-2 Answer Date Recorded Patient Health Questionnaire-2 Score 0 04/12/2025 PHQ-9 Answer Date Recorded Patient Health Questionnaire-9 Score 0 04/12/2025 Comments No Sex and Gender Information Value Date Recorded Sex Assigned at Not on file Legal Sex Female 8:36 PM EDT Gender Identity Not on file Sexual Orientation Not on file documented as of this encounter Last Filed Vital Signs Vital Sign Reading Time Taken Comments Blood Pressure 111/75 04/12/2025 10:24 AM EDT Pulse 61 04/12/2025 10:24 AM EDT Temperature - - Respiratory Rate - - Oxygen Saturation 99% 04/12/2025 10:24 AM EDT Inhaled Oxygen Concentration - - Weight 103 kg (226 lb 3.1 oz) 04/12/2025 10:24 A M EDT Height 177.8 cm (5' 10 ) 04/12/2025 10:24 AM EDT Body Mass Index 32.46 04/12/2025 10:24 AM EDT documented in this encounter Functional [...] pleasure in doing things Not at all 04/12/2025 10:27 AM Malika Santana Feeling down, depressed, or hopeless Not at all 04/12/2025 10:27 AM Malika Santana Patient Health Questionnaire -2 Score 0 04/12/2025 10:27 AM Malika Santana * Question Answer Date of Assessment Author Trouble falling or staying asleep, or sleeping too much Not at all 04/12/2025 10:27 AM Laura Santana Feeling tired or having marcella le energy Not at all 04/12/2025 10:27 AM Malika Santana Poor appetite or overeating Not at all 04/12/2025 10 :27 AM Malika Santana Feeling bad about yourself - or that you are a failure or have let yourself or your family down Not at all 04/12/2025 10:27 AM Malika Llanos Trouble concentrating on thi ngs, such as reading the newspaper or watching television Not at all 04/12/2025 10:27 AM Malika Santana Moving or speaking so slowly that other people could have noticed? Or the opposite - being so fidgety or restless that you have been moving around a lot more than usual. Not at all 04/12/2025 10:27 AM Malika Santana Thoughts that you would be better off or hurting yourself in some way Not at all 04/12/2025 10:27 AM Malika Santana Patient Health Questionnaire -9 Score 0 04/12/2025 10:27 AM Malika Santana * If you checked off any problems on this questionnaire so far, Question Answer Date of Assessment Author How difficult have these problems made it for you to do your work, take care of things at home, or get along with other people? Not difficult at all 04/12/2025 10:27 AM Malika Santana documented as of this encounter Miscellaneous Notes * Patient Instructions - Rosa Isela Murrieta MD - 04/12/2025 10:20 AM [facility] Building [address] [place] [address] Clinic Antionette HAfsaneh: Our Lab: [facility] [place] [address] (call to schedule a lab appointment) It was a pleasure to see you at the [facility] on [facility]. We strive to provide timely care for all our patients, and your cooperation is essential in helping us achieve this goal. To ensure a smooth visit, we kindly ask that you arrive 20-30 minutes prior to your scheduled appointment time. Additionally, please bring all yourmedications or an updated list of your medications for our staff to review. If you have any questions or concerns, feel free to contact us by phone or send a message through [email or web address]. We are committed to accommodating all inquires and requests in a timely fashion. If you experience any cardiac symptoms, such as chest pain or shortness of breath, please reach outto us immediately. If you cannot reach us, seek emergency medical assistance at your nearest emergency department. We want to ensure the best possible care for you. If you visit urgent care, an emergency department, or are hospitalized before your next appointment, please notify our office. Additionally, please bring any relevant discharge paperwork and cardiac test results to your next visit for review. If you encounter any issues with your medications--such as filling, refilling, or side effects--, scheduling diagnostic tests, or scheduling referrals please call our office and send us a message through [email or web address] so we can assist you. Thank you for coming to clinic today! Below is some information about what we discussed and a list of the orders that were placed during the visit. -Orders Placed This Visit Orders Placed This Encounter Procedures ECG Adult (Now - Performed in your clinic) Reason for Exam:: clearance No orders of the defined types were placed in this encounter. * Progress Notes - Rosa Isela Murrieta MD - 04/12/2025 10:20 AM EDT Images from the original note were not included. CARDIOLOGY CLINIC FOLLOW UP PATIENT NOTE Chief Complaint Patient presents with Pre-op Exam : Follow Up Subjective: Ashley Woodall is a 44 y.o. female has been previously seen in clinic. Today, pt doing well. Denies any active cardiac complaints including shortness of breath, PND, orthopnea, chest discomfort, palpitations, dizziness or syncope. Pt has lost 75 pounds since gastric sleeve surgery. PT states over half medications have been discontinued. ROS ROS was performed which was reportedly negative per patient except for pertinent positives and negatives as documented in the HPI. The following portions of the chart were reviewed this encounter and updated as appropriate: Meds Problems Tobacco Allergies Meds Problems Med Hx Surg Hx Fam Hx Allergies Penicillins Medications Current Medications[1] Objective: Physical Exam Vitals: 04/12/25 1024 BP: 111/75 Pulse: 61 SpO2: 99% Body mass index is 32.46 kg/m??. Constitutional: Appearance: No acute distress HENT: No Xanthelasma Cardiovascular: Jugular Veins WNL (Normal venous pressure, normal a and v waves Carotid Arteries WNL (Normal pulse volume, contour; symmetrical; no bruits or radiated murmurs) Heart Inspection: wnl Palpation: wnl Sounds: normal S-1, S-2 Extra sounds: none Murmurs: none Peripheral Pulses WNL (Normal femoral, popliteal, posterior tibial and dorsal pedis pulse volume, symmetrical, no bruits) Pulmonary: Effort: Pulmonary effort is normal. No respiratory distress. Breath sounds: Normal breath sounds. No wheezing or rales. Gastrointestinal no HJR Musculoskeletal: Right lower leg: No edema. Left lower leg: No edema. Warm and well perfused Psychiatric: Mood and Affect: Mood normal. Behavior: Behavior normal Lab Review No lab exists for component: ALB Lab Results Component Value Date GLUCOSE 118 (H) 03/23/2025 CALCIUM 8.9 03/23/2025 NA 143 03/23/2025 K 3.7 03/23/2025 CO2 25 03/23/2025 CL 106 03/23/2025 BUN 28 (H) 03/23/2025 CREATININE 4.28 (H) 03/23/2025 HGBA1C 4.5 03/23/2025 Lab Results Component Value Date WBC 5.51 03/23/2025 HGB 10.7 (L) 03/23/2025 HCT 32.9 (L) 03/23/2025 PLT 223 03/23/2025 MCV 98 03/23/2025 MCV 93 12/07/2020 No lab exists for component: NTPROBNP Lab Results Component Value Date TSH 4.26 (H) 02/13/2024 BNP 295 12/03/2020 Lab Results Component Value Date CHOL 130 02/13/2024 TRIG 125 02/13/2024 HDL 46 (L) 02/13/2024 LDLCALC 62 02/13/2024 LDLCALC 61 12/06/2020 TSH 4.26 (H) 02/13/2024 Lab Results Component Value Date HGBA1C 4.5 03/23/2025 Assessment/Plan Ashley Woodall is a 44 y.o. 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 Cardiovascular preoperative risk stratification Evaluation of cardiac risk prior to noncardiac surgery The patient presents for cardiovascular preoperative risk stratification prior to renal transplant surgery/procedure. Estimated perioperative risk of MACE base don combined clinical/surgical risk: Revised Cardiac Risk Index (RCRI) Score for Pre-Operative Risk: Class III Risk, 15% 30-day risk of , GA, or cardiac arrest. Given RF will assess with Nuclear MPI Rosa Isela Murrieta MD I spent 30 minutes performing the following components of the encounter: reviewing History, prior note/ lab review, examining the patient, reviewing imaging and/or labs, Independently interpreting ECG and/or other imaging results, ordering tests or procedures, ordering medications, medical management, counseling the patient and/or family/caregiver, discussion and care coordination, and entering clinical information in the EHR. Greater than 50% of the time spent on the encounter was face to faceproviding direct patient care, counseling for the patient/caregiver, and care coordination. [1] Current Outpatient Medications Medication Sig Dispense Refill albuterol 108 (90 Base) MCG/ACT inhaler Inhale 2 puffs every 6 hours as needed. cholecalciferol 25 MCG (1000 UT) tablet Take 0.5 tablets (500 Units) by mouth every other day. Continuous Glucose Sensor (FreeStyle Omar 3 Plus Sensor) misc Change every 15 days. Diagnosis E11.65. 2 each 11 ferrous sulfate 325 (65 Fe) MG tablet Take 1 tablet (325 mg) by mouth daily. HYDROcodone-acetaminophen ([place]) 7.5-325 MG tablet Take 1 tablet (7.5 mg of hydrocodone) by mouth every 6 (six) hours if needed for severe pain. 12 tablet 0 insulin glargine (Lantus SoloStar, Basaglar) 100 UNIT/ML injection pen Inject 20 units once daily, with titration if indicated and as instructed up to MDD 50 units 15 mL 5 insulin lispro (Admelog, HumaLOG) 100 UNIT/ML injection pen Inject Humalog 1 units for every 40 points your blood glucose is >150 three times daily before meals, or every 3 hours to correct high blood glucose, to MDD 50 units 15 mL 5 ondansetron ODT (Zofran-ODT) 4 MG disintegrating tablet Take 1 tablet (4 mg) by mouth every 8 (eight) hours if needed for nausea or vomiting. 20 tablet 0 pen needle, diabetic (B-D UF III MINI PEN NEEDLES) 31G X 5 MM misc Inject 1-4x daily 200 each 11 montelukast (Singulair) 10 MG tablet Take 1 tablet (10 mg) by mouth nightly. (Patient not taking: Reported on 04/12/2025) simethicone (Mylicon) 20 mg/0.3 mL drops Take 1.2 mL (80 mg) by mouth every 6 (six) hours if neededfor flatulence. (Patient not taking: Reported on 04/12/2025) 30 mL 0 No current facility-administered medications for this visit. documented in this encounter Plan of Treatment Upcoming Encounters Date Type Department Care Team (Late st Contact Info) Description 06/01/2025 9:25 AM EDT Hospital Encounter Cardiac [employer] [address] [place] [phone] Erich Sexton MD [address] [place] [phone] Pre-transplant evaluation for kidney transplant; Abnormal findings on diagnostic imaging of heart and coronary circulation 06/01/2025 9:25 AM EDT - 06/01/2025 10:25 AM EDT Surgery Cardiac [employer] [address] [place] [phone] Erich Sexton MD [address] [place] [phone] Left heart catheterization [59346 (CPT )] 07/14/2025 8:00 AM EDT Office Visit [facility] [place] [address], [address] [place] [address] Rosa Isela Murrieta MD [address] [place] [address] 08/11/2025 3:20 PM EDT Office Visit [facility] End[facility]ology [address] [place] [phone] Mary Arroyo PA [address] [facility] [address] [place] [address] 10/05/2025 10:00 AM EST Office Visit [facility] [address] [place] [address] Geoffrey Leos MD [address] [address] documented as of this encounter Procedures Procedure Name Priority Date/Time Associated Diagnosis Comments NM MYOCARDIAL SPECT REGADENOSON STRESS (MULTI STUDY) Routine 05/03/2025 10:03 AM EDT Pre-operative clearance Encounter for preprocedural cardiovascular examination ECG ADULT Routine 04/12/2025 10:32 AM EDT Pre-operative clearance documented in this encounter Results * NM MYOCARDIAL SPECT REGADENOSON STRESS (MULTI STUDY) (05/03/2025 10:03 AM EDT) Target HR 150 bpm MUSE MPHR 176 bpm MUSE Resting HR 53 bpm MUSE Baseline Systolic BP 146 MUSE Baseline Diastolic BP 80 MUSE Pharma PK HR 82 bpm MUSE Pharmacologic Peak BP Systolic 154 mmHg MUSE Pharmacologic Peak BP Diastolic 81 mmHg MUSE Anatomical Region Laterality Modality Nuclear Medicine Narrative 05/03/2025 3:29 PM EDT Combined ECG/SPECT: This is a normal nuclear stress test. There is no myocardial ischemia. There is no previous examination/report available for comparison or correlation. Stress ECG: No ischemic ST segment changes occurred with stress. Perfusion: SPECT images demonstrate normal myocardial perfusion. Function: Upper-normal left ventricular cavity size. Gated SPECT images demonstrate normal systolic function. Regional wall motion is normal. LVEF: >=70%. Technical Details A one-day protocol was followed. 6.7 mCi of Tc-99m sestamibi were injected intravenously at rest. After a waiting period of 40-60 minutes, SPECT imaging of the heart was performed in the sitting upright position with three-dimensional tomographic reconstructions. 0.4 mg of regadenoson was infused over 10-12 seconds followed by 19.4 mCi of Tc-99m sestamibi injected intravenously. After a waiting period of 40-60 minutes, post-stress SPECT imaging of the heart was performed in the sitting upright and supine positions with three-dimensional tomographic reconstructions. Gated SPECT data were obtained to calculate left ventricular volumes and ejection fraction post-stress. Motion correction was not applied to the rest and/or post-stress acquisitions. Stress Findings A pharmacological stress test was performed. The pharmacologic test was performed using regadenoson. The patient started with a baseline heart rate of 53bpm, and increased to 82bpm with stress pharmacologic agent. The patient's baseline blood pressure was 146/80, and changed to 154/81 with stress medication. The patient's BP increased during the pharmacologic stress. The patient experienced no chest pain. The patient reached the end of the planned protocol. Stress ECG Baseline ECG: The baseline ECG shows sinus bradycardia and normal axis. Baseline ECG shows no ST segment deviation. Stress and Recovery ECG: No ischemic ST segment changes occurred. There were no arrhythmias during stress. There were no arrhythmias during recovery. ECG Conclusion: No ischemic ST segment changes occurred with stress. The stress test was performed under direct supervision of the reading applications support lead. Study Impression There is no significant patient motion noted. The SPECT images demonstrate an upper-normal left ventricular cavity size with an estimated left ventricular end-diastolic volume of 104 mL (normal: <149 mL for males, < 102 mL for females, small: <45 mL). There is no stress-induced transient ischemic dilation (TID) of the left ventricular cavity. SPECT images demonstrate normal myocardial perfusion. There is a medium-size, mild perfusion defect located in the basal- mid- distal inferior myocardium. The perfusion defect is fixed. The perfusion finding is best explained by attenuation artifact related to diaphragm. There is regular cardiac rhythm with optimal gating. The gated SPECT images demonstrate normal systolic function. Regional wall motion is normal. The calculated post-stress LVEF is >=70%. Nuclear Conclusion Combined ECG/SPECT: This is a normal nuclear stress test. There is no myocardial ischemia. There is no previous examination/report available for comparison or correlation. Rosa Isela Murrieta MD CV STRESS PROCEDURES Final Re sult * ECG Adult (Now - Performed in your clinic) (04/12/2025 10:32 AM EDT) EKG DIAGNOSIS CLASS Borderline Abnormal MUSE ECG Ventricular Rate 62 BPM MUSE ECG Atrial Rate 62 BPM MUSE ECG ND Interval 158 ms MUSE ECG QRSD Interval 90 ms MUSE ECG QT Interval 430 ms MUSE ECG QTC Interval 436 ms MUSE ECG P [place] 13 degrees MUSE ECG R [place] -29 degrees MUSE ECG T Wave [place] 39 degrees MUSE ECG Diagnosis Normal sinus rhythm MUSE ECG Diagnosis Minimal voltage criteria for LVH, may be normal variant ( R in aVL ) MUSE ECG Diagnosis Borderline ECG MUSE ECG Diagnosis MUSE ECG Diagnosis Confirmed by Kevin Woo ([id number]) on 04/12/2025 2:10:40 PM MUSE ECG 04/12/2025 10:3 2 AM EDT 04/12/2025 2:10 PM EDT Rosa Isela Murrieta MD ECG ORDERABLES Final Result MUSE ECG documented in this encounter Visit Diagnoses Diagnosis Pre-operative clearance- Primary Unspecified pre-operative examination Encounter for preprocedural cardiovascular examination Pre-transplant evaluation for kidney transplant Abnormal findings on diagnostic imaging of heart and coronary circulation Pre-transplant evaluation for kidney transplant Abnormal findings on diagnostic imaging of heart and coronary circulation documented in this encounter Additional Health Concerns Infection Onset Date Last Indicated Resolved Time 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 12/04/2020 03/27/2021 Assessment Noted Time PHQ-9 Depression Total Score: 0 04/12/20 10:27 AM EDT A fall risk assessment has been complete d for the patient 04/12/2025 10:27 AM EDT A Body Mass Index follow-up plan has been documented for the patient 04/12/2025 11:12 AM EDT documented as of this encounter Care Teams Data Coordinator Relationship Specialty Start Date End Date Stephan Talbert MD [address] [place] [id number] PCP - General 02/10/24 Francisco Cox MD [address] [place] [id number] 06/18/22 Rick Shi MD [address] [place] [address] Referring Physician 01/30/24 documented as of this encounter
--- OUTSIDE RECORDS SUMMARY | 2025-05-03 08:30 | XMS_ITS | Encounter Summary ---
Author Organization Healthcare Address [address] [place] [address] Care Team Providers Care Statement Clerks Supervisor Name Role Phone Francisco Cox MD Unavailable [phone] Rick Shi MD Unavailable [phone] Stephan Talbert MD Primary Care Provider [phone] Reason for Visit * Imaging (Routine) - Closed Specialty Diagnoses / Procedures Referred By Contac t Referred To Contact Cardiology Diagnoses Pre-operative clearance Encounter for preprocedural cardiovascular examination Procedures NM Myocardial Perfusion Stress Test Rosa Isela Murrieta MD [address] [facility] 200 [place] [address] Phone: tel: fax: Referral ID Status Reason Start Date Expiration Date Visits Re quested Visits Authorized [id number] Closed 04/12/2025 10/12/2026 1 1 Encounter Details Date Type Department Care Team (Latest Contact Info) Description 05/03/2025 8:30 AM EDT - 05/03/2025 8:37 AM EDT Hospital Encounter Cardiac Imaging [address] [place] [address] Discharge Disposition: Home or Self Care Social [...] mouth every other day. 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 Diagnosis E11.65. 2 each 11 02/01/2025 ferrous sulfate 325 (65 Fe) MG tablet Take 1 tablet (325 mg) by mouth daily. HYDROcodone-acetami nophen ([place]) 7.5-325 MG tablet Take 1 tablet (7.5 mg of hydrocodone) by mouth every 6 (six) hours if needed for severe pain. 12 tablet 09/09/2024 insulin glargine (Lantus SoloStar, Basaglar) 100 UNIT/ML injection penIndications:Type 2 diabetes mellitus with chronic kidney disease on chronic dialysis, with long-term current use of insulin ([facility]) Inject 20 units once daily, with titration if indicated and as instructed up to MDD 50 units 15 mL 5 08/16/2024 insulin lispro (Admelog, HumaLOG) 100 UNIT/ML injection penIndications:Type 2 diabetes mellitus with chronic kidney disease on chronic dialysis, with long-term current use of insulin ([facility]) Inject Humalog 1 units for every 40 [...] dialysis, with long-term current use of insulin ([facility]) Inject 1-4x daily 200 each 11 08/16/2024 simethicone (Mylicon) 20 mg/0.3 mL drops Take 1.2 mL (80 mg) by mouth every 6 (six) hours if needed for flatulence. 30 mL 09/09/2024 documented as of this encounter Plan of Treatment Upcoming Encounters Date Type Department Care Team (Late st Contact Info) Description 06/01/2025 9:25 AM EDT Hospital Encounter Cardiac [place] [address] [place] [phone] Erich Sexton MD [address] [place] [address] Pre-transplant evaluation for kidney transplant; Abnormal findings on diagnostic imaging of heart and coronary circulation 06/01/2025 9:25 AM EDT - 06/01/2025 10:25 AM EDT Surgery Cardiac [place] [address] [place] [phone] Erich Sexton MD [address] [place] [phone] Left heart catheterization [53930 (CPT )] 07/14/2025 8:00 AM EDT Office Visit [facility] [place] [address] [place] [address] Rosa Isela Murrieta MD [address] [place] [address] [place] [address] 08/11/2025 3:20 PM EDT Office Visit [facility] [address] [place] [phone] Mary Arroyo PA [address] [place] [address] [place] [address] 10/05/2025 10:00 AM EST Office Visit [facility] [address] [place] [address] Geoffrey Leos MD [address] [place] [address] [address] documented as of this encounter Procedures Procedure [...] documented as of this encounter Care Teams Statement Clerks Supervisor Relationship Specialty Start Date End Date Stephan Talbert MD [address] [place] [address] PCP - General 02/10/24 Francisco Cox MD [address] [place] [address] 06/18/22 Rick Shi MD [address] [place], [place] [phone] Referring Physician 01/30/24 documented as of this encounter
--- OUTSIDE RECORDS SUMMARY | 2025-05-03 08:38 | XMS_ITS | Encounter Summary ---
Author Organization Healthcare Address [address] [place] [address] Care Team Providers Care Inorganic Chemist Name Role Phone Francisco Cox MD Unavailable [phone] Rick Shi MD Unavailable [phone] Stephan Talbert MD Primary Care Provider [phone] Reason for Visit * Imaging (Routine) - Closed Specialty Diagnoses / Procedures Referred By Contac t Referred To Contact Cardiology Diagnoses Pre-operative clearance Encounter for preprocedural cardiovascular examination Procedures NM Myocardial Perfusion Stress Test Rosa Isela Murrieta MD [address] [facility] 200 [place] [address] Phone: tel: fax: Referral ID Status Reason Start Date Expiration Date Visits Re quested Visits Authorized [id number] Closed 04/12/2025 10/12/2026 1 1 Encounter Details Date Type Department Care Team (Latest Contact Info) Description 05/03/2025 8:38 AM EDT - 05/03/2025 11:59 PM EDT Hospital Encounter Cardiac Imaging [address] [place] [address] Discharge Disposition: Home or Self Care Social [...] mouth every other day. 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 Diagnosis E11.65. 2 each 11 02/01/2025 ferrous sulfate 325 (65 Fe) MG tablet Take 1 tablet (325 mg) by mouth daily. HYDROcodone-acetami nophen ([place]) 7.5-325 MG tablet Take 1 tablet (7.5 mg of hydrocodone) by mouth every 6 (six) hours if needed for severe pain. 12 tablet 09/09/2024 insulin glargine (Lantus SoloStar, Basaglar) 100 UNIT/ML injection penIndications:Type 2 diabetes mellitus with chronic kidney disease on chronic dialysis, with long-term current use of insulin ([facility]) Inject 20 units once daily, with titration if indicated and as instructed up to MDD 50 units 15 mL 5 08/16/2024 insulin lispro (Admelog, HumaLOG) 100 UNIT/ML injection penIndications:Type 2 diabetes mellitus with chronic kidney disease on chronic dialysis, with long-term current use of insulin ([facility]) Inject Humalog 1 units for [...] dialysis, with long-term current use of insulin ([facility]) Inject 1-4x daily 200 each 11 08/16/2024 simethicone (Mylicon) 20 mg/0.3 mL drops Take 1.2 mL (80 mg) by mouth every 6 (six) hours if needed for flatulence. 30 mL 09/09/2024 documented as of this encounter Plan of Treatment Upcoming Encounters Date Type Department Care Team (Late st Contact Info) Description 06/01/2025 9:25 AM EDT Hospital Encounter Cardiac Molded Goods Controls Operator [address] [place] [phone] Erich Sexton MD [address] [place] [address] Pre-transplant evaluation for kidney transplant; Abnormal findings on diagnostic imaging of heart and coronary circulation 06/01/2025 9:25 AM EDT - 06/01/2025 10:25 AM EDT Surgery Cardiac Molded Goods Controls Operator [address] [place] [address] Erich Sexton MD [address] [place] [phone] Left heart catheterization [51738 (CPT )] 07/14/2025 8:00 AM EDT Office Visit [facility] [place] [address] [place] [address] Rosa Isela Murrieta MD [address] [place] [address] [place] [address] 08/11/2025 3:20 PM EDT Office Visit [facility] [address] [place] [phone] Mary Arroyo PA [address] [place] [address] 10/05/2025 10:00 AM EST Office Visit [facility] [address] [place] [address] Geoffrey Leos MD [address] [address] documented as of this encounter [...] MAR Action Action Date Dose Rate Site regadenoson (Lexiscan) injection 0.4 mg 0.4 mg, Intravenous, Once, 1 dose, On Fri05/03/25 at 1015, Routine Given 05/03/2025 9:53 AM EDT 0.4 mg Technetium Tc 99m Sestamibi radio-isotope injection 19.4 millicurie 19.4 millicurie, Intravenous, Once, 1 dose, On Fri05/03/25 at 1030, Routine Given 05/03/2025 9:54 AM EDT 19.4 millicuries documented in this encounter Additional Health [...] documented as of this encounter Care Teams Inorganic Chemist Relationship Specialty Start Date End Date Stephan Talbert MD [address] [place] [address] [place] [address] PCP - General 02/10/24 Francisco Cox MD [address] [place] [address] 06/18/22 Rick Shi MD [place] [address] [place] [address] Referring Physician 01/30/24 documented as of this encounter
--- OUTSIDE RECORDS SUMMARY | 2025-05-18 15:34 | XMS_ITS | Encounter Summary ---
Author Organization [facility] Address [address] [place] [id number] Care Team Providers Care Deaf Teacher Name Role Phone Francisco Cox MD Unavailable Rick Shi MD Unavailable [phone] Stephan Talbert MD Primary Care Provider [phone] Encounter Details Date Type Department Care Team (Late st Contact Info) Description 04/29/2025 Telephone [facility] [address] [facility] [address] [place] [address] Alysa Haider, RN [id number] [address] [place] [id number] Social History Tobacco Use Types Packs/Day Years [...] PM EST documented as of this encounter Miscellaneous Notes * Telephone Encounter - Alysa Haider, RN - 04/29/2025 12:12 PM EDT Called pt to check on weight loss, per chart review pt has lost 75lbs s/p bariatric surgery. No answer, RN left with name/number for return call. If pt doesn't call back, plan to close evald/t referral being open >1 year. Patient can be re-referred at anytime. documented in this encounter Plan of Treatment Upcoming Encounters Date Type Department Care Team (Late st Contact Info) Description 06/01/2025 9:25 AM EDT Hospital Encounter Cardiac Freight Sales Broker [address] [place] [phone] Erich Sexton MD [address] [place] [phone] Pre-transplant evaluation for kidney transplant; Abnormal findings on diagnostic imaging of heart and coronary circulation 06/01/2025 9:25 AM EDT - 06/01/2025 10:25 AM EDT Surgery Cardiac Freight Sales Broker [address] [place] [address] Erich Sexton MD [address] [place] [phone] Left heart catheterization [32627 (CPT )] 07/14/2025 8:00 AM EDT Office Visit [facility] [place] [address] [facility], [address] [place] [address] Rosa Isela Murrieta MD [address] [place] [address] 08/11/2025 3:20 PM EDT Office Visit [facility] [address] [place] [address] Mary Arroyo PA [address] [place] [address] 10/05/2025 10:00 AM EST [facility] General [facility] Weight Loss Surgery [address] [place] [address] Geoffrey Leos MD [address] [place] [address] documented as of this encounter Visit Diagnoses Not on filedocumented in this encounter Additional Health Concerns Infection [...] documented as of this encounter Care Teams Deaf Teacher Relationship Specialty Start Date End Date Stephan Talbert MD [address] [place] [address] [place] [address] PCP - General 02/10/24 Francisco Cox MD [address] [place] [address] 06/18/22 Rick Shi MD [address] [place] [address] [place] [address] Referring Physician 01/30/24 documented as of this encounter
--- OUTSIDE RECORDS SUMMARY | 2025-05-18 15:34 | XMS_ITS | Encounter Summary ---
Author Organization [facility] Address [address] [place] [address] Care Team Providers Care Innovations Paraprofessional Name Role Phone Francisco Cox MD Unavailable [phone] Rick Shi MD Unavailable [phone] Stephan Talbert MD Primary Care Provider [phone] Encounter Details Date Type Department Care Team (Late st Contact Info) Description 04/11/2025 Telephone [facility] [place] [address] [facility], [address] [place] [address] Antionette Chisholm, RN Social History Tobacco Use Types Packs/Day Years [...] encounter Miscellaneous Notes * Telephone Encounter - Antionette Chisholm, RN - 04/11/2025 12:40 PM EDT RN called patient to reschedule patient d/t provider scheduling. Re-booked with patient on the phone. Antionette Chisholm, RN documented in this encounter Plan of Treatment Upcoming Encounters Date Type Department Care Team (Late st Contact Info) Description 06/01/2025 9:25 AM EDT Hospital Encounter Cardiac Associate Professor Of Geology [address] [place] [address] Erich Sexton MD [address] [place] [address] Pre-transplant evaluation for kidney transplant; Abnormal findings on diagnostic imaging of heart and coronary circulation 06/01/2025 9:25 AM EDT - 06/01/2025 10:25 AM EDT Surgery Cardiac Associate Professor Of Geology [address] [place] [address] Erich Sexton MD [address] [place] [address] Left heart catheterization [74035 (CPT )] 07/14/2025 8:00 AM EDT Office Visit [facility] [place] [address], [address] [place] [address] Rosa Isela Murrieta MD [address] [place] [address] 08/11/2025 3:20 PM EDT Office Visit [facility] Endocrinology [address] [place] [address] Mary Arroyo PA [address] [place] [address] 10/05/2025 10:00 AM EST Office Visit [facility] [address] [place] [address] Geoffrey Leos MD [address] [place] [address] documented as of this encounter Visit Diagnoses [...] documented as of this encounter Care Teams Innovations Paraprofessional Relationship Specialty Start Date End Date Stephan Talbert MD [address] [place] [address] PCP - General 02/10/24 Francisco Cox MD [address] [place] [address] 06/18/22 Rick Shi MD [address] [place] [address] Referring Physician 01/30/24 documented as of this encounter
--- OUTSIDE RECORDS SUMMARY | 2025-05-18 15:34 | XMS_ITS | Encounter Summary ---
Author Organization [facility] Address [address] [place] [address] Care Team Providers Care Office Secretary Name Role Phone Francisco Cox MD Unavailable [phone] Rick Shi MD Unavailable [phone] Stephan Talbert MD Primary Care Provider [phone] Encounter Details Date Type Department Care Team (Latest Contact Info) Description 05/03/2025 Travel Social History Tobacco Use Types Packs/Day Years [...] PM EST documented as of this encounter Plan of Treatment Upcoming Encounters Date Type Department Care Team (Late st Contact Info) Description 06/01/2025 9:25 AM EDT Hospital Encounter Cardiac Fluorescent Solution Mixer [address] [place] [address] Erich Sexton MD [address] [place] [address] Pre-transplant evaluation for kidney transplant; Abnormal findings on diagnostic imaging of heart and coronary circulation 06/01/2025 9:25 AM EDT - 06/01/2025 10:25 AM EDT Surgery Cardiac Fluorescent Solution Mixer [address] [place] [address] Erich Sexton MD [address] [place] [address] Left heart catheterization [49332 (CPT )] 07/14/2025 8:00 AM EDT Office Visit [facility] [place] [address] [facility], [address] [place] [address] Rosa Isela Murrieta MD [address] [place] [address] 08/11/2025 3:20 PM EDT Office [facility] Endocrinology [address] [place] [address] Mary Arroyo PA [address] [address] 10/05/2025 10:00 AM EST [facility] General & Weight Loss Surgery [address] [place] [address] Geoffrey Leos MD [address] [address] documented as of this encounter Visit [...] documented as of this encounter Care Teams Office Secretary Relationship Specialty Start Date End Date Stephan Talbert MD [address] [place] [address] PCP - General 02/10/24 Francisco Cox MD [address] [place] [address] 06/18/22 Rick Shi MD [place] [place] [address] Referring Physician 01/30/24 documented as of this encounter
--- OUTSIDE RECORDS SUMMARY | 2025-05-18 15:34 | XMS_ITS | Encounter Summary ---
Author Organization [facility] Address [address] [place] [id number] Care Team Providers Care Care Services Manager Name Role Phone Francisco Cox MD Unavailable [phone] Rick Shi MD Unavailable [phone] Stephan Talbert MD Primary Care Provider [phone] Encounter Details Date Type Department Care Team (Late st Contact Info) Description 04/29/2025 Telephone [facility] [address] [facility] [address] [place] [address] Alysa Haider, RN [id number] [address] [place] [id number] Social History Tobacco Use Types Packs/Day Years [...] Encounter - Alysa Haider, RN - 04/29/2025 1:04 PM EDT Patient returned call, she said she is being evaluated [facility] and is not interested in being listed at at this time. RN verbalized understanding and told her referral will be closed butleonardo can be re-referred down the road if she wants. She verbalized understanding, all questions asked were answered. NNR letter routed, epic updated, please mail. Thank you documented in this encounter Plan of Treatment Upcoming Encounters Date Type Department Care Team (Late st Contact Info) Description 06/01/2025 9:25 AM EDT Hospital Encounter Cardiac Home Health Registered Nurse [address] [place] [address] Erich Sexton MD [address] [place] [address] Pre-transplant evaluation for kidney transplant; Abnormal findings on diagnostic imaging of heart and coronary circulation 06/01/2025 9:25 AM EDT - 06/01/2025 10:25 AM EDT Surgery Cardiac Home Health Registered Nurse [address] [place] [address] Erich Sexton MD [address] [place] [address] Left heart catheterization [46829 (CPT )] 07/14/2025 8:00 AM EDT Office Visit [facility] [place] [address] [facility], [address] [place] [address] Rosa Isela Murrieta MD [address] [place] [address] 08/11/2025 3:20 PM EDT Office Visit [facility] [address] [place] [address] Mary Arroyo PA [address] [facility] [address] [place] [address] 10/05/2025 10:00 AM EST Office [facility] General & Weight Loss Surgery [address] [place] [address] Geoffrey Leos MD [address] [facility] 2[address] [place] [address] documented as of this encounter [...] documented as of this encounter Care Teams Care Services Manager Relationship Specialty Start Date End Date Stephan Talbert MD [address] [place] [address] PCP - General 02/10/24 Francisco Cox MD [address] [place] [address] 06/18/22 Rick Shi MD [address] [place] [address] Referring Physician 01/30/24 documented as of this encounter
--- OUTSIDE RECORDS SUMMARY | 2025-05-18 15:34 | XMS_ITS ---
Author Organization [facility] Address [address] [place] [address] Care Team Providers Care Railroad Signal And Switch Operator Name Role Phone Francisco Cox MD Unavailable [phone] Rick Shi MD Unavailable [phone] Stephan Talbert MD Primary Care Provider [phone] Transplant Episode Kidney Candidate [facility] ([place], [place]) ARVIND Referred on 01/30/2024 Marked as Ineligible on 04/29/2025 Reason: Patient Choice Kidney CoordinatorAlysa Haider RN Fax: N/A Email: N/A Scores Score Value Updated Exceptions/Reas ons CPRA Not available EPTS (Calc) 25 05/18/2025 [facility] Organ Diagnosis Organ Primary Contributory Kidney IgA Nephropathy Diabetes Mellitu s - Type II Care Team Name Role Phone Fax Email Alysa Haider RN Kidney Coordinator [phone] N/A N/A Rick Shi MD Referring Physician [phone] N/A Events Pre-Transplant Referred: 01/30/2024 Committee: 02/11/2024 Dialysis History Dialysis History Start End Type Comments Center Peritoneal [facility] Dialysis Center Information Center Phone Fax Address [facility] [phone] [facility] [address]
--- OUTSIDE RECORDS SUMMARY | 2025-05-18 15:34 | XMS_ITS | Encounter Summary ---
Author Organization [facility] Address [address] [place] [address] Care Team Providers Care Before School Name Role Phone Francisco Cox MD Unavailable [phone] Rick Shi MD Unavailable [phone] Stephan Talbert MD Primary Care Provider [phone] Encounter Details Date Type Department Care Team (Late st Contact Info) Description 04/07/2025 Results Follow-Up [facility] [address] [place] [address] Alysa Tijerina, AROMATHERAPIST [address] [address] Social History Tobacco Use Types Packs/Day Years [...] 06/01/2025 9:25 AM EDT Hospital Encounter Cardiac Bed Teacher [address] [place] [address] Erich Sexton MD [address] [place] [address] Pre-transplant evaluation for kidney transplant; Abnormal findings on diagnostic imaging of heart and coronary circulation 06/01/2025 9:25 AM EDT - 06/01/2025 10:25 AM EDT Surgery Cardiac Bed Teacher [address] [place] [address] Erich Sexton MD [address] [place] [address] Left heart catheterization [98198 (CPT )] 07/14/2025 8:00 AM EDT Office Visit [facility] [place] [address] [facility], [address] [place] [address] Rosa Isela Murrieta MD [address] [facility] [address] [place] [address] 08/11/2025 3:20 PM EDT Office Visit [facility] Endocrinology [address] [place] [address] Mary Arroyo PA [address] [address] 10/05/2025 10:00 AM EST Office Visit [facility] General & Weight Loss Surgery [address] [place] [address] Geoffrey Leos MD [address] [address] documented as of this encounter Visit Diagnoses [...] documented as of this encounter Care Teams Before School Relationship Specialty Start Date End Date Stephan Talbert MD [address] [place] [address] PCP - General 02/10/24 Francisco Cox MD [address] [place] [address] 06/18/22 Rick Shi MD [address] [place] [address] Referring Physician 01/30/24 documented as of this encounter
--- OUTSIDE RECORDS SUMMARY | 2025-05-18 15:34 | XMS_ITS | Encounter Summary ---
Author Organization [facility] Address [address] [place] [address] Care Team Providers Care Toy Assembly Supervisor Name Role Phone Francisco Cox MD Unavailable [phone] Rick Shi MD Unavailable [phone] Stephan Talbert MD Primary Care Provider [phone] Reason for Visit * Reason Onset Date Comments HCN Clinical Concern/Question 05/03/2025 Encounter Details Date Type Department Care Team (Late st Contact Info) Description 05/03/2025 Telephone [facility] [place] [address] [facility], [address] [place] [address] Rosa Isela Murrieta MD [address] [place] [address] HCN Clinical Concern/Question Social History Tobacco Use Types Packs/Day Years [...] Miscellaneous Notes * Telephone Encounter - Antionette Chisholm RN - 05/16/2025 4:55 PM EDT RN called patient to confirm she had been updated on heart cath being ordered/scheduled. LVM and callback number. Antionette Chisholm RN * Telephone Encounter - Antionette Chisholm RN - 05/05/2025 11:13 AM EDT RN called patient back - she states that having a heart cath is a requirement for transplant work up per her transplant team and is wondering if cardiology team at can order this. RN called transplant nurse coordinator at [facility], who verified that patient does need heart cath for transplant work up, d/t diabetes diagnosis, but it could be [facility] at [facility] if [facility]. Antionette Chisholm RN * Telephone Encounter - Keri Castellon - 05/03/2025 3:04 PM EDT Clinical Concern/Question Reason for Call: Patient states she needs to have a heart cath to be cleared for transplant. Best contact number: Other: [phone] Optimal time of day to reach caller: ANYTIME Additional comments/information from caller: None Note: Please do not reply to this message. Follow-up communication and further actions as a result of this message need to be communicated with the patient directly, if the patient is not active onMyChart. If the patient is active on MyChart, they will receive notification of the communication/outcome via mDialoghart. documented in this encounter Plan of Treatment Upcoming Encounters Date Type Department Care Team (Late st Contact Info) Description 06/01/2025 9:25 AM EDT Hospital Encounter Cardiac Expeller Worker [address] [place] [address] Erich Sexton MD [address] [place] [address] Pre-transplant evaluation for kidney transplant; Abnormal findings on diagnostic imaging of heart and coronary circulation 06/01/2025 9:25 AM EDT - 06/01/2025 10:25 AM EDT Surgery Cardiac Expeller Worker [address] [place] [address] Erich Sexton MD [address] [place] [address] Left heart catheterization [42601 (CPT )] 07/14/2025 8:00 AM EDT Office Visit [facility] [place] [address] [facility], [address] [place] [address] Rosa Isela Murrieta MD [address] [facility] [address] [place] [address] 08/11/2025 3:20 PM EDT Office Visit [facility] Endocrinology [address] [place] [address] Mary Arroyo PA [address] [place] [address] 10/05/2025 10:00 AM EST Office Visit [facility] General & Weight Loss Surgery [address] [place] [address] Geoffrey Leos MD [address] [facility] [address] [place] [address] documented as of this encounter Goals Goal Patient Goal Type Associated Problems Recent Progress Patient-Stated? 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 12/04/2020 03/27/2021 COVID-19 Rule-Out 05/10/2025 05/10/2025 Assessment Noted Time PHQ-9 Depression Total Score: 0 04/12/20 10:27 AM EDT A fall risk assessment has been complete d for the patient 04/12/2025 10:27 AM EDT A Body Mass Index follow-up plan has been documented for the patient 04/12/2025 11:12 AM EDT documented as of this encounter Care Teams Toy Assembly Supervisor Relationship Specialty Start Date End Date Stephan Talbert MD [address] [place] [address] PCP - General 02/10/24 Francisco Cox MD [address] [place], [place] [address] 06/18/22 Rick Shi MD [address] [place] [address] Referring Physician 01/30/24 documented as of this encounter
--- OUTSIDE RECORDS SUMMARY | 2025-05-18 15:34 | XMS_ITS | Encounter Summary ---
Author Organization [facility] Address [address] [place] [address] Care Team Providers Care Miller Head Name Role Phone Francisco Cox MD Unavailable Rick Shi MD Unavailable [phone] Stephan Talbert MD Primary Care Provider [phone] Encounter Details Date Type Department Care Team (Latest Contact Info) Description 03/23/2025 Travel Social History Tobacco Use Types Packs/Day [...] things Not at all 03/23/2025 9:57 AM SHIKHAT Dinora Montoya Feeling down, depressed, or hopeless Not at all 03/23/2025 9:57 AM SHIKHAT Dinora Sheffield Patient Health Questionnaire-2 Score 0 03/23/2025 9:57 AM EDT Dinora [place] * Question Answer Date of Assessment Author Trouble falling or staying asleep, or sleeping too much Not at all 03/23/2025 9:57 AM EDT Dinora Sheffield Feeling tired or having little energy Not at all 03/23/2025 9:57 AM SHIKHAT Dinora Sheffield Poor appetite or overeating Not at all 03/23/2025 9: 57 AM SHIKHAT Dinora [place] Feeling bad about yourself - or that you are a failure or have let yourself or your family down Not at all 03/23/2025 9:57 AM SHIKHAT Dinora Sheffield Trouble concentrating on things, such as reading the newspaper or watching television Not at all 03/23/2025 9:57 AM SHIKHAT Dinora [place] Moving or speaking so slowly that other people could have noticed? Or the opposite - being so fidgety or restless that you have been moving around a lot more than usual. Not at all 03/23/2025 9:57 AM SHIKHAT Dinora [place] Thoughts that you would be better off or hurting yourself in some way Not at all 03/23/2025 9:57 AM SHIKHAT Dinora [place] Patient Health Questionnaire-9 Score 0 03/23/2025 9:57 AM SHIKHAT Dinora Sheffield * If you checked off any problems on this questionnaire so far, Question Answer Date of Assessment Author How difficult have these problems made it for you to do your work, take care of things at home, or get along with other people? Not difficult at all 03/23/2025 9:57 AM Dinora Rangel documented as of this encounter Plan of Treatment Upcoming Encounters Date Type Department Care Team (Late st Contact Info) Description 06/01/2025 9:25 AM EDT Hospital Encounter Cardiac Production Planner [address] [place] [address] Erich Sexton MD [address] [place] [address] Pre-transplant evaluation for kidney transplant; Abnormal findings on diagnostic imaging of heart and coronary circulation 06/01/2025 9:25 AM EDT - 06/01/2025 10:25 AM EDT Surgery Cardiac Production Planner [address] [place] [address] Erich Sexton MD [address] [place] [address] Left heart catheterization [35782 (CPT )] 07/14/2025 8:00 AM EDT Office Visit [facility] [place] [address] [facility], [address] [place] [address] Rosa Isela Murrieta MD [address] [facility] [address] [place] [address] 08/11/2025 3:20 PM EDT [facility] [address] [place] [address] Mary Arroyo PA [address] [address] 10/05/2025 10:00 AM EST Office Visit [facility] General & Weight Loss Surgery [address] [place] [address] Geoffrey Leos MD [address] [address] documented as of this encounter Visit Diagnoses [...] documented as of this encounter Care Teams Miller Head Relationship Specialty Start Date End Date Stephan Talbert MD [email or web address] [address] [place] [address] PCP - General 02/10/24 Francisco Cox MD [address] [place], [place] [phone] 06/18/22 Rick Shi MD [address] [place] [address] Referring Physician 01/30/24 documented as of this encounter
--- OUTSIDE RECORDS SUMMARY | 2025-05-18 15:34 | XMS_ITS | Clinical Summary ---
Author Organization [facility] ([place], [place], [place], [place]) Address [address] [place] [address] Care Team Providers Care Machine Heel Sprayer Name Role Phone Unavailable Primary Care Provider Unavailabl e Social History Tobacco Use Types Packs/Day Years Used Date Smoking Tobacco: Never Assessed Comments Unknown Sex and Gender Information Value Date Recorded Sex Assigned at Not on file Legal Sex Female 3:05 PM CDT Gender Identity Not on file Sexual Orientation Not on file Plan of Treatment Not on file Insurance [facility] [facility]
--- OUTSIDE RECORDS SUMMARY | 2025-05-18 15:34 | XMS_ITS | Encounter Summary ---
Author Organization [facility] Address [address] [place] [address] Care Team Providers Care Milling Machine Set Up Operator Name Role Phone Francisco Cox MD Unavailable [phone] Rick Shi MD Unavailable [phone] Stephan Talbert MD Primary Care Provider [phone] Encounter Details Date Type Department Care Team (Latest Contact Info) Description 04/12/2025 Travel Social History Tobacco Use Types Packs/Day [...] Malika Santana documented as of this encounter Plan of Treatment Upcoming Encounters Date Type Department Care Team (Late st Contact Info) Description 06/01/2025 9:25 AM EDT Hospital Encounter Cardiac Validation Engineer [address] [place] [address] Erich Sexton MD [address] [place] [address] Pre-transplant evaluation for kidney transplant; Abnormal findings on diagnostic imaging of heart and coronary circulation 06/01/2025 9:25 AM EDT - 06/01/2025 10:25 AM EDT Surgery Cardiac Validation Engineer [address] [place] [address] Erich Sexton MD [address] [place] [address] Left heart catheterization [46542 (CPT )] 07/14/2025 8:00 AM EDT Office Visit [facility] [place] [address] [facility], [address] [place] [address] Rosa Isela Murrieta MD [address] [place] [address] 08/11/2025 3:20 PM EDT Office Visit [facility] Endocrinology [address] [place] [address] Mary Arroyo PA [address] [address] 10/05/2025 10:00 AM EST Office Visit [facility] General & Weight Loss Surgery [address] [place] [address] Geoffrey Leos MD [address] [address] documented as of this encounter Visit Diagnoses [...] documented as of this encounter Care Teams Milling Machine Set Up Operator Relationship Specialty Start Date End Date Stephan Talbert MD [address] [place] [address] PCP - General 02/10/24 Francisco Cox MD [address] [place], [place] [id number] 06/18/22 Rick Shi MD [address] [place] [address] Referring Physician 01/30/24 documented as of this encounter
[2025-05-18 15:35] VITALS: BP 144/68; PULSE 67; RESP 15; TEMP 36.8; O2SAT 96; BMI 27.6
--- OUTSIDE RECORDS SUMMARY | 2025-05-18 15:35 | XMS_ITS | Encounter Summary ---
Author Organization [facility] Address [address] [place] [address] Care Team Providers Care Accounts Payable Payroll Coordinator Name Role Phone Unavailable Primary Care Provider Unavailabl e Source Comments This information has been disclosed to you from confidential records protectfrom disclosure by state law. You shall make no further disclosure of thisinformation without the specific, written, and informed release of theindividual to whom it pertains, or as otherwise permitted by law. A generalauthorization for the release of medical or other information is not sufficientfor the purposes of the release of HIV test results or diagnoses. [id number] Reason for Visit * Reason Comments Kidney Transplant Evaluation Encounter Details Date Type Department Care Team (Late st Contact Info) Description 04/22/2025 Telephone [facility] Kidney Transplant at [address] [place] [phone] Randi Leone MA Kidney Transplant Evaluation Social History Tobacco Use Types Packs/Day Years Used Date Smoking Tobacco: Never Assessed Comments Unknown Sex and Gender Information Value Date Recorded Sex Assigned at Not on file Legal Sex Female 1:16 PM EDT Gender Identity Not on file Sexual Orientation Not on file documented as of this encounter Miscellaneous Notes * Telephone Encounter - Randi Leone MA - 04/22/2025 9:54 AM EDT This GAEL called pt to go over kidney transplant eval questions and pt stating she is working with [facility] and referral with can be closed. Referral close and sent to scanning and letters sent to pt and referring/DU. documented in this encounter Plan of Treatment Not on file documented as of this encounter Visit Diagnoses Not on filedocumented in this encounter
--- OUTSIDE RECORDS SUMMARY | 2025-05-18 15:35 | XMS_ITS | Referral Summary ---
Author Organization [facility] ([place], [place], [place], [place]) Address [address] [place] [address] Care Team Providers Care Art Education Professor Name Role Phone Unavailable Primary Care Provider Unavailabl e Social History Tobacco Use Types Packs/Day Years Used Date Smoking Tobacco: Never Assessed Comments Unknown Sex and Gender Information Value Date Recorded Sex Assigned at Not on file Legal Sex Female 3:05 PM CDT Gender Identity Not on file Sexual Orientation Not on file Plan of Treatment Not on file Insurance [employer] [facility]
--- OUTSIDE RECORDS SUMMARY | 2025-05-18 15:35 | XMS_ITS ---
Author Organization [facility] Address [address] [place] [address] Care Team Providers Care Industrial Waste Inspector Name Role Phone Unavailable Primary Care Provider Unavailabl e Transplant Episode Kidney Candidate [facility] ([place], [place]) - [facility] Referred on 01/10/2025 Marked as Declined on 04/22/2025 Reason: Patient Choice Kidney CoordinatorRomy Salgado RN Phone: N/A Fax: N/A Email: N/A Scores Score Value Updated Exceptions/Reas ons CPRA Not available EPTS (Calc) 14 05/18/2025 Care Team Name Role Phone Fax Email Romy Salgado RN Kidney Coordinator N/A N/A N/A Rick Shi MD Referring Physician [phone] N/A Events Pre-Transplant Referred: 01/10/2025 Dialysis History Dialysis History Start End Type Comments Center 12/23/2023 Peritoneal [facility] Dialysis Center Information Center Phone Fax Address [facility] [phone] [address] [facility] [address]
--- OUTSIDE RECORDS SUMMARY | 2025-05-18 15:35 | XMS_ITS | Clinical Summary ---
Author Organization [facility] Address [address] [place] [address] Phone Care Team Providers Care Change Management Facilitator Name Role Phone Stephan Talbert MD Primary Care Provider [phone] Allergies Active Allergy Reactions Criticality Noted Date Comments Penicillins Other (See Comments) High 03/20/2023 States she was going to pass out. Medications albuterol (PROVENTIL HFA;VENTOLIN HFA) 90 mcg/actuation Inhl HFA Aerosol Inhaler Inhale 2 Puffs into the lungs every 6 hours as needed for Wheezing. Active amLODIPine (NORVASC) 10 mg Oral Tablet Take 10 mg by mouth daily. Active bumetanide (BUMEX) 1 mg Oral Tablet Take 1 mg by mouth daily. Active doxazosin (CARDURA) 1 mg Oral Tablet Take 1 mg by mouth 2 times daily. Active ergocalciferol (DRISDOL) 1,250 mcg (50,000 unit) Oral Capsule Take 50,000 Units by mouth once a week. Active ferrous sulfate 325 mg (65 mg iron) Oral Tablet Take 325 mg by mouth daily. Active montelukast (SINGULAIR) 10 mg Oral Tablet Take 10 mg by mouth every evening. Active omeprazole (PRILOSEC) 40 mg Oral Capsule, Delayed Release(E.C.) Take 40 mg by mouth daily. Active SITagliptin phosphate (JANUVIA) 50 mg Oral Tablet Take 50 mg by mouth daily. Active Sodium Bicarbonate 650 mg Oral Tablet Take 650 mg by mouth daily. Active mycophenolate (CELLCEPT) 500 mg Oral Tablet Take 1 Tablet by mouth 2 times daily. 60 Tablet 3 3 Active ondansetron (ZOFRAN-ODT) 8 mg Oral Tablet, Rapid Dissolve DISSOLVE 1 TABLET IN MOUTH EVERY 12 HOURS NEEDED FOR NAUSEA AND VOMITING Active cephALEXin (KEFLEX) 500 mg Oral Capsule Take 1 Capsule by mouth 2 times daily. 20 Capsule 3 Active Additional Information Patient not taking.Reason: Therapy Completed, Reported on 11/05/2024 hydrALAZINE (APRESOLINE) 25 mg Oral Tablet Take 1 tablet by mouth twice daily 60 Tablet 4 Active insulin glargine (LANTUS) 100 unit/mL (3 mL) SubQ Insulin Pen Subcutaneous (Inject under the skin) 20 Units every evening. Active semaglutide (OZEMPIC) 0.25 mg or 0.5 mg (2 mg/3 mL) SubQ Pen Injector Subcutaneous (Inject under the skin) 0.5 mg once a week. Active hydrOXYzine (ATARAX) 25 mg Oral Tablet TAKE 1 TABLET BY MOUTH THREE TIMES DAILY NEEDED FOR ITCHING 90 Tablet 4 Active Additional Information Patient not taking.Reported on 11/05/2024 calcitRIOL (ROCALTROL) 0.25 mcg Oral Capsule Take 1 capsule by mouth once daily 30 Capsule 4 Active metoprolol succinate (TOPROL-XL) 50 mg Oral Tablet Sustained Release 24 hr Take 1 tablet by mouth once daily 90 Tablet 4 Active FREESTYLE SLOANE 3 PLUS SENSOR Misc Device CHANGE EVERY 15 DAYS 4 Active levoFLOXacin (LEVAQUIN) 500 mg Oral Tablet 500 mg. 4 Active loratadine (CLARITIN) 10 mg Oral Tablet Take 10 mg by mouth daily. Active Active Problems Problem Noted Date Diagnosed Date Peritoneal dialysis catheter in place 12/11/2023 Malposition of peritoneal dialysis catheter 11/03 End stage renal disease on dialysis 11/14/2023 IgA nephropathy 11/06/2023 Essential hypertension 11/06/2023 Adhesion of abdominal wall 09/30/2023 Obesity due to excess calories 09/18/2023 End-stage renal disease needing dialysis 023 Stage 5 chronic kidney disease not on chronic di alysis 09/12/2023 Encounters Date Type Department Care Team Description 04/06/2025 1:45 PM EDT Office Visit [facility] [address] [place] [address] Choco Baez MD End-stage renal disease needing dialysis (HCC) (Primary Dx); Kidney transplant candidate from Last 3 Months Surgical History Surgery Date Site/Laterality Comments UPPER GASTROINTESTINAL ENDOSCOPY DILATATION DENTAL SURGERY SECTION KIDNEY SURGERY BIOPSY DIALYSIS ACCESS/SHUNT 09/30/2023 N/A Laparoscopic Peritoneal Dialysis Catheter Insertion; Surgeon: Stephen Bruce MD; Location: [facility]; Service: Vascular Medical devices from this surgery are in the Medical Devices section. IR TUNNELED DIALYSIS CATHETER 08/18/2024 IR TUNNELED DIALYSIS CATHETER 08/18/2024 Stephen Bruce MD JOSE IR Medical History Medical History Date Comments Asthma Hypertension Heartburn Arthritis Renal insufficiency Diabetes mellitus (HCC) Anemia Family History Medical History Relation Name Comments Diabetes Father High Blood Pressure Father Heart Disease Mother Anesth Problems Neg Hx Relation Name Status Comments Father Mother Alive Social History Tobacco Use Types Packs/Day Years [...] on file Sexual Orientation Not on file Obstetrics History Last Filed Vital Signs Vital Sign Reading Time Taken Comments Blood Pressure 129/76 04/06/2025 1:41 PM EDT Pulse 59 04/06/2025 1:41 PM EDT Temperature 36.5 C (97.7 F) 11/05/2024 11:07 AM EST Respiratory Rate 16 08/18/2024 9:30 AM EDT Oxygen Saturation 99% 08/18/2024 9:30 AM EDT Inhaled Oxygen Concentration - - Weight 102.5 kg (226 lb) 04/06/2025 1:41 PM EDT Height 177.8 cm (5' 10 ) 04/06/2025 1:41 PM EDT Body Mass Index 32.43 04/06/2025 1:41 PM EDT Plan of Treatment Health Maintenance Due Date Last Done Comments Wellness Exam Medicare 1983 Pneumococcal Vaccine 0-49 (1 of 2 - PCV) 1999 Cervical Cancer Screening 2001 Pap Smear 2001 HPV/Pap Cotest 2010 Breast Cancer Screening 2020 COVID-19 Vaccine (3 - Pfizer risk series) 10/16/2021 09/18/2021, 08/27/2021 Cologuard 2025 Colon Cancer Screening 2025 Colonoscopy 2025 FIT 2025 Sigmoidoscopy 2025 Virtual Colonography 2025 Hepatitis B Vaccine (4 of 4 - Risk Dialysis Recombivax 3-dose series) 06/10/2025 06/10/2024, 01/06/2024, 06/18/2022 Influenza Vaccine (#1) 2025 DTaP/TDaP/Td (2 - Td or Tdap) 11/02/2034 11/02/2024 Meningococcal B Vaccine Aged Out No l onger eligible based on patient's age to complete this topic Medical Devices Implanted Type Area Health Consultant Device Identifier Shelf Expiration Date Model / Serial / Lot Kit Climax Presternal Peritoneal Dialysis Catheter - [id number] Implanted:Qty : 1 on 09/30/2023 by [facility] N/A: Abdomen COVIDIEN:NIRMAL L [id number] 06/11/2028 [id number] / / [id number] Insurance MEDICARE [place] PART B CLAIMS [place] MEDICARE [place] PART B CLAIMS [place] MEDICARE [place] PART A AND B MEDICARE [place] PART B CLAIMS [place] MEDICARE [place] PART A AND B Member Subscriber Plan / Payer (Ef fective for All Dates) Name:Ashley Woodall Member ID:[id number] Relation to Subscriber:Self Name:Ashley Woodall Subscriber ID:[id number] Payer ID:Not on file Group ID:Not on file Type:Not on file Address: [address] [id number] Care Teams Change Management Facilitator Relationship Specialty Start Date End Date Stephan Talbert MD PCP - General Family Medicine 03/06/23
--- OUTSIDE RECORDS SUMMARY | 2025-05-18 15:35 | XMS_ITS | Clinical Summary ---
Author Organization [facility] Address [address] [place] [address] Care Team Providers Care Mexican Food Maker Hand Name Role Phone Unavailable Primary Care Provider Unavailabl e Source Comments This information has been disclosed to you from confidential records protectedfrom disclosure by state law. You shall make no further disclosure of thisinformation without the specific, written, and informed release of theindividual to whom it pertains, or as otherwise permitted by law. A generalauthorization for the release of medical or other information is not sufficientfor the purposes of therelease of HIV test results or diagnoses. [id number] Encounters Date Type Department Care Team Description 04/22/2025 Telephone [facility] Kidney Transplant at [address] [phone] Randi Leone MA Kidney Transplant Evaluation 02/16/2025 Chart Note [facility] Kidney Transplant at [address] [phone] Randi Leone MA This MA is checking referral status. PT is cleared by [facility]. PT placed on from Last 3 Months Social History Tobacco Use Types Packs/Day Years Used Date Smoking Tobacco: Never Assessed Comments Unknown Sex and Gender Information Value Date Recorded Sex Assigned at Not on file Legal Sex Female 1:16 PM EDT Gender Identity Not on file Sexual Orientation Not on file Plan of Treatment Not on file Insurance LUIGI [place] [address] [employer] [facility]
--- OUTSIDE RECORDS SUMMARY | 2025-05-18 15:35 | XMS_ITS | Encounter Summary ---
Author Organization [facility] Address [address] [place] [address] Care Team Providers Care Nursing Agency Manager Name Role Phone Francisco Cox MD Unavailable [phone] Rick Shi MD Unavailable [phone] Stephan Talbert MD Primary Care Provider [phone] Encounter Details Date Type Department Care Team (Late st Contact Info) Description 03/03/2025 Telephone [facility] [address] [place] [address] Rosa Isela Murrieta MD [address] [facility] [address] [place] [address] Social History Tobacco Use Types Packs/Day Years Used Date Smoking Tobacco: Never Smokeless Tobacco: Never Alcohol Use Standard [...] hopeless Not at all 03/23/2025 9:57 AM EDT Dinora Sheffield Patient Health Questionnaire-2 Score 0 [...] Not at all 03/23/2025 9: 57 AM EDT Dinora Sheffield Feeling bad about yourself - [...] way Not at all 03/23/2025 9:57 AM EDT Dinora Sheffield Patient Health Questionnaire-9 Score 0 03/23/2025 9:57 AM EDT Dinora Sheffield * If you checked off any problems on this questionnaire so far, Question Answer Date of Assessment Author How difficult have these problems made it for you to do your work, take care of things at home, or get along with other people? Not difficult at all 03/23/2025 9:57 AM EDT Dinora Sheffield documented as of this encounter Miscellaneous Notes * Telephone Encounter - Hoa Lai - 03/03/2025 8:41 AM EDT Clinical Concern/Question Reason for Call: Dr. Murrieta - patient needs appointment for clearance for a kidney transplant? Best contact number: [phone] (home) Optimal time of day to reach caller: ANYTIME Additional comments/information from caller: None Note: Please do not reply to this message. Follow-up communication and further actions as a result of this message need to be communicated with the patient directly, if the patient is not active onMyChart. If the patient is active on MyChart, they will receive notification of the communication/outcome via [employer]. documented in this encounter Plan of Treatment Upcoming Encounters Date Type Department Care Team (Late st Contact Info) Description 06/01/2025 9:25 AM EDT Hospital Encounter Cardiac Special Events Driver [address] [place] [phone] Erich Sexton MD [address] [place] [address] Pre-transplant evaluation for kidney transplant; Abnormal findings on diagnostic imaging of heart and coronary circulation 06/01/2025 9:25 AM EDT - 06/01/2025 10:25 AM EDT Surgery Cardiac Special Events Driver [address] [place] [phone] Erich Sexton MD [address] [place] [address] Left heart catheterization [88574 (CPT )] 07/14/2025 8:00 AM EDT Office Visit [facility] [place] [address] [facility] [place] [address] Rosa Isela Murrieta MD [address] [facility] [address] [place] [address] 08/11/2025 3:20 PM EDT Office Visit [facility] Endocrinology [address] [place] [phone] Mary Arryoo PA [address] [facility] [address] [place] [address] 10/05/2025 10:00 AM EST Office Visit [facility] General & Weight Loss Surgery [address] [place] [address] Geoffrey Leos MD [address] [address] documented as of this encounter Visit Diagnoses Not on filedocumented in this encounter Additional Health Concerns Infection Onset Date Last Indicated Resolved Time 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 12/04/2020 03/27/2021 Assessment Noted Time PHQ-9 Depression Total Score: 0 12/08/19 9:52 AM EST A fall risk assessment has been complete d for the patient 01/03/2025 2:43 PM EST A Body Mass Index follow-up plan has been documented for the patient 02/01/2025 11:34 AM EDT documented as of this encounter Care Teams Nursing Agency Manager Relationship Specialty Start Date End Date Stephan Talbert MD [address] [place] [address] PCP - General 02/10/24 Francisco Cox MD [address] [place] [address] 06/18/22 Rick Shi MD [address] [place] [address] Referring Physician 01/30/24 documented as of this encounter
--- OUTSIDE RECORDS SUMMARY | 2025-05-18 15:35 | XMS_ITS | Clinical Summary ---
Author Organization [facility] Address [address] [place] [address] Care Team Providers Care Rn Post Partum Name Role Phone Francisco Cox MD Unavailable [phone] Rick Shi MD Unavailable [phone] Stephan Talbert MD Primary Care Provider [phone] Allergies Active Allergy Reactions Criticality Noted Date Comments Penicillins Other - please docum ent in the comment field High 11/15/2022 States she was going to pass out. Medications * This document contains information received from the source organization and may not represent a complete record from that organization. ferrous sulfate 325 (65 Fe) MG tablet Take 1 tablet (325 mg) by mouth daily. Active albuterol 108 (90 Base) MCG/ACT inhaler Inhale 2 puffs every 6 hours as needed. Active montelukast (Singulair) 10 MG tablet Take 1 tablet (10 mg) by mouth nightly. Active cholecalciferol 25 MCG (1000 UT) tablet Take 0.5 tablets (500 Units) by mouth every other day. 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, with long-term current use of insulin (CMS/[facility]) Inject Humalog 1 units for every 40 points your blood glucose is >150 three times daily before meals, or every 3 hours to correct high blood glucose, to MDD 50 units 15 mL 5 08/16/20 Active pen needle, diabetic (B-D UF III MINI PEN NEEDLES) 31G X 5 MM miscIndications:Ty pe 2 diabetes mellitus with chronic kidney disease on chronic dialysis, with long-term current use of insulin ([facility]) Inject 1-4x daily 200 each 08/16/20 24 Active simethicone (Mylicon) 20 mg/0.3 mL drops Take 1.2 mL (80 mg) by mouth every 6 (six) hours if needed for flatulence. 30 mL 09/09/20 24 Active Additional Information Patient not taking.Reported on 04/12/2025 ondansetron ODT (Zofran-ODT) 4 MG disintegrating tablet Take 1 tablet (4 mg) by mouth every 8 (eight) hours if needed for nausea or vomiting. 20 tablet 09/09/20 Active HYDROcodone-acetam inophen (Palco) 7.5-325 MG tablet Take 1 tablet (7.5 mg of hydrocodone) by mouth every 6 (six) hours if needed for severe pain. 12 tablet 09/09/20 24 Active Continuous Glucose Sensor (FreeStyle Omar 3 Plus Sensor) miscIndications:Ty pe 2 diabetes mellitus with chronic kidney disease on chronic dialysis, without long-term current use of insulin ([facility]) Change every 15 days. Diagnosis E11.65. 2 each 02/02/20 Active Active Problems Problem Noted Date Diagnosed Date Pre-transplant evaluation for kidney transplant 05/10/2025 Abnormal findings on diagnos tic imaging of heart and coronary circulation 05/10/2025 Obesity (BMI 30-39.9) 12/08/2024 Dehydration 12/08/2024 History of repair of hiatal hernia 09/15/2024 S/P laparoscopic sleeve gastrectomy 09/15/2024 Morbid obesity with BMI of 45.0-49.9, adult 03/2024 Type 2 diabetes mellitus wit h chronic kidney disease on chronic dialysis, with long-term current use of insulin 05/14/2024 Gastroesophageal reflux disease 02/13/2024 End-stage renal disease on peritoneal dialysis 0 02/13/2024 Other low back pain 02/13/2024 Shortness of breath on exertion 02/13/2024 Obesity, Class III, BMI 40-49.9 (morbid obesity) 02/05/2024 Type 2 diabetes mellitus with obesity 09/30/2023 Chronic kidney disease, stage 4 (severe) 023 Anemia in chronic kidney disease 06/12/2023 Vitamin D deficiency, unspecified 04/24/2023 Hyperparathyroidism, unspecified 03/20/2023 Asthma 12/19/2020 HTN (hypertension) 12/19/2020 Encounters Date Type Department Care Team Description 05/03/2025 8:38 AM EDT - 05/03/2025 11:59 PM EDT Hospital Encounter Cardiac Imaging [address] [place] [address] Discharge Disposition: Home or Self Care 05/03/2025 8:30 AM EDT - 05/03/2025 8:37 AM EDT Hospital Encounter Cardiac Imaging [address] [place] [address] Discharge Disposition: Home or Self Care 05/03/2025 Telephone [facility] [place] [address], [address] [place] [address] Rosa Isela Murrieta MD HCN Clinical Concern/Question 05/03/2025 Travel 04/29/2025 Telephone [facility] [address] [address] Alysa Haider, RN 04/29/2025 Telephone [facility] [address] [address] Alysa Haider, RN 04/12/2025 10:20 AM EDT Office Visit [facility] [place] [address], [address] [place] [address] Rosa Isela Murrieta MD Pre-operative clearance (Primary Dx); Encounter for preprocedural cardiovascular examination 04/12/2025 Travel 04/11/2025 Telephone [facility] [place] [address], [address] [place] [address] Antionette Chisholm RN 04/07/2025 Results Follow-Up [facility] General & Weight Loss Surgery [address] [place] [address] Alysa Tijerina, OIL RIG ROUGHNECK 03/23/2025 9:50 AM EDT Office Visit [facility] General & Weight Loss Surgery [address] [place] [address] Geoffrey Leos MD Other low back pain (Primary Dx); Intermittent asthma, unspecified asthma severity, unspecified whether complicated; Shortness of breath on exertion; Hypertension, unspecified type; Obesity, Class III, BMI 40-49.9 (morbid obesity); Gastroesophageal reflux disease, unspecified whether esophagitis present; Vitamin D deficiency, unspecified; Morbid obesity with BMI of 45.0-49.9, adult ([facility]); Obesity (BMI 30-39.9); Chronic kidney disease, stage 4 (severe) ([facility]); Anemia in chronic kidney disease, unspecified CKD stage; Type 2 diabetes mellitus with chronic kidney disease on chronic dialysis, with long-term current use of insulin ([facility]); End-stage renal disease on peritoneal dialysis ([facility]); History of repair of hiatal hernia; S/P laparoscopic sleeve gastrectomy; Dehydration; Type 2 diabetes mellitus with obesity ([facility]); Hyperparathyroidism, unspecified ([facility]) 03/23/2025 Travel 03/03/2025 Telephone [facility] [place] [address] [place] [address] Rosa Isela Murrieta MD from Last 3 Months Immunizations Immunization Administration Dates Next Due Hep A, Adult 06/18/2022,11/17/2018 Hep B, adult 06/18/2022 HepB-CpG 06/10/2024,01/06/2024 Tdap 11/02/2024 Family History Medical History Relation Name Comments Diabetes Father Bryon Woodall Diabetes type II Father Bryon Wellsgers Hypertension Father Bryon Woodall Hypotension Father Bryon Woodall Sleep apnea Father Bryon Woodall Sudden Father Bryon Wellsgers Diabetes type II Father's Brother Kevin woodall Cancer Mother's Sister Kaycee Seizures Other Relation Name Status Comments Father Bryon Woodall Father's Brother Kevin woodall Alive Mother's Sister Kaycee Alive Other Social History Tobacco Use Types Packs/Day Years [...] on file Sexual Orientation Not on file Last Filed Vital Signs Vital Sign Reading Time Taken Comments Blood Pressure 111/75 04/12/2025 10:24 AM EDT Pulse 61 04/12/2025 10:24 AM EDT Temperature 36.4 C (97.6 F) 01/03/2025 2:38 PM EST Respiratory Rate 16 03/23/2025 9:56 AM EDT Oxygen Saturation 99% 04/12/2025 10:24 AM EDT Inhaled Oxygen Concentration - - Weight 103 kg (226 lb 3.1 oz) 04/12/2025 10:24 A M EDT Height 177.8 cm (5' 10 ) 04/12/2025 10:24 AM EDT Body Mass Index 32.46 04/12/2025 10:24 AM EDT Plan of Treatment Upcoming Encounters Date Type Department Care Team (Late st Contact Info) Description 06/01/2025 9:25 AM EDT Hospital Encounter Cardiac Commercial Reporter [address] [place] [address] Erich Sexton MD [address] [place] [address] Pre-transplant evaluation for kidney transplant; Abnormal findings on diagnostic imaging of heart and coronary circulation 06/01/2025 9:25 AM EDT - 06/01/2025 10:25 AM EDT Surgery Cardiac Commercial Reporter [address] [place] [address] Erich Sexton MD [address] [place] [address] Left heart catheterization [18691 (CPT )] 07/14/2025 8:00 AM EDT Office Visit [facility] [place] [address], [address] [place] [phone] Rosa Isela Murrieta MD [address] [facility] [address] [place] [address] 08/11/2025 3:20 PM EDT Office Visit [facility] Endocrinology [address] [place] [address] Mary Arroyo PA [address] [facility] [address] [place] [address] 10/05/2025 10:00 AM EST Office Visit [facility] General & Weight Loss Surgery [address] [place] [address] Geoffrey Leos MD [address] [address] Health Maintenance Due Date Last Done Comments [facility]-Medicare Annual Wellness (AWV) 1980 [facility]-/Child/Adol SDOH Screenings 1980 Diabetes: Dental Exam 1990 [facility]-Varicella Vaccines (1 of 2 - 13+ 2-dose series) 1993 HPV Vaccines (1 - 3-dose series) 1995 [facility]- SDOH Screenings 1998 [facility]-Adult SDOH Screenings 1998 [facility]-Pneumococcal Vaccine: Pediatrics (0 to 5 Years) and At-Risk Patients (6 to 49 Years) (1 of 2 - PCV) 1999 [facility]-Pap Smear 2001 [facility]-Cervical Cancer Screening 2010 [facility]-HPV/Cotest 2010 YDT-HOCON-06 Vaccine (3 season) 2024 09/18/2021, 08/27/2021 CT Colonography 2025 Colonoscopy 2025 FIT-DNA 2025 FIT 2025 FOBT 2025 Sigmoidoscopy 2025 [facility]-Colorectal Cancer Screening 2025 [facility]-Hepatitis B Vaccines (4 of 4 - Risk Dialysis Recombivax 3-dose series) 06/10/2025 06/10/2024, 01/06/2024, 06/18/2022 [facility]-Influenza Vaccine (#1) 2025 [facility]-Diabetes: Hemoglobin A1C 09/20/2025, 08/16/2024, 05/14/2024, Additional history exists [facility]-Depression Screening 04/12/2026 04/12/2025, 04/03 [facility]-Zoster Vaccines (1 of 2) 2030 [facility]-DTaP,Tdap,and Td Vaccines (2 - Td or Tdap) 11/02/2034 11/02/2024 [facility]-Hepatitis A Vaccines Aged Out 06/18/2022, 11/03 No longer eligible based on patient's age to complete this topic [facility]-HIV Screening Completed 11/30/2024, 12/03/2020 [facility]-Hepatitis C Screening Completed 2024, 12/23/2023, 12/03/2020 [facility]-Obesity Intervention Completed 025, 03/23/2025, 02/01/2025, Additional history exists [facility]-HIB Vaccines Aged Out No longer e ligible based on patient's age to complete this topic [facility]-IPV Vaccines Aged Out No longer e ligible based on patient's age to complete this topic [facility]-Rotavirus Vaccines Aged Out No lo nger eligible based on patient's age to complete this topic Goals Goal Patient Goal Type Associated Problems Recent Progress Patient-Stated? Author Autogenera kathryn Goal Care Plan Autogenerated Problem No Osiris Guevara Procedures Procedure Name Priority Date/Time Associated Diagnosis Comments NM MYOCARDIAL SPECT REGADENOSON STRESS (MULTI STUDY) Routine 05/03/2025 10:03 AM EDT Pre-operative clearance Encounter for preprocedural cardiovascular examination ECG ADULT Routine 04/12/2025 10:32 AM EDT Pre-operative clearance HEMOGLOBIN A1C Routine 03/23/2025 10:28 AM EDT Obesity, Class III, BMI 40-49.9 (morbid obesity) History of repair of hiatal hernia CBC WITH AUTO DIFFERENTIAL Routine 03/23/2025 10:28 AM EDT Obesity, Class III, BMI 40-49.9 (morbid obesity) History of repair of hiatal hernia COMPREHENSIVE METABOLIC PANEL, PLASMA Routine 03/23/2025 10:28 AM EDT Obesity, Class III, BMI 40-49.9 (morbid obesity) History of repair of hiatal hernia PHOSPHORUS, PLASMA Routine 03/23/2025 10 :28 AM EDT Obesity, Class III, BMI 40-49.9 (morbid obesity) History of repair of hiatal hernia MAGNESIUM, PLASMA Routine 03/23/2025 10: 28 AM EDT Obesity, Class III, BMI 40-49.9 (morbid obesity) History of repair of hiatal hernia IRON & TOTAL IRON BINDING CAPACITY, PLASMA (INCLUDES TRANSFERRIN) Routine 03/23/2025 10:28 AM EDT Obesity, Class III, BMI 40-49.9 (morbid obesity) History of repair of hiatal hernia VITAMIN D 25 HYDROXY Routine 03/23/2025 10:28 AM EDT Obesity, Class III, BMI 40-49.9 (morbid obesity) History of repair of hiatal hernia PTH INTACT TOTAL Routine 03/23/2025 10:2 8 AM EDT Obesity, Class III, BMI 40-49.9 (morbid obesity) History of repair of hiatal hernia VITAMIN B1 (THIAMINE), WHOLE BLOOD (SO) Routine 03/23/2025 10:28 AM EDT Obesity, Class III, BMI 40-49.9 (morbid obesity) History of repair of hiatal hernia VITAMIN B12, SERUM Routine 03/23/2025 10 :28 AM EDT Obesity, Class III, BMI 40-49.9 (morbid obesity) History of repair of hiatal hernia FOLATE, SERUM Routine 03/23/2025 10:28 AM EDT Obesity, Class III, BMI 40-49.9 (morbid obesity) History of repair of hiatal hernia FERRITIN, SERUM Routine 03/23/2025 10:28 AM EDT Obesity, Class III, BMI 40-49.9 (morbid obesity) History of repair of hiatal hernia HEPATITIS C ANTIBODY - ED W/REFLEX TO HCV QUANT PCR STAT 11/30/2024 5:56 PM EST ED HIV 1/2 ANTIBODY/ANTIGEN SCREEN WITH REFLEX TO HIV I/II DIFFERENTIATION STAT 11/30/2024 5:56 PM EST from Last 3 Months or Most Recently Relevant to Health Maintenance Results * NM MYOCARDIAL SPECT REGADENOSON STRESS [...] performed under direct supervision of the reading technology sales representative. Study Impression There is no significant patient [...] ECG Atrial Rate 62 BPM MUSE ECG NC Interval 158 ms MUSE ECG QRSD Interval 90 ms MUSE ECG QT Interval 430 ms MUSE ECG QTC Interval 436 ms MUSE ECG P [place] 13 degrees MUSE ECG R [place] -29 degrees MUSE ECG T Wave [place] 39 degrees MUSE ECG Diagnosis Normal sinus rhythm MUSE ECG Diagnosis Minimal voltage criteria for LVH, may be normal variant ( R in aVL ) MUSE ECG Diagnosis Borderline ECG MUSE ECG Diagnosis MUSE ECG Diagnosis Confirmed by Kevin Woo ([id number]) on 04/12/2025 2:10:40 PM MUSE ECG 04/12/2025 10:3 2 AM EDT 04/12/2025 2:10 PM EDT Rosa Isela Murrieta MD ECG ORDERABLES Final Result MUSE ECG * (ABNORMAL) Iron & Total Iron Binding Capacity, Plasma (Includes Transferrin) (03/23/2025 10:28 AM EDT) Iron, Plasma 71 30 - 160 ug/dL 03/23/2025 12:35 PM EDT [facility] Transferrin, Plasma 154(L) 200 - 360 mg/dL 03/23/2025 12:35 PM EDT [facility] Total Iron Binding Capacity, Plasma 193(L) 240 - 450 ug/mL 03/23/2025 12:35 PM EDT [facility] Transferrin Saturation 37 14 - 50 % 03/23/2025 12:35 PM EDT [facility] Blood Venous blood specimen / Unknown Venipuncture / Unknown 03/23/2025 10:28 AM EDT 03/23/2025 10:29 AM EDT Result [facility] Geoffrey Leos MD LAB BLOOD ORDERABLES Final R esult Performing Organization Address [facility]/ZIP Co de Phone Number [facility] [address] [place] [address] * Vitamin D 25 Hydroxy (03/23/2025 10:28 AM EDT) Pathologist [facility] Vitamin D 25 Hydroxy 31.8 20.0 - 80.0 ng/mL 03/23/2025 1:32 PM EDT [facility] Blood Venous blood specimen / Unknown Venipuncture / Unknown 03/23/2025 10:28 AM EDT 03/23/2025 10:29 AM EDT Narrative [facility] - 03/23/2025 1:32 PM EDT Testing performed on [employer], standardized against NIST SRM 2972. When testing [...] to 80 ng/mL Possible toxicity: >100 ng/mL Geoffrey Leos MD LAB BLOOD ORDERABLES [facility] Performing Organization Address [facility] Co de Phone Number [facility] [address] [place] [address] * (ABNORMAL) CBC and Differential (03/23/2025 10:28 AM EDT) Pathologist [facility] WBC Count 5.51 3.70 - 10.30 10*3/uL LAB HEMATOLOGY METHOD 03/23/2025 12:30 PM EDT [facility] RBC Count 3.37(L) 3.90 - 5.20 10*6/uL LAB HEMATOLOGY METHOD 03/23/2025 12:30 PM EDT [facility] HGB 10.7(L) 11.2 - 15.7 g/dL LAB HEMATOLOGY METHOD 03/23/2025 12:30 PM EDT [facility] HCT 32.9(L) 34.0 - 45.0 % LAB HEMATOLOGY METHOD 03/23/2025 12:30 PM EDT [facility] Platelet Count 223 155 - 369 10*3/uL LAB HEMATOLOGY METHOD 03/23/2025 12:30 PM EDT [facility] MCV 98 79 - 98 fL LAB HEMATOLOGY METHOD 03/23/2025 12:30 PM EDT [facility] MCH 31.8 26.0 - 32.0 pg LAB HEMATOLOGY METHOD 03/23/2025 12:30 PM EDT [facility] MCHC 32.5 30.7 - 35.5 g/dL LAB HEMATOLOGY METHOD 03/23/2025 12:30 PM EDT [facility] RDW 14.1 11.5 - 14.5 % LAB HEMATOLOGY METHOD 03/23/2025 12:30 PM EDT [facility] MPV 9.2 8.8 - 12.5 fL LAB HEMATOLOGY METHOD 03/23/2025 12:30 PM EDT [facility] nRBC 0.0 <=0.0 per 100 WBCs LAB HEMATOLOGY METHOD 03/23/2025 12:30 PM EDT [facility] Differential Type Automated LAB HEMATOLOGY METHOD 03/23/2025 12:30 PM EDT [facility] Neutrophils % 72 % LAB HEMATOLOGY METHOD 03/23/2025 12:30 PM EDT [facility] Lymphocytes % 18 % LAB HEMATOLOGY METHOD 03/23/2025 12:30 PM EDT [facility] Monocytes % 7 % LAB HEMATOLOGY METHOD 03/23/2025 12:30 PM EDT [facility] Eosinophils % 3 % LAB HEMATOLOGY METHOD 03/23/2025 12:30 PM EDT [facility] Basophils % 0 % LAB HEMATOLOGY METHOD 03/23/2025 12:30 PM EDT [facility] Immature Granulocytes % 0 % LAB HEMATOLOGY METHOD 03/23/2025 12:30 PM EDT [facility] Neutrophils Absolute 3.91 1.60 - 6.10 10*3/uL LAB HEMATOLOGY METHOD 03/23/2025 12:30 PM EDT [facility] Lymphocytes Absolute 1.01(L) 1.20 - 3.90 10*3/uL LAB HEMATOLOGY METHOD 03/23/2025 12:30 PM EDT [facility] Monocytes Absolute 0.41 0.30 - 0.90 10*3/uL LAB HEMATOLOGY METHOD 03/23/2025 12:30 PM EDT [facility] Eosinophils Absolute 0.14 0.00 - 0.50 10*3/uL LAB HEMATOLOGY METHOD 03/23/2025 12:30 PM EDT [facility] Basophils Absolute 0.02 0.00 - 0.10 10*3/uL LAB HEMATOLOGY METHOD 03/23/2025 12:30 PM EDT [facility] Immature Granulocytes Absolute 0.02 0.00 - 0.06 10*3/uL LAB HEMATOLOGY METHOD 03/23/2025 12:30 PM EDT [facility] Blood Venous blood specimen / Unknown Venipuncture / Unknown 03/23/2025 10:28 AM EDT 03/23/2025 10:29 AM EDT Narrative [facility] - 03/23/2025 12:30 PM EDT Therapeutic decision making should be based on absolute values, rather than percentages. Geoffrey Leos MD LAB BLOOD ORDERABLES Final R esult [facility] [address] [place] [address] * Vitamin B1 (Thiamine), Whole Blood (03/23/2025 10:28 AM EDT) [facility] VITAMIN B1, WHOLE BLOOD 85 70 - 180 nmol/L 03/26/2025 11:57 AM EDT [facility] ([facility]) Blood Venous blood specimen / Unknown Venipuncture / Unknown 03/23/2025 10:28 AM EDT 03/23/2025 10:29 AM EDT [facility] ([facility]) - 03/26/2025 11:57 AM EDT INTERPRETIVE INFORMATION: Vitamin B1, Whole Blood This assay measures the concentration of thiamine diphosphate (TDP), the primary active form of vitamin B1. Approximately 90 percent of vitamin B1 present in whole blood is TDP. Thiamine and thiamine monophosphate, which comprise the remaining 10 percent, are not measured. This test was developed and its performance characteristics determined by [facility]. It has not been cleared or approved by the [place] Food and Drug Administration. This test was performed in a CLIA certified laboratory and is intended for clinical purposes. Performed By: [facility] [address] [place] [address] Principal Network Architect: Rikki Licona MD, PhD CLIA Number: [id number] us Geoffrey Leos MD LAB BLOOD ORDERABLES Final R esult Performing Organization Address City/[facility]/ZIP Co de Phone Number [facility] ([facility]) [address] [place] [address] * Phosphorus, Plasma (03/23/2025 10:28 AM EDT) Phosphorus, Plasma 3.2 2.5 - 4.5 mg/dL 03/23/2025 12:35 PM EDT [facility] Blood Venous blood specimen / Unknown Venipuncture / Unknown 03/23/2025 10:28 AM EDT 03/23/2025 10:29 AM EDT us Geoffrey Leos MD LAB BLOOD ORDERABLES Final R esult Performing Organization Address [facility] Co de Phone Number [facility] [address] [place] [address] * (ABNORMAL) PTH Intact Total (03/23/2025 10:28 AM EDT) PTH Intact Total 135(H) 9 - 77 pg/mL 03/23/2025 2:12 PM EDT [facility] Blood Venous blood specimen / Unknown Venipuncture / Unknown 03/23/2025 10:28 AM EDT 03/23/2025 10:29 AM EDT Narrative [facility] - 03/23/2025 2:12 PM EDT Assay performed by immunoassay at the [facility]. Performed on [employer] chemiluminescent immunoassay, tractable to the World Health Organization's first international standard for PTH from the NIB[employer], Code 79/500. Results obtained from different test methods or kits cannot be used interchangeably. us Geoffrey Leos MD LAB BLOOD ORDERABLES Final R esult Performing Organization Address City/[facility]/ZIP Co de Phone Number [place] [address] * (ABNORMAL) Magnesium, Plasma (03/23/2025 10:28 AM EDT) Magnesium, Plasma 1.8(L) 1.9 - 2.4 mg/dL 03/23/2025 12:35 PM EDT [facility] Blood Venous blood specimen / Unknown Venipuncture / Unknown 03/23/2025 10:28 AM EDT 03/23/2025 10:29 AM EDT Geoffrey Leos MD LAB BLOOD ORDERABLES Final R esult Performing Organization Address City/[facility]/[place] [address] * Hemoglobin A1c (03/23/2025 10:28 AM EDT) Hemoglobin A1c 4.5 <5.7 % 03/23/2025 1:18 PM EDT [facility] Blood Venous blood specimen / Unknown Venipuncture / Unknown 03/23/2025 10:28 AM EDT 03/23/2025 10:29 AM EDT Narrative [facility] - 03/23/2025 1:18 PM EDT HA1C Interpretive Data: Diagnosis of Diabetes: Diabetic > or = 6.5% Pre-diabetic 5.7 to 6.4% Non-diabetic < or = 5.6% Glycemic Targets for Type I and Type II Diabetics: Non- Adults <7.0% Adults <6.0% Children and Adolescents <7.5% Source: [place] [employer]. Standards of medical care in diabetes,2017. Diabetes Care.2017:40 (suppl 1):S1-S135. Geoffrey Leos MD LAB BLOOD [place]AB[place] [address] * (ABNORMAL) Folate, Serum (03/23/2025 10:28 AM EDT) Folate, Serum 2.6(L) >4.6 ng/mL 03/23/2025 1:28 PM EDT [facility] Blood Venous blood specimen / Unknown Venipuncture / Unknown 03/23/2025 10:28 AM EDT 03/23/2025 10:29 AM EDT Geoffrey Leos MD LAB BLOOD ORDERABLES Final R esult Performing Organization Address City/[facility]/ZIP Co de Phone Number [facility] [address] [place] [address] * (ABNORMAL) Ferritin, Serum (03/23/2025 10:28 AM EDT) Ferritin, Serum 1,102(H) 13 - 150 ng/mL 03/23/2025 1:27 PM EDT [facility] Blood Venous blood specimen / Unknown Venipuncture / Unknown 03/23/2025 10:28 AM EDT 03/23/2025 10:29 AM EDT us Geoffrey Leos MD LAB BLOOD ORDERABLES Final R esult Performing Organization Address City/[facility]/[place] [address] * Vitamin B12, Serum (03/23/2025 10:28 AM EDT) Vitamin B12, Serum 587 210 - 1,033 pg/mL 03/23/2025 1:27 PM EDT [facility] Blood Venous blood specimen / Unknown Venipuncture / Unknown 03/23/2025 10:28 AM EDT 03/23/2025 10:29 AM EDT us Geoffrey Leos MD LAB BLOOD ORDERABLES Final R esult Performing Organization Address [facility] Hospital/[place] [address] * (ABNORMAL) Comprehensive Metabolic Panel, Plasma (03/23/2025 10:28 AM EDT) Glucose, Plasma 118(H) 74 - 99 mg/dL 03/23/2025 12:35 PM EDT [facility] BUN, Plasma 28(H) 7 - 21 mg/dL 03/23/2025 12:35 PM EDT [facility] Creatinine, Plasma 4.28(H) 0.60 - 1.10 mg/dL 03/23/2025 12:35 PM EDT [facility] BUN/Creatinine Ratio 7 03/23/2025 12:35 PM EDT [facility] Sodium, Plasma 143 136 - 145 mmol/L 03/23/2025 12:35 PM EDT [facility] Potassium, Plasma 3.7 3.6 - 4.9 mmol/L 03/23/2025 12:35 PM EDT [facility] Chloride, Plasma 106 97 - 107 mmol/L 03/23/2025 12:35 PM EDT [facility] CO2, Plasma 25 22 - 29 mmol/L 03/23/2025 12:35 PM EDT [facility] Anion Gap 12 6 - 16 mmol/L 03/23/2025 12:35 PM EDT [facility] Total Calcium, Plasma 8.9 8.9 - 10.2 mg/dL 03/23/2025 12:35 PM EDT [facility] Total Protein 6.3 6.3 - 7.9 g/dL 03/23/2025 12:35 PM EDT [facility] Albumin, Plasma 3.4(L) 3.5 - 5.2 g/dL 03/23/2025 12:35 PM EDT [facility] AST, Plasma 15 10 - 35 U/L 03/23/2025 12:35 PM EDT [facility] ALT, Plasma 5(L) 10 - 35 U/L 03/23/2025 12:35 PM EDT [facility] Alkaline Phosphatase, Plasma 51 35 - 104 U/L 03/23/2025 12:35 PM EDT [facility] Total Bilirubin, Plasma 0.6 0.2 - 1.1 mg/dL 03/23/2025 12:35 PM EDT [facility] eGFRcr 12.5 mL/min/1.7 3m*2 03/23/2025 12:35 PM EDT [facility] Comment:Reported eGFRcr in m L/min/1.73m2 is based the CKD-EPI 2020 equation that does not use a race coefficient. Blood Venous blood specimen / Unknown Venipuncture / Unknown 03/23/2025 10:28 AM EDT 03/23/2025 10:29 AM EDT Geoffrey Leos MD LAB BLOOD ORDERABLES Final R esult Performing Organization Address City/[facility] Co de Phone Number [facility] [address] [place] [address] * ED HIV 1/2 Antibody/Antigen Screen w/Reflex to HIV 1/2 Differentiation (11/30/2024 5:56 PM EST) Pathologist [facility] HIV 1 & 2 Antibody/Antigen Screen Non Reactive Non Reactive 11/30/2024 6:43 PM EST [facility] Comment:Screening for HIV 1 & 2 antibodies, and P24 antigen is NONREACTIVE. No confirmatory testing is required. Blood Venous blood specimen / Unknown Venipuncture / Unknown 11/30/2024 5:56 PM EST 11/30/2024 6:06 PM EST Lenora Malik APRN LAB BLOOD ORDERABLES Final Result Performing Organization Address [facility] de Phone Number [facility] [address] [place] [address] * Hepatitis C Antibody - ED (11/30/2024 5:56 PM EST) [facility] Hepatitis C Antibody Negative Negative 11/30/2024 6:43 PM EST [facility] Blood Venous blood specimen / Unknown Venipuncture / Unknown 11/30/2024 5:56 PM EST 11/30/2024 6:06 PM EST Lenora Malik APRN LAB BLOOD ORDERABLES Final Result Performing Organization Address [facility] de Phone Number [facility] [address] [place] [address] from Last 3 Months or Most Recently Relevant to Health Maintenance Additional Health Concerns Active Problems Noted Date Diagnosed Date Autogenerated Problem 05/17/2025 Infection Onset Date Last Indicated 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 Yes Care Teams Rn Post Partum Relationship Specialty Start Date End Date Stephan Talbert MD [address] [facility] [address] [place] [address] PCP - General 02/10/24 Francisco Cox MD [address] [place], [place] [id number] 06/18/22 Rick Shi MD [address] [place], [place] [id number] Referring Physician 01/30/24
--- NOTE | 2025-05-18 16:13 | ED_ITS ---
<Statement entered by Niki García DO - 05/18/25 17:01> I was consulted by the [facility], and we discussed the complexity of the problems being addressed. I approved the treatment and management plan for this patient's care in the emergency department, thus performing a substantive portion of the medical decision making. Niki García DO Discharge Plan Disposition Patient Disposition: Home, Self-Care Condition: Good Prescriptions Prescriptions: No Action (DME) pen needle, diabetic [BD Ultra-Fine Mini Pen Needle] 31 gauge x 3/16 needle See Rx Instructions .ROUTE .MEDSUPPLY Qty: 1200 Patient Comments: USE 1 PEN NEEDLE 4 TIMES DAILY Rx Instructions: As directed (DME) FreeStyle Omar 3 Sensor Device See Rx Instructions .ROUTE .MEDSUPPLY Qty: 1 Patient Comments: CHANGE SENSOR EVERY 14 DAYS. CHECK BLOOD GLUCOSE FOUR TIMES DAILY Rx Instructions: As directed (DME) FreeStyle Omar 3 [place] Misc See Rx Instructions .ROUTE .MEDSUPPLY Qty: 1 Rx Instructions: As directed levofloxacin 500 mg tablet 500 mg PO .every other day 10 Days Qty: 5 0RF Rx Instructions: Take one tablet every other day (Q 48 hours) for 10 days albuterol sulfate 90 mcg/actuation HFA aerosol inhaler 2 inh inhalation Q6HP PRN (Reason: ASTHMA) Qty: 8.5 2RF Rx Instructions: INHALE 2 PUFFS BY MOUTH EVERY 4 TO 6 HOURS NEEDED FOR SHORTNESS OF BREATH OR WHEEZING clindamycin HCl [Cleocin HCl] 300 mg capsule 300 mg PO TID 10 Days Qty: 30 0RF mupirocin [Centany] 2 % ointment 1 applic topical BID 21 Days Qty: 22 2RF Referrals Follow up/Referrals: Stephan Talbert MD [Primary Care Provider, Family Practice] - See instructions Nimo Evans DPM [Staff Physician, Podiatry] - See instructions Activity Restrictions/Add. Instructions Additional Instructions/Restrictions: Please return to the emergency department with any worsening signs or symptoms, any worsening redness, any discharge from your wound. Please keep the area dry and clean, please refrain from using triple antibiotic/bacitracin or antibiotic ointment at this time, please follow-up with your ski binding fitter and repairer. Monitor for any fever chills or any other symptoms of infection. Clinical Impressions Clinical Impression: Wound of right ankle Instructions Patient Instructions: Skin Wound Print Language Print Language: Irish Discharge ED Provider: Niki García General Adult HPI General Chief complaint: Wound/Laceration Stated complaint: rt ankle staph? been there a week Time Seen by Provider: 05/18/25 15:32 Mode of Arrival: Ambulatory Source of Information: Patient Description of Symptoms (Recalled from ER Triage Doc. by RN): patient states she has had a wound on her right ankle for one week that is getting worse denies any pain History of Present Illness HPI narrative: 45-year-old female presents to the emergency department with right-sided ankle wound, patient states that has been there for 1 week , patient noticed a cut , originally, no discharge from the wound, patient states she has been utilizing what sounds like bacitracin , ointment on the wound, denies any real erythema, no hot to touch sensation, no swelling, no real pain, no fever chills chest pain shortness breath no nausea no vomiting no constipation no diarrhea, no urinary type symptomatology, patient is a current everyday smoker, denies any alcohol or drug use, patient receives peritoneal dialysis daily, other past medical history is consistent with T2DM, ESRD, GERD, obesity. 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 #1 ea 02/16/24 03/26/25 (FreeStyle Omar 3 [place]) pen needle, diabetic 31 gauge x #1,200 ea 02/16/2401/16 (BD Ultra-Fine Mini Pen Needle) Previous Rx's ?Medication ?Instructions ?Recorded albuterol sulfate 90 mcg/actuation 2 inh inhalation Q6 HP PRN ASTHMA 10/21/24 aerosol inhaler #8.5 grams levofloxacin 500 mg tablet 500 mg PO .every other day 10 days 04/05/25 #5 tabs clindamycin HCl 300 mg capsule 300 mg PO TID 10 days # 30 caps 05/18/25 (Cleocin HCl) mupirocin 2 % topical ointment 1 applic topical BID 3 weeks #22 05/18/25 (Centany) grams Allergies Allergy/AdvReac Type Severity Reaction Status Date / Time Penicillins (PENICILLINS) Allergy Unknown PASSED OUT Verified 04/05/25 11:24 [facility] Disclaimer: The information contained in this section may have been updated after the patient was seen, as this information can be updated by other users. Medical History (Updated 05/18/25 @ 16:30 by RAFAL Cortez) UTI (urinary tract infection) Chronic kidney disease History of anemia Urinary tract infection History of gastroesophageal reflux (GERD) Hypertension Hiatal hernia with gastroesophageal reflux Cough Dysphagia Dysphonia Thyroid nodule Enlarged thyroid Renal insufficiency Diabetes mellitus Asthma Hypotension Hyperglycemia Surgical History History of endometrial ablation History of delivery History of dental surgery History of local excision of skin lesion Family History Other Family history of cancer Family history of diabetes mellitus type II Family history of myocardial infarction Family history of stroke Social History Smoking Status: Never smoker alcohol intake: never substance use type: denies use current occupational status: unemployed Travel in the last 8 weeks?: None household members: children housing: house lives independently: Yes marital status: single caffeine: Yes special bahman needs: No agree to transfusion: No do you feel safe at home: Yes victim of physical abuse: No victim of emotional abuse: No victim of sexual abuse: No would you like helpful sources: No Have you lived/traveled outside [place] in past 30 days?: No Contact w/someone who lives/traveled outside US past 30 days?: No Exposure to someone with infectious disease in past 14 days?: No Do you have a fever (greater than 100.4 F or 38 C)?: No Have you tested positive for COVID-19?: No Exposed to someone with COVID-19 in past 14 days?: No Do you have a sore throat?: No Do you have a cough?: No Do you have any weakness?: No Do you have any diarrhea?: No Are you experiencing any unusual bleeding?: No Do you have any muscle aches/pain?: No Do you have any abdominal pain?: No Are you experiencing loss of taste or smell?: No Other Medical History Have you received the Flu Vaccine for this season: No Have you received the Pneumonia Vaccine: No ROS Obtained: Yes All systems reviewed & no additional complaints except as documented Physical Exam General General appearance: alert and in no apparent distress Head Head exam: atraumatic and normocephalic Eye Eye exam: Present PERRL and EOMI ENT ENT exam: Present mucous membranes moist Neck Neck exam: Present normal inspection Chest Chest inspection: Present normal inspection and symmetric chest wall rise Respiratory Respiratory exam: Present normal lung sounds bilaterally; Absent respiratory distress Cardiovascular Cardiovascular exam: Present regular rate and normal rhythm Abdominal Exam Abdominal exam: Present soft; Absent tenderness Extremities Exam Extremities exam: Present normal inspection Neurological Exam Neurological exam: Present alert and oriented X3 Psychiatric Psychiatric exam: Present normal affect Skin Skin exam: Present warm, dry and other (Mild area on the patient's right malleolus, that appears to be a healing wound, with no erythema, no evidence of any wound dehiscence or drainage, some macerated appearance or patient is been placing ointment, otherwise neurovascular intact.); Absent erythema or pallor Medical Decision Making Medical Records Medical records reviewed: Yes I reviewed the patient's medical records. Screening: Per USPSTF and CDC recommendations, given the prevalence of disease in our region, it is our hospital?s policy to screen for HIV and viral Hepatitis for all patients aged 18 and over and those with ongoing risk factors. Bishop Inquiry Pt receiving controlled substance: No Bishop was queried for this patient: No Vital Signs: 05/18/25 15:35 Temperature 98.3 F Temperature Source Oral Pulse Rate [Right Radial] 67 Respiratory Rate 15 Blood Pressure [Right Arm] 144/68 H Blood Pressure Mean [Right Arm] 93 Blood Pressure Source [Right Arm] Automatic Cuff Blood Pressure Position [Right Arm] Supine 02 Sat by Pulse Oximetry 96 Oxygen Delivery Method Room Air Orders (Tests/Meds): ORDERS Category Date Time Status HIV Combo Stat Lab 05/18/25 15:41 Ordered Hepatitis C Ab Qual. W/ RFX Stat Lab 05/18/25 15:41 Ordered Medical Decision Narrative: 45-year-old female presents the emergency department with a right ankle wound, differential diagnosis include but not limited to cellulitis, poor wound healing, abrasion among others. I discussed this patient's case with the attending physician Dr. García Patient has no evidence of any cellulitis or cellulitic abscess at this time, no induration no fluctuance, does have some poor wound healing, which does appear to be consistent with her comorbid conditions, no evidence of any wound dehiscence or drainage, patient was given strict ED return precautions, patient was given general wound care here in the emergency department, instructed not to utilize antibiotic ointment due to macerated appearance, and poor wound healing, patient will follow-up with ski binding fitter and repairer. Patient voiced understanding and agreed with current treatment plan/discharge plan. Critical Care Critical Care Time Critical Care Time: No
[2025-05-18 16:56] VITALS: BP 140/75; PULSE 74; RESP 16; TEMP 36.7; O2SAT 96
== END 2025-05-18 17:00 | disposition home or self-care (01) ==
PROVIDERS: Emergency Provider Emergency Medicine; PCP Family Medicine
DX: S91.001A Unspecified open wound, right ankle, initial encounter (principal); F17.210 Nicotine dependence, cigarettes, uncomplicated; N18.6 End stage renal disease; E11.22 Type 2 diabetes mellitus with diabetic chronic kidney disease; W22.8XXA Striking against or struck by other objects, initial encounter; Z99.2 Dependence on renal dialysis
CPT/HCPCS: 99283

== ENCOUNTER 2025-06-23 07:52 | Outpatient (CLI) | payer MEDICARE, MEDICAID, SELFPAY ==
--- OUTSIDE RECORDS SUMMARY | 2025-05-03 08:30 | XMS_ITS | Encounter Summary ---
Author Organization Healthcare Address [address] [place] [address] Care Team Providers Care Hired Help Name Role Phone Francisco Cox MD Unavailable [phone] Rick Shi MD Unavailable [phone] Stephan Talbert MD Primary Care Provider [phone] Reason for Visit * Imaging (Routine) - Closed Specialty Diagnoses / Procedures Referred By Contac t Referred To Contact Cardiology Diagnoses Pre-operative clearance Encounter for preprocedural cardiovascular examination Procedures NM Myocardial Perfusion Stress Test Rosa Isela Murrieta MD [address] [facility] 200 [place] [address] Phone: tel: fax: Referral ID Status Reason Start Date Expiration Date Visits Re quested Visits Authorized [id number] Closed 04/12/2025 10/12/2026 1 1 Encounter Details Date Type Department Care Team (Latest Contact Info) Description 05/03/2025 8:30 AM EDT - 05/03/2025 8:37 AM EDT Hospital Encounter Cardiac Imaging [address] [place] [address] Discharge Disposition: Home or Self Care Social History Tobacco Use Types Packs/Day Years [...] on file documented as of this encounter Functional Status * Does this [...] Assessment Author No 01/03/2025 3:40 PM EST documented as of this encounter Medications at Time of Discharge albuterol 108 (90 Base) MCG/ACT inhaler Inhale 2 puffs every 6 hours as needed. cholecalciferol 25 MCG (1000 UT) tablet Take 0.5 tablets (500 Units) by mouth every other day. Continuous Glucose Sensor (Ongageyle Omar 3 Plus Sensor) miscIndications:Typ e 2 diabetes mellitus with chronic kidney disease on chronic dialysis, without long-term current use of insulin ([facility]) Change every 15 days. Diagnosis E11.65. 2 each 02/01/2025 ferrous sulfate 325 (65 Fe) MG tablet Take 1 tablet (325 mg) by mouth daily. insulin glargine (Lantus SoloStar, Basaglar) 100 UNIT/ML injection penIndications:Type 2 diabetes mellitus with chronic kidney disease on chronic dialysis, with long-term current use of insulin ([facility]) Inject 20 units once daily, with titration if indicated and as instructed up to MDD 50 units 15 mL 5 08/16/2024 insulin lispro (Admelog, HumaLOG) 100 UNIT/ML injection penIndications:Type 2 diabetes mellitus with chronic kidney disease on chronic dialysis, with long-term current use of insulin ([facility]) Inject Humalog 1 units for every 40 points your blood glucose is >150 three times daily before meals, or every 3 hours to correct high blood glucose, to MDD 50 units 15 mL 5 08/16/2024 montelukast (Singulair) 10 MG tablet Take 1 tablet (10 mg) by mouth nightly. ondansetron ODT (Zofran-ODT) 4 MG disintegrating tablet Take 1 tablet (4 mg) by mouth every 8 (eight) hours if needed for nausea or vomiting. 20 tablet 09/09/2024 pen needle, diabetic (B-D UF III MINI PEN NEEDLES) 31G X 5 MM miscIndications:Typ e 2 diabetes mellitus with chronic kidney disease on chronic dialysis, with long-term current use of insulin ([facility]) Inject 1-4x daily 200 each 11 08/16/2024 simethicone (Mylicon) 20 mg/0.3 mL drops Take 1.2 mL (80 mg) by mouth every 6 (six) hours if needed for flatulence. 30 mL 09/09/2024 HYDROcodone-acetami nophen ([place]) 7.5-325 MG tablet Take 1 tablet (7.5 mg of hydrocodone) by mouth every 6 (six) hours if needed for severe pain. 12 tablet 09/09/2024 documented as of this encounter Plan of Treatment Upcoming Encounters Date Type Department Care Team (Late st Contact Info) Description 07/14/2025 8:00 AM EDT Office Visit [facility] [place] [address] [facility] [place] [address] [place] [address] Rosa Isela Murrieta MD [address] [facility] 200 [place] [address] 08/11/2025 3:20 PM EDT Office Visit [facility] Endocrinology [address] [place] [address] Mary Arroyo PA [address] [facility] 125 [place] [address] 10/05/2025 10:00 AM EST Office Visit [facility] General & Weight Loss Surgery [address] [place] [address] Geoffrey Leos MD [address] [place] [phone] documented as of this encounter Procedures Procedure Name Priority Date/Time Associated Diagnosis Comments NM MYOCARDIAL SPECT REGADENOSON STRESS (MULTI STUDY) Routine 05/03/2025 10:03 AM EDT Pre-operative clearance Encounter for preprocedural cardiovascular examination documented in this encounter Visit Diagnoses Not on filedocumented in this encounter Administered Medications Inactive Administered Medications - up to 3 most recent administrations Medication Order MAR Action Action Date Dose Rate Site Technetium Tc 99m Sestamibi radio-isotope injection 6.7 millicurie 6.7 millicurie, Intravenous, Once, 1 dose, On Fri05/03/25 at 0930, Routine Given 05/03/2025 8:57 AM EDT 6.7 millicuries documented in this encounter Additional Health Concerns [...] documented as of this encounter Care Teams Hired Help Relationship Specialty Start Date End Date Stephan Talbert MD [address] [facility] [address] [place] [address] PCP - General 02/10/24 Francisco Cox MD [address] [place], [place] [id number] 06/18/22 Rick Shi MD [address] [address] [place] [address] Referring Physician 01/30/24 documented as of this encounter
--- OUTSIDE RECORDS SUMMARY | 2025-05-03 08:38 | XMS_ITS | Encounter Summary ---
Author Organization Healthcare Address [address] [place] [address] Care Team Providers Care Freelance Operator Name Role Phone Francisco Cox MD Unavailable [phone] Rick Shi MD Unavailable [phone] Stephan Talbert MD Primary Care Provider Reason for Visit * Imaging (Routine) - Closed Specialty Diagnoses / Procedures Referred By Contac t Referred To Contact Cardiology Diagnoses Pre-operative clearance Encounter for preprocedural cardiovascular examination Procedures NM Myocardial Perfusion Stress Test Rosa Isela Murrieta MD [address] [facility] 200 [place] [address] Phone: tel: fax: Referral ID Status Reason Start Date Expiration Date Visits Re quested Visits Authorized [id number] Closed 04/12/2025 10/12/2026 1 1 Encounter Details Date Type Department Care Team (Latest Contact Info) Description 05/03/2025 8:38 AM EDT - 05/03/2025 11:59 PM EDT Hospital Encounter Cardiac Imaging [address] [place] [address] Discharge Disposition: Home or Self Care Social [...] mouth every other day. Continuous Glucose Sensor (Adaptive Digital Poweryle Omar 3 Plus Sensor) miscIndications:Typ e 2 diabetes mellitus with chronic kidney disease on chronic dialysis, without long-term current use of insulin ([facility]) Change every 15 days. Diagnosis E11.65. 2 each 02/01/2025 ferrous sulfate 325 (65 Fe) MG tablet Take 1 tablet (325 mg) by mouth daily. insulin glargine (Lantus SoloStar, Basaglar) 100 UNIT/ML injection penIndications:Type 2 diabetes mellitus with chronic kidney disease on chronic dialysis, with long-term current use of insulin ([facility]) Inject 20 units once daily, with titration if indicated and as instructed up to MDD 50 units 15 mL 5 08/16/2024 insulin lispro (Admelog, HumaLOG) 100 UNIT/ML injection penIndications:Type 2 diabetes mellitus with chronic kidney disease on chronic dialysis, with long-term current use of insulin ([facility]) Inject Humalog 1 units for every [...] dialysis, with long-term current use of insulin ([facility]) Inject 1-4x daily 200 each 11 08/16/2024 simethicone (Mylicon) 20 mg/0.3 mL drops Take 1.2 mL (80 mg) by mouth every 6 (six) hours if needed for flatulence. 30 mL 09/09/2024 HYDROcodone-acetami nophen ([place]) 7.5-325 MG tablet Take 1 tablet (7.5 mg of hydrocodone) by mouth every 6 (six) hours if needed for severe pain. 12 tablet 09/09/2024 documented as of this encounter Plan of Treatment Upcoming Encounters Date Type Department Care Team (Late st Contact Info) Description 07/14/2025 8:00 AM EDT Office Visit [facility] [place] [address] [facility], [address] [place] [address] Rosa Isela Murrieta MD [address] [facility] 200 [place] [address] 08/11/2025 3:20 PM EDT Office Visit [facility] End[facility]ology [address] [place] [address] Mary Arroyo PA [address] [facility] 125 [place] [address] 10/05/2025 10:00 AM EST Office Visit [facility] General & Weight Loss Surgery [address] [place] [address] Geoffrey Leos MD [address] [place] [phone] documented as of this encounter Procedures Procedure [...] Time PHQ-9 Depression Total Score: 0 04/12/20 25 10:27 AM EDT A fall risk assessment has been complete d for the patient 04/12/2025 10:27 AM EDT A Body Mass Index follow-up plan has been documented for the patient 04/12/2025 11:12 AM EDT documented as of this encounter Care Teams Freelance Operator Relationship Specialty Start Date End Date Stephan Talbert MD [address] [address] PCP - General 02/10/24 Francisco Cox MD [address] [place] [address] 06/18/22 Rick Shi MD [address] [place] [address] Referring Physician 01/30/24 documented as of this encounter
--- OUTSIDE RECORDS SUMMARY | 2025-06-01 07:08 | XMS_ITS | Encounter Summary ---
Author Organization [facility] Address [address] [place] [address] Care Team Providers Care Toggle Press Folder And Feeder Name Role Phone Francisco Cox MD Unavailable [phone] Rick Shi MD Unavailable [phone] Stephan Talbert MD Primary Care Provider [phone] Reason for Visit * Auth/Cert (Routine) Specialty Diagnoses / Procedures Referred By Contac t Referred To Contact Diagnoses Pre-transplant evaluation for kidney transplant Abnormal findings on diagnostic imaging of heart and coronary circulation Pre-transplant evaluation for kidney transplant [Z01.818] Abnormal findings on diagnostic imaging of heart and coronary circulation [R93.1] Procedures SD LEFT HEART CATH INJECT VETRICULOGRAPHY, IMAGE SUPERVISE/INTERP Left heart catheterization Erich Sexton MD [address] [place] [address] Phone: tel: fax: Cardiac Wood Furniture Assembler [address] [place] [address] Phone: tel: Referral ID Status Reason Start Date Expiration Date Visits Re quested Visits Authorized [id number] 1 1 Encounter Details Date Type Department Care Team (Latest Contact Info) Description 06/01/2025 7:08 AM EDT - 06/01/2025 1:21 PM EDT Hospital Encounter Cardiac [employer] Furn[employer] [address] [place] [address] Erich Sexton MD [address] [place] [address] Pre-transplant evaluation for kidney transplant; [...] Behavior (Lifetime) No 7:45 AM EDT Tracie Arguello RN documented as of this encounter Medications at Time of Discharge albuterol 108 (90 Base) MCG/ACT inhaler Inhale 2 puffs every 6 hours as needed. cholecalciferol 25 MCG (1000 UT) tablet Take 0.5 tablets (500 Units) by mouth every other day. Continuous Glucose Sensor (Xcell [employer] Omar 3 Plus Sensor) miscIndications:Typ e 2 diabetes mellitus with chronic kidney disease on chronic dialysis, without long-term current use of insulin ([facility]) Change every 15 days. Diagnosis E11.65. 2 each 02/01/2025 ferrous sulfate 325 (65 Fe) MG tablet Take 1 tablet (325 mg) by mouth daily. insulin glargine (Lantus SoloStar, Basaglar) 100 UNIT/ML injection penIndications:Type 2 diabetes mellitus with chronic kidney disease on chronic dialysis, with long-term current use of insulin ([facility]) Inject 20 units once daily, with titration if indicated and as instructed up to MDD 50 units 15 mL 08/16/2024 insulin lispro (Admelog, HumaLOG) 100 UNIT/ML injection penIndications:Type 2 diabetes mellitus with chronic kidney disease on chronic dialysis, with long-term current use of insulin ([facility]) Inject Humalog 1 units for every 40 [...] dialysis, with long-term current use of insulin ([facility]) Inject 1-4x daily 200 each 08/16/2024 [facility] [employer] [employer] IP Inject 6,000 [...] Discharged via wheelchair to home * [facility] - Tracie Arguello RN - 06/01/2025 12:17 [...] no heavy work or lifting, driving a Istpikahift car, or vigorous sports. ? Do not [...] PHYSICAL SUBJECTIVE History Of Present Illness Ashley Pham is a 45 y.o. female with a [...] file Social Connections: Unknown (08/11/2023) Received from [facility] Family and Community Support Help with Day-to-Day Activities: Not on file Lonely or Isolated: Not on file Intimate Partner Violence: Unknown (11/20/2023) Received from [facility] Abuse Screen Unsafe at Home or Work/School: Not on file Feels Threatened by Someone?: Not on file Does Anyone Keep You from Contacting Others or Doint Things Outside the Home?: Not on file Physical Sign of Abuse Present: Not on file Housing Stability: Unknown (11/20/2023) Received from [facility] Housing Stability Current Living Arrangements: Not on [...] PSYCH: Normal mood and affect ASSESSMENT/PLAN Ashley Pham is a 45 y.o. female with a [...] plan: Pending procedural findings. Andrea Mcdonald MD Security Clerk [1] Past Medical History: Diagnosis Date Anemia Asthma Class 3 obesity Dental disease uppers only Dependence on peritoneal dialysis ([facility]) Diabetes mellitus type 2, insulin dependent ([facility]) Dysphagia End stage renal disease ([facility]) 12/29/2023 GERD (gastroesophageal reflux disease) Hiatal hernia History of thyroid nodule Hypertension IgA nephropathy Seizures ([facility]) last 1996 Vitamin D deficiency [2] Past Surgical History: Procedure Laterality Date ABLATION, VAGINAL LESION SECTION, LOW TRANSVERSE N/A section from [facility] DENTAL SURGERY N/A Dental surgery from [facility] MOUTH SURGERY 2011 had all teeth removed OTHER SURGICAL HISTORY 08/2024 tunnel catheter PERITONEAL CATHETER INSERTION [3] Family History Problem Relation Name Age of Onset Diabetes Father Bryon Pham Hypertension Father Bryon Pham Sleep apnea Father Bryon Pham Diabetes type II Father Bryon Pham Hypotension Father Bryon Pham Sudden Father Bryon Pham Seizures Other Cancer Mother's Sister Kaycee Diabetes type II Father's Brother Kevin pham Cosigned by Erich Sexton MD at 06/01/2025 [...] been discussed with the patient and/or their registration representative. All questions answered and they agree [...] Description 07/14/2025 8:00 AM EDT Office Visit [facility] [place] [address], [address] [place] [address] Rosa Isela Murrieta MD [address] [place] [address] 08/11/2025 3:20 PM EDT Office Visit [facility] Endocrinology [address] [place] [address] Mary Arroyo PA [address] [place] [phone] 10/05/2025 10:00 AM EST Office Visit [facility] General [facility] Weight [facility] Surgery [address] [place] [phone] Geoffrey Leos MD [address] [address] documented as of this encounter Procedures Procedure [...] follow with [facility] (Dr. Murrieta) and [facility]. Findings were communicated with patient's primary signal constructor via non-urgent staff message. Procedure Details After [...] The patient was transferred back to the slab worker holding area in good condition. Coronary Findings [...] POCT , URINE (06/01/2025 8:17 AM EDT) POCT Test, Urine Negative Males and Non- Females: Negative 06/06/2025 2:36 PM EDT [facility] Plumbing Foreman ID Sudhir James 06/06/2025 2:36 PM EDT HEALTHCARE LAB Device ID [id number] 06/06/2025 2:36 PM EDT [facility] Urine Urine specimen obtained by clean catch procedure / Unknown 06/01/2025 8:17 AM EDT 06/06/2025 2:36 PM EDT us Erich Sexton MD LAB POINT OF CARE TE ST DOCKED DEVICE UNSOLICITED RESULTS Final Result Performing Organization Address [facility] de Phone Number HEALTHCARE LAB [address] [place] [address] * (ABNORMAL) POCT creatinine (06/01/2025 8:00 AM EDT) Pathologist [facility] Creatinine, Point of Care 4.5(H) 0.6 - 1.1 mg/dL 06/01/2025 8:03 AM EDT [facility] POCT eGFR 12 mL/min/1. 73m*2 06/01/2025 8:03 AM EDT [facility] Plumbing Foreman ID Adalgisa Stovall 06/01/2025 8:03 AM EDT [facility] Device ID [id number] 06/01/2025 8:03 AM EDT [facility] Comment 06/01/2025 8:[address] [facility] Comment:Testing performed on i-STAT at the point of care. Reported eGFRcr in mL/min/1.73m2 is based the CKD-EPI 2020 equation that does not use a race coefficient. Blood Venous blood specimen / Unknown 06/01/2025 8:00 AM EDT 06/01/2025 8:03 AM EDT us Erich Sexton MD LAB POINT OF CARE TE ST DOCKED DEVICE UNSOLICITED RESULTS Final Result Performing Organization Address [facility] Co de Phone Number HEALTHCARE LAB [address] LAB [address] [place] [address] * (ABNORMAL) Basic metabolic panel (06/01/2025 7:54 AM EDT) Glucose, Plasma 97 74 - 99 mg/dL 06/01/2025 8:[address] [facility] BUN, Plasma 40(H) 7 - 21 mg/dL 06/01/2025 8:[address] [facility] Creatinine, Plasma 4.18(H) 0.60 - 1.10 mg/dL 06/01/2025 8:[address] [facility] BUN/Creatinine Ratio 10 06/01/2025 8:[address] [facility] Sodium, Plasma 138 136 - 145 mmol/L 06/01/2025 8:[address] [facility] Potassium, Plasma 4.7 3.6 - 4.9 mmol/L 06/01/2025 8:[address] [facility] Chloride, Plasma 107 97 - 107 mmol/L 06/01/2025 8:[address] [facility] CO2, Plasma 20(L) 22 - 29 mmol/L 06/01/2025 8:[address] [facility] Anion Gap 11 6 - 16 mmol/L 06/01/2025 8:[address] [facility] Total Calcium, Plasma 8.5(L) 8.9 - 10.2 mg/dL 06/01/2025 8:[address] [facility] eGFRcr 12.8 mL/min/1.7 3m*2 06/01/2025 8:[address] [facility] Comment:Reported eGFRcr in m L/min/1.73m2 is based the CKD-EPI 2020 equation that does not use a race coefficient. Blood Venous blood specimen / Unknown Venipuncture / Unknown 06/01/2025 7:54 AM EDT 06/01/2025 8:02 AM EDT us Erich Sexton MD LAB BLOOD ORDERABLES Final Res ult [facility] [address] [place] [address] * (ABNORMAL) Hemogram (CBC) (06/01/2025 7:54 AM EDT) WBC Count 6.22 3.70 - 10.30 10*3/uL LAB HEMATOLOGY METHOD 06/01/2025 8:[address] [facility] RBC Count 3.65(L) 3.90 - 5.20 10*6/uL LAB HEMATOLOGY METHOD 06/01/2025 8:[address] [facility] HGB 12.1 11.2 - 15.7 g/dL LAB HEMATOLOGY METHOD 06/01/2025 8:[address] [facility] HCT 34.8 34.0 - 45.0 % LAB HEMATOLOGY METHOD 06/01/2025 8:[address] [facility] Platelet Count 181 155 - 369 10*3/uL LAB HEMATOLOGY METHOD 06/01/2025 8:[address] [facility] MCV 95 79 - 98 fL LAB HEMATOLOGY METHOD 06/01/2025 8:[address] [facility] MCH 33.2(H) 26.0 - 32.0 pg LAB HEMATOLOGY METHOD 06/01/2025 8:[address] [facility] MCHC 34.8 30.7 - 35.5 g/dL LAB HEMATOLOGY METHOD 06/01/2025 8:[address] [facility] RDW 12.7 11.5 - 14.5 % LAB HEMATOLOGY METHOD 06/01/2025 8:[address] [facility] MPV 9.1 8.8 - 12.5 fL LAB HEMATOLOGY METHOD 06/01/2025 8:[address] [facility] nRBC 0.0 <=0.0 per 100 WBCs LAB HEMATOLOGY METHOD 06/01/2025 8:[address] [facility] Blood Venous blood specimen / Unknown Venipuncture / Unknown 06/01/2025 7:54 AM EDT 06/01/2025 8:02 AM EDT us Erich Sexton MD LAB BLOOD ORDERABLES Final Res ult [facility] [address] [place] [address] * POCT , URINE (06/01/2025 7:49 AM EDT) POCT Test, Urine Negative Males and Non- Females: Negative 06/06/2025 2:36 PM EDT [facility]ALTH[facility] Plumbing Foreman ID Elizabeth Ochoa 06/06/2025 2:36 PM EDT HEALTHCARE LAB Device ID [id number] 06/06/2025 2:36 PM EDT [facility] Urine Urine specimen obtained by clean catch procedure / Unknown 06/01/2025 7:49 AM EDT 06/06/2025 2:36 PM EDT Erich Sexton MD LAB POINT OF CARE TE ST DOCKED DEVICE UNSOLICITED RESULTS Final Result [facility] [address] [place] [address] documented in this encounter Visit Diagnoses Diagnosis [...] documented as of this encounter Care Teams Toggle Press Folder And Feeder Relationship Specialty Start Date End Date Stephan Talbert MD [email or web address] [place] [address] PCP - General 02/10/24 Francisco Cox MD [address] [place] [address] 06/18/22 Rick Shi MD [address] [place] [address] Referring Physician 01/30/24 documented as of this encounter
--- OUTSIDE RECORDS SUMMARY | 2025-06-01 08:30 | XMS_ITS | Encounter Summary ---
Author Organization [facility] Address [address] [place] [address] Care Team Providers Care Federal District Clerk Name Role Phone Francisco Cox MD Unavailable [phone] Rick Shi MD Unavailable [phone] Stephan Talbert MD Primary Care Provider [phone] Reason for Visit * Auth/Cert (Routine) Specialty Diagnoses / Procedures Referred By Contac t Referred To Contact Diagnoses Pre-transplant evaluation for kidney transplant Abnormal findings on diagnostic imaging of heart and coronary circulation Pre-transplant evaluation for kidney transplant [Z01.818] Abnormal findings on diagnostic imaging of heart and coronary circulation [R93.1] Procedures TX LEFT HEART CATH INJECT VETRICULOGRAPHY, IMAGE SUPERVISE/INTERP Left heart catheterization Erich Sexton MD [address] [place] [address] Phone: tel: fax: Cardiac Logging Equipment Mechanic [address] [place] [address] Phone: tel: Referral ID Status Reason Start Date Expiration Date Visits Re quested Visits Authorized [id number] 1 1 Encounter Details Date Type Department Care Team (Late st Contact Info) Description 06/01/2025 8:30 AM EDT - 06/01/2025 9:30 AM EDT Surgery Cardiac Logging Equipment Mechanic [address] [place] [address] Erich Sexton MD [address] [place] [address] Left heart catheterization [96082 (CPT )] Surgery Details Date/Time Status Location OR Service Patient Class Case Class Case Type Trauma Case? 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 Suicidal Behavior (Lifetime) No [...] dialysis, without long-term current use of insulin ([facility]) Change every 15 days. Diagnosis E11.65. 2 each 02/01/2025 ferrous sulfate 325 (65 Fe) MG tablet Take 1 tablet (325 mg) by mouth daily. insulin glargine (Lantus SoloStar, Basaglar) 100 UNIT/ML injection penIndications:Type 2 diabetes mellitus with chronic kidney disease on chronic dialysis, with long-term current use of insulin ([facility]) Inject 20 units once daily, with titration if indicated and as instructed up to MDD 50 units 15 mL 5 08/16/2024 insulin lispro (Admelog, HumaLOG) 100 UNIT/ML injection penIndications:Type 2 diabetes mellitus with chronic kidney disease on chronic dialysis, with long-term current use of insulin ([facility]) Inject Humalog 1 units for [...] dialysis, with long-term current use of insulin ([facility]) Inject 1-4x daily 200 each [...] Discharged via wheelchair to home * Rosalina MejiaFHYI - Tracie Arguello RN - 06/01/2025 12:17 [...] no heavy work or lifting, driving a standardshift car, or vigorous sports. ? Do not [...] file Social Connections: Unknown (08/11/2023) Received from [facility] Family and Community Support Help with Day-to-Day Activities: Not on file Lonely or Isolated: Not on file Intimate Partner Violence: Unknown (11/20/2023) Received from [facility] Abuse Screen Unsafe at Home or Work/School: Not on file Feels Threatened by Someone?: Not on file Does Anyone Keep You from Contacting Others or Doint Things Outside the Home?: Not on file Physical Sign of Abuse Present: Not on file Housing Stability: Unknown (11/20/2023) Received from [facility] Housing Stability Current Living Arrangements: Not [...] plan: Pending procedural findings. Andrea Mcdonald MD Facility Assistant [1] Past Medical History: Diagnosis Date Anemia Asthma Class 3 obesity Dental disease uppers only Dependence on peritoneal dialysis (CMS/HCC) Diabetes mellitus type 2, insulin dependent ([facility]) Dysphagia End stage renal disease ([facility]) 12/29/2023 GERD (gastroesophageal reflux disease) Hiatal hernia History of thyroid nodule Hypertension IgA nephropathy Seizures ([facility]) last 1996 Vitamin D deficiency [2] Past Surgical History: Procedure Laterality Date ABLATION, VAGINAL LESION SECTION, LOW TRANSVERSE N/A section from [facility] DENTAL SURGERY N/A Dental surgery from [facility] MOUTH SURGERY 2012 had all teeth removed OTHER SURGICAL HISTORY 08/2024 tunnel catheter PERITONEAL CATHETER INSERTION [3] Family History Problem Relation Name Age of Onset Diabetes Father Byron Woodall Hypertension Father Bryon Woodall Sleep apnea [...] been discussed with the patient and/or their operations representative. All questions answered and they agree [...] Description 07/14/2025 8:00 AM EDT Office Visit [facility] [place] [address], [address] [place] [address] Rosa Isela Murrieta MD [address] [place] [phone] 08/11/2025 3:20 PM EDT Office Visit [facility] [address] [place] [phone] Mary Arroyo PA [address] [place] [address] 10/05/2025 10:00 AM EST Office Visit [facility] [address] [place] [address] Geoffrey Leos MD [address] [place] [phone] documented as of this encounter Procedures Procedure [...] with [facility] (Dr. Murrieta) and [facility] Transplant. Findings were communicated with patient's primary tavern operator via non-urgent staff message. Procedure Details After [...] The patient was transferred back to the laboratory miller holding area in good condition. Coronary Findings [...] POCT , URINE (06/01/2025 8:17 AM EDT) [facility] POCT Test, Urine Negative Males and Non- Females: Negative 06/06/2025 2:36 PM EDT [facility] Hand Clipper ID Sudhir James 06/06/2025 2:36 PM EDT HEALTHCARE LAB Device ID [id number] 06/06/2025 2:36 PM EDT [facility] Urine Urine specimen obtained by clean catch procedure / Unknown 06/01/2025 8:17 AM EDT 06/06/2025 2:36 PM EDT us Erich Sexton MD LAB POINT OF CARE TE ST DOCKED DEVICE UNSOLICITED RESULTS Final Result Performing Organization Address City/[facility]/ZIP Co de Phone Number [facility] [address] [place] [address] * (ABNORMAL) POCT creatinine (06/01/2025 8:00 AM EDT) [facility] Creatinine, Point of Care 4.5(H) 0.6 - 1.1 mg/dL 06/01/2025 8:03 AM EDT [facility] POCT eGFR 12 mL/min/1. 73m*2 06/01/2025 8:03 AM EDT [facility]ARE [facility] Hand Clipper ID Adalgisa Stovall 06/01/2025 8:03 AM EDT HEALTHCARE LAB Device ID [id number] 06/01/2025 8:03 AM EDT [facility]ALTH[facility] Comment 06/01/2025 8:03 AM EDT [facility] Comment:Testing performed on i-STAT at the point of care. Reported eGFRcr in mL/min/1.73m2 is based the CKD-EPI 2020 equation that does not use a race coefficient. Blood Venous blood specimen / Unknown 06/01/2025 8:00 AM EDT 06/01/2025 8:03 AM EDT us Erich Sexton MD LAB POINT OF CARE TE ST DOCKED DEVICE UNSOLICITED RESULTS Final Result Performing Organization Address City/[facility]/ZIP Co de Phone Number [facility] [address] [facility] [address] [place] [address] * (ABNORMAL) Basic metabolic panel (06/01/2025 7:54 AM EDT) Glucose, Plasma 97 74 - 99 mg/dL 06/01/2025 8:31 AM EDT [facility] BUN, Plasma 40(H) 7 - 21 mg/dL 06/01/2025 8:31 AM EDT [facility] Creatinine, Plasma 4.18(H) 0.60 - 1.10 mg/dL 06/01/2025 8:31 AM EDT [facility] BUN/Creatinine Ratio 10 06/01/2025 8:31 AM EDT [facility] Sodium, Plasma 138 136 - 145 mmol/L 06/01/2025 8:31 AM EDT [facility] Potassium, Plasma 4.7 3.6 - 4.9 mmol/L 06/01/2025 8:31 AM EDT [facility] Chloride, Plasma 107 97 - 107 mmol/L 06/01/2025 8:31 AM EDT [facility] CO2, Plasma 20(L) 22 - 29 mmol/L 06/01/2025 8:31 AM EDT [facility] Anion Gap 11 6 - 16 mmol/L 06/01/2025 8:31 AM EDT [facility] Total Calcium, Plasma 8.5(L) 8.9 - 10.2 mg/dL 06/01/2025 8:31 AM EDT [facility] eGFRcr 12.8 mL/min/1.7 3m*2 06/01/2025 8:31 AM EDT [facility] Comment:Reported eGFRcr in m L/min/1.73m2 is based the CKD-EPI 2020 equation that does not use a race coefficient. Blood Venous blood specimen / Unknown Venipuncture / Unknown 06/01/2025 7:54 AM EDT 06/01/2025 8:02 AM EDT us Erich Sexton MD LAB BLOOD ORDERABLES Final Res ult [facility] [address] [place] [address] * (ABNORMAL) Hemogram (CBC) (06/01/2025 7:54 AM EDT) WBC Count 6.22 3.70 - 10.30 10*3/uL LAB HEMATOLOGY METHOD 06/01/2025 8:17 AM EDT [facility] RBC Count 3.65(L) 3.90 - 5.20 10*6/uL LAB HEMATOLOGY METHOD 06/01/2025 8:17 AM EDT [facility] HGB 12.1 11.2 - 15.7 g/dL LAB HEMATOLOGY METHOD 06/01/2025 8:17 AM EDT [facility] HCT 34.8 34.0 - 45.0 % LAB HEMATOLOGY METHOD 06/01/2025 8:17 AM EDT [facility] Platelet Count 181 155 - 369 10*3/uL LAB HEMATOLOGY METHOD 06/01/2025 8:17 AM EDT [facility] MCV 95 79 - 98 fL LAB HEMATOLOGY METHOD 06/01/2025 8:17 AM EDT [facility] MCH 33.2(H) 26.0 - 32.0 pg LAB HEMATOLOGY METHOD 06/01/2025 8:17 AM EDT [facility] MCHC 34.8 30.7 - 35.5 g/dL LAB HEMATOLOGY METHOD 06/01/2025 8:17 AM EDT [facility] RDW 12.7 11.5 - 14.5 % LAB HEMATOLOGY METHOD 06/01/2025 8:17 AM EDT [facility] MPV 9.1 8.8 - 12.5 fL LAB HEMATOLOGY METHOD 06/01/2025 8:17 AM EDT [facility] nRBC 0.0 <=0.0 per 100 WBCs LAB HEMATOLOGY METHOD 06/01/2025 8:17 AM EDT [facility] Blood Venous blood specimen / Unknown Venipuncture / Unknown 06/01/2025 7:54 AM EDT 06/01/2025 8:02 AM EDT us Erich Sexton MD LAB BLOOD ORDERABLES Final Res ult [facility] [address] [place] [address] * POCT , URINE (06/01/2025 7:49 AM EDT) POCT Test, Urine Negative Males and Non- Females: Negative 06/06/2025 2:36 PM EDT [facility] Hand Clipper ID Elizabeth Ochoa 06/06/2025 2:36 PM EDT HEALTHCARE LAB Device ID [id number] 06/06/2025 2:36 PM EDT [facility] Urine Urine specimen obtained by clean catch procedure / Unknown 06/01/2025 7:49 AM EDT 06/06/2025 2:36 PM EDT us Erich Sexton MD LAB POINT OF CARE TE ST DOCKED DEVICE UNSOLICITED RESULTS Final Result [facility] [address] [place] [address] documented in this encounter Visit Diagnoses Diagnosis [...] documented as of this encounter Care Teams Federal District Clerk Relationship Specialty Start Date End Date Stephan Talbert MD [address] [place] [address] PCP - General 02/10/24 Francisco Cox MD [address] [place] [address] 06/18/22 Rick Shi MD [address] [place] [address] Referring Physician 01/30/24 documented as of this encounter
--- OUTSIDE RECORDS SUMMARY | 2025-06-23 07:54 | XMS_ITS | Clinical Summary ---
Author Organization [address] ([place], [place], [place], [place]) Address [address] [place] [address] Care Team Providers Care Cdl Team Truck Driver Name Role Phone Unavailable Primary Care Provider Unavailabl e Social History Tobacco Use Types Packs/Day Years Used Date Smoking Tobacco: Never Assessed Comments Unknown Sex and Gender Information Value Date Recorded Sex Assigned at Not on file Legal Sex Female 3:05 PM CDT Gender Identity Not on file Sexual Orientation Not on file Plan of Treatment Not on file Insurance [employer] [facility]
--- OUTSIDE RECORDS SUMMARY | 2025-06-23 07:54 | XMS_ITS | Encounter Summary ---
Author Organization [facility] Address [address] [place] [address] Care Team Providers Care Proposal Lead Writer Name Role Phone Unavailable Primary Care Provider Unavailabl e Encounter Details Date Type Department Care Team (Late st Contact Info) Description 04/07/2025 Abstract [facility] [address] [place] [phone] Miguel A Rosenda [address] [place], [place] [address] Social History Tobacco Use Types Packs/Day Years Used Date Smoking Tobacco: Never Assessed Comments Unknown Sex and Gender Information Value Date Recorded Sex Assigned at Not on file Legal Sex Female 2:40 PM EST Gender Identity Not on file Sexual Orientation Not on file documented as of this encounter Plan of Treatment Upcoming Encounters Date Type Department Care Team (Late st Contact Info) Description 07/22/2025 1:00 PM EDT Appointment [facility] Outpatient [place] [address] [place] [address] [address] [place], [place] [id number] 07/22/2025 1:30 PM EDT Appointment [facility] [address] [facility] [address] [place], [place] [phone] 07/22/2025 2:30 PM EDT Appointment [facility] [address] [facility], [address] [place], [place] [id number] 07/22/2025 3:15 PM EDT Appointment [facility] [address] [place] [address] [place] [address] documented as of this encounter Visit Diagnoses Not on filedocumented in this encounter
--- OUTSIDE RECORDS SUMMARY | 2025-06-23 07:55 | XMS_ITS | Encounter Summary ---
Author Organization [facility] Address [address] [place], [place] [address] Care Team Providers Care Chief Wharfinger Name Role Phone Unavailable Primary Care Provider Unavailabl e Encounter Details Date Type Department Care Team (Late st Contact Info) Description 05/24/2025 [facility] [address] [place] [address] [phone] Iris Greer, DEL [address] [place] [address] Social History Tobacco Use Types Packs/Day Years [...] Description 07/22/2025 1:00 PM EDT Appointment [facility] Out[facility] [place], [place] [address] [place] [address] [address] [place] [address] 07/22/2025 1:30 PM EDT Appointment [facility] [place] [facility] [address] [facility], [facility] [address] [place] [address] 07/22/2025 2:30 PM EDT Appointment [facility] [address] [facility], [address] [place], [place] [id number] 07/22/2025 3:15 PM EDT Appointment [facility] [address] [place] [address] [place] [phone] documented as of this encounter Visit Diagnoses Not on filedocumented in this encounter
--- OUTSIDE RECORDS SUMMARY | 2025-06-23 07:55 | XMS_ITS | Encounter Summary ---
Author Organization [facility] Address [address] [place] [phone] Care Team Providers Care Industrial Health Engineer Name Role Phone Unavailable Primary Care Provider Unavailabl e Reason for Visit * Reason Onset Date Comments Other 05/23/2025 FINANCIAL- INSUR ANCE. Encounter Details Date Type Department Care Team (Late st Contact Info) Description 05/23/2025 Telephone [facility] [address] [address] Rita Flores [address] [place] [address] Other (FINANCIAL- INSURANCE.) Social History Tobacco Use Types Packs/Day Years Used Date Smoking Tobacco: Never Assessed Comments Unknown Sex and Gender Information Value Date Recorded Sex Assigned at Not on file Legal Sex Female 2:40 PM EST Gender Identity Not on file Sexual Orientation Not on file documented as of this encounter Miscellaneous Notes * Telephone Encounter - Rita Flores - 05/23/2025 8:38 AM EDT Verified insurance via passport Medicare verified [place] in[place]. Spoke with pt, she stated she will have all three insurances beginning 06/03. [place], [place] and [employer]. I'll recheck insurance again 06/07. As of right now pt only has Medicare A&B. documented in this encounter Plan of Treatment Upcoming Encounters Date Type Department Care Team (Late st Contact Info) Description 07/22/2025 1:00 PM EDT Appointment [facility] [place], [place] [address] [place] [address] [address] [place] [address] 07/22/2025 1:30 PM EDT [facility]ointment [facility] [address] [facility], [facility] [address] [place] [address] 07/22/2025 2:30 PM EDT Appointment [facility] Esthela [place] [facility] [address] [facility] [address] [place] [address] 07/22/2025 3:15 PM EDT Appointment [facility] [address] [place] [address] [place] [address] documented as of this encounter Visit Diagnoses Not on filedocumented in this encounter
--- OUTSIDE RECORDS SUMMARY | 2025-06-23 07:55 | XMS_ITS | Encounter Summary ---
Author Organization [facility] Address [address] [place] [address] Care Team Providers Care Infantryman Name Role Phone Unavailable Primary Care Provider Unavailabl e Reason for Referral * Radiology Services (Routine) - Pending Review Specialty Diagnoses / Procedures Referred By Steffen braun Referred To Contact Diagnoses Pre-transplant evaluation for end stage renal disease Chronic kidney disease with end stage renal failure on dialysis (CMS/HCC) Procedures DIAG-CHEST 2 VIEWS Choco Baez MD [address] [place], [place] [address]. [address] [place] [address] Phone: tel: fax: [address] [phone] Phone: tel: Referral ID Status Reason Start Date Expiration Date V isits Requested Visits Authorized [id number] Pending Review 06/14/2025 06/14/2026 1 1 * Radiology Services (Routine) - Pending Review Specialty Diagnoses / Procedures Referred By Steffen braun Referred To Contact Diagnoses Pre-transplant evaluation for end stage renal disease Chronic kidney disease with end stage renal failure on dialysis ([facility]) Procedures VASCI-CAROTID DUPLEX COMP RAFAEL Choco Baez MD [address] [place] [address] Phone: tel: fax: THE [address] [address] Phone: tel: Referral ID Status Reason Start Date Expiration Date V isits Requested Visits Authorized [id number] Pending Review 06/14/2025 06/14/2026 1 1 * Radiology Services (Routine) - Pending Review Specialty Diagnoses / Procedures Referred By Contac t Referred To Contact Diagnoses Pre-transplant evaluation for end stage renal disease Chronic kidney disease with end stage renal failure on dialysis (CMS/HCC) Procedures 2D ECHO COMPLETE W/STRAIN/3D PRN CONTR/BUBBLE NC ECHO TTHRC R-T 2D W/WOM-MODE COMPL SPEC&COLR D CHG 3D RENDERING W/INTERP & POSTPROCESS SUPERVISION Choco Baez MD [facility] [address] [place] [address] Phone: tel: fax: [address] [address] Phone: tel: Referral ID Status Reason Start Date Expiration Date V isits Requested Visits Authorized [id number] Pending Review 06/14/2025 06/14/2026 1 1 * Radiology Services (Routine) - Pending Review Specialty Diagnoses / Procedures Referred By Contac t Referred To Contact Diagnoses Pre-transplant evaluation for end stage renal disease Chronic kidney disease with end stage renal failure on dialysis ([facility]/H[facility]) Procedures CT-ABDOMEN & PELVIS WO CONTRAST Choco Baez MD [address] [facility]. [address] [place] [address] Phone: tel: fax: [address] [phone] Phone: tel: Referral ID Status Reason Start Date Expiration Date V isits Requested Visits Authorized [id number] Pending Review 06/14/2025 06/14/2026 1 1 Encounter Details Date Type Department Care Team (Late st Contact Info) Description 06/14/2025 Orders Only [facility] [address] [facility] 5 [place] [address] Iris Greer, DEL [address] [place] [address] Pre-transplant evaluation for end stage renal disease (Primary Dx); Chronic kidney disease with end stage renal failure on dialysis ([facility]/HCC) Social History Tobacco Use Types Packs/Day Years [...] Description 07/22/2025 1:00 PM EDT Appointment [facility] Outpatient [place], [place] [place] [address] 07/22/2025 1:30 PM EDT Appointment The [address] [place] [address] 07/22/2025 2:30 PM EDT Appointment [address] [place] [address] 07/22/2025 3:15 PM EDT Appointment [facility] Admission Testing [address] [place] [address] [place] [address] Scheduled Orders Name Type Priority Associated Diagnoses Order Schedule CT-ABDOMEN & PELVIS WO CONTRAST Imaging Routine Pre-transplant evaluation for end stage renal disease Chronic kidney disease with end stage renal failure on dialysis ([facility]) Expected: 06/21/2025, Expires: 06/14/2026 2D ECHO COMPLETE W/STRAIN/3D PRN CONTR/BUBBLE ECHO Routine Pre-transplant evaluation for end stage renal disease Chronic kidney disease with end stage renal failure on dialysis ([facility]/HCC) Expected: 06/21/2025, Expires: 06/14/2026 VASCI-CAROTID DUPLEX COMP RAFAEL Imaging Routine Pre-transplant evaluation for end stage renal disease Chronic kidney disease with end stage renal failure on dialysis ([facility] Expected: 06/21/2025, Expires: 08/15/2026 APTT Lab Routine Pre-transplant evaluation for end stage renal disease Chronic kidney disease with end stage renal failure on dialysis ([facility] 1 Occurrences starting 06/14/2025 until 06/14/2026 BASIC METABOLIC PANEL (BMP=EP1) Lab Routine Pre-transplant evaluation for end stage renal disease Chronic kidney disease with end stage renal failure on dialysis ([facility] 1 Occurrences starting 06/14/2025 until 06/14/2026 CBC WITH DIFFERENTIAL Lab Routine Pre-transplant evaluation for end stage renal disease Chronic kidney disease with end stage renal failure on dialysis ([facility] 1 Occurrences starting 06/14/2025 until 06/14/2026 CMV IGG & IGM Lab Routine Pre-transplant evaluation for end stage renal disease Chronic kidney disease with end stage renal failure on dialysis ([facility] 1 Occurrences starting 06/14/2025 until 06/14/2026 C-PEPTIDE Lab Routine Pre-transplant evaluation for end stage renal disease Chronic kidney disease with end stage renal failure on dialysis ([facility] 1 Occurrences starting 06/14/2025 until 06/14/2026 DIAG-CHEST 2 VIEWS Imaging Routine Pre-transplant evaluation for end stage renal disease Chronic kidney disease with end stage renal failure on dialysis ([facility] Expected: 06/21/2025, Expires: 06/14/2026 EBV CAPSID AB, IGG Lab Routine Pre-transplant evaluation for end stage renal disease Chronic kidney disease with end stage renal failure on dialysis ([facility] 1 Occurrences starting 06/14/2025 until 06/14/2026 EBV PROFILE Lab Routine Pre-transplant evaluation for end stage renal disease Chronic kidney disease with end stage renal failure on dialysis ([facility] 1 Occurrences starting 06/14/2025 until 06/14/2026 ECG ECG Routine Pre-transplant evaluation for end stage renal disease Chronic kidney disease with end stage renal failure on dialysis ([facility] 1 Occurrences starting 06/14/2025 until 06/14/2026 FOLATE, RBC Lab Routine Pre-transplant evaluation for end stage renal disease Chronic kidney disease with end stage renal failure on dialysis ([facility]) 1 Occurrences starting 06/14/2025 until 06/14/2026 HGB, A1C (GLYCOHEMOGLOBIN) Lab Routine Pre-transplant evaluation for end stage renal disease Chronic kidney disease with end stage renal failure on dialysis ([facility]) 1 Occurrences starting 06/14/2025 until 06/14/2026 HEPATITIS A IGG ANTIBODY Lab Routine Pre-transplant evaluation for end stage renal disease Chronic kidney disease with end stage renal failure on dialysis ([facility]) 1 Occurrences starting 06/14/2025 until 06/14/2026 HEPATITIS A IGM Lab Routine Pre-transplant evaluation for end stage renal disease Chronic kidney disease with end stage renal failure on dialysis ([facility]) 1 Occurrences starting 06/14/2025 until 06/14/2026 HEPATITIS B CORE AB Lab Routine Pre-transplant evaluation for end stage renal disease Chronic kidney disease with end stage renal failure on dialysis ([facility]) 1 Occurrences starting 06/14/2025 until 06/14/2026 HEPATITIS B SURFACE AB, QUANT(IMMUNE STATUS) Lab Routine Pre-transplant evaluation for end stage renal disease Chronic kidney disease with end stage renal failure on dialysis ([facility]) 1 Occurrences starting 06/14/2025 until 06/14/2026 HEPATITIS B SURFACE AG Lab Routine Pre-transplant evaluation for end stage renal disease Chronic kidney disease with end stage renal failure on dialysis ([facility]) 1 Occurrences starting 06/14/2025 until 06/14/2026 HEPATITIS C AB WITH REFLEX TO HCV,RNA,QUANT PCR Lab Routine Pre-transplant evaluation for end stage renal disease Chronic kidney disease with end stage renal failure on dialysis ([facility]) 1 Occurrences starting 06/14/2025 until 06/14/2026 HEPATITIS C RNA QUANTITATIVE Lab Routine Pre-transplant evaluation for end stage renal disease Chronic kidney disease with end stage renal failure on dialysis ([facility]) 1 Occurrences starting 06/14/2025 until 06/14/2026 HISTOPLASMA AB, IMMUNODIFFUSION Lab Routine Pre-transplant evaluation for end stage renal disease Chronic kidney disease with end stage renal failure on dialysis ([facility]) 1 Occurrences starting 06/14/2025 until 06/14/2026 VITAMIN B12 (CYANOCOBALAMIN) Lab Routine Pre-transplant evaluation for end stage renal disease Chronic kidney disease with end stage renal failure on dialysis ([facility]) 1 Occurrences starting 06/14/2025 until 06/14/2026 VARICELLA ZOSTER AB, IGG Lab Routine Pre-transplant evaluation for end stage renal disease Chronic kidney disease with end stage renal failure on dialysis ([facility] 1 Occurrences starting 06/14/2025 until 06/14/2026 URINE PROTEIN & CREATININE W/RATIO Lab Routine Pre-transplant evaluation for end stage renal disease Chronic kidney disease with end stage renal failure on dialysis ([facility] 1 Occurrences starting 06/14/2025 until 06/14/2026 URINALYSIS W/ REFLEX TO MICROSCOPIC Lab Routine Pre-transplant evaluation for end stage renal disease Chronic kidney disease with end stage renal failure on dialysis ([facility] 1 Occurrences starting 06/14/2025 until 06/14/2026 URIC ACID, SERUM Lab Routine Pre-transplant evaluation for end stage renal disease Chronic kidney disease with end stage renal failure on dialysis ([facility] 1 Occurrences starting 06/14/2025 until 06/14/2026 STRONGYLOIDES AB Lab Routine Pre-transplant evaluation for end stage renal disease Chronic kidney disease with end stage renal failure on dialysis ([facility] 1 Occurrences starting 06/14/2025 until 06/14/2026 SYPHILIS DIAGNOSTIC CASCADE Lab Routine Pre-transplant evaluation for end stage renal disease Chronic kidney disease with end stage renal failure on dialysis ([facility] 1 Occurrences starting 06/14/2025 until 06/14/2026 SERUM DRUG SCREEN Lab Routine Pre-transplant evaluation for end stage renal disease Chronic kidney disease with end stage renal failure on dialysis ([facility] 1 Occurrences starting 06/14/2025 until 06/14/2026 ROUTINE URINE CULTURE Microbiology Routine Pre-transplant evaluation for end stage renal disease Chronic kidney disease with end stage renal failure on dialysis ([facility] 1 Occurrences starting 06/14/2025 until 06/14/2026 QUANTIFERON(R) TB GOLD Lab Routine Pre-transplant evaluation for end stage renal disease Chronic kidney disease with end stage renal failure on dialysis ([facility] 1 Occurrences starting 06/14/2025 until 06/14/2026 PT (PRO TIME INCLUDES INR) Lab Routine Pre-transplant evaluation for end stage renal disease Chronic kidney disease with end stage renal failure on dialysis ([facility] 1 Occurrences starting 06/14/2025 until 06/14/2026 PHOSPHORUS Lab Routine Pre-transplant evaluation for end stage renal disease Chronic kidney disease with end stage renal failure on dialysis ([facility]) 1 Occurrences starting 06/14/2025 until 06/14/2026 PARATHYROID HORMONE Lab Routine Pre-transplant evaluation for end stage renal disease Chronic kidney disease with end stage renal failure on dialysis ([facility]) 1 Occurrences starting 06/14/2025 until 06/14/2026 MAGNESIUM Lab Routine Pre-transplant evaluation for end stage renal disease Chronic kidney disease with end stage renal failure on dialysis ([facility]) 1 Occurrences starting 06/14/2025 until 06/14/2026 LIVER PROFILE Lab Routine Pre-transplant evaluation for end stage renal disease Chronic kidney disease with end stage renal failure on dialysis ([facility] 1 Occurrences starting 06/14/2025 until 06/14/2026 LIPID PROFILE Lab Routine Pre-transplant evaluation for end stage renal disease Chronic kidney disease with end stage renal failure on dialysis ([facility] 1 Occurrences starting 06/14/2025 until 06/14/2026 HIV, QUANT Lab Routine Pre-transplant evaluation for end stage renal disease Chronic kidney disease with end stage renal failure on dialysis ([facility] 1 Occurrences starting 06/14/2025 until 06/14/2026 HIV AG/AB COMBO ASSAY Lab Routine Pre-transplant evaluation for end stage renal disease Chronic kidney disease with end stage renal failure on dialysis ([facility] 1 Occurrences starting 06/14/2025 until 06/14/2026 TYPE AND SCREEN NONTRANSFUSABLE AMBULATORY Lab Routine Pre-transplant evaluation for end stage renal disease Chronic kidney disease with end stage renal failure on dialysis ([facility]) 1 Occurrences starting 06/14/2025 until 06/14/2026 documented as of this encounter Visit Diagnoses Diagnosis Pre-transplant evaluation for end stage renal disease- Primary Other specified pre-operative examination Chronic kidney disease with end stage renal failure on dialysis ([facility]) documented in this encounter
--- OUTSIDE RECORDS SUMMARY | 2025-06-23 07:55 | XMS_ITS | Encounter Summary ---
Author Organization [facility] Address [address] [place] [address] Care Team Providers Care Early Childhood Educator Aide Name Role Phone Unavailable Primary Care Provider Unavailabl e Encounter Details Date Type Department Care Team (Late st Contact Info) Description 06/13/2025 Abstract [facility] [address] [place] [id number] Isidra Almodovar [address] [place], [place] [address] Social History Tobacco Use Types Packs/Day Years [...] Description 07/22/2025 1:00 PM EDT Appointment [facility] Outpatient [place], [place] [address] [place] [address] [address]2 [place], [place] [id number] 07/22/2025 1:30 PM EDT Appointment [facility] [place] 2[place] [address] [facility] [address] [place], [place] [id number] 07/22/2025 2:30 PM EDT Appointment [facility] [place] [facility]] [address] [facility], [address] [place], [place] [id number] 07/22/2025 3:15 PM EDT Appointment [place] [facility] [address] [place] [address] [place] [address] documented as of this encounter Visit Diagnoses Not on filedocumented in this encounter
--- OUTSIDE RECORDS SUMMARY | 2025-06-23 07:55 | XMS_ITS | Encounter Summary ---
Author Organization [facility] Address [address] [place] [address] Care Team Providers Care Mud Mixer Operator Name Role Phone Unavailable Primary Care Provider Unavailabl e Reason for Visit * Reason Onset Date Comments Kidney Recipient Evaluation 05/03/2025 Encounter Details Date Type Department Care Team (Late st Contact Info) Description 05/03/2025 Telephone [facility] [address] [place] [address] Cade Sánchez BSN, RN [address] [place] [address] Kidney Recipient Evaluation Social History Tobacco Use Types Packs/Day Years Used Date Smoking Tobacco: Never Assessed Comments Unknown Sex and Gender Information Value Date Recorded Sex Assigned at Not on file Legal Sex Female 2:40 PM EST Gender Identity Not on file Sexual Orientation Not on file documented as of this encounter Miscellaneous Notes * Telephone Encounter - Cade Sánchez BSN, RN - 05/03/2025 12:40 PM EDT Call placed to Ashley to discuss [facility] Transplant Work Up. No answer. LMOM for her to call me back. Cade Sánchez FRAMING MILL OPERATOR Kidney Tentering Machine Off Bearer [phone] [email or web address] documented in this encounter Plan of Treatment Upcoming Encounters Date Type Department Care Team (Late Contact Info) Description 07/22/2025 1:00 PM EDT Appointment [facility] Outpatient Center, [place] [id number] [place] [address] [address] [place] [address] 07/22/2025 1:30 PM EDT Appointment [facility] [place] [facility] [address] [facility], [facility] [address] [place] [address] 07/22/2025 2:30 PM EDT Appointment [facility] [place] [facility] [address] [facility] [address] [place] [address] 07/22/2025 3:15 PM EDT Appointment [facility] Admission Testing [address] [place] [address] [place] [address] documented as of this encounter Visit Diagnoses Not on filedocumented in this encounter
--- NOTE | 2025-06-23 08:00 | MM_ITS ---
PROCEDURE INFORMATION: Exam: MG Bilateral Screening 3D Mammography Exam date and time: 06/23/2025 8:01 AM Age: 45 years old Clinical indication: Screening examination TECHNIQUE: Imaging protocol: Bilateral Screening tomosynthesis and 2D mammography including computer-aided detection (CAD) when performed. COMPARISON: MG MM DIG SCREENING MAMM BI W/CAD 03/17/2024 3:49 PM FINDINGS: MAMMOGRAPHY: Breast composition: There are scattered areas of fibroglandular density. Mass: None. Architectural distortion: None. Calcifications: No suspicious calcifications. Asymmetric density: None. Skin thickening: None. Axillary adenopathy: None. IMPRESSION: No mammographic evidence of malignancy. Annual screening is recommended unless otherwise clinically indicated. ASSESSMENT: BI-RADS Category 1: Negative.
--- OUTSIDE RECORDS SUMMARY | 2025-06-23 08:00 | XMS_ITS | Clinical Summary ---
Author Organization [address] [address] Care Team Providers Care Rn Bsn Name Role Phone Unavailable Primary Care Provider [...] therelease of HIV test results or diagnoses. [id number] Encounters Date Type Department Care Team Description 04/22/2025 Telephone [facility] Kidney Transplant at [address] [address] Randi Leone MA Kidney Transplant Evaluation from Last 3 Months Social History Tobacco Use Types Packs/Day Years Used Date Smoking Tobacco: Never Assessed Comments Unknown Sex and Gender Information Value Date Recorded Sex Assigned at Not on file Legal Sex Female 1:16 PM EDT Gender Identity Not on file Sexual Orientation Not on file Plan of Treatment Not on file Insurance [place] [id number] AETNA MDCD [facility]
--- OUTSIDE RECORDS SUMMARY | 2025-06-23 08:00 | XMS_ITS | Clinical Summary ---
Author Organization [facility] Address [address] [place] [address] Phone Care Team Providers Care Transportation Planner Name Role Phone Stephan Talbert MD Primary Care Provider [phone] Allergies Active Allergy Reactions Criticality Noted Date [...] Description 04/06/2025 1:45 PM EDT Office Visit [facility] [address] [address] [place] [address] Choco Baez MD End-stage renal [...] this topic Medical Devices Implanted Type Area Plug Cutting Machine Operator Device Identifier Shelf Expiration Date Model / Serial / Lot Kit [place] Presternal Peritoneal Dialysis Catheter - [id number] Implanted:Qty : 1 on 09/30/2023 by Stephen Bruce MD at [facility] N/A: Abdomen COVIDIEN:NIRMAL L [id number] 06/11/2028 [id number] / / [id number] Insurance MEDICAID [place] HUMANA MEDICARE HMO MR HUMANA MEDICARE HMO MR HUMANA MEDICARE HMO MR [place] [id number] Care Teams Transportation Planner Relationship Specialty Start Date End Date Stephan Talbert MD PCP - General Family Medicine 03/06/23
--- OUTSIDE RECORDS SUMMARY | 2025-06-23 08:01 | XMS_ITS | Encounter Summary ---
Author Organization [facility] Address [address] [place] [address] Care Team Providers Care Developer Trading Systems Name Role Phone Unavailable Primary Care Provider Unavailabl e Encounter Details Date Type Department Care Team (Late st Contact Info) Description 01/05/2025 Abstract [facility] [address] [address] Rosenda Grady [address] [place], [place] [address] Social History Tobacco Use Types Packs/Day Years Used Date Smoking Tobacco: Never Assessed Comments Unknown Sex and Gender Information Value Date Recorded Sex Assigned at Not on file Legal Sex Female 2:40 PM EST Gender Identity Not on file Sexual Orientation Not on file documented as of this encounter Last Filed Vital Signs Vital Sign Reading Time Taken Comments Blood Pressure - - Pulse - - Temperature - - Respiratory Rate - - Oxygen Saturation - - Inhaled Oxygen Concentration - - Weight 112 kg (246 lb 14.6 oz) 01/05/2025 2:53 P M EST Height 180 cm (5' 10.87 ) 01/05/2025 2:53 PM EST Body Mass Index 34.57 01/05/2025 2:53 PM EST documented in this encounter Plan of Treatment Upcoming Encounters Date Type Department Care Team (Late st Contact Info) Description 07/22/2025 1:00 PM EDT Appointment The [facility] [address] [facility] [address] [place] [address] 07/22/2025 1:30 PM EDT Appointment [facility] [address] [facility], [address] [place] [id number] 07/22/2025 2:30 PM EDT Appointment [facility] Testing Center - [place] [facility] Outpatient Center [address] [facility], [facility] [address] [place] [address] 07/22/2025 3:15 PM EDT Appointment Will [place] Ad[facility] Testing [address] [facility] [place] [address] documented as of this encounter Visit Diagnoses Not on filedocumented in this encounter
--- OUTSIDE RECORDS SUMMARY | 2025-06-23 08:01 | XMS_ITS | Clinical Summary ---
Author Organization [facility] Address [address] [place] [address] Care Team Providers Care Heavy Mobile Equipment Operator Name Role Phone Armand Yates MD Primary Care Provider [phone] Allergies Active Allergy Reactions Criticality Noted Date Comments Penicillins Unknown - High Severity 11/15/2022 Medications amLODIPine (NORVASC) 10 MG tablet Take 10 mg by mouth Daily. 3 Active omeprazole (priLOSEC) 40 MG capsule Take 40 capsules by mouth Daily. 3 Active sodium bicarbonate 650 MG tablet Take 650 mg by mouth 2 (Two) Times a Day. 3 Active albuterol sulfate HFA 108 (90 Base) MCG/ACT inhaler Inhale 2 puffs Every 4 (Four) Hours As Needed for Wheezing. Active Active Problems Problem Noted Date Diagnosed Date Type 2 diabetes mellitus 11/15/2022 UTI (urinary tract infection), bacterial 023 CKD (chronic kidney disease) 11/15/2022 HTN (hypertension) 11/15/2022 Resolved Problems Problem Noted Date Diagnosed Date Resolved Date Intractable pain 11/15/2022 11/16/2022 Family History Medical History Relation Name Comments Cancer Maternal Grandfather Heart disease Maternal Grandfather Diabetes Maternal Grandmother Diabetes Maternal Uncle COPD Mother Relation Name Status Comments Maternal Grandfather Maternal Grandmother Maternal Uncle Mother Alive Social History Tobacco Use Types Packs/Day Years Used Date Smoking Tobacco: Never Smokeless Tobacco: Never Tobacco Cessation:Counseling Given: Not Answered AUDIT-C Answer Date Recorded Q1: How often do you have a drink containing alcohol? Never 11/16/2022 Q2: How many drinks containi ng alcohol do you have on a typical day when you are drinking? Patient does not drink Q3: How often do you have si x or more drinks on one occasion? Never 11/16/2022 Abuse Screen Answer Date Recorded Unsafe at Home or Work/School Not on file Feels Threatened by Someone? Not on file Does Anyone Keep You from Co ntacting Others or Doint Things Outside the Home? Not on file 11/20/2023 Physical Sign of Abuse Present Not on file 0 11/20/2023 Housing Stability Answer Date Recorded Current Living Arrangements Not on file 11/03 Potentially Unsafe Housing Conditions Not on amando e 11/20/2023 Family and Community Support Answer Ulysses e Recorded Help with Day-to-Day Activities Not on file 08/11/2023 Lonely or Isolated Not on file 08/11/2023 Employment Answer Date Recorded Do you want help finding or keeping work or a ashleigh b? Not on file 08/11/2023 Disabilities Answer Date Recorded Concentrating, Remembering, or Making Decisions Difficulty Not on file 11/20/2023 Doing Errands Independently Difficulty Not on fi le 11/20/2023 Education Answer Date Recorded Help with school or training? Not on file Preferred Language Not on file 08/11/2023 Comments No Sex and Gender Information Value Date Recorded Sex Assigned at Not on file Legal Sex Female 12:11 PM EDT Gender Identity Not on file Sexual Orientation Not on file Last Filed Vital Signs Vital Sign Reading Time Taken Comments Blood Pressure 144/73 11/16/2022 7:55 AM EST Pulse 79 11/16/2022 9:00 AM EST Temperature 37.2 C (98.9 F) 11/16/2022 7:55 AM EST Respiratory Rate 16 11/16/2022 7:55 AM EST Oxygen Saturation 95% 11/16/2022 9:00 AM EST Inhaled Oxygen Concentration - - Weight 135 kg (297 lb 8 oz) 11/15/2022 4:[address] Height 180.3 cm (5' 11 ) 11/15/2022 4:47 PM EST Body Mass Index 41.49 11/15/2022 4:47 PM EST Plan of Treatment Health Maintenance Due Date Last Done Comments ANNUAL PHYSICAL 1980 Annual Gynecologic Pelvic an d Breast Exam 1980 HEPATITIS C SCREENING 1980 TDAP/TD VACCINES (1 - Tdap) 1999 MAMMOGRAM 2020 COVID-19 Vaccine (3 - 2023-2 5 season) 2024 09/18/2021, 08/27/2021 COLOGUARD 2025 COLON CANCER SCREENING 5 YEA R SIGMOIDOSCOPY 2025 COLONOSCOPY 2025 COLORECTAL CANCER SCREENING 2025 CT COLONOGRAPHY 2025 FECAL OCCULT BLOOD TEST 2025 FIT Testing (1 year) 2025 INFLUENZA VACCINE 08/03/2025 HEMOGLOBIN A1C Discontinued 08/16/2024, 05/14/2024 Pneumococcal Vaccine 0-49 Aged Out No longer eligible based on patient's age to complete this topic Insurance Advance Directives * CPR (Attempt to Resuscitate) (Latest Code Status on File) Date Activated Date Inactivated Comments 11/15/2022 4:30 PM 11/16/2022 1:02 PM Question Answer Comments Code Status (Patient has no pulse and is not breathing): CPR (Attempt to Resuscitate) Medical Interventions (Patie nt has pulse or is breathing): Full Support Level Of Support Discussed With: Patient Care Teams Heavy Mobile Equipment Operator Relationship Specialty Start Date End Date Armand Yates MD [address] [facility] [address] [place] [address] PCP - General Nephrology 11/15/22
--- OUTSIDE RECORDS SUMMARY | 2025-06-23 08:01 | XMS_ITS ---
Author Organization [facility] Address [address] [place] [address] Care Team Providers Care Director Retail Brand Development Name Role Phone Unavailable Primary Care Provider Unavailabl e Transplant Episode Kidney Candidate [facility] ([place], [place]) - [facility] Evaluation began on 03/11/2025 Marked as Active on 03/11/2025 Kidney CoordinatorIris Greer RN Fax: N/A Email: N/A Scores Score Value Updated Exceptions/Reas ons CPRA Not available EPTS (Calc) 14 06/23/2025 Care Team Name Role Phone Fax Email Iris Greer RN Kidney Coordinator [phone] N/A N/A Amy Bangura, PHARMD Clinical Pharmacist [phone] N/A Evie Almodovar MSW, DEPUTY SHERIFF CUSTODY Hadoop Admin [phone] N/A N/A Rita Flores Solvent Station Attendant [phone] N/A N/A Choco Baez MD Transplant Surgeon [phone] N/A Claritza Fields It Operations Analyst [phone] N/A Events Pre-Transplant Referred: 01/05/2025 Evaluation began: 03/11/2025 Pending Checklist Tasks (Due on or before 07/24/2025) Name Due Date Attached Appoint ment Hepatitis B Initial Immunization 04/11/2025 Prevnar 20 Immunization 04/11/2025 Influenza (Yearly) Immunization 04/11/2025 Hepatitis A Immunization 04/11/2025 Hepatitis B Initial Immunization 04/11/2025 Hepatitis B 1-Month Immunization 04/11/2025 Hepatitis B 6-Month Immunization 04/11/2025 Hepatitis B Immunization Series 04/11/2025 COVID-19 Immunization (Yearly) 04/11/2025 RSV Immunization 04/11/2025 TDAP Immunization 04/11/2025 HPV Initial Immunization 04/11/2025 HPV 2-Month Immunization 04/11/2025 HPV 6-Month Immunization 04/11/2025 HPV Immunization Series 04/11/2025 Shingrix 2-6 Month Immunization 04/11/2025 Shingrix Immunization Series 04/11/2025 Haemophilus Influenzae (HIB) Immunization 04/11/20 Meningococcal Serogroup B Initial Immunization Meningococcal Serogroup B 1-Month Immunization Meningococcal Serogroup B Immunization Series 04/11/2025 Meningococcal Conjugate Initial Immunization 04/11 Meningococcal Conjugate 2-Month Immunization 04/11 COVID-19 Immunization Dose 1 04/11/2025 COVID-19 Immunization Dose 2 04/11/2025 Dialysis History Dialysis History Start End Type Comments Center 12/23/2023 Continuous Cycling Peritoneal Dialys is Initial [facility] Dialysis Center Information Center Phone Fax Address [facility] [phone] [address] [facility] [address]
--- OUTSIDE RECORDS SUMMARY | 2025-06-23 08:01 | XMS_ITS | Clinical Summary ---
Author Organization [facility] Address [address] [place] [address] Care Team Providers Care Cellular Phone Repairer Name Role Phone Unavailable Primary Care Provider Unavailabl e Encounters Date Type Department Care Team Description 06/14/2025 Orders Only [facility] [address] [place] [address] Iris Greer, DEL Pre-transplant evaluation for end stage renal disease (Primary Dx); Chronic kidney disease with end stage renal failure on dialysis (CMS/HCC) 06/13/2025 Abstract [facility] [address] [place] [address] Isidra Almodovar 05/24/2025 [facility] [address] [place] [address] Iris rGeer RN 05/23/2025 Telephone [facility] [address] [place] [address] Rita Flores Other (FINANCIAL- INSURANCE.) 05/03/2025 Telephone [facility] [address] [place] [address] Cade Sánchez BSN, RN Kidney Recipient Evaluation 04/07/2025 Abstract [facility] [address] [place] [address] Rosenda Grady 04/07/2025 Telephone [facility] [address] [place] [address] Evie Almodovar, MECHANICAL SHOVEL OPERATOR, ROCK MASON APPRENTICE Kidney Recipient Evaluation from Last 3 Months Social History [...] - Inhaled Oxygen Concentration - - Weight 104.3 kg (230 lb) 02/24/2025 10:37 AM EDT Height 180 cm (5' 10.87 ) 02/24/2025 10:37 AM ED T Body Mass Index 32.2 02/24/2025 10:37 AM EDT Plan of Treatment Upcoming Encounters Date Type Department Care Team (Late st Contact Info) Description 07/22/2025 1:00 PM EDT Appointment [facility], [address] [place] [address] 07/22/2025 1:30 PM EDT Appointment [facility] [place] [address] [place] [address] [address] [place] [address] 07/22/2025 2:30 PM EDT Appointment [facility] [address] [place] [address], [facility] [place] [place] [address] 07/22/2025 3:15 PM EDT Appointment [facility] Admission Testing [address] [place] [address] [place] [address] Health Maintenance Due Date Last Done Comments Cologuard 1980 Colonoscopy 1980 Colorectal Cancer Screening 1980 FIT 1980 Cervical Cancer Screening 2001 COVID-19 Vaccine ( season) 2024 09/18/2021, 08/27/2021 BMI Counseling 11/03/2024 Depression Screening 11/03/2024 Influenza Vaccination (#1) 2025 Lipid Screening 02/12/2029 02/13/2024 Tetanus Vaccination (Every 10 Years) 11/02/2034 11/02/2024 HPV Vaccine Aged Out No longer eligi ble based on patient's age to complete this topic Insurance MEDICAID AETNA [facility] [place] MEDICAID HU[employer]NA MEDICARE
--- OUTSIDE RECORDS SUMMARY | 2025-06-23 08:01 | XMS_ITS | Encounter Summary ---
Author Organization [facility] Address [address] [place] [address] Care Team Providers Care Firer Glost Kiln Name Role Phone Francisco Cox MD Unavailable [phone] Rick Shi MD Unavailable Stephan Talbert MD Primary Care Provider [phone] Reason for Visit * Reason Onset Date Comments Prior-authorization/insurance Verification 06/06 Encounter Details Date Type Department Care Team (Late st Contact Info) Description 06/06/2025 Telephone [facility] Endocrinology [address] [place] [address] Mary Arroyo PA [address] [address] Prior-authorization/in surance Verification Social History Tobacco Use Types Packs/Day Years [...] encounter Miscellaneous Notes * Telephone Encounter - Francisco Sevilla, PharmD - 06/08/2025 8:56 AM EDT PA request has been approved and pharmacy notified (Filling pharmacy will be notified by phone, fax, or submitted prescription) Authorized Medication: FSL 3+ sensor Name of Insurance Approving PA: [employer] [facility] PA Number: [id number] PA Effective Dates: 11/03/24 - 11/02/25 Additional Info: [id number] * Telephone Encounter - Isidra Vargas - 06/06/2025 3:03 PM EDT Images from the original note were not included. Prior authorization requested for FreeStyle Omar 3 Plus Sensor. Ordered by Mary Arroyo. documented in this encounter Plan of Treatment Upcoming Encounters Date Type Department Care Team (Late st Contact Info) Description 07/14/2025 8:00 AM EDT Office Visit [facility] [place] [address] [facility], [address] [place] [address] Rosa Isela Murrieta MD [address] [facility] [address] [place] [address] 08/11/2025 3:20 PM EDT [facility] End[facility]ology [address] [place] [address] Mary Arroyo PA [address] [place] [phone] 10/05/2025 10:00 AM EST Office Visit [facility] [address] [place] [address] Geoffrey Leos MD [address] [place] [phone] documented as of this encounter Visit Diagnoses [...] documented as of this encounter Care Teams Firer Glost Kiln Relationship Specialty Start Date End Date Stephan Talbert MD [address] [place] [address] PCP - General 02/10/24 Francisco Cox MD [address] [place] [address] 06/18/22 Rick Shi MD [address] [place] [address] Referring Physician 01/30/24 documented as of this encounter
--- OUTSIDE RECORDS SUMMARY | 2025-06-23 08:01 | XMS_ITS | Encounter Summary ---
Author Organization [facility] Address [address] [place] [address] Care Team Providers Care Liquor Tester Name Role Phone Unavailable Primary Care Provider Unavailabl e Encounter Details Date Type Department Care Team (Late st Contact Info) Description 02/25/2025 [facility] [address] [place] [address] Evie Thurman RN [address] [place] [address] Social History Tobacco Use Types Packs/Day Years [...] Description 07/22/2025 1:00 PM EDT Appointment [facility] Outpatient [place], [place]a [place] [address] [place] [address] [address] [place] [address] 07/22/2025 1:30 PM EDT Appoint[facility] [place] [address] [facility], [facility] [address] [place] [id number] 07/22/2025 2:30 PM EDT Appointment [facility] [address] [facility], [facility] [address] [place] [id number] 07/22/2025 3:15 PM EDT Appointment [facility] Admission Testing [address] [place] [address] B Esthel[place] [id number] documented as of this encounter Visit Diagnoses Not on filedocumented in this encounter
--- OUTSIDE RECORDS SUMMARY | 2025-06-23 08:01 | XMS_ITS | Encounter Summary ---
Author Organization [facility] Address [address] [place] [address] Care Team Providers Care Causticiser Name Role Phone Francisco Cox MD Unavailable [phone] Rick Shi MD Unavailable [phone] Stephan Talbert MD Primary Care Provider [phone] Encounter Details Date Type Department Care Team [...] Description 07/14/2025 8:00 AM EDT Office Visit [facility] [address] [facility] [place] [address] Rosa Isela Murrieta MD [address] [facility] [address] [place] [phone] 08/11/2025 3:20 PM EDT Office Visit [facility] Endocrinology [address] [place] [address] Mary Arroyo PA [address] [facility] [address] [place] [address] 10/05/2025 10:00 AM EST Office [facility] [address] [place] [address] Geoffrey Leos MD [address] [phone] documented as of this encounter Visit Diagnoses [...] documented as of this encounter Care Teams Causticiser Relationship Specialty Start Date End Date Stephan Talbert MD [address] [facility] [address] [place] [address] PCP - General 02/10/24 Francisco Cox MD [address] [place] [address] 06/18/22 Rick Shi MD [address] [address] Referring Physician 01/30/24 documented as of this encounter
--- OUTSIDE RECORDS SUMMARY | 2025-06-23 08:01 | XMS_ITS | Clinical Summary ---
Author Organization [facility] Address [address] [facility] [address] [place] [address] Care Team Providers Care Mainspring Winder And Oiler Name Role Phone Stephan Talbert MD Primary Care Provider Social History Tobacco Use Types Packs/Day Years Used Date Smoking Tobacco: Never Assessed Comments Unknown Sex and Gender Information Value Date Recorded Sex Assigned at Not on file Legal Sex Female 4:03 PM EST Gender Identity Not on file Sexual Orientation Not on file Plan of Treatment Health Maintenance Due Date Last Done Comments CT Colonography 1980 Colonoscopy 1980 Colorectal Cancer Screening 1980 FIT-DNA (Cologuard) 1980 FIT 1980 FOBT 1980 HIV Screening 1980 Hepatitis C Screening 1980 Lipid Panel 1980 Medicare Annual Wellness (AWV) 1980 Sigmoidoscopy 1980 MMR Vaccines (1 of 1 - Standard series) 1981 BMI Intervention 1986 Hepatitis B Screening 1998 DTaP/Tdap/Td Vaccines (1 - Tdap) 1999 Pneumococcal Vaccine (1 of 2 - PCV) 1999 Hepatitis B Vaccines (1 of 3 - Risk Dialysis 4-dose series) 2000 Pap Smear 2001 Cervical Cancer Screening 2010 HPV/Cotest 2010 Mammogram 2020 COVID-19 Vaccine (1 - season) 2024 Depression Risk Screening 11/03/2024 SDOH Screening 11/03/2024 Influenza Vaccine (#1) 2025 Diabetes Screening 03/23/2026 03/23/2025, 0 03/23/2025, 08/16/2024, Additional history exists Zoster Vaccines (1 of 2) 2030 HIB Vaccines Aged Out No longer eligi ble based on patient's age to complete this topic HPV Vaccines Aged Out No longer eligi ble based on patient's age to complete this topic Hepatitis A Vaccines Aged Out No long er eligible based on patient's age to complete this topic IPV Vaccines Aged Out No longer eligi ble based on patient's age to complete this topic Meningococcal B Vaccine Aged Out No l onger eligible based on patient's age to complete this topic Meningococcal Vaccine Aged Out No zay celestina eligible based on patient's age to complete this topic Rotavirus Vaccines Aged Out No longer eligible based on patient's age to complete this topic Insurance MEDICARE [place] Care Teams Mainspring Winder And Oiler Relationship Specialty [place] [address] [place] [phone] PCP - General Family Medicine 04/03/25
--- OUTSIDE RECORDS SUMMARY | 2025-06-23 08:01 | XMS_ITS | Referral Summary ---
Author Organization [facility] ([place], [place], [place], [place]) Address [address] [place] [address] Care Team Providers Care Electroencephalographic Technologist Name Role Phone Unavailable Primary Care Provider Unavailabl e Social History Tobacco Use Types Packs/Day Years Used Date Smoking Tobacco: Never Assessed Comments Unknown Sex and Gender Information Value Date Recorded Sex Assigned at Not on file Legal Sex Female 3:05 PM CDT Gender Identity Not on file Sexual Orientation Not on file Plan of Treatment Not on file Insurance AETNA [facility]
--- OUTSIDE RECORDS SUMMARY | 2025-06-23 08:01 | XMS_ITS | Encounter Summary ---
Author Organization [facility] Address [address] [place] [address] Care Team Providers Care Slide Forming Machine Operator Name Role Phone Francisco Cox MD Unavailable [phone] Rick Shi MD Unavailable [phone] Stephan Talbert MD Primary Care Provider [phone] Reason for Visit * Reason Onset Date Comments HCN Clinical Concern/Question 05/03/2025 Encounter Details Date Type Department Care Team (Late st Contact Info) Description 05/03/2025 Telephone [facility] [place] [address] [facility], [address] [place] [address] Rosa Isela Murrieta MD [address] [place] [address] HCN Clinical Concern/Question Social History [...] Wish to be (Past 1 Month) No 7:45 AM EDT Tracie Arguello RN 2. Non-Specific Active Suici kei Thoughts (Past 1 Month) No 06/01/2025 7:45 AM EDT Traice Arguello RN 6. Suicidal Behavior (Lifetime) No 7:45 AM EDT Tracie Arguello RN documented as of this encounter Miscellaneous Notes [...] this. RN called transplant nurse coordinator at [facility], who verified that patient does need heart cath for transplant work up, d/t diabetes diagnosis, but [facility] Antionette Chisholm RN * Telephone Encounter - Keri Castellon Judith - 05/03/2025 3:04 PM EDT Clinical Concern/Question Reason for Call: Patient states she needs to have a heart cath to be cleared for transplant. Best contact number: Other: [phone] Optimal time of day to reach caller: ANYTIME Additional comments/information from caller: None Note: Please do not reply to this message. Follow-up communication and further actions as a result of this message need to be communicated with the patient directly, if the patient is not active onMyChart. If the patient is active on MyChart, they will receive notification of the communication/outcome via MyChart. documented in this encounter Plan of Treatment Upcoming Encounters Date Type Department Care Team (Late st Contact Info) Description 07/14/2025 8:00 AM EDT Office Visit [facility] [place] [address] [facility], [address] [place] [phone] Rosa Isela Murrieta MD [address] [place] [place] [address] 08/11/2025 3:20 PM EDT Office Visit [facility] Endocrinology [address] [place] [address] Mary Arroyo PA [address] [address] 10/05/2025 10:00 AM EST Office Visit [facility] [address] [place] [address] Geoffrey Leos MD [address] [address] documented as of this encounter Visit Diagnoses Not on filedocumented in this encounter Additional Health Concerns Infection Onset Date Last Indicated Resolved Time 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 12/04/2020 03/27/2021 COVID-19 Rule-Out 05/10/2025 05/10/2025 05/31/2025 9:53 PM EDT Assessment Noted Time PHQ-9 Depression Total Score: 0 04/12/20 25 10:27 AM EDT A fall risk assessment has been complete d for the patient 04/12/2025 10:27 AM EDT A Body Mass Index follow-up plan has been documented for the patient 04/12/2025 11:12 AM EDT documented as of this encounter Care Teams Slide Forming Machine Operator Relationship Specialty Start Date End Date Stephan Talbert MD [address] [place] [address] PCP - General 02/10/24 Francisco Cox MD [address] [place] [address] 06/18/22 Rick Shi MD [address] [place] [address] Referring Physician 01/30/24 documented as of this encounter
--- OUTSIDE RECORDS SUMMARY | 2025-06-23 08:01 | XMS_ITS | Encounter Summary ---
Author Organization [facility] Address [address] [place] [id number] Care Team Providers Care Automatic Riveting Machine Operator Name Role Phone Francisco Cox MD Unavailable [phone] Rick Shi MD Unavailable [phone] Stephan Talbert MD Primary Care Provider [phone] Encounter Details Date Type Department Care Team (Late st Contact Info) Description 04/29/2025 Telephone [facility] [address] [facility] [address] [place] [address] Alysa Haider, RN [id number] [address] [id number] Social History Tobacco Use Types Packs/Day Years [...] Description 07/14/2025 8:00 AM EDT Office Visit [facility] [place] [address] [facility], [address] [place] [address] Rosa Isela Murrieta MD [address] [facility] [address] [place] [address] 08/11/2025 3:20 PM EDT Office Visit [facility] Endocrinology [address] [place] [address] Mary Arroyo PA [address] [address] 10/05/2025 10:00 AM EST Office [facility] [address] [place] [address] Geoffrey Leos MD [address] [address] documented as of this encounter Visit Diagnoses [...] documented as of this encounter Care Teams Automatic Riveting Machine Operator Relationship Specialty Start Date End Date Stephan Talbert MD [address] [place] [address] PCP - General 02/10/24 Francisco Cox MD [address] [place] [address] 06/18/22 Rick Shi MD [address] [place] [address] Referring Physician 01/30/24 documented as of this encounter
--- OUTSIDE RECORDS SUMMARY | 2025-06-23 08:01 | XMS_ITS | Encounter Summary ---
Author Organization [facility] Address [address] [place] [address] Care Team Providers Care Asset Recovery Specialist Name Role Phone Francisco Cox MD Unavailable [phone] Rick Shi MD Unavailable Stephan Talbert MD Primary Care Provider [phone] Encounter Details Date Type Department Care Team (Latest Contact Info) Description 06/01/2025 Travel Social History Tobacco Use Types Packs/Day [...] Arguello RN documented as of this encounter Plan of Treatment Upcoming Encounters Date Type Department Care Team (Late st Contact Info) Description 07/14/2025 8:00 AM EDT Office Visit [facility] [place] [address] [facility], [address] [place] [address] Rosa Isela Murrieta MD [address] [facility] [address] [place] [address] 08/11/2025 3:20 PM EDT Office Visit [facility] Endocrinology [address] [place] [address] Mary Arroyo PA [address] [phone] 10/05/2025 10:00 AM EST Office Visit [facility] General & Weight Loss Surgery [address] [place] [address] Geoffrey Leos MD [address] [address] documented as of this encounter Visit Diagnoses [...] documented as of this encounter Care Teams Asset Recovery Specialist Relationship Specialty Start Date End Date Stephan Talbert MD [address] [place] [address] [place] [address] PCP - General 02/10/24 Francisco Cox MD [address] [place] [address] 06/18/22 Rick Shi MD [address] [place] [address] [place] [address] Referring Physician 01/30/24 documented as of this encounter
--- OUTSIDE RECORDS SUMMARY | 2025-06-23 08:01 | XMS_ITS ---
Author Organization [facility] Address [address] [place] [address] Care Team Providers Care Delivery Supervisor Name Role Phone Francisco Cox MD Unavailable [phone] Rick Shi MD Unavailable [phone] Stephan Talbert MD Primary Care Provider [phone] Transplant Episode Kidney Candidate [facility] ([place], [place]) ARVIND Referred on 01/30/2024 Marked as Ineligible on 04/29/2025 Reason: Patient Choice Kidney CoordinatorAlysa Haider RN Fax: N/A Email: N/A Scores Score Value Updated Exceptions/Reas ons CPRA Not available EPTS (Calc) 25 06/23/2025 [place] Organ Diagnosis Organ Primary Contributory Kidney 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
--- OUTSIDE RECORDS SUMMARY | 2025-06-23 08:01 | XMS_ITS | Encounter Summary ---
Author Organization [facility] Address [address] [place] [address] Care Team Providers Care Pharmacy Technician Program Director Name Role Phone Francisco Cox MD Unavailable [phone] Rick Shi MD Unavailable [phone] Stephan Talbert MD Primary Care Provider [phone] Encounter Details Date Type Department Care Team (Latest Contact Info) Description 05/31/2025 Travel Social History Tobacco Use Types Packs/Day [...] Description 07/14/2025 8:00 AM EDT Office Visit [facility] [place] [address] [facility], [address] [place] [address] Rosa Isela Murrieta MD [address] [place] [address] 08/11/2025 3:20 PM EDT Office Visit [facility] Endocrinology [address] [place] [address] Mary Arroyo PA [address] [facility] [address] [place] [address] 10/05/2025 10:00 AM EST Office Visit [facility] [address] [place] [address] Geoffrey Leos MD [address] [address] documented as of this encounter Visit Diagnoses [...] documented as of this encounter Care Teams Pharmacy Technician Program Director Relationship Specialty Start Date End Date Stephan Talbert MD [address] [place] [address] PCP - General 02/10/24 Francisco Cox MD [address] [place] [phone] 06/18/22 Rick Shi MD [address] [phone] Referring Physician 01/30/24 documented as of this encounter
--- OUTSIDE RECORDS SUMMARY | 2025-06-23 08:01 | XMS_ITS | Clinical Summary ---
Author Organization [facility] Address [address] [place] [address] Care Team Providers Care Tableau Administrator Name Role Phone Francisco Cox MD Unavailable [phone] Rick Shi MD Unavailable [phone] Stephan Talbert MD Primary Care Provider [phone] Allergies Active Allergy Reactions Criticality Noted Date [...] dialysis, with long-term current use of insulin ([facility]) Inject 20 units once daily, with titration if indicated and as instructed up to MDD 50 units 15 mL 5 08/16/20 24 Active Additional Information Patient not taking.Reported on 06/01/2025 insulin lispro (Admelog, HumaLOG) 100 UNIT/ML injection penIndications: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 30 mL 09/09/20 Active Additional Information Patient not taking.Reported on 06/01/2025 ondansetron ODT (Zofran-ODT) 4 MG disintegrating tablet Take 1 tablet (4 mg) by mouth every 8 (eight) hours if needed for nausea or vomiting. 20 tablet 09/09/20 Active Continuous Glucose Sensor (FreeStyle Omar 3 Plus Sensor) miscIndications:Ty pe 2 diabetes mellitus with chronic kidney disease on chronic dialysis, without long-term current use of insulin ([facility]) Change every 15 days. Diagnosis E11.65. 2 each 02/02/20 Active Additional Information Patient not taking.Reported on 06/01/2025 [facility] IP Inject 6,000 mL of dilution into the abdomen / abdominal cavity every evening. Active HYDROcodone-acetam inophen ([place]) 7.5-325 MG tablet Take 1 tablet (7.5 mg of hydrocodone) by mouth every 6 (six) hours if needed for severe pain. 12 tablet 09/09/20 025 Discontin ued(Expir ed) Active Problems Problem Noted Date Diagnosed Date Pre-transplant evaluation for kidney transplant 05/10/2025 Abnormal findings on diagnos tic imaging of heart and coronary circulation 05/10/2025 Obesity (BMI 30-39.9) 12/08/2024 Dehydration 12/08/2024 History of repair of hiatal hernia 09/15/2024 S/P laparoscopic sleeve gastrectomy 09/15/2024 Morbid obesity with BMI of 45.0-49.9, adult 0 03/2024 Type 2 diabetes mellitus wit h [...] Encounters Date Type Department Care Team Description 06/06/2025 Telephone [facility] Endocrinology [address] [place] [phone] Mary Arroyo PA Prior-authorization/in surance Verification 06/01/2025 8:30 AM EDT - 06/01/2025 9:30 AM EDT Surgery Cardiac Medical Library Assistant [address] [place] [address] Erich Sexton MD Left heart catheterization [78107 (CPT )] 06/01/2025 7:08 AM EDT - 06/01/2025 1:21 PM EDT Hospital Encounter Cardiac Medical Library Assistant [address] [place] [address] Erich Sexton MD Pre-transplant evaluation for kidney transplant; Abnormal findings on diagnostic imaging of heart and coronary circulation Discharge Disposition: Home or Self Care 06/01/2025 Travel 05/31/2025 Travel 05/03/2025 8:38 AM EDT - 05/03/2025 11:59 PM EDT Hospital Encounter Cardiac Imaging [address] [place] [address] Discharge Disposition: Home or Self Care 05/03/2025 8:30 AM EDT - 05/03/2025 8:37 AM EDT Hospital Encounter Cardiac Imaging [address] [place] [address] Discharge Disposition: Home or Self Care 05/03/2025 Telephone Critical access hospital [facility] [address] [place] [address] Rosa Isela Murrieta MD HCN Clinical Concern/Question 05/03/2025 Travel 04/29/[address] [facility] [address] [place] [address] Alysa Haider, RN 04/29/[address] [facility] [address] [place] [address] Alysa Haider, RN 04/12/2025 10:20 AM EDT Office Visit Critical access hospital [facility] [address], [address] [place] [address] Rosa Isela Murrieta MD Pre-operative clearance (Primary Dx); Encounter for preprocedural cardiovascular examination 04/12/2025 Travel 04/11/2025 Telephone Critical access hospital [facility] [address], [address] [place] [address] Antionette Chisholm, RN 04/07/2025 Results Follow-Up [facility] General & Weight Loss Surgery [address] [place] [phone] Alysa Tijerina, DE ICER INSTALLER 03/23/2025 9:50 AM EDT Office Visit [facility] General & Weight Loss Surgery [address] [place] [phone] Geoffrey Leos MD Other low back pain (Primary Dx); Intermittent asthma, unspecified asthma severity, unspecified whether complicated; Shortness of breath on exertion; Hypertension, unspecified type; Obesity, Class III, BMI 40-49.9 (morbid obesity); Gastroesophageal reflux disease, unspecified whether esophagitis present; Vitamin D deficiency, unspecified; Morbid obesity with BMI of 45.0-49.9, adult ([facility]); Obesity (BMI 30-39.9); Chronic kidney disease, stage 4 (severe) ([facility]); Anemia in chronic kidney disease, unspecified CKD stage; Type 2 diabetes mellitus with chronic kidney disease on chronic dialysis, with long-term current use of insulin ([facility]); End-stage renal disease on peritoneal dialysis ([facility]); History of repair of hiatal hernia; S/P laparoscopic sleeve gastrectomy; Dehydration; Type 2 diabetes mellitus with obesity ([facility]); Hyperparathyroidism, unspecified ([facility]) 03/23/2025 Travel from Last 3 Months Immunizations Immunization Administration Dates Next Due Hep A, Adult 06/18/2022,11/17/2018 Hep B, adult 06/18/2022 HepB-CpG 06/10/2024,01/06/2024 Tdap 11/02/2024 Family History Medical History Relation Name Comments Diabetes Father Bryon Woodall Diabetes type II Father Bryon Woodall Hypertension Father Bryon Woodall Hypotension Father Bryon Woodall Sleep apnea Father Bryon Woodall Sudden Father Bryon Woodall Diabetes type II Father's Brother Kevin woodall [...] Mass Index 32.01 06/01/2025 7:55 AM EDT Plan of Treatment Upcoming Encounters Date Type Department Care Team (Late st Contact Info) Description 07/14/2025 8:00 AM EDT Office Visit [facility] [address] [place] [address] Rosa Isela Murrieta MD [address] [place] [address] 08/11/2025 3:20 PM EDT Office Visit [facility] Endocrinology [address] [place] [phone] Mary Arroyo PA [address] [phone] 10/05/2025 10:00 AM EST Office Visit [facility] General & Weight Loss Surgery [address] [place] [phone] Geoffrey Leos MD [address] [phone] Health Maintenance Due Date Last Done Comments [facility]-Medicare Annual Wellness (AWV) 1980 [facility]-/Child/Adol SDOH Screenings 1980 Diabetes: Dental Exam 1990 [facility]-Varicella Vaccines (1 of 2 - 13+ 2-dose series) 1993 [facility]- SDOH Screenings 1998 [facility]-Adult SDOH Screenings 1998 [facility]-Pneumococcal Vaccine: Pediatrics (0 to 5 Years) and At-Risk Patients (6 to 49 Years) (1 of 2 - PCV) 1999 [facility]-Pap Smear 2001 HPV Vaccines (1 - 3-dose SCDM series) 2007 [facility]-Cervical Cancer Screening 2010 [facility]-HPV/Cotest 2010 IEP-[id number]-17 Vaccine (3 - season) 2024 09/18/2021, 08/27/2021 CT Colonography 2025 [...] 2024, 12/23/2023, 12/03/2020 [facility]-Obesity Intervention Completed 025, 04/12/2025, 03/23/2025, Additional history exists [facility]-HIB Vaccines Aged Out No longer e ligible based on patient's age to complete this topic [facility]-IPV Vaccines Aged Out No longer e ligible based on patient's age to complete this topic [facility]-Rotavirus Vaccines Aged Out No lo nger eligible based on patient's age to complete this topic Procedures Procedure Name Priority Date/Time Associated Diagnosis Comments CORONARY ANGIOGRAPHY Routine 06/01/2025 10:46 AM EDT Pre-transplant evaluation for kidney transplant Abnormal findings on diagnostic imaging of heart and coronary circulation POCT , URINE Routine 06/01/2025 8:17 AM EDT POCT CREATININE ISTAT UNSOLICITED RESULTS Routine 06/01/2025 8:00 AM EDT BASIC METABOLIC PANEL, PLASMA STAT 06/01/2025 7:54 AM EDT CBC W/O DIFFERENTIAL STAT 06/01/2025 7:54 AM EDT POCT , URINE Routine 06/01/2025 7:49 AM EDT NM MYOCARDIAL SPECT REGADENOSON STRESS (MULTI STUDY) [...] Recently Relevant to Health Maintenance Results * CORONARY ANGIOGRAPHY (06/01/2025 10:46 AM [...] band. Recommendations: 1. Continue to follow with Cardiology (Dr. Murrieta) and [facility]. Findings were communicated with patient's primary track broom operator via non-urgent staff message. Procedure Details [...] The patient was transferred back to the laborer pullet farm holding area in good condition. Coronary Findings [...] POCT , URINE (06/01/2025 8:17 AM EDT) Only the most recent of2 resultswithin the time period is included. [facility] POCT Test, Urine Negative Males and Non- Females: Negative 06/06/2025 2:36 PM EDT HEALTHCARE LAB Account Resolution Analyst ID Sudhir James 06/06/2025 2:36 PM EDT HEALTHCARE LAB Device ID [id number] 06/06/2025 2:36 PM EDT [facility] Urine Urine specimen obtained by clean catch procedure / Unknown 06/01/2025 8:17 AM EDT 06/06/2025 2:36 PM EDT Erich Sexton MD LAB POINT OF CARE TE ST DOCKED DEVICE UNSOLICITED RESULTS Final Result Performing Organization Address City/State/[facility] Co de Phone Number [facility] [address] [place] [address] * (ABNORMAL) POCT creatinine (06/01/2025 8:00 AM EDT) [facility] Creatinine, Point of Care 4.5(H) 0.6 - 1.1 mg/dL 06/01/2025 8:03 AM EDT HEALTHCARE LAB POCT eGFR 12 mL/min/1. 73m*2 06/01/2025 8:03 AM EDT HEALTHCARE LAB Account Resolution Analyst ID Adalgisa Stovall Ethan 06/01/2025 8:03 AM EDT HEALTHCARE LAB Device ID [id number] 06/01/2025 8:03 AM EDT HEALTHCARE LAB Comment 06/01/2025 8:03 AM EDT [facility] Comment:Testing performed on i-STAT at the point of care. Reported eGFRcr in mL/min/1.73m2 is based the CKD-EPI 2020 equation that does not use a race coefficient. Blood Venous blood specimen / Unknown 06/01/2025 8:00 AM EDT 06/01/2025 8:03 AM EDT us Erich Sexton MD LAB POINT OF CARE TE ST DOCKED DEVICE UNSOLICITED RESULTS Final Result [facility] [address] LAB [address] [place] [address] * (ABNORMAL) Hemogram (CBC) (06/01/2025 7:54 AM EDT) WBC Count 6.22 3.70 - 10.30 10*3/uL LAB HEMATOLOGY METHOD 06/01/2025 8:17 AM EDT [facility] RBC Count 3.65(L) 3.90 - 5.20 10*6/uL LAB HEMATOLOGY METHOD 06/01/2025 8:17 AM EDT [facility] HGB 12.1 11.2 - 15.7 g/dL LAB HEMATOLOGY METHOD 06/01/2025 8:17 AM EDT [facility] HCT 34.8 34.0 - 45.0 % LAB HEMATOLOGY METHOD 06/01/2025 8:17 AM EDT [facility] Platelet Count 181 155 - 369 10*3/uL LAB HEMATOLOGY METHOD 06/01/2025 8:17 AM EDT [facility] MCV 95 79 - 98 fL LAB HEMATOLOGY METHOD 06/01/2025 8:17 AM EDT [facility] MCH 33.2(H) 26.0 - 32.0 pg LAB HEMATOLOGY METHOD 06/01/2025 8:17 AM EDT [facility] MCHC 34.8 30.7 - 35.5 g/dL LAB HEMATOLOGY METHOD 06/01/2025 8:17 AM EDT [facility] RDW 12.7 11.5 - 14.5 % LAB HEMATOLOGY METHOD 06/01/2025 8:17 AM EDT [facility] MPV 9.1 8.8 - 12.5 fL LAB HEMATOLOGY METHOD 06/01/2025 8:17 AM EDT [facility] nRBC 0.0 <=0.0 per 100 WBCs LAB HEMATOLOGY METHOD 06/01/2025 8:17 AM EDT [facility] Blood Venous blood specimen / Unknown Venipuncture / Unknown 06/01/2025 7:54 AM EDT 06/01/2025 8:02 AM EDT us Erich Sexton MD LAB BLOOD ORDERABLES Final Res ult [facility] [address] [place] [address] * (ABNORMAL) Basic metabolic panel (06/01/2025 7:54 AM EDT) Glucose, Plasma 97 74 - 99 mg/dL 06/01/2025 8:31 AM EDT [facility] BUN, Plasma 40(H) 7 - 21 mg/dL 06/01/2025 8:31 AM EDT [facility] Creatinine, Plasma 4.18(H) 0.60 - 1.10 mg/dL 06/01/2025 8:31 AM EDT [facility] BUN/Creatinine Ratio 10 06/01/2025 8:31 AM EDT [facility] Sodium, Plasma 138 136 - 145 mmol/L 06/01/2025 8:31 AM EDT [facility] Potassium, Plasma 4.7 3.6 - 4.9 mmol/L 06/01/2025 8:31 AM EDT [facility] Chloride, Plasma 107 97 - 107 mmol/L 06/01/2025 8:31 AM EDT [facility] CO2, Plasma 20(L) 22 - 29 mmol/L 06/01/2025 8:31 AM EDT [facility] Anion Gap 11 6 - 16 mmol/L 06/01/2025 8:31 AM EDT [facility] Total Calcium, Plasma 8.5(L) 8.9 - 10.2 mg/dL 06/01/2025 8:31 AM EDT [facility] eGFRcr 12.8 mL/min/1.7 3m*2 06/01/2025 8:31 AM EDT [facility] Comment:Reported eGFRcr in m L/min/1.73m2 is based the CKD-EPI 2020 equation that does not use a race coefficient. Blood Venous blood specimen / Unknown Venipuncture / Unknown 06/01/2025 7:54 AM EDT 06/01/2025 8:02 AM EDT us Erich Sexton MD LAB BLOOD ORDERABLES Final Res ult [facility] [address] [place] [address] * NM MYOCARDIAL SPECT REGADENOSON STRESS (MULTI [...] performed under direct supervision of the reading track broom operator. Study Impression There is no significant patient [...] previous examination/report available for comparison or correlation. us Rosa Isela Murrieta MD CV STRESS PROCEDURES [...] QTC Interval 436 ms MUSE ECG P [place] 13 degrees MUSE ECG R [place] -29 degrees MUSE ECG T Wave [place] 39 degrees MUSE ECG Diagnosis Normal sinus rhythm MUSE ECG Diagnosis Minimal voltage criteria for LVH, may be normal variant ( R in aVL ) MUSE ECG Diagnosis Borderline ECG MUSE ECG Diagnosis MUSE ECG Diagnosis Confirmed by Kevin Woo ([id number]) on 04/12/2025 2:10:40 PM MUSE ECG 04/12/2025 10:3 2 AM EDT 04/12/2025 2:10 PM EDT us Rosa Isela Murrieta MD ECG ORDERABLES Final Result MUSE ECG * (ABNORMAL) Iron & Total Iron Binding Capacity, Plasma (Includes Transferrin) (03/23/2025 10:28 AM EDT) Iron, Plasma 71 30 - 160 ug/dL 03/23/2025 12:35 PM EDT [facility] Transferrin, Plasma 154(L) 200 - 360 mg/dL 03/23/2025 12:35 PM EDT [facility] Total Iron Binding Capacity, Plasma 193(L) 240 - 450 ug/mL 03/23/2025 12:35 PM EDT [facility] Transferrin Saturation 37 14 - 50 % 03/23/2025 12:35 PM EDT [facility] Blood Venous blood specimen / Unknown Venipuncture / Unknown 03/23/2025 10:28 AM EDT 03/23/2025 10:29 AM EDT us Geoffrey Leos MD LAB BLOOD ORDERABLES Final R esult [facility] [address] [place] [address] * Vitamin D 25 Hydroxy (03/23/2025 10:28 AM EDT) Vitamin D 25 Hydroxy 31.8 20.0 - 80.0 ng/mL 03/23/2025 1:32 PM EDT [facility] Blood Venous blood specimen / Unknown Venipuncture / Unknown 03/23/2025 10:28 AM EDT 03/23/2025 10:29 AM EDT Narrative [facility] - 03/23/2025 1:32 PM EDT Testing performed on [employer], standardized against NIST SRM 2972. When testing [...] MD LAB BLOOD ORDERABLES Final R esult [facility] [address] [place] [address] * (ABNORMAL) CBC and Differential (03/23/2025 10:28 AM EDT) WBC Count 5.51 3.70 - 10.30 10*3/uL LAB HEMATOLOGY METHOD 03/23/2025 12:30 PM EDT [facility] RBC Count 3.37(L) 3.90 - 5.20 10*6/uL LAB HEMATOLOGY METHOD 03/23/2025 12:30 PM EDT [facility] HGB 10.7(L) 11.2 - 15.7 g/dL LAB HEMATOLOGY METHOD 03/23/2025 12:30 PM EDT [facility] HCT 32.9(L) 34.0 - 45.0 % LAB HEMATOLOGY METHOD 03/23/2025 12:30 PM EDT [facility] Platelet Count 223 155 - 369 10*3/uL LAB HEMATOLOGY METHOD 03/23/2025 12:30 PM EDT [facility] MCV 98 79 - 98 fL LAB HEMATOLOGY METHOD 03/23/2025 12:30 PM EDT [facility] MCH 31.8 26.0 - 32.0 pg LAB HEMATOLOGY METHOD 03/23/2025 12:30 PM EDT [facility] MCHC 32.5 30.7 - 35.5 g/dL LAB HEMATOLOGY METHOD 03/23/2025 12:30 PM EDT [facility] RDW 14.1 11.5 - 14.5 % LAB HEMATOLOGY METHOD 03/23/2025 12:30 PM EDT [facility] MPV 9.2 8.8 - 12.5 fL LAB HEMATOLOGY METHOD 03/23/2025 12:30 PM EDT [facility] nRBC 0.0 <=0.0 per 100 WBCs LAB HEMATOLOGY METHOD 03/23/2025 12:30 PM EDT [facility] Differential Type Automated LAB HEMATOLOGY METHOD 03/23/2025 12:30 PM EDT [facility] Neutrophils % 72 % LAB HEMATOLOGY METHOD 03/23/2025 12:30 PM EDT [facility] Lymphocytes % 18 % LAB HEMATOLOGY METHOD 03/23/2025 12:30 PM EDT [facility] Monocytes % 7 % LAB HEMATOLOGY METHOD 03/23/2025 12:30 PM EDT [facility] Eosinophils % 3 % LAB HEMATOLOGY METHOD 03/23/2025 12:30 PM EDT [facility] Basophils % 0 % LAB HEMATOLOGY METHOD 03/23/2025 12:30 PM EDT [facility] Immature Granulocytes % 0 % LAB HEMATOLOGY METHOD 03/23/2025 12:30 PM EDT [facility] Neutrophils Absolute 3.91 1.60 - 6.10 10*3/uL LAB HEMATOLOGY METHOD 03/23/2025 12:30 PM EDT [facility] Lymphocytes Absolute 1.01(L) 1.20 - 3.90 10*3/uL LAB HEMATOLOGY METHOD 03/23/2025 12:30 PM EDT [facility] Monocytes Absolute 0.41 0.30 - 0.90 10*3/uL LAB HEMATOLOGY METHOD 03/23/2025 12:30 PM EDT [facility] Eosinophils Absolute 0.14 0.00 - 0.50 10*3/uL LAB HEMATOLOGY METHOD 03/23/2025 12:30 PM EDT [facility] Basophils Absolute 0.02 0.00 - 0.10 10*3/uL LAB HEMATOLOGY METHOD 03/23/2025 12:30 PM EDT [facility] Immature Granulocytes Absolute 0.02 0.00 - 0.06 10*3/uL LAB HEMATOLOGY METHOD 03/23/2025 12:30 PM EDT [facility] Blood Venous blood specimen / Unknown Venipuncture / Unknown 03/23/2025 10:28 AM EDT 03/23/2025 10:29 AM EDT Narrative [facility] - 03/23/2025 12:30 PM EDT Therapeutic decision making should be based on absolute values, rather than percentages. Geoffrey Leos MD LAB BLOOD ORDERABLES Final R esult [facility] [address] [place] [address] * Vitamin B1 (Thiamine), Whole Blood (03/23/2025 10:28 AM EDT) [facility] VITAMIN B1, WHOLE BLOOD 85 70 - 180 nmol/L 03/26/2025 11:57 AM EDT [facility] ([facility]) Blood Venous blood specimen / Unknown Venipuncture / Unknown 03/23/2025 10:28 AM EDT 03/23/2025 10:29 AM EDT Narrative [facility] ([facility]) - 03/26/2025 11:57 [...] developed and its performance characteristics determined by [facility]. It has not been cleared or approved by the [place] Food and Drug Administration. This test was performed in a CLIA certified laboratory and is intended for clinical purposes. Performed By: [facility] [address] [place] [id number] Clinical Social Work Aide: Rikki Licona MD, PhD CLIA Number: [id number] Geoffrey Leos MD LAB BLOOD ORDERABLES Final R esult Performing Organization Address City/[facility]/ZIP Co de Phone Number [facility] ([facility]) [address] [place] [phone] * Phosphorus, Plasma (03/23/2025 10:28 AM EDT) Phosphorus, Plasma 3.2 2.5 - 4.5 mg/dL 03/23/2025 12:35 PM EDT [facility] Blood Venous blood specimen / Unknown Venipuncture / Unknown 03/23/2025 10:28 AM EDT 03/23/2025 10:29 AM EDT Geoffrey Leos MD LAB BLOOD ORDERABLES Final R esult Performing Organization Address City/[facility]/ZIP Co de Phone Number [facility] [address] [place] [phone] * (ABNORMAL) PTH Intact Total (03/23/2025 10:28 AM EDT) PTH Intact Total 135(H) 9 - 77 pg/mL 03/23/2025 2:12 PM EDT [facility] Blood Venous blood specimen / Unknown Venipuncture / Unknown 03/23/2025 10:28 AM EDT 03/23/2025 10:29 AM EDT Narrative [facility] - 03/23/2025 2:12 PM EDT Assay performed by immunoassay at the [facility]. Performed on [employer] chemiluminescent immunoassay, tractable to the World Health Organization's first international standard for PTH from the [facility], Code 79/500. Results obtained from different test methods or kits cannot be used interchangeably. Geoffrey Leos MD LAB BLOOD ORDERABLES Final R esult [facility] [address] [place] [address] * (ABNORMAL) Magnesium, Plasma (03/23/2025 10:28 AM EDT) Magnesium, Plasma 1.8(L) 1.9 - 2.4 mg/dL 03/23/2025 12:35 PM EDT [facility] Blood Venous blood specimen / Unknown Venipuncture / Unknown 03/23/2025 10:28 AM EDT 03/23/2025 10:29 AM EDT Geoffrey Leos MD LAB BLOOD ORDERABLES Final R esult Performing Organization Address City/[facility]/ZIP Co de Phone Number [facility] [address] [place] [address] * Hemoglobin A1c (03/23/2025 10:28 AM EDT) Hemoglobin A1c 4.5 <5.7 % 03/23/2025 1:18 PM EDT [facility] Blood Venous blood specimen / Unknown Venipuncture / Unknown 03/23/2025 10:28 AM EDT 03/23/2025 10:29 AM EDT Narrative [facility] - 03/23/2025 1:18 PM EDT HA1C Interpretive Data: Diagnosis of Diabetes: Diabetic > or = 6.5% Pre-diabetic 5.7 to 6.4% Non-diabetic < or = 5.6% Glycemic Targets for Type I and Type II Diabetics: Non- Adults <7.0% Adults <6.0% Children and Adolescents <7.5% Source: [place] [employer]. Standards of medical care in diabetes,2017. Diabetes Care.2017:40 (suppl 1):S1-S135. Geoffrey Leos MD LAB BLOOD ORDERABLES Final R esult Performing Organization Address City/[facility] Co de Phone Number [facility] [address] [place] [address] * (ABNORMAL) Folate, Serum (03/23/2025 10:28 AM EDT) Folate, Serum 2.6(L) >4.6 ng/mL 03/23/2025 1:28 PM EDT [facility] Blood Venous blood specimen / Unknown Venipuncture / Unknown 03/23/2025 10:28 AM EDT 03/23/2025 10:29 AM EDT Geoffrey Leos MD LAB BLOOD ORDERABLES Final R esult [facility] [address] [place] [address] * (ABNORMAL) Ferritin, Serum (03/23/2025 10:28 AM EDT) Ferritin, Serum 1,102(H) 13 - 150 ng/mL 03/23/2025 1:27 PM EDT [facility] Blood Venous blood specimen / Unknown Venipuncture / Unknown 03/23/2025 10:28 AM EDT 03/23/2025 10:29 AM EDT Geoffrey Leos MD LAB BLOOD ORDERABLES Final R esult Performing Organization Address City/[facility]/ZIP Co de Phone Number [facility] [address] [place] [address] * Vitamin B12, Serum (03/23/2025 10:28 AM EDT) Vitamin B12, Serum 587 210 - 1,033 pg/mL 03/23/2025 1:27 PM EDT [facility] Blood Venous blood specimen / Unknown Venipuncture / Unknown 03/23/2025 10:28 AM EDT 03/23/2025 10:29 AM EDT Geoffrey Leos MD LAB BLOOD ORDERABLES Final R esult Performing Organization Address City/[facility]/ZIP Co de Phone Number [facility] [address] [place] [address] * (ABNORMAL) Comprehensive Metabolic Panel, Plasma (03/23/2025 10:28 AM EDT) Glucose, Plasma 118(H) 74 - 99 mg/dL 03/23/2025 12:35 PM EDT [facility] BUN, Plasma 28(H) 7 - 21 mg/dL 03/23/2025 12:35 PM EDT [facility] Creatinine, Plasma 4.28(H) 0.60 - 1.10 mg/dL 03/23/2025 12:35 PM EDT [facility] BUN/Creatinine Ratio 7 03/23/2025 12:35 PM EDT [facility] Sodium, Plasma 143 136 - 145 mmol/L 03/23/2025 12:35 PM EDT [facility] [facility] Potassium, Plasma 3.7 3.6 - 4.9 mmol/L 03/23/2025 12:35 PM EDT [facility] Chloride, Plasma 106 97 - 107 mmol/L 03/23/2025 12:35 PM EDT [facility] CO2, Plasma 25 22 - 29 mmol/L 03/23/2025 12:35 PM EDT [facility] Anion Gap 12 6 - 16 mmol/L 03/23/2025 12:35 PM EDT [facility] Total Calcium, Plasma 8.9 8.9 - 10.2 mg/dL 03/23/2025 12:35 PM EDT [facility] Total Protein 6.3 6.3 - 7.9 g/dL 03/23/2025 12:35 PM EDT [facility] Albumin, Plasma 3.4(L) 3.5 - 5.2 g/dL 03/23/2025 12:35 PM EDT [facility] AST, Plasma 15 10 - 35 U/L 03/23/2025 12:35 PM EDT [facility] ALT, Plasma 5(L) 10 - 35 U/L 03/23/2025 12:35 PM EDT [facility] Alkaline Phosphatase, Plasma 51 35 - 104 U/L 03/23/2025 12:35 PM EDT [facility] Total Bilirubin, Plasma 0.6 0.2 - 1.1 mg/dL 03/23/2025 12:35 PM EDT [facility] eGFRcr 12.5 mL/min/1.7 3m*2 03/23/2025 12:35 PM EDT [facility] Comment:Reported eGFRcr in m L/min/1.73m2 is based the CKD-EPI 2020 equation that does not use a race coefficient. Blood Venous blood specimen / Unknown Venipuncture / Unknown 03/23/2025 10:28 AM EDT 03/23/2025 10:29 AM EDT us Geoffrey Leos MD LAB BLOOD ORDERABLES Final R esult Performing Organization Address City/[facility]/ZIP Co de Phone Number [facility] [address] [place] [address] * ED HIV 1/2 Antibody/Antigen Screen w/Reflex to HIV 1/2 Differentiation (11/30/2024 5:56 PM EST) Pathologist [facility] HIV 1 & 2 Antibody/Antigen Screen Non Reactive Non Reactive 11/30/2024 6:43 PM EST [facility] Comment:Screening for HIV 1 & 2 antibodies, and P24 antigen is NONREACTIVE. No confirmatory testing is required. Blood Venous blood specimen / Unknown Venipuncture / Unknown 11/30/2024 5:56 PM EST 11/30/2024 6:06 PM EST Lenora Malik APRN LAB BLOOD ORDERABLES Final Result Performing Organization Address City/[facility] Co de Phone Number [facility] [address] [place] [address] * Hepatitis C Antibody - ED (11/30/2024 5:56 PM EST) [facility] Hepatitis C Antibody Negative Negative 11/30/2024 6:43 PM EST [facility] Blood Venous blood specimen / Unknown Venipuncture / Unknown 11/30/2024 5:56 PM EST 11/30/2024 6:06 PM EST Lenora Malik APRN LAB BLOOD ORDERABLES Final Result Performing Organization Address City/[facility] de Phone Number [facility] [address] [place] [address] from Last 3 Months or Most Recently Relevant to Health Maintenance Additional Health Concerns Infection Onset Date Last Indicated 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 Yes Care Teams Tableau Administrator Relationship Specialty Start Date End Date Stephan Talbert MD [address] [place] [address] PCP - General 02/10/24 Francisco Cox MD [address] [place] [address] 06/18/22 Rick Shi MD [address] [place] [address] Referring Physician 01/30/24
--- OUTSIDE RECORDS SUMMARY | 2025-06-23 08:01 | XMS_ITS | Encounter Summary ---
Author Organization [facility] Address [address] [place] [address] Care Team Providers Care Solar Energy System Installer Name Role Phone Unavailable Primary Care Provider Unavailabl e Encounter Details Date Type Department Care Team (Late st Contact Info) Description 02/25/2025 Abstract [facility] [address] [place] [address] Evie Thurman RN [address] [place] [address] Social History Tobacco Use Types Packs/Day Years [...] Description 07/22/2025 1:00 PM EDT Appointment [facility] Outpatient [place], Esthela Ventura [address] [place] [address] [address] [place] [address] 07/22/2025 1:30 PM EDT Appointment [facility] [place] [address] [facility] [address] [place] [id number] 07/22/2025 2:30 PM EDT Appointment [facility] [address] [facility] [address] [place] [id number] 07/22/2025 3:15 PM EDT Appointment Will Ventura Admission Testing [address] [place] [address] B Esthela Ventura [place] [id number] documented as of this encounter Visit Diagnoses Not on filedocumented in this encounter
--- OUTSIDE RECORDS SUMMARY | 2025-06-23 08:01 | XMS_ITS | Encounter Summary ---
Author Organization [facility] Address [address] [place] [id number] Care Team Providers Care Prn Physical Therapist Name Role Phone Francisco Cox MD Unavailable [phone] Rick Shi MD Unavailable [phone] Stephan Talbert MD Primary Care Provider [phone] Encounter Details Date Type Department Care Team (Late st Contact Info) Description 04/29/2025 Telephone [facility] [address] [facility] [address] [place] [address] Alysa Haider, RN [facility] [address] [place] [phone] Social History Tobacco Use Types Packs/Day Years [...] Description 07/14/2025 8:00 AM EDT Office Visit [facility] [place] [address] [facility] [place] [address] Rosa Isela Murrieta MD [address] [facility] [address] [place] [address] 08/11/2025 3:20 PM EDT Office Visit [facility] Endocrinology [address] [place] [phone] Mary Arroyo PA [address] [phone] 10/05/2025 10:00 AM EST Office Visit [facility] General & Weight Loss Surgery [address] [place] [address] Geoffrey Leos MD [address] [address] documented as of this encounter Visit Diagnoses [...] documented as of this encounter Care Teams Prn Physical Therapist Relationship Specialty Start Date End Date Stephan Talbert MD [address] [place] [address] PCP - General 02/10/24 Francisco Cox MD [address] [place] [address] 06/18/22 Rick Shi MD [address] [place] [address] Referring Physician 01/30/24 documented as of this encounter
== END 2025-06-23 23:59 | disposition home or self-care (01) ==
LOC: RAD 07:53
PROVIDERS: PCP Family Medicine; Visit Provider Obstetrics & Gynecology
DX: Z12.31 Encounter for screening mammogram for malignant neoplasm of breast (principal); R92.323 Mammographic fibroglandular density, bilateral breasts
CPT/HCPCS: 77063; 77067

== ENCOUNTER 2025-07-18 16:40 | Outpatient (CLI) | payer MEDICARE, MEDICAID, SELFPAY ==
--- OUTSIDE RECORDS SUMMARY | 2025-06-01 07:08 | XMS_ITS | Encounter Summary ---
Author Organization [facility] Address [address] [place] [address] Care Team Providers Care Aquatics Lifeguard Name Role Phone Francisco Cox MD Unavailable [phone] Rick Shi MD Unavailable [phone] Stephan Talbert MD Primary Care Provider [phone] Reason for Visit * Auth/Cert (Routine) Specialty Diagnoses / Procedures Referred By Steffen t Referred To Contact Diagnoses Pre-transplant evaluation for kidney transplant Abnormal findings on diagnostic imaging of heart and coronary circulation Pre-transplant evaluation for kidney transplant [Z01.818] Abnormal findings on diagnostic imaging of heart and coronary circulation [R93.1] Procedures NM LEFT HEART CATH INJECT VETRICULOGRAPHY, IMAGE SUPERVISE/INTERP Left heart catheterization Erich Sexton MD [address] [place] [address] Phone: tel: fax: Cardiac Woven Paper Hat Mender [address] [place] [address] Phone: tel: Referral ID Status Reason Start Date Expiration Date Visits Re quested Visits Authorized [id number] 1 1 Encounter Details Date Type Department Care Team (Latest Contact Info) Description 06/01/2025 7:08 AM EDT - 06/01/2025 1:21 PM EDT Hospital Encounter Cardiac Woven Paper Hat Mender [address] [place] [address] Erich Sexton MD [address] [place] [address] Pre-transplant evaluation for kidney transplant; Abnormal findings on diagnostic imaging of heart and coronary circulation Discharge Disposition: Home or Self Care Social [...] Sign Reading Time Taken Comments Blood Pressure 144/80 06/01/2025 1:00 PM EDT Pulse 50 06/01/2025 1:00 PM EDT Temperature 36.4 C (97.6 F) 06/01/2025 10:55 AM EDT Respiratory Rate 15 06/01/2025 1:00 PM EDT Oxygen Saturation 100% 06/01/2025 1:00 PM EDT Inhaled Oxygen Concentration - - Weight 101 kg (223 lb 1.7 oz) 06/01/2025 7:55 AM EDT Height 177.8 cm (5' 10 ) 06/01/2025 7:55 AM EDT Body Mass Index 32.01 06/01/2025 7:55 AM EDT documented in this encounter Functional [...] Author No 01/03/2025 3:40 PM EST * Calculated C-SSRS Risk Score (Lifetime/Recent) Answer Date of Assessment Author No Risk Indicated 06/01/2025 7:45 AM EDT Tracie Arguello RN * Question Answer Date of Assessment Author 1. Wish to be (Past 1 Month) No 025 7:45 AM EDT Tracie Arguello, RN 2. Non-Specific Active Suici kei Thoughts (Past 1 Month) No 06/01/2025 7:45 AM EDT Tracie Arguello, RN 6. Suicidal Behavior (Lifetime) No 7:45 AM EDT Tracie Arguello, RN documented as of this encounter Medications at Time of Discharge albuterol 108 (90 Base) MCG/ACT inhaler Inhale 2 puffs every 6 hours as needed. cholecalciferol 25 MCG (1000 UT) tablet Take 0.5 tablets (500 Units) by mouth every other day. Continuous Glucose Sensor ([employer] Omar 3 Plus Sensor) miscIndications:Typ e 2 diabetes mellitus with chronic kidney disease on chronic dialysis, without long-term current use of insulin ([facility]) Change every 15 days. Diagnosis E11.65. 2 each 02/01/2025 ferrous sulfate 325 (65 Fe) MG tablet Take 1 tablet (325 mg) by mouth daily. insulin glargine (Lantus SoloStar, Basaglar) 100 UNIT/ML injection penIndications:Type 2 diabetes mellitus with chronic kidney disease on chronic dialysis, with long-term current use of insulin ([facility]) Inject 20 units once daily, with titration if indicated and as instructed up to MDD 50 units 15 mL 5 08/16/2024 insulin lispro (Admelog, HumaLOG) 100 UNIT/ML injection penIndications:Type 2 diabetes mellitus with chronic kidney disease on chronic dialysis, with long-term current use of insulin ([facility]) Inject Humalog 1 units for [...] current use of insulin ([facility]) Inject 1-4x daily 200 each 11 08/16/2024 [facility]IAL[facility] IP Inject 6,000 mL of dilution into the abdomen / abdominal cavity every evening. simethicone (Mylicon) 20 mg/0.3 mL drops Take 1.2 mL (80 mg) by mouth every 6 (six) hours if needed for flatulence. 30 mL 09/09/2024 documented as of this encounter Miscellaneous Notes * Nursing Note - Tracie Arguello RN - 06/01/2025 1:14 PM EDT Discharge instructions reviewed with patient and mother, verbalized understanding. Right radial band removed, no cmplications. PIV x2 removed. Ambulated in hallway without event. VSS, at baseline. Discharged via wheelchair to home * Rosalina MejiaFHIR - Tracie Arguello RN - 06/01/2025 12:17 PM EDT 637 After TR Band Removal How do I care for myself at home? Medicines: ? Keep taking all your prescribed medicines, unless you heart doctor gives different orders. ? Do not take Metformin or Glucophage for 48 hours, unless you doctor says to take them. Activity: ? Do not drive yourself home from the hospital. ? Do not bend or strain your wrist. Avoid activities like knitting or using the computer. ? For 48 hours, avoid strenuous activities. This means no heavy work or lifting, driving a Spring Pharmaceutical[employer] car, or vigorous sports. ? Do not lift anything heavier than a gallon of milk with the affected arm for the next week. Dressing: ? You may remove the dressing after 24 hours. Replace it with a regular Band-Aid. ? Leave the Band-Aid on another day. ? You may see a little blood on the Band-Aid. This is normal. Showers and baths: ? You may shower the next day. After your shower, pat the wound dry and cover with a Band-Aid. ? For 3 days, do not soak in a bath tub or soak the wound in a pool or hot tub. Bruising: For a couple weeks, you may have a small bruise or lump near the wound. This is normal. What if I start to bleed? If you have a little bleeding from the wound: Sit down right away. Put firm pressure to the wound for 10 minutes. Your nurse will show you how to do this. If the bleeding stops: Sit quietly and do not move the affected arm for 2 hours. Tell your doctor as soon as you can. If the bleeding does not stop after 10 minutes, or if there is a lot blood or spurting: HOLD firm pressure and call 911 right away. Do not drive yourself to the hospital. Just sit or lie down and hold firm pressure. When do I follow up with my doctor? We will schedule a time for you to see the doctor in the clinic. When should I call the doctor? Call your doctor right away if you have any of these: ? Changes in the bruise or lump ? Redness near the wound ? Drainage from the wound ? Increased pain or swelling near the wound ? Numbness in your arm or wrist If you cannot contact your doctor, please go to the nearest emergency department. * H&P - Andrea Mcdonald MD - 06/01/2025 7:25 AM EDT Images from the original note were not included. CARDIOLOGY HISTORY & PHYSICAL SUBJECTIVE History Of Present Illness Ashley Woodall is a 45 y.o. female with a past medical history as listed below who presents today for planned Coronary angiography +/- PCI for indication: Renal transplant evaluation. Patient was last seen in clinic on 04/12/[address] Murrieta. Nuclear stress test was ordered and resulted as normal, but her transplant center has since stated their protocol requires invasive evaluation due to her comorbidities. Since that time there have been no significant interval events. They deny any recent chest pain, shortness of breath, orthopnea, leg swelling, progressive fatigue, syncope. No contrast allergy. Home anticoagulation/antiplatelet: None Past Medical History Past Medical History[1] Surgical History Surgical History[2] Family History Family History[3] Social History Social History Socioeconomic History Marital status: Single Spouse name: Not on file Number of children: Not on file Years of education: Not on file Highest education level: Not on file Occupational History Not on file Tobacco Use Smoking status: Never Passive exposure: Never Smokeless tobacco: Never Vaping Use Vaping status: Never Used Substance and Sexual Activity Alcohol use: Never Drug use: Never Sexual activity: Not Currently Partners: Male Other Topics Concern Not on file Social History Narrative Merged History Encounter Social Drivers of Health Financial Resource Strain: Not on file Food Insecurity: Not on file Transportation Needs: Not on file Physical Activity: Not on file Stress: Not on file Social Connections: Unknown (08/11/2023) Received from [facility] Family and Community Support Help with Day-to-Day Activities: Not on file Lonely or Isolated: Not on file Intimate Partner Violence: Unknown (11/20/2023) Received from [facility] Abuse Screen Unsafe at Home or Work/School: Not on file Feels Threatened by Someone?: Not on file Does Anyone Keep You from Contacting Others or Doint Things Outside the Home?: Not on file Physical Sign of Abuse Present: Not on file Housing Stability: Unknown (11/20/2023) Received from [facility] Housing Stability Current Living Arrangements: Not on file Potentially Unsafe Housing Conditions: Not on file Allergies Penicillins Home Medications Current Outpatient Medications Medication Instructions albuterol 108 (90 Base) MCG/ACT inhaler 2 puffs, Every 6 hours PRN cholecalciferol 25 MCG (1000 UT) tablet 0.5 tablets, Every other day Continuous Glucose Sensor ([employer] Omar 3 Plus Sensor) misc Change every 15 days. Diagnosis E11.65. ferrous sulfate 325 mg, Daily insulin glargine (Lantus SoloStar, Basaglar) 100 UNIT/ML [...] 80 mg, Oral, Every 6 hours PRN OBJECTIVE Physical Exam Blood pressure (!) 140/75, pulse (!) 47, temperature 36.3 ??C (97.4 ??F), temperature source Oral, height 1.778 m (5' 10 ), weight 101 kg (223 lb 1.7 oz). GENERAL: Awake, alert, NAD HEENT: NCAT NECK: No appreciable JVD CARDIAC: Regular rate, regular rhythm, 2+ radial pulses bilaterally PULM: CTAB without increased work of breathing ABD: Soft, NT, ND EXT: Warm and well perfused, no LE edema SKIN: No rashes or lesions NEURO: A&Ox4, moving all extremities spontaneously PSYCH: Normal mood and affect ASSESSMENT/PLAN Ashley Woodall is a 45 y.o. female with a past medical history as listed above who presents today for planned Coronary angiography +/- PCI for indication: Renal transplant evaluation. -- Proceed with planned procedure. Consent obtained at bedside. Pre-sedation documentation completed. -- Access plan: Right radial (denies history of AVF or shunt for HD access; once had RIJ tunneled line) -- Relevant labs: Collected prior to procedure and will be reviewed. Patient has ESRD. -- Anticoagulation/antiplatelet plan: Pending procedural findings. Andrea Mcdonald MD Mechanical Systems Designer [1] Past Medical History: Diagnosis Date Anemia Asthma Class 3 obesity Dental disease uppers only Dependence on peritoneal dialysis ([facility]) Diabetes mellitus type 2, insulin dependent ([facility]) Dysphagia End stage renal disease ([facility]) 12/29/2023 GERD (gastroesophageal reflux disease) Hiatal hernia History of thyroid nodule Hypertension IgA nephropathy Seizures ([facility]) last 1996 Vitamin D deficiency [2] Past Surgical History: Procedure Laterality Date ABLATION, VAGINAL LESION SECTION, LOW TRANSVERSE N/A section from [facility] DENTAL SURGERY N/A Dental surgery from [facility] MOUTH SURGERY 2011 had all teeth removed OTHER SURGICAL HISTORY 08/2024 tunnel catheter PERITONEAL CATHETER INSERTION [3] Family History Problem Relation Name Age of Onset Diabetes Father Bryon Woodall Hypertension Father Bryon Woodall Sleep apnea Father Bryon Woodall Diabetes type II Father Bryon Woodall Hypotension Father Bryon Woodall Sudden Father Bryon Woodall Seizures Other Cancer Mother's Sister Kaycee Diabetes type II Father's Brother Kevin woodall Cosigned by Erich Sexton MD at 06/01/2025 10:16 AM EDT Associated attestation - Erich Sexton MD - 06/01/2025 10:16 AM EDT I saw and evaluated the patient with the resident/fellow. I discussed the case with the resident/fellow and agree with the findings and plan as documented. * Pre-Sedation Procedural Documentation - Andrea Mcdonald MD - 06/01/2025 7:24 AM EDT Images from the original note were not included. CARDIOLOGY SEDATION PRE-PROCEDURAL ASSESSMENT AND SEDATION PLAN OF CARE Indication for procedure: Pre-transplant evaluation for kidney transplant Planned Procedure: Coronary angiography +/- PCI Relevant past medical history: ESRD on PD, IgA nephropathy, history of sleeve gastrectomy, DM2, obesity Previous problems with surgery, anesthesia or sedation: No Previous family history or problems with anesthesia or sedation: No Relevant Labs: Lab Results Component Value Date CREATININE 4.28 (H) 03/23/2025 EGFR 12 06/01/2025 INR 1.0 02/13/2024 PREGTESTUR 09/07/2024 Negative - women after 7 weeks gestation and dilute urine (specific gravity <1.010) may have false negative results. Plasma HCG testing is recommended. Test performed at Point of Care. Planned Sedation/Anesthesia: Moderate Airway assessment: normal Mallampati Score: III (soft and hard palate and base of uvula visible) ASA: ASA 2 - Patient with mild systemic disease with no functional limitations Directed physical examination: Vitals: 06/01/25 0755 BP: (!) 140/75 Pulse: (!) 47 Temp: 36.3 ??C (97.4 ??F) GENERAL: Awake, alert, NAD HEENT: NCAT NECK: No appreciable JVD CARDIAC: Regular rate, regular rhythm, 2+ radial pulses bilaterally PULM: CTAB without increased work of breathing ABD: Soft, NT, ND EXT: Warm and well perfused, no LE edema SKIN: No rashes or lesions NEURO: A&Ox4, moving all extremities spontaneously Benefits, risks and alternatives of procedure and planned sedation have been discussed with the patient and/or their territory sales representative. All questions answered and they agree to proceed. Cosigned by Erich Sexton MD at 06/01/2025 10:16 AM EDT Associated attestation - Erich Sexton MD - 06/01/2025 10:16 AM EDT I saw and evaluated the patient with the resident/fellow. I discussed the case with the resident/fellow and agree with the findings and plan as documented. Erich Sexton MD documented in this encounter Plan of Treatment Upcoming Encounters Date Type Department Care Team (Late st Contact Info) Description 08/11/2025 3:20 PM EDT Office Visit [facility] Endocrinology [address] [place] [address] Mary Arroyo PA [address] [address] 10/05/2025 10:00 AM EST Office Visit [facility] General & Weight Loss Surgery [address] [place] [address] Geoffrey Leos MD [address] [place] [phone] documented as of this encounter Procedures Procedure Name Priority Date/Time Associated Diagnosis Comments CORONARY ANGIOGRAPHY Routine 06/01/2025 10:46 AM EDT Pre-transplant evaluation for kidney transplant Abnormal findings on diagnostic imaging of heart and coronary circulation POCT , URINE Routine 06/01/2025 8:17 AM EDT POCT CREATININE ISTAT UNSOLICITED RESULTS Routine 06/01/2025 8:00 AM EDT CBC W/O DIFFERENTIAL STAT 06/01/2025 7:54 AM EDT BASIC METABOLIC PANEL, PLASMA STAT 06/01/2025 7:54 AM EDT POCT , URINE Routine 06/01/2025 7:49 AM EDT documented in this encounter Results * CORONARY ANGIOGRAPHY (06/01/2025 10:46 AM EDT) Anatomical Region Laterality Modality Other Narrative 06/02/2025 9:34 AM EDT 45 y/o F with h/o ESRD secondary to IgA nephropathy currently on peritoneal dialysis since December 2023, being considered for kidney transplant, who is here for coronary angiogram per renal transplant team request. Recent stress test was normal. Conclusion: # Angiographically normal epicardial coronary arteries (right dominant) # 6F right radial arterial access; hemostasis obtained with TR band. Recommendations: 1. Continue to follow with [facility] (Dr. Murrieta) and [facility]. Findings were communicated with patient's primary refuge worker via non-urgent staff message. Procedure Details After informed consent was obtained, the patient was brought to the cardiac catheterization laboratory. A time out was done to confirm the correct patient, site and procedure. The patient's right wrist was prepped and draped in sterile fashion. The skin overlying the patient's right radial region was anesthetized with 1% lidocaine. Using modified Seldinger technique a 21-gauge micropuncture needle was used to puncture the right radial artery, and 0.021 guidewire was advanced into the radial artery without difficulty. A 5F short sheath was advanced over a guidewire and flushed. At that time a cocktail of heparin and nitroglycerin was given through the radial sheath. A 5F JR4 and JL3.5 catheters were advanced into the ascending aorta over a 0.035 J-tipped guidewire. Selective left and right coronary arteriography was then carried out in a variety of projections using small amounts of isosmolar contrast material, which was injected by hand. The catheter was then withdrawn. A TR band was placed, and the radial artery introducer was removed. The TR band was inflated with 13 cc of air. The patient was transferred back to the manager labor relations holding area in good condition. Coronary Findings Diagnostic Dominance: Right Left Main: The LMCA is a large caliber vessel that arises from the L coronary cusp and bifurcates into the LAD and L circumflex arteries. This vessel appears angiographically normal. Left Anterior Descending: The LAD is a large caliber vessel arising from the LMCA, and gives off 2 large diagonal branches before coursing to and terminating at the apex of the heart. This vessel appears angiographically normal. Left Circumflex: The L circumflex artery is a large caliber vessel that arises from the LMCA and gives off 3 OM branches before coursing to and terminating within the posterior AV groove. This vessel appears angiographically normal. Right Coronary Artery: The RCA is a large caliber vessel that arises from the R coronary cusp, gives off acute marginal branches, and courses to and through the posterior AV groove before giving off a PDA and a PL system (R-dominant system). This vessel appears angiographically normal. Intervention No interventions have been documented. Rosa Isela Murrieta MD CV CARDIAC CATH PROCEDURES Fi nal Result * POCT , URINE (06/01/2025 8:17 AM EDT) [facility] POCT Test, Urine Negative Males and Non- Females: Negative 06/06/2025 2:36 PM EDT HEALTHCARE [facility] Front End Alignment Specialist ID Sudhir James 06/06/2025 2:36 PM EDT HEALTHCARE LAB Device ID [id number] 06/06/2025 2:36 PM EDT HEALTHCARE LAB Urine Urine specimen obtained by clean catch procedure / Unknown 06/01/2025 8:17 AM EDT 06/06/2025 2:36 PM EDT Erich Sexton MD LAB POINT OF CARE TE ST DOCKED DEVICE UNSOLICITED RESULTS Final Result [facility] [address] [place] [id number] * (ABNORMAL) POCT creatinine (06/01/2025 8:00 AM EDT) Creatinine, Point of Care 4.5(H) 0.6 - 1.1 mg/dL 06/01/2025 8:03 AM EDT HEALTHCARE LAB POCT eGFR 12 mL/min/1. 73m*2 06/01/2025 8:03 AM EDT [facility] Front End Alignment Specialist ID Adalgisa Stovall 06/01/2025 8:03 AM EDT HEALTHCARE LAB Device ID [id number] 06/01/2025 8:03 AM EDT HEALTHCARE LAB Comment 06/01/2025 8:03 AM EDT [facility] Comment:Testing performed on i-STAT at the point of care. Reported eGFRcr in mL/min/1.73m2 is based the CKD-EPI 2020 equation that does not use a race coefficient. Blood Venous blood specimen / Unknown 06/01/2025 8:00 AM EDT 06/01/2025 8:03 AM EDT us Erich Sexton MD LAB POINT OF CARE TE ST DOCKED DEVICE UNSOLICITED RESULTS Final Result Performing Organization Address City/State/[facility] Co de Phone Number HEALTHCARE LAB [address] LAB [address] [place] [address] * (ABNORMAL) Basic metabolic panel (06/01/2025 7:54 AM EDT) Glucose, Plasma 97 74 - 99 mg/dL 06/01/2025 8:31 AM EDT [facility] BUN, Plasma 40(H) 7 - 21 mg/dL 06/01/2025 8:31 AM EDT [facility] Creatinine, Plasma 4.18(H) 0.60 - 1.10 mg/dL 06/01/2025 8:31 AM EDT [facility] BUN/Creatinine Ratio 10 06/01/2025 8:31 AM EDT [facility] Sodium, Plasma 138 136 - 145 mmol/L 06/01/2025 8:31 AM EDT [facility] Potassium, Plasma 4.7 3.6 - 4.9 mmol/L 06/01/2025 8:31 AM EDT [facility] Chloride, Plasma 107 97 - 107 mmol/L 06/01/2025 8:31 AM EDT [facility] CO2, Plasma 20(L) 22 - 29 mmol/L 06/01/2025 8:31 AM EDT [facility] Anion Gap 11 6 - 16 mmol/L 06/01/2025 8:31 AM EDT [facility] Total Calcium, Plasma 8.5(L) 8.9 - 10.2 mg/dL 06/01/2025 8:31 AM EDT [facility] eGFRcr 12.8 mL/min/1.7 3m*2 06/01/2025 8:31 AM EDT [facility] Comment:Reported eGFRcr in m L/min/1.73m2 is based the CKD-EPI 2020 equation that does not use a race coefficient. Blood Venous blood specimen / Unknown Venipuncture / Unknown 06/01/2025 7:54 AM EDT 06/01/2025 8:02 AM EDT us Erich Sexton MD LAB BLOOD ORDERABLES Final Res ult [facility] [address] [place] [address] * (ABNORMAL) Hemogram (CBC) (06/01/2025 7:54 AM EDT) WBC Count 6.22 3.70 - 10.30 10*3/uL LAB HEMATOLOGY METHOD 06/01/2025 8:17 AM EDT [facility] RBC Count 3.65(L) 3.90 - 5.20 10*6/uL LAB HEMATOLOGY METHOD 06/01/2025 8:17 AM EDT [facility] HGB 12.1 11.2 - 15.7 g/dL LAB HEMATOLOGY METHOD 06/01/2025 8:17 AM EDT [facility] HCT 34.8 34.0 - 45.0 % LAB HEMATOLOGY METHOD 06/01/2025 8:17 AM EDT [facility] Platelet Count 181 155 - 369 10*3/uL LAB HEMATOLOGY METHOD 06/01/2025 8:17 AM EDT [facility] MCV 95 79 - 98 fL LAB HEMATOLOGY METHOD 06/01/2025 8:17 AM EDT [facility] MCH 33.2(H) 26.0 - 32.0 pg LAB HEMATOLOGY METHOD 06/01/2025 8:17 AM EDT [facility] MCHC 34.8 30.7 - 35.5 g/dL LAB HEMATOLOGY METHOD 06/01/2025 8:17 AM EDT [facility] RDW 12.7 11.5 - 14.5 % LAB HEMATOLOGY METHOD 06/01/2025 8:17 AM EDT [facility] MPV 9.1 8.8 - 12.5 fL LAB HEMATOLOGY METHOD 06/01/2025 8:17 AM EDT [facility] nRBC 0.0 <=0.0 per 100 WBCs LAB HEMATOLOGY METHOD 06/01/2025 8:17 AM EDT [facility] Blood Venous blood specimen / Unknown Venipuncture / Unknown 06/01/2025 7:54 AM EDT 06/01/2025 8:02 AM EDT us Erich Sexton MD LAB BLOOD ORDERABLES Final Res ult Performing Organization Address City/State/[facility] Co de Phone Number [facility] [address] [place] [address] * POCT , URINE (06/01/2025 7:49 AM EDT) POCT Test, Urine Negative Males and Non- Females: Negative 06/06/2025 2:36 PM EDT [facility]ALTHCARE [facility] Front End Alignment Specialist ID GlenElsy Dennis Elizabeth 06/06/2025 2:36 PM EDT HEALTHCARE LAB Device ID [id number] 06/06/2025 2:36 PM EDT HEALTHCARE LAB Urine Urine specimen obtained by clean catch procedure / Unknown 06/01/2025 7:49 AM EDT 06/06/2025 2:36 PM EDT us Erich Sexton MD LAB POINT OF CARE TE ST DOCKED DEVICE UNSOLICITED RESULTS Final Result [facility] [address] [place] [address] documented in this encounter Visit Diagnoses Diagnosis Pre-transplant evaluation for kidney transplant Abnormal findings on diagnostic imaging of heart and coronary circulation Pre-transplant evaluation for kidney transplant Abnormal findings on diagnostic imaging of heart and coronary circulation documented in this encounter Admitting Diagnoses Diagnosis Pre-transplant evaluation for kidney transplant Abnormal findings on diagnostic imaging of heart and coronary circulation documented in this encounter Administered Medications Inactive Administered Medications - up to 3 most recent administrations Medication Order MAR Action Action Date Dose Rate Site acetaminophen (Tylenol) tablet 650 mg 650 mg, Oral, Every 4 hours PRN, Starting on Fri06/01/25 at 1054, Until Fri06/01/25 at 1521, Routine, Recovery(Phase II-Outpatient)/On Unit(Inpatient), mild pain, fever sodium chloride 0.9 % flush 10 mL 10 mL, Intravenous, Every 12 hours, First dose on Fri06/01/25 at 0830, Until Discontinued, Routine, On Unit - Preprocedure sodium chloride 0.9 % flush 10 mL 10 mL, Intravenous, As needed, Starting on Fri06/01/25 at 0732, Until Fri06/01/25 at 1521, Routine, On Unit - Preprocedure, line care sodium chloride 0.9 % flush 10 mL 10 mL, Intravenous, Every 12 hours, First dose on Fri06/01/25 at 0830, Until Discontinued, Routine, Holding - Preprocedure sodium chloride 0.9 % flush 10 mL 10 mL, Intravenous, As needed, Starting on Fri06/01/25 at 0732, Until Fri06/01/25 at 1521, Routine, Holding - Preprocedure, line care documented in this encounter Active and Recently Administered Medications Times are shown in EDT. Scheduled Medication Order 05/30/2025 05/31/2025 06/01/2025 sodium chloride 0.9 % flush 10 mL(Linked Group 1) 10 mL, Intravenous, Every 12 hours, First dose on Fri06/01/25 at 0830, Until Discontinued, Routine, On Unit - Preprocedure 0830 (Canceled Entry - Provider: Automatic Discharge Provider - Comment: Automatically canceled at discontinue of medication order) sodium chloride 0.9 % flush 10 mL(Linked Group 2) 10 mL, Intravenous, Every 12 hours, First dose on Fri06/01/25 at 0830, Until Discontinued, Routine, Holding - Preprocedure 0830 (Canceled Entry - Provider: Automatic Discharge Provider - Comment: Automatically canceled at discontinue of medication order) PRN Medication Order 05/30/2025 05/31/2025 06/01/2025 acetaminophen (Tylenol) tablet 650 mg 650 mg, Oral, Every 4 hours PRN, Starting on Fri06/01/25 at 1054, Until Fri06/01/25 at 1521, Routine, Recovery(Phase II-Outpatient)/On Unit(Inpatient), mild pain, fever fentaNYL (Sublimaze) injection (CANCELED) As needed, Starting on Fri06/01/25 at 1024, Until Fri06/01/25 at 1052, Routine, Intraprocedure 1024 (Given - Provid er: Ashley Butler RN)1029 (Given - Provider: Ashley Butler RN) heparin (porcine) injection (CANCELED) As needed, Starting on Fri06/01/25 at 1031, Until Fri06/01/25 at 1052, Routine, Intraprocedure 1031 (Given - Provid er: Andrea Mcdonald MD) iodixanol (VISIPaque) 320 MG/ML injection (CANCELED) As needed, Starting on Fri06/01/25 at 1046, Until Fri06/01/25 at 1052, Routine, Intraprocedure 1046 (Given - Provid er: Erich Sexton MD) lidocaine (Xylocaine) 2 % injection (CANCELED) As needed, Starting on Fri06/01/25 at 1027, Until Fri06/01/25 at 1052, Routine, Intraprocedure 1027 (Given - Provid er: Ashley Butler RN) midazolam (Versed) injection (CANCELED) As needed, Starting on Fri06/01/25 at 1024, Until Fri06/01/25 at 1052, Routine, Intraprocedure 1024 (Given - Provid er: Ashley Butler RN)1029 (Given - Provider: Ashley Butler RN) nitroglycerin (Tridil) in D5W IV solution 100 mcg/mL (CANCELED) As needed, Starting on Fri06/01/25 at 1031, Until Fri06/01/25 at 1052, Routine, Intraprocedure 1031 (Given - Provid er: Andrea Mcdonald MD) sodium chloride 0.9 % flush 10 mL(Linked Group 1) 10 mL, Intravenous, As needed, Starting on Fri06/01/25 at 0732, Until Fri06/01/25 at 1521, Routine, On Unit - Preprocedure, line care sodium chloride 0.9 % flush 10 mL(Linked Group 2) 10 mL, Intravenous, As needed, Starting on Fri06/01/25 at 0732, Until Fri06/01/25 at 1521, Routine, Holding - Preprocedure, line care Linked Groups Order Group 1: Insert peripheral IV (CANCELED) Once, On Fri06/01/25 at 0733, For 1 occurrence, On Unit - Preprocedure And Saline lock IV (CANCELED) Once, On Fri06/01/25 at 0733, For 1 occurrence, On Unit - Preprocedure And sodium chloride 0.9 % flush 10 mLJump to med 10 mL, Intravenous, Every 12 hours, First dose on Fri06/01/25 at 0830, Until Discontinued, Routine, On Unit - Preprocedure And sodium chloride 0.9 % flush 10 mLJump to med 10 mL, Intravenous, As needed, Starting on Fri06/01/25 at 0732, Until Fri06/01/25 at 1521, Routine, On Unit - Preprocedure, line care Group 2: Insert peripheral IV (CANCELED) Once, On Fri06/01/25 at 0733, For 1 occurrence, If a device procedure must have two IV lines with one in the left., Holding - Preprocedure And Saline lock IV (CANCELED) Once, On Fri06/01/25 at 0733, For 1 occurrence, Holding - Preprocedure And sodium chloride 0.9 % flush 10 mLJump to med 10 mL, Intravenous, Every 12 hours, First dose on Fri06/01/25 at 0830, Until Discontinued, Routine, Holding - Preprocedure And sodium chloride 0.9 % flush 10 mLJump to med 10 mL, Intravenous, As needed, Starting on Fri06/01/25 at 0732, Until 06/01/25 at 1521, Routine, Holding - Preprocedure, line care documented in this encounter Additional Health Concerns [...] plan has been documented for the patient 06/01/2025 12:17 PM EDT documented as of this encounter Care Teams Aquatics Lifeguard Relationship Specialty Start Date End Date Stephan Talbert MD [address] [place] [address] PCP - General 02/10/24 Francisco Cox MD [address] [place], [place] [id number] 06/18/22 Rick Shi MD [address] [place] [address] Referring Physician 01/30/24 documented as of this encounter
--- OUTSIDE RECORDS SUMMARY | 2025-06-01 08:30 | XMS_ITS | Encounter Summary ---
Author Organization [facility] Address [address] [place] [address] Care Team Providers Care Shoe Treer Name Role Phone Francisco Cox MD Unavailable [phone] Rick Shi MD Unavailable [phone] Stephan Talbert MD Primary Care Provider [phone] Reason for Visit * Auth/Cert (Routine) Specialty Diagnoses / Procedures Referred By Steffen t Referred To Contact Diagnoses Pre-transplant evaluation for kidney transplant Abnormal findings on diagnostic imaging of heart and coronary circulation Pre-transplant evaluation for kidney transplant [Z01.818] Abnormal findings on diagnostic imaging of heart and coronary circulation [R93.1] Procedures MD LEFT HEART CATH INJECT VETRICULOGRAPHY, IMAGE SUPERVISE/INTERP Left heart catheterization Erich Sexton MD [address] [place] [address] Phone: tel: fax: Cardiac [facility]ap Developer [address] [place] [address] Phone: tel: Referral ID Status Reason Start Date Expiration Date Visits Re quested Visits Authorized [id number] 1 1 Encounter Details Date Type Department Care Team (Late st Contact Info) Description 06/01/2025 8:30 AM EDT - 06/01/2025 9:30 AM EDT Surgery Cardiac Olap Developer [address] [place] [address] Erich Sexton MD [address] [place] [address] Left heart catheterization [14838 (CPT )] Surgery Details Date/Time Status Location OR Service Patient Class Case Class Case Type Trauma Case? 06/01/2025 8:30 AM Posted [facility] 03 [facility] Outpatient Surgery E-Elect eliseo Panel 1 Procedure LRB Anes Op Region Wound Class Comments Left heart catheterization N/A Choice Director of Kidney Tranplant at [facility] requesting LHC as part of their transplant protocol. Surgeon Surgeon Role Service Panel Andrea Mcdonald MD Fellow Cardiovascular 1 Romeo Wells MD Fellow Cardiovascular 1 Erich Sexton MD Primary Cardiovascular 1 documented in this encounter Social History Tobacco Use Types Packs/Day Years [...] Sign Reading Time Taken Comments Blood Pressure 140/75 06/01/2025 7:55 AM EDT Pulse 47 06/01/2025 7:55 AM EDT Temperature 36.3 C (97.4 F) 06/01/2025 7:55 AM EDT Respiratory Rate - - Oxygen Saturation - - Inhaled Oxygen Concentration - - Weight 101 [...] Month) No 025 7:45 AM EDT Tracie Arguello RN 2. Non-Specific Active Suici kei Thoughts (Past 1 Month) No 06/01/2025 7:45 AM EDT Tracie Arguello RN 6. Suicidal Behavior (Lifetime) No 7:45 AM EDT Tracie Arguello RN documented as of this encounter Medications at Time of Discharge albuterol 108 (90 Base) MCG/ACT inhaler Inhale 2 puffs every 6 hours as needed. cholecalciferol 25 MCG (1000 UT) tablet Take 0.5 tablets (500 Units) by mouth every other day. Continuous Glucose Sensor (FreeStyle Omar 3 Plus Sensor) miscIndications:Typ e 2 diabetes mellitus with chronic kidney disease on chronic dialysis, without long-term current use of insulin ([facility]) Change every 15 days. Diagnosis E11.65. 2 each 02/01/2025 ferrous sulfate 325 (65 Fe) MG tablet Take 1 tablet (325 mg) by mouth daily. insulin glargine (Lantus SoloStar, Basaglar) 100 UNIT/ML injection penIndications:Type 2 diabetes mellitus with chronic kidney disease on chronic dialysis, with long-term current use of insulin ([facility]) Inject 20 units once daily, with titration if indicated and as instructed up to MDD 50 units 15 mL 08/16/2024 insulin lispro (Admelog, HumaLOG) 100 UNIT/ML injection penIndications:Type 2 diabetes mellitus with chronic kidney disease on chronic dialysis, with long-term current use of insulin ([facility]) Inject Humalog 1 units for [...] dialysis, with long-term current use of insulin ([facility]) Inject 1-4x daily 200 each [...] Discharged via wheelchair to home * Rosalina Mayorga - Tracie Arguello RN - 06/01/2025 12:17 [...] no heavy work or lifting, driving a Watch[employer] car, or vigorous sports. ? Do not [...] file Social Connections: Unknown (08/11/2023) Received from [facility] Family and Community Support Help with Day-to-Day Activities: Not on file Lonely or Isolated: Not on file Intimate Partner Violence: Unknown (11/20/2023) Received from [facility] Abuse Screen Unsafe at Home or Work/School: Not on file Feels Threatened by Someone?: Not on file Does Anyone Keep You from Contacting Others or Doint Things Outside the Home?: Not on file Physical Sign of Abuse Present: Not on file Housing Stability: Unknown (11/20/2023) Received from [facility] Housing Stability Current Living Arrangements: Not on [...] plan: Pending procedural findings. Andrea Mcdonald MD Proposal Engineer [1] Past Medical History: Diagnosis Date Anemia Asthma Class 3 obesity Dental disease uppers only Dependence on peritoneal dialysis (CMS/HCC) Diabetes mellitus type 2, insulin dependent ([facility]/HCC) Dysphagia End stage renal disease ([facility]) 12/29/2023 GERD (gastroesophageal reflux disease) Hiatal hernia History of thyroid nodule Hypertension IgA nephropathy Seizures ([facility]) last 1996 Vitamin D deficiency [2] Past Surgical History: Procedure Laterality Date ABLATION, VAGINAL LESION SECTION, LOW TRANSVERSE N/A section from [facility] DENTAL SURGERY N/A Dental surgery from [facility] MOUTH SURGERY 2012 had all teeth removed OTHER SURGICAL HISTORY [...] been discussed with the patient and/or their bank representative. All questions answered and they agree [...] Description 08/11/2025 3:20 PM EDT Office Visit [facility] Endocrinology [address] [place] [address] Mary Arroyo PA [address] [place] [phone] 10/05/2025 10:00 AM EST Office Visit [facility] General & Weight Loss Surgery [address] [place] [phone] Geoffrey Leos MD [address] [place] [phone] documented as of this encounter Procedures Procedure [...] follow with [facility] (Dr. Murrieta) and [facility]. Findings were communicated with patient's primary psych therapist via non-urgent staff message. Procedure Details After [...] The patient was transferred back to the optical lab technician holding area in good condition. Coronary Findings [...] POCT , URINE (06/01/2025 8:17 AM EDT) Pathologist [facility] POCT Test, Urine Negative Males and Non- Females: Negative 06/06/2025 2:36 PM EDT HEALTHCARE LAB Ranger Aide ID Sudhir James 06/06/2025 2:36 PM EDT HEALTHCARE LAB Device ID [id number] 06/06/2025 2:36 PM EDT HEALTHCARE LAB Urine Urine specimen obtained by clean catch procedure / Unknown 06/01/2025 8:17 AM EDT 06/06/2025 2:36 PM EDT us Erich Sexton MD LAB POINT OF CARE TE ST DOCKED DEVICE UNSOLICITED RESULTS Final Result Performing Organization Address [facility] Co de Phone Number HEALTHCARE LAB [address] [place] [address] * (ABNORMAL) POCT creatinine (06/01/2025 8:00 AM EDT) Creatinine, Point of Care 4.5(H) 0.6 - 1.1 mg/dL 06/01/2025 8:03 AM EDT [facility] POCT eGFR 12 mL/min/1. 73m*2 06/01/2025 8:03 AM EDT [facility] Ranger Aide ID Adalgisa Stovall 06/01/2025 8:03 AM EDT [facility] Device ID [id number] 06/01/2025 8:03 AM EDT [facility] Comment 06/01/2025 8:03 AM EDT [facility] Comment:Testing performed on i-STAT at the point of care. Reported eGFRcr in mL/min/1.73m2 is based the CKD-EPI 2020 equation that does not use a race coefficient. Blood Venous blood specimen / Unknown 06/01/2025 8:00 AM EDT 06/01/2025 8:03 AM EDT us Erich Sexton MD LAB POINT OF CARE TE ST DOCKED DEVICE UNSOLICITED RESULTS Final Result Performing Organization Address [facility] de Phone Number HEALTHCARE LAB [address] LAB [address] [place] [address] * (ABNORMAL) Basic metabolic panel (06/01/2025 7:54 AM EDT) Glucose, Plasma 97 74 - 99 mg/dL 06/01/2025 8:31 AM EDT [facility] BUN, Plasma 40(H) 7 - 21 mg/dL 06/01/2025 8:31 AM EDT [facility] Creatinine, Plasma 4.18(H) 0.60 - 1.10 mg/dL 06/01/2025 8:31 AM EDT [facility] BUN/Creatinine Ratio 10 06/01/2025 8:31 AM EDT [facility] Sodium, Plasma 138 136 - 145 mmol/L 06/01/2025 8:31 AM EDT [facility] Potassium, Plasma 4.7 3.6 - 4.9 mmol/L 06/01/2025 8:31 AM EDT [facility] Chloride, Plasma 107 97 - 107 mmol/L 06/01/2025 8:31 AM EDT [facility] CO2, Plasma 20(L) 22 - 29 mmol/L 06/01/2025 8:31 AM EDT [facility] Anion Gap 11 6 - 16 mmol/L 06/01/2025 8:31 AM EDT [facility] Total Calcium, Plasma 8.5(L) 8.9 - 10.2 mg/dL 06/01/2025 8:31 AM EDT [facility] eGFRcr 12.8 mL/min/1.7 3m*2 06/01/2025 8:31 AM EDT [facility] Comment:Reported eGFRcr in m L/min/1.73m2 is based the CKD-EPI 2020 equation that does not use a race coefficient. Blood Venous blood specimen / Unknown Venipuncture / Unknown 06/01/2025 7:54 AM EDT 06/01/2025 8:02 AM EDT us Erich Sexton MD LAB BLOOD ORDERABLES Final Res ult [facility] [address] [place] [address] * (ABNORMAL) Hemogram (CBC) (06/01/2025 7:54 AM EDT) WBC Count 6.22 3.70 - 10.30 10*3/uL LAB HEMATOLOGY METHOD 06/01/2025 8:17 AM EDT [facility] RBC Count 3.65(L) 3.90 - 5.20 10*6/uL LAB HEMATOLOGY METHOD 06/01/2025 8:17 AM EDT [facility] HGB 12.1 11.2 - 15.7 g/dL LAB HEMATOLOGY METHOD 06/01/2025 8:17 AM EDT [facility] HCT 34.8 34.0 - 45.0 % LAB HEMATOLOGY METHOD 06/01/2025 8:17 AM EDT [facility] Platelet Count 181 155 - 369 10*3/uL LAB HEMATOLOGY METHOD 06/01/2025 8:17 AM EDT [facility] MCV 95 79 - 98 fL LAB HEMATOLOGY METHOD 06/01/2025 8:17 AM EDT [facility] MCH 33.2(H) 26.0 - 32.0 pg LAB HEMATOLOGY METHOD 06/01/2025 8:17 AM EDT [facility] MCHC 34.8 30.7 - 35.5 g/dL LAB HEMATOLOGY METHOD 06/01/2025 8:17 AM EDT [facility] RDW 12.7 11.5 - 14.5 % LAB HEMATOLOGY METHOD 06/01/2025 8:17 AM EDT [facility] MPV 9.1 8.8 - 12.5 fL LAB HEMATOLOGY METHOD 06/01/2025 8:17 AM EDT [facility] nRBC 0.0 <=0.0 per 100 WBCs LAB HEMATOLOGY METHOD 06/01/2025 8:17 AM EDT [facility] Blood Venous blood specimen / Unknown Venipuncture / Unknown 06/01/2025 7:54 AM EDT 06/01/2025 8:02 AM EDT us Erich Sexton MD LAB BLOOD ORDERABLES Final Res ult [facility] [address] [place] [address] * POCT , URINE (06/01/2025 7:49 AM EDT) POCT Test, Urine Negative Males and Non- Females: Negative 06/06/2025 2:36 PM EDT HEALTHCARE LAB Ranger Aide ID Elizabeth Ochoa 06/06/2025 2:36 PM EDT HEALTHCARE LAB Device ID [id number] 06/06/2025 2:36 PM EDT [facility] Urine Urine specimen obtained by clean catch procedure / Unknown 06/01/2025 7:49 AM EDT 06/06/2025 2:36 PM EDT Erich Sexton MD LAB POINT OF CARE TE ST DOCKED DEVICE UNSOLICITED RESULTS Final Result [facility] [address] [place] [address] documented in this encounter Visit Diagnoses Diagnosis [...] Unit(Inpatient), mild pain, fever fentaNYL (Sublimaze) injection As needed, Starting on Fri06/01/25 at 1024, Until Fri06/01/25 at 1052, Routine, Intraprocedure Given 06/01/2025 10:29 AM EDT 25 mcg Given 06/01/2025 10:24 AM EDT 25 mcg heparin (porcine) injection As needed, Starting on Fri06/01/25 at 1031, Until Fri06/01/25 at 1052, Routine, Intraprocedure Given 06/01/2025 10:31 AM EDT 5,000 Units iodixanol (VISIPaque) 320 MG/ML injection As needed, Starting on Fri06/01/25 at 1046, Until Fri06/01/25 at 1052, Routine, Intraprocedure Given 06/01/2025 10:46 AM EDT 40 mL lidocaine (Xylocaine) 2 % injection As needed, Starting on Fri06/01/25 at 1027, Until Fri06/01/25 at 1052, Routine, Intraprocedure Given 06/01/2025 10:27 AM EDT 5 mL Right Radial midazolam (Versed) injection As needed, Starting on Fri06/01/25 at 1024, Until Fri06/01/25 at 1052, Routine, Intraprocedure Given 06/01/2025 10:29 AM EDT 1 mg Given 06/01/2025 10:24 AM EDT 1 mg nitroglycerin (Tridil) in D5W IV solution 100 mcg/mL As needed, Starting on Fri06/01/25 at 1031, Until Fri06/01/25 at 1052, Routine, Intraprocedure Given 06/01/2025 10:31 AM EDT 200 mcg sodium chloride 0.9 % flush 10 mL [...] documented as of this encounter Care Teams Shoe Treer Relationship Specialty Start Date End Date Stephan Talbert MD [address] [place] [id number] PCP - General 02/10/24 Francisco Cox MD [address] [place] [id number] 06/18/22 Rick Shi MD [address] [place] [id number] Referring Physician 01/30/24 documented as of this encounter
--- OUTSIDE RECORDS SUMMARY | 2025-07-14 08:00 | XMS_ITS | Encounter Summary ---
Author Organization Healthcare Address [address] [place] [address] Care Team Providers Care Quality Compliance Consultant Name Role Phone Francisco Cox MD Unavailable [phone] Rick Shi MD Unavailable [phone] Stephan Talbert MD Primary Care Provider [phone] Encounter Details Date Type Department Care Team (Late st Contact Info) Description 07/14/2025 8:00 AM EDT Office Visit [facility] [place] [address] [place] [address] Rosa Isela Murrieta MD [address] [facility] [address] [place] [address] Pre-operative clearance (Primary Dx) Social History Tobacco Use Types Packs/Day Years [...] Sign Reading Time Taken Comments Blood Pressure 133/85 07/14/2025 8:27 AM EDT Pulse 52 07/14/2025 8:27 AM EDT Temperature - - Respiratory Rate - - Oxygen Saturation 98% 07/14/2025 8:27 AM EDT Inhaled Oxygen Concentration - - Weight 102 kg (225 lb 1.4 oz) 07/14/2025 8:27 AM EDT Height 177.8 cm (5' 10 ) 07/14/2025 8:27 AM EDT Body Mass Index 32.3 07/14/2025 8:27 AM EDT documented in this encounter Functional [...] encounter Miscellaneous Notes * Progress Notes - Rosa Isela Murrieta MD - 07/14/2025 8:00 AM EDT Images from the original note were not included. CARDIOLOGY CLINIC FOLLOW UP PATIENT NOTE Chief Complaint: Follow Up Subjective: Ashley Woodall is a 45 y.o. female has been previously seen in clinic. Prior medical visits and orders pertaining to cardiology: Reviewed angiogram findings. RN in Room. Today, pt doing well. Denies any active cardiac complaints including shortness of breath, PND, orthopnea, chest discomfort, palpitations, dizziness or syncope. ROS ROS was performed which was reportedly negative per patient except for pertinent positives and negatives as documented in the HPI. The following portions of the chart were reviewed this encounter and updated as appropriate: Tobacco Allergies Meds Problems Med Hx Surg Hx Fam Hx Allergies Penicillins Medications Current Medications[1] Objective: Physical Exam Visit Vitals BP 133/85 (BP Location: Right arm, Patient Position: Sitting) Pulse 52 Ht 1.778 m (5' 10 ) Wt 102 kg (225 lb 1.4 oz) SpO2 98% BMI 32.30 kg/m?? Constitutional: Appearance: No acute distress HENT: No [...] ALB Lab Results Component Value Date GLUCOSE 97 06/01/2025 CALCIUM 8.5 (L) 06/01/2025 NA 138 06/01/2025 K 4.7 06/01/2025 CO2 20 (L) 06/01/2025 CL 107 06/01/2025 BUN 40 (H) 06/01/2025 CREATININE 4.18 (H) 06/01/2025 HGBA1C 4.5 03/23/2025 Lab Results Component Value Date WBC 6.22 06/01/2025 HGB 12.1 06/01/2025 HCT 34.8 06/01/2025 PLT 181 06/01/2025 MCV 95 06/01/2025 MCV 93 12/07/2020 No lab exists for component: NTPROBNP Lab Results Component Value Date TSH 4.26 (H) 02/13/2024 BNP 295 12/03/2020 Lab Results Component Value Date CHOL 130 02/13/2024 TRIG 125 02/13/2024 HDL 46 (L) 02/13/2024 LDLCALC 62 02/13/2024 LDLCALC 61 12/06/2020 TSH 4.26 (H) 02/13/2024 Lab Results Component Value Date HGBA1C 4.5 03/23/2025 Assessment/Plan Ashley Woodall is a 45 y.o. female who presents to clinic today for follow up visit. Risk stratification prior to renal transplant surgery/procedure. Estimated perioperative risk of MACE based on combinedclinical/surgical risk: Revised Cardiac Risk Index (RCRI) Score for Pre-Operative Risk: Class III Risk, 15% 30-day risk of , CA, or cardiac arrest. At the request of Dr. Vinicius Brand, Director of Kidney Transplant at [facility], an invasive coronary angiogram (ICA) was requested as required by their transplant protocol. ICA completed on 06/01/2025 and angiographically had normal epicardial coronary arteries (right dominant). Follow Up: PCP and Transplant Team Rosa Isela Murrieta MD I spent 30 [...] (500 Units) by mouth every other day. (Patient not taking: Reported on 06/01/2025) Continuous Glucose Sensor (CATASYSStyle Omar 3 Plus Sensor) misc Change every 15 days. Diagnosis E11.65. (Patient not taking: Reported on 06/01/2025) 2 each 11 ferrous sulfate 325 (65 Fe) MG tablet Take 1 tablet (325 mg) by mouth daily. (Patient not taking: Reported on 06/01/2025) insulin glargine (Lantus SoloStar, Basaglar) 100 UNIT/ML injection pen Inject 20 units once daily, with titration if indicated and as instructed up to MDD 50 units (Patient not taking: Reported on 06/01/2025) 15 mL 5 insulin lispro (Admelog, HumaLOG) 100 UNIT/ML injection pen Inject Humalog 1 units for every 40 points your blood glucose is >150 three times daily before meals, or every 3 hours to correct high blood glucose, to MDD 50 units 15 mL 5 montelukast (Singulair) 10 MG tablet Take 1 tablet (10 mg) by mouth nightly. (Patient not taking: No sig reported) ondansetron ODT (Zofran-ODT) 4 MG disintegrating tablet Take 1 tablet (4 mg) by mouth every 8 (eight) hours if needed for nausea or vomiting. 20 tablet 0 pen needle, diabetic (B-D UF III MINI PEN NEEDLES) 31G X 5 MM misc Inject 1-4x daily 200 each 11 [employer] IP Inject 6,000 mL of dilution into the abdomen / abdominal cavity every evening. simethicone (Mylicon) 20 mg/0.3 mL drops Take 1.2 mL (80 mg) by mouth every 6 (six) hours if neededfor flatulence. (Patient not taking: No sig reported) 30 mL 0 No current facility-administered medications for this visit. documented in this encounter Plan of Treatment Upcoming Encounters Date Type Department Care Team (Late st Contact Info) Description 08/11/2025 3:20 PM EDT Office Visit [facility] Endocrinology [address] [place] [address] Mary Arroyo PA [address] [phone] 10/05/2025 10:00 AM EST Office Visit [facility] General & Weight Loss Surgery [address] [place] [address] Geoffrey Leos MD [address] [place] [address] [address] documented as of this encounter Visit Diagnoses Diagnosis Pre-operative clearance- Primary Unspecified pre-operative examination documented in this encounter Additional Health Concerns Infection Onset Date Last Indicated Resolved Time 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 12/04/2020 03/27/2021 Assessment Noted Time PHQ-9 Depression Total Score: 0 04/12/20 25 10:27 AM EDT A fall risk assessment has been complete d for the patient 07/14/2025 8:30 AM EDT A Body Mass Index follow-up plan has been documented for the patient 07/14/2025 9:57 AM EDT documented as of this encounter Care Teams Quality Compliance Consultant Relationship Specialty Start Date End Date Stephan Talbert MD [address] [place] [address] [place] [address] PCP - General 02/10/24 Francisco Cox MD [address] [place], [place] [phone] 06/18/22 Rick Shi MD [address] [place] [place] [address] Referring Physician 01/30/24 documented as of this encounter
--- OUTSIDE RECORDS SUMMARY | 2025-07-18 16:43 | XMS_ITS | Encounter Summary ---
Author Organization [facility] Address [address] [place] [address] Care Team Providers Care Unload Associate Name Role Phone Unavailable Primary Care Provider Unavailabl e Encounter Details Date Type Department Care Team (Late st Contact Info) Description 05/24/2025 Abstract [facility] [address] [place] [phone] Iris Greer, DEL [address] [place] [address] Social History Tobacco Use Types Packs/Day Years [...] Description 07/22/2025 1:00 PM EDT Appointment [facility] Outpatient [place], [place] [address] [place] [address] [address] [place] [address] 07/22/2025 1:30 PM EDT [facility]ment [facility] [address] [facility] [address] [place] [address] 07/22/2025 2:30 PM EDT Appointment [facility] [address] [facility] [place], [place] [id number] 07/22/2025 3:15 PM EDT Appointment Will Ventura Admission Testing [address] [place] [address] [place] [phone] documented as of this encounter Visit Diagnoses Not on filedocumented in this encounter
--- OUTSIDE RECORDS SUMMARY | 2025-07-18 16:43 | XMS_ITS | Encounter Summary ---
Author Organization [facility] Address [address] [place] [phone] Care Team Providers Care Environmental Scientists Name Role Phone Unavailable Primary Care Provider Unavailabl e Reason for Visit * Reason Onset Date Comments Other 05/23/2025 FINANCIAL- INSUR ANCE. Encounter Details Date Type Department Care Team (Late st Contact Info) Description 05/23/2025 Telephone [facility] [address] [address] Rita Flores [address] [place] [address] Other (FINANCIAL- INSURANCE.) Social History Tobacco Use [...] Description 07/22/2025 1:00 PM EDT Appointment [facility], [place] [address] [place] [address] [address] [place] [id number] 07/22/2025 1:30 PM EDT [facility]ointment [facility] [address] [facility] [address] [place] [id number] 07/22/2025 2:30 PM EDT Appointment [facility] Esthela Ventura [facility] [address] [facility] [address] [place] [id number] 07/22/2025 3:15 PM EDT Appointment Will Ventura Admission Testing [address] [place] [address] [address] [place] [address] documented as of this encounter Visit Diagnoses Not on filedocumented in this encounter
--- OUTSIDE RECORDS SUMMARY | 2025-07-18 16:43 | XMS_ITS | Encounter Summary ---
Author Organization [facility] Address [address] [place] [address] Care Team Providers Care Roll Edge Machine Operator Name Role Phone Unavailable Primary Care Provider Unavailabl e Reason for Referral * Radiology Services (Routine) - Pending Review Specialty Diagnoses / Procedures Referred By Steffen braun Referred To Contact Diagnoses Pre-transplant evaluation for end stage renal disease Chronic kidney disease with end stage renal failure on dialysis (CMS/HCC) Procedures DIAG-CHEST 2 VIEWS Choco Baez MD [address] [place], [place] [address]. [address] [place] [address] Phone: tel: fax: [address] [address] Phone: tel: Referral ID Status Reason Start Date Expiration Date V isits Requested Visits Authorized [id number] Pending Review 06/14/2025 06/14/2026 1 1 * Radiology Services (Routine) - Pending Review Specialty Diagnoses / Procedures Referred By Steffen braun Referred To Contact Diagnoses Pre-transplant evaluation for end stage renal disease Chronic kidney disease with end stage renal failure on dialysis ([facility]) Procedures VASCI-CAROTID DUPLEX COMP RAFAEL Choco Baez MD [address] [place] [address] Phone: tel: fax: THE [address] [phone] Phone: tel: Referral ID Status Reason Start Date Expiration Date V isits Requested Visits Authorized [id number] Pending Review 06/14/2025 06/14/2026 1 1 * Radiology Services (Routine) - Pending Review Specialty Diagnoses / Procedures Referred By Contac t Referred To Contact Diagnoses Pre-transplant evaluation for end stage renal disease Chronic kidney disease with end stage renal failure on dialysis (CMS/HCC) Procedures 2D ECHO COMPLETE W/STRAIN/3D PRN CONTR/BUBBLE HI ECHO TTHRC R-T 2D W/WOM-MODE COMPL SPEC&COLR D CHG 3D RENDERING W/INTERP & POSTPROCESS SUPERVISION Choco Baez MD [facility] [facility]. [address] [place] [address] Phone: tel: fax: [address] [phone] Phone: tel: Referral ID Status Reason Start Date Expiration Date V isits Requested Visits Authorized [id number] Pending Review 06/14/2025 06/14/2026 1 1 * Radiology Services (Routine) - Pending Review Specialty Diagnoses / Procedures Referred By Contac t Referred To Contact Diagnoses Pre-transplant evaluation for end stage renal disease Chronic kidney disease with end stage renal failure on dialysis ([facility]/HCC) Procedures CT-ABDOMEN & PELVIS WO CONTRAST Choco Baez MD [address] [facility]. [address] [place] [address] Phone: tel: fax: [address] [phone] Phone: tel: Referral ID Status Reason Start Date Expiration Date V isits Requested Visits Authorized [id number] Pending Review 06/14/2025 06/14/2026 1 1 Encounter Details Date Type Department Care Team (Late st Contact Info) Description 06/14/2025 Orders Only [facility] [address] [facility] 5 [place] [address] Iris Greer, DEL [address] [place] [address] Pre-transplant evaluation for end stage renal disease (Primary Dx); Chronic kidney disease with end stage renal failure on dialysis ([facility]/HCC) Social History Tobacco Use Types Packs/Day Years [...] Description 07/22/2025 1:00 PM EDT Appointment [facility] Outpatient [place], [place] [place] [address] 07/22/2025 1:30 PM EDT Appointment The [address] [place] [address] 07/22/2025 2:30 PM EDT Appointment [address] [place] [address] 07/22/2025 3:15 PM EDT Appointment [facility] Admission Testing [address] [place] [address] [place] [address] Scheduled Orders Name Type Priority Associated Diagnoses Order Schedule CT-ABDOMEN & PELVIS WO CONTRAST Imaging Routine Pre-transplant evaluation for end stage renal disease Chronic kidney disease with end stage renal failure on dialysis ([facility]) Expected: 06/21/2025, Expires: 06/14/2026 2D ECHO COMPLETE W/STRAIN/3D PRN CONTR/BUBBLE ECHO Routine Pre-transplant evaluation for end stage renal disease Chronic kidney disease with end stage renal failure on dialysis ([facility]/HCC) Expected: 06/21/2025, Expires: 06/14/2026 VASCI-CAROTID DUPLEX COMP RAFAEL Imaging Routine Pre-transplant evaluation for end stage renal disease Chronic kidney disease with end stage renal failure on dialysis ([facility] Expected: 06/21/2025, Expires: 08/15/2026 APTT Lab Routine Pre-transplant evaluation for end stage renal disease Chronic kidney disease with end stage renal failure on dialysis ([facility] 1 Occurrences starting 06/14/2025 until 06/14/2026 BASIC METABOLIC PANEL (BMP=EP1) Lab Routine Pre-transplant evaluation for end stage renal disease Chronic kidney disease with end stage renal failure on dialysis ([facility] 1 Occurrences starting 06/14/2025 until 06/14/2026 CBC WITH DIFFERENTIAL Lab Routine Pre-transplant evaluation for end stage renal disease Chronic kidney disease with end stage renal failure on dialysis ([facility] 1 Occurrences starting 06/14/2025 until 06/14/2026 CMV IGG & IGM Lab Routine Pre-transplant evaluation for end stage renal disease Chronic kidney disease with end stage renal failure on dialysis ([facility] 1 Occurrences starting 06/14/2025 until 06/14/2026 C-PEPTIDE Lab Routine Pre-transplant evaluation for end stage renal disease Chronic kidney disease with end stage renal failure on dialysis ([facility] 1 Occurrences starting 06/14/2025 until 06/14/2026 DIAG-CHEST 2 VIEWS Imaging Routine Pre-transplant evaluation for end stage renal disease Chronic kidney disease with end stage renal failure on dialysis ([facility] Expected: 06/21/2025, Expires: 06/14/2026 EBV CAPSID AB, IGG Lab Routine Pre-transplant evaluation for end stage renal disease Chronic kidney disease with end stage renal failure on dialysis ([facility] 1 Occurrences starting 06/14/2025 until 06/14/2026 EBV PROFILE Lab Routine Pre-transplant evaluation for end stage renal disease Chronic kidney disease with end stage renal failure on dialysis ([facility] 1 Occurrences starting 06/14/2025 until 06/14/2026 ECG ECG Routine Pre-transplant evaluation for end stage renal disease Chronic kidney disease with end stage renal failure on dialysis ([facility] 1 Occurrences starting 06/14/2025 until 06/14/2026 FOLATE, RBC Lab Routine Pre-transplant evaluation for end stage renal disease Chronic kidney disease with end stage renal failure on dialysis ([facility]/H[facility]) 1 Occurrences starting 06/14/2025 until 06/14/2026 HGB, A1C (GLYCOHEMOGLOBIN) Lab Routine Pre-transplant evaluation for end stage renal disease Chronic kidney disease with end stage renal failure on dialysis ([facility]) 1 Occurrences starting 06/14/2025 until 06/14/2026 HEPATITIS A IGG ANTIBODY Lab Routine Pre-transplant evaluation for end stage renal disease Chronic kidney disease with end stage renal failure on dialysis ([facility]) 1 Occurrences starting 06/14/2025 until 06/14/2026 HEPATITIS A IGM Lab Routine Pre-transplant evaluation for end stage renal disease Chronic kidney disease with end stage renal failure on dialysis ([facility]) 1 Occurrences starting 06/14/2025 until 06/14/2026 HEPATITIS B CORE AB Lab Routine Pre-transplant evaluation for end stage renal disease Chronic kidney disease with end stage renal failure on dialysis ([facility]) 1 Occurrences starting 06/14/2025 until 06/14/2026 HEPATITIS B SURFACE AB, QUANT(IMMUNE STATUS) Lab Routine Pre-transplant evaluation for end stage renal disease Chronic kidney disease with end stage renal failure on dialysis ([facility]/HCC) 1 Occurrences starting 06/14/2025 until 06/14/2026 HEPATITIS B SURFACE AG Lab Routine Pre-transplant evaluation for end stage renal disease Chronic kidney disease with end stage renal failure on dialysis ([facility]) 1 Occurrences starting 06/14/2025 until 06/14/2026 HEPATITIS C AB WITH REFLEX TO HCV,RNA,QUANT PCR Lab Routine Pre-transplant evaluation for end stage renal disease Chronic kidney disease with end stage renal failure on dialysis ([facility]) 1 Occurrences starting 06/14/2025 until 06/14/2026 HEPATITIS C RNA QUANTITATIVE Lab Routine Pre-transplant evaluation for end stage renal disease Chronic kidney disease with end stage renal failure on dialysis ([facility]) 1 Occurrences starting 06/14/2025 until 06/14/2026 HISTOPLASMA AB, IMMUNODIFFUSION Lab Routine Pre-transplant evaluation for end stage renal disease Chronic kidney disease with end stage renal failure on dialysis ([facility]) 1 Occurrences starting 06/14/2025 until 06/14/2026 VITAMIN B12 (CYANOCOBALAMIN) Lab Routine Pre-transplant evaluation for end stage renal disease Chronic kidney disease with end stage renal failure on dialysis ([facility]) 1 Occurrences starting 06/14/2025 until 06/14/2026 VARICELLA ZOSTER AB, IGG Lab Routine Pre-transplant evaluation for end stage renal disease Chronic kidney disease with end stage renal failure on dialysis ([facility] 1 Occurrences starting 06/14/2025 until 06/14/2026 URINE PROTEIN & CREATININE W/RATIO Lab Routine Pre-transplant evaluation for end stage renal disease Chronic kidney disease with end stage renal failure on dialysis [place] 1 Occurrences starting 06/14/2025 until 06/14/2026 URINALYSIS W/ REFLEX TO MICROSCOPIC Lab Routine Pre-transplant evaluation for end stage renal disease Chronic kidney disease with end stage renal failure on dialysis ([facility] 1 Occurrences starting 06/14/2025 until 06/14/2026 URIC ACID, SERUM Lab Routine Pre-transplant evaluation for end stage renal disease Chronic kidney disease with end stage renal failure on dialysis ([facility] 1 Occurrences starting 06/14/2025 until 06/14/2026 STRONGYLOIDES AB Lab Routine Pre-transplant evaluation for end stage renal disease Chronic kidney disease with end stage renal failure on dialysis ([facility] 1 Occurrences starting 06/14/2025 until 06/14/2026 SYPHILIS DIAGNOSTIC CASCADE Lab Routine Pre-transplant evaluation for end stage renal disease Chronic kidney disease with end stage renal failure on dialysis ([facility] 1 Occurrences starting 06/14/2025 until 06/14/2026 SERUM DRUG SCREEN Lab Routine Pre-transplant evaluation for end stage renal disease Chronic kidney disease with end stage renal failure on dialysis ([facility] 1 Occurrences starting 06/14/2025 until 06/14/2026 ROUTINE URINE CULTURE Microbiology Routine Pre-transplant evaluation for end stage renal disease Chronic kidney disease with end stage renal failure on dialysis ([facility] 1 Occurrences starting 06/14/2025 until 06/14/2026 QUANTIFERON(R) TB GOLD Lab Routine Pre-transplant evaluation for end stage renal disease Chronic kidney disease with end stage renal failure on dialysis ([facility] 1 Occurrences starting 06/14/2025 until 06/14/2026 PT (PRO TIME INCLUDES INR) Lab Routine Pre-transplant evaluation for end stage renal disease Chronic kidney disease with end stage renal failure on dialysis ([facility] 1 Occurrences starting 06/14/2025 until 06/14/2026 PHOSPHORUS Lab Routine Pre-transplant evaluation for end stage renal disease Chronic kidney disease with end stage renal failure on dialysis ([facility]) 1 Occurrences starting 06/14/2025 until 06/14/2026 PARATHYROID HORMONE Lab Routine Pre-transplant evaluation for end stage renal disease Chronic kidney disease with end stage renal failure on dialysis ([facility]) 1 Occurrences starting 06/14/2025 until 06/14/2026 MAGNESIUM Lab Routine Pre-transplant evaluation for end stage renal disease Chronic kidney disease with end stage renal failure on dialysis ([facility]) 1 Occurrences starting 06/14/2025 until 06/14/2026 LIVER PROFILE Lab Routine Pre-transplant evaluation for end stage renal disease Chronic kidney disease with end stage renal failure on dialysis ([facility] 1 Occurrences starting 06/14/2025 until 06/14/2026 LIPID PROFILE Lab Routine Pre-transplant evaluation for end stage renal disease Chronic kidney disease with end stage renal failure on dialysis ([facility] 1 Occurrences starting 06/14/2025 until 06/14/2026 HIV, QUANT Lab Routine Pre-transplant evaluation for end stage renal disease Chronic kidney disease with end stage renal failure on dialysis ([facility] 1 Occurrences starting 06/14/2025 until 06/14/2026 HIV AG/AB COMBO ASSAY Lab Routine Pre-transplant evaluation for end stage renal disease Chronic kidney disease with end stage renal failure on dialysis ([facility] 1 Occurrences starting 06/14/2025 until 06/14/2026 TYPE AND SCREEN NONTRANSFUSABLE AMBULATORY Lab Routine Pre-transplant evaluation for end stage renal disease Chronic kidney disease with end stage renal failure on dialysis ([facility]) 1 Occurrences starting 06/14/2025 until 06/14/2026 documented as of this encounter Visit Diagnoses Diagnosis Pre-transplant evaluation for end stage renal disease- Primary Other specified pre-operative examination Chronic kidney disease with end stage renal failure on dialysis ([facility]) documented in this encounter
--- OUTSIDE RECORDS SUMMARY | 2025-07-18 16:43 | XMS_ITS | Encounter Summary ---
Author Organization [facility] Address [address] [place] [address] Care Team Providers Care Manufacturing Technician Name Role Phone Unavailable Primary Care Provider Unavailabl e Encounter Details Date Type Department Care Team (Late st Contact Info) Description 06/13/2025 Abstract [facility] [address] [place] [id number] Isidra Almodovar [address] [place], [place] [address] Social History Tobacco Use Types Packs/Day Years [...] Description 07/22/2025 1:00 PM EDT Appointment [facility] Outpatient [place], [place] [address] [place] [address] [address] [place], [place] [id number] 07/22/2025 1:30 PM EDT Appointment The [facility] [address] [facility] [address] [place], [place] [id number] 07/22/2025 2:30 PM EDT Appointment [facility] [address] [facility], [address] [place], [place] [id number] 07/22/2025 3:15 PM EDT Appointment [place] Ad[facility] Testing [address] [place] [address] [place] [address] documented as of this encounter Visit Diagnoses Not on filedocumented in this encounter
--- OUTSIDE RECORDS SUMMARY | 2025-07-18 16:43 | XMS_ITS | Clinical Summary ---
Author Organization [employer] ([place], [place], [place], [place]) Address [address] [place] [address] Care Team Providers Care Founder President And Ceo Name Role Phone Unavailable Primary Care Provider Unavailabl e Social History Tobacco Use Types Packs/Day Years Used Date Smoking Tobacco: Never Assessed Comments Unknown Sex and Gender Information Value Date Recorded Sex Assigned at Not on file Legal Sex Female 3:05 PM CDT Gender Identity Not on file Sexual Orientation Not on file Plan of Treatment Not on file Insurance AETNA [facility]
--- OUTSIDE RECORDS SUMMARY | 2025-07-18 16:43 | XMS_ITS | Encounter Summary ---
Author Organization [facility] Address [address] [place] [address] Care Team Providers Care Shell Assembler Name Role Phone Unavailable Primary Care Provider Unavailabl e Encounter Details Date Type Department Care Team (Late st Contact Info) Description 04/07/2025 Abstract [facility] [address] [place] [phone] Miguel A Rosenda [address] [place], [place] [address] Social History Tobacco Use Types Packs/Day Years [...] 07/22/2025 1:00 PM EDT Appointment [facility] Outpatient [place], [place] [address] [place] [address] [address] [place], [place] [id number] 07/22/2025 1:30 PM EDT Appointment [facility] [address] [facility] [address] [place], [place] [id number] 07/22/2025 2:30 PM EDT Appointment [facility] [address] [facility], [address] [place], [place] [id number] 07/22/2025 3:15 PM EDT Appointment [place] Admission Testing [address] [place] [address] [place] [address] documented as of this encounter Visit Diagnoses Not on filedocumented in this encounter
--- OUTSIDE RECORDS SUMMARY | 2025-07-18 16:43 | XMS_ITS | Encounter Summary ---
Author Organization [facility] Address [address] [place] [address] Care Team Providers Care Manager Of Digital Name Role Phone Francisco Cox MD Unavailable [phone] Rick Shi MD Unavailable [phone] Stephan Talbert MD Primary Care Provider Encounter Details Date Type Department Care Team (Latest Contact Info) Description 07/14/2025 Travel Social History Tobacco Use Types Packs/Day [...] Description 08/11/2025 3:20 PM EDT Office Visit [facility] [address] [place] [address] Mary Arroyo PA [address] [place] [address] 10/05/2025 10:00 AM EST Office Visit [facility] General & Weight Loss Surgery [address] [place] [address] Geoffrey Leos MD [address] [facility] 2nd [place] [address] documented as of this encounter [...] documented as of this encounter Care Teams Manager Of Digital Relationship Specialty Start Date End Date Stephan Talbert MD [address] [place] [address] PCP - General 02/10/24 Francisco Cox MD [address] [place] [address] 06/18/22 Rick Shi MD [address] [place] [address] Referring Physician 01/30/24 documented as of this encounter
--- OUTSIDE RECORDS SUMMARY | 2025-07-18 16:48 | XMS_ITS | Clinical Summary ---
Author Organization [facility] Address [address] [place] [address] Phone Care Team Providers Care Cigar Head Puncher Name Role Phone Stephan Talbert MD Primary Care Provider [phone] Allergies Active Allergy Reactions Criticality Noted Date [...] disease not on chronic di alysis 09/12/2023 Surgical History Surgery Date Site/Laterality Comments UPPER [...] this topic Medical Devices Implanted Type Area Paving Foreman Device Identifier Shelf Expiration Date Model / Serial / Lot Kit Sunset Presternal Peritoneal Dialysis Catheter - [id number] Implanted:Qty : 1 on 09/30/2023 by Stephen Bruce MD at [facility] N/A: Abdomen COVIDIEN:NIRMAL L [id number] 06/11/2028 [id number] / / [id number] Insurance [place]ICAID [place] HUMANA MEDICARE HMO MR HUMANA MEDICARE HMO MR [place] HUMANA MEDICARE HMO [place] Care Teams Cigar Head Puncher Relationship Specialty Start Date End Date Stephan Talbert MD PCP - General Family Medicine 03/06/23
--- OUTSIDE RECORDS SUMMARY | 2025-07-18 16:48 | XMS_ITS | Clinical Summary ---
Author Organization [address] [address] Care Team Providers Care Juvenile Probation Officer Name Role Phone Unavailable Primary Care Provider [...] therelease of HIV test results or diagnoses. [id number] Health Encounters Date Type Department Care Team Description 04/22/2025 Telephone [facility] Kidney Transplant at [address] [address] Randi Leone MA Kidney Transplant [...] Treatment Not on file Insurance LUIGI Summers [id number] AETNA [facility]
--- OUTSIDE RECORDS SUMMARY | 2025-07-18 16:48 | XMS_ITS | Referral Summary ---
Author Organization [employer] ([place], [place], [place], [place]) Address [address] [place] [address] Care Team Providers Care Millwright Supervisor Name Role Phone Unavailable Primary Care Provider Unavailabl e Social History Tobacco Use Types Packs/Day Years Used Date Smoking Tobacco: Never Assessed Comments Unknown Sex and Gender Information Value Date Recorded Sex Assigned at Not on file Legal Sex Female 3:05 PM CDT Gender Identity Not on file Sexual Orientation Not on file Plan of Treatment Not on file Insurance AETNA [facility]
--- OUTSIDE RECORDS SUMMARY | 2025-07-18 16:48 | XMS_ITS | Encounter Summary ---
Author Organization [facility] Address [address] [place] [address] Care Team Providers Care Steamblaster Name Role Phone Francisco Cox MD Unavailable [phone] Rick Shi MD Unavailable [phone] Stephan Talbert MD Primary Care Provider Reason for Visit * Reason Onset Date Comments HCN Clinical Concern/Question 05/03/2025 Encounter Details Date Type Department Care Team (Late st Contact Info) Description 05/03/2025 Telephone [facility] [place] [address] [facility], [address] [place] [address] Rosa Isela Murrieta MD [address] [facility] [address] [place] [address] HCN Clinical Concern/Question Social History [...] this. RN called transplant nurse coordinator at [facility], who verified that patient does need heart cath for transplant work up, d/t diabetes diagnosis, but it could be [facility] at [facility] if [facility]. Antionette Chisholm RN * Telephone Encounter - Rogelio Castellonrickie Wong - 05/03/2025 3:04 PM EDT Clinical Concern/Question Reason for Call: Patient states she needs to have a heart cath to be cleared for transplant. Best contact number: Other: [phone] Optimal time of day to reach caller: ANYTIME Additional comments/information from caller: None Note: Please do not reply to this message. Follow-up communication and further actions as a result of this message need to be communicated with the patient directly, if the patient is not active onMyChart. If the patient is active on MyChart, they will receive notification of the communication/outcome via [employer]. documented in this encounter Plan of Treatment Upcoming Encounters Date Type Department Care Team (Late st Contact Info) Description 08/11/2025 3:20 PM EDT Office Visit [facility] Endocrinology [address] [place] [address] Mary Arroyo PA [address] [address] 10/05/2025 10:00 AM EST Office Visit [facility] General & Weight Loss Surgery [address] [place] [address] Geoffrey Leos MD [address] [address] documented as of this encounter Visit Diagnoses [...] documented as of this encounter Care Teams Steamblaster Relationship Specialty Start Date End Date Stephan Talbert MD [address] [place] [address] PCP - General 02/10/24 Francisco Cox MD [address] [place] [address] 06/18/22 Rick Shi MD [address] [place] [address] Referring Physician 01/30/24 documented as of this encounter
--- OUTSIDE RECORDS SUMMARY | 2025-07-18 16:48 | XMS_ITS | Clinical Summary ---
Author Organization [facility] Address [address] [place] [address] Care Team Providers Care Assistant Child Care Teacher Name Role Phone Stephan Talbert MD Primary Care Provider [phone] Social History Tobacco Use Types Packs/Day Years [...] Cancer Screening 2010 HPV/Cotest 2010 Mammogram 2020 Depression Risk Screening 11/03/2024 SDOH Screening 11/03/2024 COVID-19 Vaccine ( - season) 2025 Influenza Vaccine (#1) 2025 Diabetes Screening 03/23/2026 [...] [place] Care Teams Assistant Child Care Teacher Relationship Specialty [place] [address] [place] [phone] PCP - General Family Medicine 04/03/25
--- OUTSIDE RECORDS SUMMARY | 2025-07-18 16:49 | XMS_ITS | Clinical Summary ---
Author Organization [facility] Address [address] [place] [address] Care Team Providers Care Fisheries Management Biologist Name Role Phone Armand Yates MD Primary Care Provider Allergies Active Allergy Reactions Criticality Noted Date [...] VACCINES (1 - Tdap) 1999 MAMMOGRAM 2020 COLOGUARD 2025 COLON CANCER SCREENING 5 YEA R SIGMOIDOSCOPY 2025 COLONOSCOPY 2025 [address]AL CANCER SCREENING 2025 CT COLONOGRAPHY 2025 FECAL OCCULT BLOOD TEST 2025 FIT Testing (1 year) 2025 COVID-19 Vaccine (3 - 2024-2 6 season) 2025 09/18/2021, 08/27/2021 INFLUENZA VACCINE 08/03/2025 HEMOGLOBIN A1C Discontinued 08/16/2024, [...] Of Support Discussed With: Patient Care Teams Fisheries Management Biologist Relationship Specialty Start Date End Date Armand Yates MD [address] [place] [address] PCP - General Nephrology 11/15/22
--- OUTSIDE RECORDS SUMMARY | 2025-07-18 16:49 | XMS_ITS ---
Author Organization [facility] Address [address] [place] [address] Care Team Providers Care Contracting Officer Name Role Phone Unavailable Primary Care Provider Unavailabl e Transplant Episode Kidney Candidate [facility] ([place], [place]) - [facility] Evaluation began on 03/11/2025 Marked as Active on 03/11/2025 Kidney CoordinatorIris Greer RN Fax: N/A Email: N/A Scores Score Value Updated Exceptions/Reas ons CPRA Not available EPTS (Calc) 14 07/18/2025 Care Team Name Role Phone Fax Email Iris Greer RN Kidney Coordinator [phone] N/A N/A Amy Bangura, PHARMD Clinical Pharmacist [phone] N/A Evie Almodovar MSW, TITLE COORDINATOR Upsetter [phone] N/A N/A Rita Flores Electroencephalograph Technician [phone] N/A N/A Choco Baez MD Transplant Surgeon [phone] N/A Claritza Fields Pipeline Inspector [phone] N/A Events Pre-Transplant Referred: 01/05/2025 Evaluation began: 03/11/2025 Pending Checklist Tasks (Due on or before 08/17/2025) Name Due Date Attached Appoint ment Hepatitis [...] 12/23/2023 Continuous Cycling Peritoneal Dialys is Initial [facility] Dialysis Center Information Center Phone Fax Address [facility] [phone] [address] [facility] [address]
--- OUTSIDE RECORDS SUMMARY | 2025-07-18 16:49 | XMS_ITS | Clinical Summary ---
Author Organization [facility] Address [address] [place] [address] Care Team Providers Care Stevedore Dock Name Role Phone Francisco Cox MD Unavailable [phone] Rick Shi MD Unavailable [phone] Stephan Talbert MD Primary Care Provider [phone] Allergies Active Allergy Reactions Criticality Noted Date [...] dialysis, with long-term current use of insulin ([facility]) Inject 20 units once daily, with titration if indicated and as instructed up to MDD 50 units 15 mL 5 08/16/20 24 Active Additional Information Patient not taking.Reported on 06/01/2025 insulin lispro (Admelog, HumaLOG) 100 UNIT/ML injection penIndications: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 Diagnosis E11.65. 2 each 02/02/20 Active [facility] IP Inject 6,000 mL of dilution into the abdomen / abdominal cavity every evening. Active Active Problems Problem Noted Date Diagnosed [...] Encounters Date Type Department Care Team Description 07/14/2025 8:00 AM EDT Office Visit [facility] [facility] [address] [facility] [facility], [address] [place] [address] Rosa Isela Murrieta MD Pre-operative clearance (Primary Dx) 07/14/2025 Travel 06/06/[address] [address] Mary Arroyo PA Prior-authorization/in surance Verification 06/01/2025 8:30 AM EDT - 06/01/2025 9:30 AM EDT [facility] [address] [place] [address] Erich Sexton MD Left heart catheterization [25432 (CPT )] 06/01/2025 7:08 AM EDT - 06/01/2025 1:21 PM EDT Hospital Encounter [facility] [address] [place] [address] Erich Sexton MD Pre-transplant evaluation for kidney transplant; Abnormal findings on diagnostic imaging of heart and coronary circulation Discharge Disposition: Home or Self Care 06/01/2025 Travel 05/31/2025 Travel 05/03/2025 8:38 AM EDT - 05/03/2025 11:59 PM EDT Hospital Encounter Cardiac Imaging [address] [place] [address] Discharge Disposition: Home or Self Care 05/03/2025 8:30 AM EDT - 05/03/2025 8:37 AM EDT Hospital Encounter Cardiac Imaging [address] [place] [address] Discharge Disposition: Home or Self Care 05/03/2025 Telephone [facility] [address] [facility], [address] [place] [address] Rosa Isela Murrieta MD HCN Clinical Concern/Question 05/03/2025 Travel 04/29/2025 Telephone [facility] [address] [place] [address] Alysa Haider, RN 04/29/2025 Telephone [facility] [address] [place] [address] Alysa Haider, RN from Last 3 Months Immunizations Immunization Administration [...] Pulse 52 07/14/2025 8:27 AM EDT Temperature 36.4 C (97.6 F) 06/01/2025 10:55 AM EDT Respiratory Rate 15 06/01/2025 1:00 PM EDT Oxygen Saturation 98% 07/14/2025 8:27 AM EDT Inhaled Oxygen Concentration - - Weight 102 kg (225 lb 1.4 oz) 07/14/2025 8:27 AM EDT Height 177.8 cm (5' 10 ) 07/14/2025 8:27 AM EDT Body Mass Index 32.3 07/14/2025 8:27 AM EDT Plan of Treatment Upcoming Encounters Date Type Department Care Team (Late st Contact Info) Description 08/11/2025 3:20 PM EDT Office Visit [facility] [address] [place] [address] Mary Arroyo PA [address] [phone] 10/05/2025 10:00 AM EST Office Visit [facility] General & Weight Loss Surgery [address] [place] [address] Geoffrey Leos MD [address] [address] Health Maintenance Due Date Last Done Comments [facility]-Medicare Annual Wellness (AWV) 1980 [facility]-/Child/Adol SDOH Screenings [...] 2007 [facility]-Cervical Cancer Screening 2010 [facility]-HPV/Cotest 2010 CT Colonography 2025 Colonoscopy 2025 FIT-DNA 2025 FIT 2025 FOBT 2025 Sigmoidoscopy 2025 [facility]-Colorectal Cancer Screening 2025 [facility]-Hepatitis B Vaccines (4 of 4 - Risk Dialysis Recombivax 3-dose series) 06/10/2025 06/10/2024, 01/06/2024, 06/18/2022 [id number] Vaccine (3 - season) 2025 09/18/2021, 08/27/2021 [facility]-Influenza Vaccine (#1) 2025 [facility]-Diabetes: Hemoglobin A1C [...] 2024, 12/23/2023, 12/03/2020 [facility]-Obesity Intervention Completed 025, 05/10/2025, 04/12/2025, Additional history exists [facility]-HIB Vaccines Aged Out [...] Pre-operative clearance Encounter for preprocedural cardiovascular examination HEMOGLOBIN A1C Routine 03/23/2025 10:28 AM EDT [...] follow with [facility] (Dr. Murrieta) and [facility] Transplant. Findings were communicated with patient's primary street sweeper operator via non-urgent staff message. Procedure Details [...] The patient was transferred back to the circus laborer holding area in good condition. Coronary Findings [...] of2 resultswithin the time period is included. [facility] POCT Test, Urine Negative Males and Non- Females: Negative 06/06/2025 2:36 PM EDT HEALTHCARE LAB Grader Tender ID Sudhir James 06/06/2025 2:36 PM EDT HEALTHCARE LAB Device ID [id number] 06/06/2025 2:36 PM EDT HEALTHCARE LAB Urine Urine specimen obtained by clean catch procedure / Unknown 06/01/2025 8:17 AM EDT 06/06/2025 2:36 PM EDT us Erich Sexton MD LAB POINT OF CARE TE ST DOCKED DEVICE UNSOLICITED RESULTS Final Result Performing Organization Address City/[facility]/ZIP Co de Phone Number HEALTHCARE LAB [address] [place] [address] * (ABNORMAL) POCT creatinine (06/01/2025 8:00 AM EDT) [facility] Creatinine, Point of Care 4.5(H) 0.6 - 1.1 mg/dL 06/01/2025 8:03 AM EDT HEALTHCARE LAB POCT eGFR 12 mL/min/1. 73m*2 06/01/2025 8:03 AM EDT HEALTHCARE LAB Grader Tender ID Adalgisa Stovall 06/01/2025 8:03 AM EDT HEALTHCARE LAB Device ID [id number] 06/01/2025 8:03 AM EDT HEALTHCARE LAB Comment 06/01/2025 8:03 AM EDT [facility] Comment:Testing performed on i-STAT at the point of care. Reported eGFRcr in mL/min/1.73m2 is based the CKD-EPI 2020 equation that does not use a race coefficient. Blood Venous blood specimen / Unknown 06/01/2025 8:00 AM EDT 06/01/2025 8:03 AM EDT us Erich Sexton MD LAB POINT OF CARE TE ST DOCKED DEVICE UNSOLICITED RESULTS Final Result [facility] [address] LAB [address] [place] [address] * (ABNORMAL) Hemogram (CBC) (06/01/2025 7:54 AM EDT) WBC Count 6.22 3.70 - 10.30 10*3/uL LAB HEMATOLOGY METHOD 06/01/2025 8:17 AM EDT [facility] RBC Count 3.65(L) 3.90 - 5.20 10*6/uL LAB HEMATOLOGY METHOD 06/01/2025 8:17 AM EDT [facility] HGB 12.1 11.2 - 15.7 g/dL LAB HEMATOLOGY METHOD 06/01/2025 8:17 AM EDT [facility] HCT 34.8 34.0 - 45.0 % LAB HEMATOLOGY METHOD 06/01/2025 8:17 AM EDT [facility] Platelet Count 181 155 - 369 10*3/uL LAB HEMATOLOGY METHOD 06/01/2025 8:17 AM EDT [facility] MCV 95 79 - 98 fL LAB HEMATOLOGY METHOD 06/01/2025 8:17 AM EDT [facility] MCH 33.2(H) 26.0 - 32.0 pg LAB HEMATOLOGY METHOD 06/01/2025 8:17 AM EDT [facility] MCHC 34.8 30.7 - 35.5 g/dL LAB HEMATOLOGY METHOD 06/01/2025 8:17 AM EDT [facility] RDW 12.7 11.5 - 14.5 % LAB HEMATOLOGY METHOD 06/01/2025 8:17 AM EDT [facility] MPV 9.1 8.8 - 12.5 fL LAB HEMATOLOGY METHOD 06/01/2025 8:17 AM EDT [facility] nRBC 0.0 <=0.0 per 100 WBCs LAB HEMATOLOGY METHOD 06/01/2025 8:17 AM EDT [facility] Blood Venous blood specimen / Unknown Venipuncture / Unknown 06/01/2025 7:54 AM EDT 06/01/2025 8:02 AM EDT us Erich Sexton MD LAB BLOOD ORDERABLES Final Res ult [facility] [address] [place] [address] * (ABNORMAL) Basic metabolic panel (06/01/2025 7:54 AM EDT) Glucose, Plasma 97 74 - 99 mg/dL 06/01/2025 8:31 AM EDT [facility] BUN, Plasma 40(H) 7 - 21 mg/dL 06/01/2025 8:31 AM EDT [facility] Creatinine, Plasma 4.18(H) 0.60 - 1.10 mg/dL 06/01/2025 8:31 AM EDT [facility] BUN/Creatinine Ratio 10 06/01/2025 8:31 AM EDT [facility] Sodium, Plasma 138 136 - 145 mmol/L 06/01/2025 8:31 AM EDT [facility] Potassium, Plasma 4.7 3.6 - 4.9 mmol/L 06/01/2025 8:31 AM EDT [facility] Chloride, Plasma 107 97 - 107 mmol/L 06/01/2025 8:31 AM EDT [facility] CO2, Plasma 20(L) 22 - 29 mmol/L 06/01/2025 8:31 AM EDT [facility] Anion Gap 11 6 - 16 mmol/L 06/01/2025 8:31 AM EDT [facility] Total Calcium, Plasma 8.5(L) 8.9 - 10.2 mg/dL 06/01/2025 8:31 AM EDT [facility] eGFRcr 12.8 mL/min/1.7 3m*2 06/01/2025 8:31 AM EDT [facility] Comment:Reported eGFRcr in m L/min/1.73m2 is based the CKD-EPI 2020 equation that does not use a race coefficient. Blood Venous blood specimen / Unknown Venipuncture / Unknown 06/01/2025 7:54 AM EDT 06/01/2025 8:02 AM EDT us Erich Sexton MD LAB BLOOD ORDERABLES Final Res ult [facility] [address] [place] [address] * NM MYOCARDIAL SPECT REGADENOSON STRESS (MULTI [...] performed under direct supervision of the reading street sweeper operator. Study Impression There is no significant [...] CV STRESS PROCEDURES Final Re sult * Hemoglobin A1c (03/23/2025 10:28 AM EDT) Hemoglobin A1c 4.5 <5.7 % 03/23/2025 1:18 PM EDT [facility] Blood Venous blood specimen / Unknown Venipuncture / Unknown 03/23/2025 10:28 AM EDT 03/23/2025 10:29 AM EDT Narrative [facility] - 03/23/2025 1:18 PM EDT HA1C Interpretive Data: Diagnosis of Diabetes: Diabetic > or = 6.5% Pre-diabetic 5.7 to 6.4% Non-diabetic < or = 5.6% Glycemic Targets for Type I and Type II Diabetics: Non- Adults <7.0% Adults <6.0% Children and Adolescents <7.5% Source: [place] [employer]. Standards of medical care in diabetes,2017. Diabetes Care.2017:40 (suppl 1):S1-S135. Geoffrey Leos MD LAB BLOOD ORDERABLES Final R esult Performing Organization Address City/[facility] Co de Phone Number [facility] [address] [place] [address] * ED HIV 1/2 Antibody/Antigen Screen w/Reflex to HIV 1/2 Differentiation (11/30/2024 5:56 PM EST) HIV 1 & 2 Antibody/Antigen Screen Non Reactive Non Reactive 11/30/2024 6:43 PM EST [facility]ALTH[facility]ARE LAB Comment:Screening for HIV 1 & 2 antibodies, and P24 antigen is NONREACTIVE. No confirmatory testing is required. Blood Venous blood specimen / Unknown Venipuncture / Unknown 11/30/2024 5:56 PM EST 11/30/2024 6:06 PM EST Lenora Malik APRN LAB BLOOD ORDERABLES Final Result Performing Organization Address [facility] Co de Phone Number [facility] [address] [place] [address] * Hepatitis C Antibody - ED (11/30/2024 5:56 PM EST) [facility] Hepatitis C Antibody Negative Negative 11/30/2024 6:43 PM EST [facility] Blood Venous blood specimen / Unknown Venipuncture / Unknown 11/30/2024 5:56 PM EST 11/30/2024 6:06 PM EST Lenora Malik APRN LAB BLOOD ORDERABLES Final Result Performing Organization Address City/[facility] Co de Phone Number [facility] [address] [place] [address] from Last 3 Months or Most Recently Relevant to Health Maintenance Additional Health Concerns Infection Onset Date Last Indicated 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 Yes Care Teams Stevedore Dock Relationship Specialty Start Date End Date Stephan Talbert MD [address] [employer] [address] [place] [address] PCP - General 02/10/24 Francisco Cox MD [address] [place] [address] 06/18/22 Rick Shi MD [address] [employer] [address] [place] [address] Referring Physician 01/30/24
--- OUTSIDE RECORDS SUMMARY | 2025-07-18 16:49 | XMS_ITS | Encounter Summary ---
Author Organization [facility] Address [address] [place] [address] Care Team Providers Care E Commerce Project Manager Name Role Phone Francisco Cox MD Unavailable [phone] Rick Shi MD Unavailable [phone] Stephan Talbert MD Primary Care Provider [phone] Reason for Visit * Reason Onset Date Comments Prior-authorization/insurance Verification 06/06 Encounter Details Date Type Department Care Team (Late st Contact Info) Description 06/06/2025 [facility] [address] [place] [address] Mary Arroyo, PA [address] [facility] [address] [place] [address] Prior-authorization/in surance Verification Social History Tobacco [...] Insurance Approving PA: [employer] PA Number: [id number] PA Effective Dates: 11/03/24 - 11/02/25 Additional Info: [id number] * Telephone Encounter - Isidra Vargas - 06/06/2025 3:03 PM EDT Images from the original note were not included. Prior authorization requested for FreeStyle Omar 3 Plus Sensor. Ordered by Mary Arroyo. documented in this encounter Plan of Treatment Upcoming Encounters Date Type Department Care Team (Late st Contact Info) Description 08/11/2025 3:20 PM EDT Office Visit [facility] Endocrinology [address] [place] [address] Mary Arroyo PA [address] [facility] [address] [place] [address] 10/05/2025 10:00 AM EST Office Visit [facility] General & Weight Loss Surgery [address] [place] [address] Geoffrey Leos MD [address] [place] [address] [place] [address] documented as of this encounter Visit Diagnoses [...] documented as of this encounter Care Teams E Commerce Project Manager Relationship Specialty Start Date End Date Stephan Talbert MD [address] [place] [address] PCP - General 02/10/24 Francisco Cox MD [address] [place] [address] 06/18/22 Rick Shi MD [employer] [address] [place] [address] Referring Physician 01/30/24 documented as of this encounter
--- OUTSIDE RECORDS SUMMARY | 2025-07-18 16:49 | XMS_ITS | Encounter Summary ---
Author Organization [facility] Address [address] [place] [address] Care Team Providers Care Loan Review Officer Name Role Phone Unavailable Primary Care Provider Unavailabl e Encounter Details Date Type Department Care Team (Late st Contact Info) Description 02/25/2025 [facility] [address] [place] [address] Evie Thurman RN [address] [place] [address] Social History Tobacco Use Types Packs/Day Years [...] Description 07/22/2025 1:00 PM EDT Appointment [facility] Outpatient [place], Esthela Ventura [address] [place] [address] [address] [place] [address] 07/22/2025 1:30 PM EDT [facility]ointment [facility] [place] [address] [facility] [address] [place] [id number] 07/22/2025 2:30 PM EDT Appointment [facility][Note 3] [address] [facility] [address] [place] [id number] 07/22/2025 3:15 PM EDT Appointment Will Ventura Admission Testing [address] [place] [address] B [address]hel[address] [place]ura [place] [id number] documented as of this encounter Visit Diagnoses Not on filedocumented in this encounter
--- OUTSIDE RECORDS SUMMARY | 2025-07-18 16:49 | XMS_ITS | Encounter Summary ---
Author Organization [facility] [place] [facility] Address [address] [place] [address] Care Team Providers Care Embossing Press Operator Molded Goods Name Role Phone Francisco Cox MD Unavailable [phone] Rick Shi MD Unavailable [phone] Stephan Talbert MD Primary Care Provider [phone] Encounter Details Date Type Department Care Team [...] Description 08/11/2025 3:20 PM EDT Office Visit [facility] Endocr[facility]ology [address] [place] [address] Mary Arroyo PA [address] [address] 10/05/2025 10:00 AM EST Office Visit [facility] General & Weight Loss Surgery [address] [place] [address] Geoffrey Leos MD [address] [phone] documented as of this encounter Visit Diagnoses [...] documented as of this encounter Care Teams Embossing Press Operator Molded Goods Relationship Specialty Start Date End Date Stephan Talbert MD [address] [place] [address] PCP - General 02/10/24 Francisco Cox MD [address] [place] [address] 06/18/22 Rick Shi MD [address] [place] [address] Referring Physician 01/30/24 documented as of this encounter
--- OUTSIDE RECORDS SUMMARY | 2025-07-18 16:49 | XMS_ITS | Encounter Summary ---
Author Organization [facility] Address [address] [place] [address] Care Team Providers Care Phlebotomy Technician Name Role Phone Unavailable Primary Care Provider Unavailabl e Encounter Details Date Type Department Care Team (Late st Contact Info) Description 02/25/2025 Abstract [facility] [address] [place] [address] Evie Thurman RN [address] [place] [address] Social History Tobacco Use Types Packs/Day Years [...] Description 07/22/2025 1:00 PM EDT Appointment [facility] Outpatient [place], Esthela Ventura [address] [place] [address] [address] [place] [address] 07/22/2025 1:30 PM EDT Appointment [facility] [place] [address] [facility] E[address] LU[place] [id number] 07/22/2025 2:30 PM EDT Appointment [facility] [address] [facility] [address] [place] [id number] 07/22/2025 3:15 PM EDT Appointment Will Ventura Admission Testing [address] [place] [address] B Esthela Ventura [place] [id number] documented as of this encounter Visit Diagnoses Not on filedocumented in this encounter
--- OUTSIDE RECORDS SUMMARY | 2025-07-18 16:49 | XMS_ITS | Clinical Summary ---
Author Organization [facility] Address [address] [place] [id number] Care Team Providers Care Signing Teacher Name Role Phone Unavailable Primary Care Provider Unavailabl e Encounters Date Type Department Care Team Description 06/14/2025 Orders Only [facility] [address] [place] [phone] Iris Greer RN Pre-transplant evaluation for end stage renal disease (Primary Dx); Chronic kidney disease with end stage renal failure on dialysis ([facility]) 06/13/2025 Abstract [facility] [address] [place] [id number] Isidra Almodovar 05/24/2025 Abstract [facility] [address] [place] [address] 35666 Iris Greer RN 05/23/2025 Telephone [facility] [address] [place] [phone] Rita Flores Other (FINANCIAL- INSURANCE.) 05/03/2025 Telephone [facility] [address] [place] [phone] Cade Sánchez BSN, RN Kidney Recipient Evaluation from Last 3 Months [...] Description 07/22/2025 1:00 PM EDT Appointment [facility] Outpatient [place], Esthela Ventura [address] [place] [address] [address] [place] [address] 07/22/2025 1:30 PM EDT Appointment [facility] Esthela Ventura [facility] [address] [facility] [address] [place] [address] 07/22/2025 2:30 PM EDT Appointment [facility] Esthela Vent[facility] [address] [facility] [address] [place] [address] 07/22/2025 3:15 PM EDT Appointment [facility] [address] [place] [address] Health Maintenance Due Date Last Done Comments Cologuard 1980 Colonoscopy 1980 Colorectal Cancer Screening 1980 FIT 1980 Cervical Cancer Screening 2001 HPV Vaccine (1 - 3-dose SCDM series) 2007 BMI Counseling 11/03/2024 Depression Screening 11/03/2024 COVID-19 Vaccine ( season) 2025, 08/27/2021 Influenza Vaccination (#1) 2025 Lipid Screening 02/12/2029 02/13/2024 Tetanus Vaccination (Every 10 Years) 11/02/203410/05 Insurance [employer] [facility] MEDICAID MEDICAID [facility] MEDICARE
--- OUTSIDE RECORDS SUMMARY | 2025-07-18 16:49 | XMS_ITS | Encounter Summary ---
Author Organization [facility] Address [address] [place] [address] Care Team Providers Care Boiler Helper Name Role Phone Francisco Cox MD Unavailable Rick Shi MD Unavailable [phone] Stephan Talbert MD Primary Care Provider [phone] Encounter Details Date Type Department Care Team [...] Office Visit [facility] [address] [place] [address] Mary Arroyo PA [address] [place] [address] 10/05/2025 10:00 AM EST Office Visit [facility] General & Weight Loss Surgery [address] [place] [address] Geoffrey Leos MD [address] [address] documented as of this encounter [...] documented as of this encounter Care Teams Boiler Helper Relationship Specialty Start Date End Date Stephan Talbert MD [address] [place] [id number] PCP - General 02/10/24 Francisco Cox MD [address] [place] [id number] 06/18/22 Rick Shi MD [address] [place] [address] [phone] Referring Physician 01/30/24 documented as of this encounter
--- OUTSIDE RECORDS SUMMARY | 2025-07-18 16:49 | XMS_ITS | Encounter Summary ---
Author Organization [facility] Address [address] [place] [address] Care Team Providers Care Material Handling Crew Supervisor Name Role Phone Unavailable Primary Care Provider Unavailabl e Encounter Details Date Type Department Care Team (Late st Contact Info) Description 01/05/2025 Abstract [facility] [address] [address] Rosenda Grady [address] [place], [place] [id number] Social History Tobacco Use Types Packs/Day Years [...] Description 07/22/2025 1:00 PM EDT Appointment [facility] [address] [facility] [facility] [address] [place] [address] 07/22/2025 1:30 PM EDT Appointment [facility] [address] [facility] [facility] [place] [id number] 07/22/2025 2:30 PM EDT Appointment [facility] Testing Center - Esthela Ventura [facility] Outpatient Center [address] [facility] [facility] [address] [place] [address] 07/22/2025 3:15 PM EDT Appointment Will Ventura Admission Testing [address] [facility] [place] [address] documented as of this encounter Visit Diagnoses Not on filedocumented in this encounter
== END 2025-07-18 23:59 | disposition home or self-care (01) ==
LOC: LAB.DROPOF 16:41
PROVIDERS: PCP Nurse Practitioner Family; Visit Provider Nurse Practitioner Family
DX: E11.42 Type 2 diabetes mellitus with diabetic polyneuropathy (principal)
CPT/HCPCS: 82043; 82570